=== PATIENT | female | born 1970 | race Caucasian/White ===

== ENCOUNTER 2019-12-15 14:38 | Outpatient (CLI) | payer BC, SELFPAY ==
[2019-12-15 14:55] LABS: Basophils Percent Auto 0.4 % (0.2-1.2); Eosinophils Absolute Auto 0.2 K/mm3 (0-0.3); Eosinophils Percent Auto 2.8 % (0-4.4); Hematocrit 40.1 % (37.0-47.0); Hemoglobin 13.3 g/dL (12.0-15.0); Immature Granulocyte Absolute 0.02 K/mm3 (0.00-0.031); Immature Granulocyte Percent A 0.2 % (0-0.5); Lymphocytes Absolute Auto 1.85 K/mm3 (0.9-3.2); Lymphocytes Percent Auto 21.6 % (18.3-44.2); Mean Corpuscular HGB Conc 33.2 g/dl (32-36); Mean Corpuscular Hemoglobin 28.4 pg (26-34); Mean Corpuscular Volume 85.7 fl (80-100); Mean Platelet Volume 10.9 fl (7.4-10.4); Monocytes Absolute Auto 0.7 K/mm3 (0.1-0.6); Monocytes Percent Auto 7.9 % (2.6-8.5); Neutrophils Absolute Auto 5.7 K/mm3 (1.3-6.7); Neutrophils Percent Auto 67.1 % (45.5-73.1); Platelet Count Result 266 k/mm3 (150-375); Red Blood Count 4.68 M/mm3 (4.2-5.4); Red Cell Distribution Width 12.7 % (11.5-14.5); White Blood Count 8.6 K/mm3 (4.5-10.0)
[2019-12-15 15:06] LABS: Alanine Aminotransferase 16 U/L (4-35); Albumin Level 4.5 g/dL (3.5-5.1); Alkaline Phosphatase 83 U/L (38-126); Amylase 99 U/L (30-110); Aspartate Amino Transferase 22 U/L (14-36); Bilirubin,Total 0.2 mg/dL (0.2-1.3); Blood Urea Nitrogen 18 mg/dL (7-17); Calcium 9.2 mg/dL (8.4-10.2); Carbon Dioxide 25 mmol/L (22-30); Chloride 106 mmol/L (98-107); Estimated Glomerular Filt Rate > 60; Glucose 116 mg/dL (65-105); Lipase 172 U/L (23-300); Potassium 3.7 mmol/L (3.4-5.0); Sodium 139 mmol/L (137-145)
== END 2019-12-15 14:39 | disposition home or self-care (01) ==
PROVIDERS: PCP Family Medicine; Visit Provider Physician Assistant
DX: R10.9 Unspecified abdominal pain (principal)
CPT/HCPCS: 36415; 80053; 82150; 83690; 85025

== ENCOUNTER 2020-01-15 15:37 | Outpatient (CLI) | payer BC, SELFPAY ==
--- NOTE | ~2020-01-15 | US_ITS ---
EXAMINATION: US venous doppler [facility] DATE: 01/15/2020 16:18 INDICATION: Right calf pain. TECHNIQUE: Grayscale ultrasound images without and with compression and Doppler ultrasound images of the bilateral lower extremity veins were obtained. COMPARISON: None. FINDINGS: The visualized portions of right common femoral vein, profunda (deep) femoral vein, femoral vein, pop liteal vein, peroneal veins, posterior tibial veins, and greater saphenous vein outflow are patent. The visualized portions of left common femoral vein, profunda femoral vein, femoral vein, popliteal v ein, peroneal veins, posterior tibial veins, and greater saphenous vein outflow are patent. IMPRESSION: 1. No deep venous thrombosis. Reviewed, dictated and finalized at location A.
== END 2020-01-15 15:38 | disposition home or self-care (01) ==
LOC: ANHIMG 15:39
PROVIDERS: PCP Family Medicine; Visit Provider Physician Assistant
DX: M79.604 Pain in right leg (principal); R60.0 Localized edema
CPT/HCPCS: 93970

== ENCOUNTER 2020-05-04 16:41 | Outpatient (CLI) | payer BC, SELFPAY ==
--- NOTE | ~2020-05-04 | CT_ITS ---
EXAMINATION: CT abdomen pelvis wo con DATE: 05/04/2020 16:57 INDICATION: Right lower quadrant abdominal pain TECHNIQUE: Computed tomography (CT) of the abdomen and pelvis was performed without intravenous contr ast. Automated exposure control and iterative reconstruction technique were employed. The dose-length product was 650.04 mGy-cm. COMPARISON: 07/25/2018 FINDINGS: Lung bases are clear. Heart size is normal. Unchanged small pericardial effusion. Small amount of pne umobilia likely related to prior sphincterotomy with cholecystectomy clips at the gallbladder fossa. Liver is otherwise unremarkable. Spleen, pancreas, bilateral adrenal glands and kidneys are normal. N o urolithiasis. Normal retrocecal appendix. Anastomotic suture line along the sigmoid colon. No bowel obstruction. Bladder is normal. The uterus is not identified and has likely been surgically resected . No free intraperitoneal gas or fluid. No pathologically enlarged abdominal or pelvic lymphadenopath y. Couple unchanged phleboliths in the pelvis. Unchanged right iliac bone island. Mild left and moder ate right sacroiliac osteoarthritis. IMPRESSION: 1. No acute intra-abdominal/pelvic process. Reviewed, dictated and finalized at location A. JAVA ENGINEER
== END 2020-05-04 16:42 | disposition home or self-care (01) ==
PROVIDERS: PCP Family Medicine; Visit Provider Family Medicine
DX: R10.31 Right lower quadrant pain (principal)
CPT/HCPCS: 74176

== ENCOUNTER → 2021-06-28 08:11 | Outpatient (CLI) | payer BC, SELFPAY ==
[2021-06-29 12:27] LABS: SARS-CoV-2 RNA PCR Negative
== END ==
PROVIDERS: PCP Family Medicine; Visit Provider Physician Assistant
DX: J06.9 Acute upper respiratory infection, unspecified (principal); Z20.822 Contact with and (suspected) exposure to COVID-19
CPT/HCPCS: C9803; U0003; U0005

== ENCOUNTER 2021-07-03 09:45 | Outpatient (CLI) | payer BC, SELFPAY ==
--- NOTE | ~2021-07-03 | CT_ITS ---
EXAMINATION: CT abdomen pelvis wo con DATE: 07/03/2021 10:11 INDICATION: Right lower quadrant abdominal pain and nausea. TECHNIQUE: Computed tomography (CT) of the abdomen and pelvis was performed without intravenous contr ast. Automated exposure control and iterative reconstruction technique were employed. The dose-length product was 607.33 mGy-cm. COMPARISON: 05/04/2020 FINDINGS: Lung bases are clear. Heart size is normal. Small pericardial effusion. Liver, spleen, pancreas, bila teral adrenal glands and kidneys are normal. Cholecystectomy clips at the gallbladder fossa. Fluid th roughout the colon consistent with diarrhea. Anastomotic suture line at the sigmoid colon. No abnorma l bowel wall thickening or obstruction. Small bowel and appendix are normal. Bladder is normal. No fr ee intraperitoneal gas or fluid. No pathologically enlarged abdominal or pelvic lymphadenopathy. Mild lumbar and lower thoracic spondylosis. Unchanged right iliac bone island. Mild left and moderate rig ht sacroiliac osteoarthritis. IMPRESSION: 1. Fluid throughout the colon consistent with nonspecific diarrhea. Correlate clinically for enteriti s. No other acute intra-abdominal/pelvic process. Reviewed, dictated and finalized at location B. CONTRACTOR IMPRESSION: 1. Fluid throughout the colon consistent with nonspecific diarrhea. Correlate c linically for enteritis. No other acute intra-abdominal/pelvic process.
== END 2021-07-03 09:46 | disposition home or self-care (01) ==
LOC: ANHIMG 09:46
PROVIDERS: PCP Family Medicine; Visit Provider Family Medicine
DX: R10.31 Right lower quadrant pain (principal)
CPT/HCPCS: 74176

== ENCOUNTER 2021-08-08 15:53 | Outpatient (CLI) | payer BC, SELFPAY ==
--- NOTE | ~2021-08-08 | XR_ITS ---
XR_CERV2-3V_CR DATE: 08/08/2021 16:18 INDICATION: Neck pain TECHNIQUE: AP, open-mouth, lateral views COMPARISON: 07/14/2015 cervical spine FINDINGS: There is straightening of cervical spine. C1 and C2 are normally aligned and the odontoid process is intact. There is no loss of interspace height and anterior spurring at C4-5. The remaining cervical interspac es are well preserved. No fracture or dislocation, locked facet or prevertebral soft tissue swelling. IMPRESSION: Straightening of the cervical spine Minimal degenerative disc disease at C4-5 Reviewed, dictated and finalized at Location A. Reviewed, dictated and finalized at location A. UNITY DIRECTOR
--- NOTE | ~2021-08-08 | XR_ITS ---
XR chest 2V DATE: 08/08/2021 16:18 INDICATION: Cough TECHNIQUE: PA and lateral views COMPARISON: 06/19/2018 two-view chest FINDINGS: Heart size is within normal limits. No hilar or mediastinal enlargement. No pulmonary infil trate or consolidation, pleural effusion or pulmonary vascular congestion or pneumothorax. Included skeletal structures are unremarkable. IMPRESSION: No active cardiopulmonary disease Reviewed, dictated and finalized at location A. GROWER
== END 2021-08-08 15:54 | disposition home or self-care (01) ==
PROVIDERS: PCP Family Medicine; Visit Provider Nurse Practitioner Family
DX: R05.9 Cough, unspecified (principal); M53.82 Other specified dorsopathies, cervical region; M50.321 Other cervical disc degeneration at C4-C5 level
CPT/HCPCS: 71046; 72040

== ENCOUNTER 2021-11-02 13:24 | Outpatient (CLI) | payer BC, SELFPAY ==
--- NOTE | 2021-11-02 17:34 | WPDPFTINT ---
PFT Procedure Performed PFT Procedure Performed Spirometry with Pre/Post Bronchodilator Plethysmography (Lung Vol) Diffusing Cap (DLCO) Flow Vol Loop PFT Interpretation This is a pulmonary function test with pre and post-bronchodilator spirometry, plethysmography and diffusing capacity. The test was performed and results interpreted in accordance with the 2019 and 2005 ATS/ERS Task Force guidelines respectively using the Global Lung Function Initiative-2012 reference equations. Patient demonstrated good effort and cooperation. Reproducibility criteria were met. The quality of the pre bronchodilator spirometry maneuver was Grade C and post bronchodilator spirometry maneuver was Grade C. Findings: Spirometry: There is decreased maximal expiratory airflow at all lung volumes with concave expiratory flow tracing. The pre bronchodilator FVC is 3.47 L, 87% predicted. The pre bronchodilator FEV1 is 2.27 L, 72% predicted. The pre bronchodilator FEV1: FVC ratio 65%. The post bronchodilator FVC is 3.60 L, representing a 4% increase. The post bronchodilator FEV1 is 2.58 L, representing a 14% increase. The post bronchodilator FEV1: FVC ratio is 71%. Plethysmography: The total lung capacity is 5.66 L, 98% predicted. The functional residual capacity is 2.56 L, 78% predicted. The residual volume is 2.19 L, 105% predicted. Diffusing capacity: The diffusing capacity unadjusted for hemoglobin and carboxyhemoglobin is 19.1, 78% predicted. The diffusing capacity adjusted for alveolar volume is 3.97, 92% predicted. Impression: There is a mild obstructive abnormality with significant improvement after inhaling a single dose of albuterol. Lung volumes are normal. The diffusing capacity is normal. There are no prior studies for comparison
== END 2021-11-02 13:25 | disposition home or self-care (01) ==
LOC: ANHPFT 13:25
PROVIDERS: PCP Family Medicine; Visit Provider Nurse Practitioner Family
DX: R06.02 Shortness of breath (principal); R05.9 Cough, unspecified; R94.2 Abnormal results of pulmonary function studies
CPT/HCPCS: 94060; 94726; 94729

== ENCOUNTER → 2021-11-13 15:04 | Outpatient (CLI) | payer BC, SELFPAY ==
--- NOTE | ~2021-11-13 | XR_ITS ---
EXAM: XR hand LT 2V, XR hand RT 2V HISTORY: polyarthralgia . COMPARISON: None available. FINDINGS: Normal mineralization. No fracture or dislocation. No lytic or blastic lesion. Minimal nils nt space narrowing and osteophytosis in the finger joints bilaterally. No erosion or periosteal monson e. Soft tissues within normal limits. IMPRESSION: Minimal osteoarthritic changes in the fingers, otherwise normal left and right hand radio graph findings. Reviewed, dictated and finalized at location K. IMPRESSION: Minimal osteoarthritic changes in the fingers, otherwise normal lef t and right hand radiograph findings.
--- NOTE | ~2021-11-13 | XR_ITS ---
XR knee RT 2V, XR knee LT 2V 11/13/2021 16:00 Indication: Arthralgia. Knee pain. Procedure: 2 views each knee Comparison: No prior studies for comparison. Findings: No fracture, subluxation or dislocation. No significant joint effusion. No foreign bodies. There is anatomic alignment. Impression: 1: No significant bone or joint abnormality. Reviewed, dictated and finalized at location A. Impression: 1: No significant bone or joint abnormality. Impression: 1: No significant bone or joint abnormality.
--- NOTE | ~2021-11-13 | XR_ITS ---
EXAM: XR lumbar spine 2-3V HISTORY: Low back pain, polyarthralgia COMPARISON: None available FINDINGS: Cholecystectomy clips. 5 nonrib-bearing lumbar-type vertebral bodies. Pedicles intact. Norm al vertebral body alignment. Vertebral body heights preserved. Mild narrowing at L4-5 and L5-S1. Face t sclerosis and interspinous narrowing in the lower lumber spine. IMPRESSION: Mild degenerative disc disease at L4-5 and L5-S1. Moderate lower lumbar facet arthropathy and intersp inous narrowing. Reviewed, dictated and finalized at location K. IMPRESSION: Mild degenerative disc disease at L4-5 and L5-S1. Moderate lower lumbar facet a rthropathy and interspinous narrowing.
== END ==
PROVIDERS: PCP Family Medicine; Visit Provider Physician Assistant
DX: M19.042 Primary osteoarthritis, left hand (principal); M47.817 Spondylosis without myelopathy or radiculopathy, lumbosacral region; M19.041 Primary osteoarthritis, right hand; M25.562 Pain in left knee; M25.561 Pain in right knee
CPT/HCPCS: 72100; 73120; 73560

== ENCOUNTER 2021-11-21 15:44 | Outpatient (CLI) | payer BC, SELFPAY ==
[2021-11-24 12:01] LABS: Alpha-1-Antitrypsin, QN 149 mg/dL (83-199)
== END 2021-11-21 15:45 | disposition home or self-care (01) ==
LOC: ANHLAB 15:45
PROVIDERS: PCP Family Medicine; Visit Provider Physician Assistant
DX: R05.9 Cough, unspecified (principal); R06.02 Shortness of breath
CPT/HCPCS: 36415; 82103; 82104

== ENCOUNTER 2021-12-11 09:39 | Outpatient (CLI) | payer BC, SELFPAY ==
--- NOTE | ~2021-12-11 | CT_ITS ---
EXAMINATION: CT diagnostic chest wo con DATE: 12/11/2021 09:58 INDICATION: Cough, shortness of breath TECHNIQUE: Computed tomography (CT) of the chest was performed without intravenous contrast. Automate d exposure control and iterative reconstruction technique were employed. Exam dose: 184.02 mGy-cm to jelena exam DLP. COMPARISON: 08/08/2021 2 view chest FINDINGS: Trace pericardial fluid. Normal heart size. No thoracic aortic aneurysm. No hilar or mediastinal mass lesion or lymphadenopathy. Calcified right hilar nodes and calcified right lower lobe pulmonary granuloma, consistent with old pulmonary granulo matous disease. Mild discoid atelectasis or scarring at the dependent posterior right lung base. No pulmonary infiltr ate or consolidation or pulmonary mass lesion is detected. Normal morphology of the adrenal glands. Status post cholecystectomy. Included skeletal structures are unremarkable. IMPRESSION: Minimal discoid atelectasis or scarring at the dependent posterior right lower lobe Status post cholecystectomy Reviewed, dictated and finalized at Location A. Reviewed, dictated and finalized at location A.
--- NOTE | ~2021-12-11 | XR_ITS ---
EXAMINATION: XR barium swallow modified DATE: 12/11/2021 10:26 INDICATION: Dysphagia. TECHNIQUE: The patient was given barium-containing material of multiple consistencies to swallow by salvador cruz speech pathologist while I performed fluoroscopy. Dose-area product was 0.77 Gy-cm2. 1.0 minutes fluoroscopy time FINDINGS: Oral Stage: Within functional limits Pharyngeal Phase: Within functional limits Cervical/Esophageal Stage: Within functional limits IMPRESSION: Modified esophagram findings as above. Please refer to the speech therapy report [facility] Reviewed, dictated and finalized at Location A. Reviewed, dictated and finalized at location A. IMPRESSION: Modified esophagram findings as above. Please refer to the speech t herapy report for specific recommendations.
--- NOTE | 2021-12-11 12:07 | STOPEVAL ---
MODIFIED BARIUM SWALLOW Thank you for referring Antonette Childress to [facility].? Referring Physician Date Attending Provider: NABIL Vera Therapy Assessment Status Assessment Status Assessment Status Evaluation Outpatient Past Medical History Past Medical History No Past Medical/Surgical History Patient/Family Denies Significant Past Medical/ Surgical History Source of Past Medical History Patient Pain Assessment Timing of Pain Assessment Timing of Pain Assessment Assessment Self Report Self Report Pain Level 0 Pain Score Pain Score 0: Self Report Modified Barium Swallow Evaluation Consistency Solid Consistency 5 mL Method of Presentation Spoon Oral Preparatory Symptoms Within Functional Limits Oral Phase Symptoms Within Functional Limits Pharyngeal Phase Symptoms Within Functional Limits Severity of Vallecular Residue None - 0% No Residue Severity of Pyriform Sinus Residue None - 0% No Residue 8 Point Laryngeal Penetration-Aspiration Material Does Not Enter Airway Scale Cervical/Esophageal Symptoms Within Functional Limits Mixed Consistency 5 mL Method of Presentation Spoon Oral Preparatory Symptoms Within Functional Limits Oral Phase Symptoms Within Functional Limits Pharyngeal Phase Symptoms Within Functional Limits Severity of Vallecular Residue None - 0% No Residue Severity of Pyriform Sinus Residue None - 0% No Residue 8 Point Laryngeal Penetration-Aspiration Material Does Not Enter Airway Scale Cervical/Esophageal Symptoms Within Functional Limits Pureed Consistency 5 mL Method of Presentation Spoon Oral Preparatory Symptoms Within Functional Limits Oral Phase Symptoms Within Functional Limits Pharyngeal Phase Symptoms Within Functional Limits Severity of Vallecular Residue None - 0% No Residue Severity of Pyriform Sinus Residue None - 0% No Residue 8 Point Laryngeal Penetration-Aspiration Material Does Not Enter Airway Scale Cervical/Esophageal Symptoms Within Functional Limits Pureed Consistency 3 mL Method of Presentation Spoon Oral Preparatory Symptoms Within Functional Limits Oral Phase Symptoms Within Functional Limits Pharyngeal Phase Symptoms Within Functional Limits Severity of Vallecular Residue None - 0% No Residue Severity of Pyriform Sinus Residue None - 0% No Residue 8 Point Laryngeal Penetration-Aspiration Material Does Not Enter Airway Scale Cervical/Esophageal Symptoms Within Functional Limits Thin Uncontrolled 2 Method of Presentation Straw Oral Preparatory Symptoms Within Functional Limits Oral Phase Symptoms Within Functional Limits Pharyngeal Phase Symptoms
== END 2021-12-11 09:40 | disposition home or self-care (01) ==
LOC: ANHIMG 09:44
PROVIDERS: PCP Family Medicine; Visit Provider Physician Assistant
DX: R05.9 Cough, unspecified (principal); R06.02 Shortness of breath; Z90.49 Acquired absence of other specified parts of digestive tract
CPT/HCPCS: 71250; 92611

== ENCOUNTER 2022-03-06 11:37 | Outpatient (CLI) | payer BC, SELFPAY ==
--- NOTE | ~2022-03-06 | XR_ITS ---
EXAMINATION:XR cervical spine 4-5V DATE: 03/06/2022 11:57 INDICATION: Neck pain TECHNIQUE: AP, lateral, bilateral oblique and odontoid views of the cervical spine are provided. COMPARISON: 08/08/2021 FINDINGS: Alignment is normal. The odontoid is intact. No fracture is identified. There is mild loss of intervertebral disc space height at C4-5. Mild facet and uncovertebral joint osteoarthritis is not ed at this level. Prevertebral soft tissues are normal. IMPRESSION: 1. Mild cervical spondylosis without acute findings or significant interval change. Reviewed, dictated and finalized at location B. IMPRESSION: 1. Mild cervical spondylosis without acute findings or significant interval stephan nge.
== END 2022-03-06 11:38 | disposition home or self-care (01) ==
LOC: ANHIMG 11:41
PROVIDERS: PCP Family Medicine; Visit Provider Physician Assistant
DX: M54.2 Cervicalgia (principal)
CPT/HCPCS: 72050

== ENCOUNTER 2022-05-09 13:55 | Outpatient (CLI) | payer BC, SELFPAY ==
--- NOTE | ~2022-05-09 | CT_ITS ---
EXAMINATION: CT abdomen pelvis wo con DATE: 05/09/2022 14:10 INDICATION: Right lower quadrant abdominal pain for months. There are history of cholecystectomy and partial colectomy. TECHNIQUE: Computed tomography (CT) of the abdomen and pelvis was performed without intravenous contr ast. Automated exposure control and iterative reconstruction technique were employed. Exam dose: 641 .79 mGy-cm total exam DLP. COMPARISON: 07/03/2021 CT abdomen pelvis FINDINGS: The lung bases are clear. Normal heart size. No pericardial or pleural effusion. Status post cholecystectomy, with likely associated mild pneumobilia. No hepatic space-occupying mass lesion. No bile duct or pancreatic duct dilatation. No pancreatic mas s lesion or calcification. Normal splenic size. Normal morphology of the adrenal glands. No renal mass lesion or urinary tract calculus or hydroureteronephrosis. The urinary bladder is evacu ated. Status post hysterectomy. Normal caliber of the abdominal aorta. No intraperitoneal or retroperitoneal or pelvic mass lesion or adenopathy or ascites. Normal appendix. There is a suture line at the sigmoid colon consistent with history of prior partial colectomy. No bowel obstruction, bowel wall thickening, pneumatosis or intraperitoneal free air. Included skeletal structures are unremarkable, without suspicious osteolytic or osteoblastic lesions. IMPRESSION: Normal appendix Status post cholecystectomy Status post partial left colectomy Reviewed, dictated and finalized at Location A. Reviewed, dictated and finalized at location A. RUNNER
== END 2022-05-09 13:56 | disposition home or self-care (01) ==
PROVIDERS: PCP Family Medicine; Visit Provider Physician Assistant
DX: R10.31 Right lower quadrant pain (principal); R10.2 Pelvic and perineal pain; Z90.49 Acquired absence of other specified parts of digestive tract
CPT/HCPCS: 74176

== ENCOUNTER 2022-06-14 15:17 | Outpatient (CLI) | payer BC, SELFPAY ==
[2022-06-14 16:04] LABS: Influenza A QL RT-PCR Negative (Negative); Influenza B QL RT-PCR Negative (Negative); SARS-CoV-2 RNA PCR Negative
== END 2022-06-14 15:18 | disposition home or self-care (01) ==
LOC: ANHLAB 15:19
PROVIDERS: PCP Family Medicine; Visit Provider Physician Assistant
DX: R05.9 Cough, unspecified (principal); R06.02 Shortness of breath
CPT/HCPCS: 87636

== ENCOUNTER → 2022-06-15 09:36 | Outpatient (CLI) | payer BC, SELFPAY ==
--- NOTE | ~2022-06-15 | XR_ITS ---
EXAMINATION: XR hip BI 2V w AP pelvis DATE: 06/15/2022 09:52 INDICATION: Bilateral hip pain TECHNIQUE: AP view the pelvis and two views of each hip were obtained. COMPARISON: None. FINDINGS: Bone alignment is normal. There is no fracture. A surgical anastomosis is noted in the left pelvis. There is mild osteoarthritis of the hips. IMPRESSION: 1. Mild osteoarthritis of the hips. Reviewed, dictated and finalized at location A. SHER WALLBOARD AND PLASTERBOARD
--- NOTE | ~2022-06-15 | XR_ITS ---
EXAMINATION: XR lumbar spine 2-3V DATE: 06/15/2022 09:52 INDICATION: Low back pain TECHNIQUE: Anteroposterior and lateral views of the lumbar spine, and cone-down lateral view of the l umbosacral junction were obtained. COMPARISON: 11/13/2021 FINDINGS: The vertebral body heights and alignment are normal. There is no fracture. There is mild lo ss of intervertebral disc space height at L4-5 and L5-S1. Small degenerative osteophytes project from the anterior endplates of multiple vertebral bodies. There is moderate facet joint osteoarthritis of the lower lumbar spine. Surgical clips in the right upper quadrant are likely from prior cholecystec janny. IMPRESSION: 1. Mild lumbar spondylosis without acute findings or significant interval change. Reviewed, dictated and finalized at location A. GER AIR IMPRESSION: 1. Mild lumbar spondylosis without acute findings or significant interval iona ramon
== END ==
PROVIDERS: PCP Family Medicine; Visit Provider Physician Assistant
DX: M25.551 Pain in right hip (principal); G89.29 Other chronic pain; M54.50 Low back pain, unspecified; M16.0 Bilateral primary osteoarthritis of hip; M43.06 Spondylolysis, lumbar region
CPT/HCPCS: 72100; 73521

== ENCOUNTER 2022-07-25 09:00 | Outpatient (CLI) | payer BC, SELFPAY ==
--- NOTE | ~2022-07-25 | XR_ITS ---
EXAMINATION: XR lg joint inject/asp w image DATE: 07/25/2022 09:50 INDICATION: Right hip arthritis. TECHNIQUE: A time-out was performed to verify the patient's name, date of , and procedure to b e performed. The procedure including the risks, benefits, and alternatives was discussed with the pat ient. Risks discussed included bleeding and infection. The patient understood the risks and agreed to proceed. The skin overlying the right hip joint was prepped and draped in usual sterile fashion. A nesthetic was administered with 1% lidocaine subcutaneously. A 22 G needle was advanced under fluoro scopic guidance into the joint. Subsequently, injectate consisting of 2 mL 0.5% bupivacaine and 1 mL 80 mg/mL Depo-Medrol was instilled. The needle was removed and the entry site was cleaned and dress ed. There were no immediate complications. Fluoroscopy exposure time was 0.1 minutes. The total numb er of images was 1. FINDINGS: Real-time fluoroscopy demonstrates the needle in the right hip joint. Patient's pain prior to procedure:6/10. Patient's pain following the procedure: 4/10. IMPRESSION: 1. Fluoroscopy guided right hip joint injection of local anesthetic and steroid with decrease in the patient's presenting pain. Reviewed, dictated and finalized at location A. L UNLOADER
== END 2022-07-25 09:01 | disposition home or self-care (01) ==
PROVIDERS: PCP Family Medicine; Visit Provider Nurse Practitioner Family
DX: M16.11 Unilateral primary osteoarthritis, right hip (principal)
CPT/HCPCS: 20610; 77002; J1040

== ENCOUNTER 2022-09-11 13:31 | Outpatient (CLI) | payer BC, SELFPAY ==
--- NOTE | ~2022-09-11 | MR_ITS ---
EXAMINATION: MR lumbar spine wo con DATE: 09/11/2022 14:11 INDICATION: Low back pain. TECHNIQUE: Magnetic resonance imaging (MRI) of the lumbar spine was performed without intravenous con trast. Sequences included sagittal T2-weighted FSE, sagittal T2-weighted FS FSE, sagittal T1-weighted FSE, and axial T2-weighted FSE. COMPARISON: Lumbar spine radiographs 06/15/2022 FINDINGS: Bone alignment is normal. Vertebral body heights are normal. Intervertebral disc heights ar e normal. The distal spinal cord signal intensity is normal. The conus medullaris is at L1. The follo wing disc levels are specifically discussed: L1-L2: The disc does not extend beyond the endplate margin. There is mild bilateral facet joint osteo arthritis. There is no neural foraminal stenosis. There is no central canal stenosis. L2-L3: The disc is mildly bulging. There is mild bilateral facet joint osteoarthritis. There is mild left neural foraminal stenosis. There is mild central canal stenosis. L3-L4: The disc is bulging. There is moderate right and mild left facet joint osteoarthritis. There i s mild bilateral neural foraminal stenosis. There is mild central canal stenosis. L4-L5: The disc is bulging. There is severe bilateral facet joint osteoarthritis. There is mild bilat eral neural foraminal stenosis. There is mild central canal stenosis. L5-S1: The disc does not extend beyond the endplate margin. There is severe bilateral facet joint ost eoarthritis. There is no neural foraminal stenosis. There is no central canal stenosis. IMPRESSION: 1. Mild lumbar spondylosis. Reviewed, dictated and finalized at location A. IMPRESSION: 1. Mild lumbar spondylosis.
== END 2022-09-11 13:32 | disposition home or self-care (01) ==
PROVIDERS: PCP Family Medicine; Visit Provider Nurse Practitioner Family
DX: M54.50 Low back pain, unspecified (principal); M43.06 Spondylolysis, lumbar region
CPT/HCPCS: 72148

== ENCOUNTER 2022-10-02 08:31 | Outpatient (CLI) | payer BC, SELFPAY ==
--- NOTE | ~2022-10-02 | XR_ITS ---
EXAMINATION: XR sacroiliac jt inj w imag RT DATE: 10/02/2022 09:34 INDICATION: Sacrococcygeal joint disorder with one year of sacral iliac joint pain. TECHNIQUE: A time-out was performed to verify the patient's name, date of , and procedure to b e performed. The procedure including the risks, benefits, and alternatives was discussed with the pat ient. Risks discussed included bleeding and infection. The patient understood the risks and agreed to proceed. The skin overlying the right sacroiliac joint was prepped and draped in usual sterile fash ion. Anesthetic was administered with 1% lidocaine subcutaneously. A 22 G needle was advanced under fluoroscopic guidance into the joint. Injection of 1 mL of Omnipaque 240 confirmed intra-articular position of the needle. Subsequently, injectate consisting of 3 mL of a 2:1 mixture of 0.5% Marcaine : 80 mg/mL Depo-Medrol for a total dosage of 80 mg Depo-Medrol was instilled. Washout of contrast was seen confirming intra-articular administration. The needle was removed and the entry site was cleane d and dressed. There were no immediate complications. Fluoroscopy exposure time was 0.3 minutes. The total number of images was 5. FINDINGS: Real-time fluoroscopy demonstrates the needle in the right sacroiliac joint. Patient's pain prior to procedure:6/10. Patient's pain following the procedure: 0/10. IMPRESSION: 1. Successful right sacroiliac joint injection of local anesthetic and steroid with decrease in the p atient's presenting pain. Reviewed, dictated and finalized at location A. IMPRESSION: 1. Successful right sacroiliac joint injection of local anesthetic and steroid with decrease in the patient's presenting pain.
== END 2022-10-02 08:32 | disposition home or self-care (01) ==
PROVIDERS: PCP Family Medicine; Visit Provider Nurse Practitioner Family
DX: M53.3 Sacrococcygeal disorders, not elsewhere classified (principal)
CPT/HCPCS: 27096; G0260; J1040; Q9966

== ENCOUNTER → 2023-01-30 10:46 | Outpatient (CLI) | payer BC, SELFPAY ==
--- NOTE | ~2023-01-30 | XR_ITS ---
Clinical Indication: Cough PA and lateral views of the chest: Comparison: 08/08/2021 Findings: The lungs are clear, without evidence of focal consolidation or pleural effusion. Cardiome diastinal silhouette is within normal limits. Bones and soft tissues are unremarkable. Impression: Normal chest. Reviewed, dictated and finalized at location . Impression: Normal chest.
== END ==
PROVIDERS: PCP Family Medicine; Visit Provider Family Medicine
DX: R05.9 Cough, unspecified (principal)
CPT/HCPCS: 71046

== ENCOUNTER 2023-07-09 14:19 | Outpatient (CLI) | payer BC, SELFPAY ==
--- NOTE | ~2023-07-09 | US_ITS ---
EXAMINATION: US soft tissue head and neck DATE: 07/09/2023 14:44 INDICATION: Right neck pain. TECHNIQUE: Multiple sonographic images of the head and neck were obtained. COMPARISON: None. FINDINGS: There is no abnormal mass or lymphadenopathy in the patient's area of concern. IMPRESSION: 1. No abnormal mass or lymphadenopathy in the patient's area of concern in the neck. Reviewed, dictated and finalized at location A. SHOP SUPERVISOR
== END 2023-07-09 14:20 | disposition home or self-care (01) ==
LOC: ANHIMG 14:21
PROVIDERS: PCP Family Medicine; Visit Provider Physician Assistant
DX: M54.2 Cervicalgia (principal)
CPT/HCPCS: 76536

== ENCOUNTER 2023-09-07 12:40 | Outpatient (CLI) | payer BC, SELFPAY ==
--- NOTE | ~2023-09-07 | MR_ITS ---
EXAMINATION: MR brain/brain stem wo con DATE: 09/08/2023 06:37 INDICATION: Headache, unspecified. TECHNIQUE: Magnetic resonance imaging (MRI) of the brain and brainstem was performed without intraven ous contrast. COMPARISON: Brain MRI 08/15/2013, head CT 07/22/2013 FINDINGS: There are scattered areas of nonspecific increased T2-weighted signal intensity in the cere bral white matter, which is within normal limits for the patient's age. There is no intracranial hemo rrhage, acute infarction, or abnormal intracranial mass lesion. The ventricles are normal in size. Th ere is mild mucosal thickening in the paranasal sinuses. The mastoid air cells are normal. The orbits are normal. IMPRESSION: 1. Normal aging brain. Reviewed, dictated and finalized at location E. IMPRESSION: 1. Normal aging brain.
== END 2023-09-07 12:41 | disposition home or self-care (01) ==
PROVIDERS: PCP Family Medicine; Visit Provider Physician Assistant
DX: R51.9 Headache, unspecified (principal)
CPT/HCPCS: 70551

== ENCOUNTER 2023-09-20 13:17 | Outpatient (CLI) | payer BC, SELFPAY ==
--- NOTE | ~2023-09-20 | XR_ITS ---
EXAMINATION: XR sacroiliac jt inj w imag RT DATE: 09/20/2023 14:03 INDICATION: Sacrococcygeal disorder with pain TECHNIQUE: A time-out was performed to verify the patient's name, date of , and procedure to b e performed. The procedure including the risks, benefits, and alternatives was discussed with the pat ient. Risks discussed included bleeding and infection. The patient understood the risks and agreed to proceed. The skin overlying the right sacroiliac joint was prepped and draped in usual sterile fash ion. Anesthetic was administered with 1% lidocaine subcutaneously. A 22 G needle was advanced under fluoroscopic guidance into the joint. Injection of 1 mL of Omnipaque 240 confirmed intra-articular position of the needle. Subsequently, injectate consisting of 3 mL at 2:1 mixture of 0.5% Marcaine: 80 mg/mL Depo-Medrol for a total dosage of 80 mg Depo-Medrol was instilled. Washout of contrast was s een confirming intra-articular administration. The needle was removed and the entry site was cleaned and dressed. There were no immediate complications. Fluoroscopy exposure time was 0.2 minutes. The t otal number of images was 3. Total DAP was 1.216 Gycm^2 FINDINGS: Real-time fluoroscopy demonstrates the needle in the right sacroiliac joint. Patient's pain prior to procedure:10. Patient's pain following the procedure: 09/07. IMPRESSION: 1. Successful right sacroiliac joint injection of local anesthetic and steroid with decrease in the p atient's presenting pain. Reviewed, dictated and finalized at location A. IMPRESSION: 1. Successful right sacroiliac joint injection of local anesthetic and steroid with decrease in the patient's presenting pain.
== END 2023-09-20 13:18 | disposition home or self-care (01) ==
LOC: ANHIMG 13:18
PROVIDERS: PCP Family Medicine; Visit Provider Nurse Practitioner Family
DX: M53.3 Sacrococcygeal disorders, not elsewhere classified (principal)
CPT/HCPCS: 27096; G0260; J1040; Q9966

== ENCOUNTER 2023-11-12 14:00 | Outpatient (CLI) | payer BC, SELFPAY ==
--- NOTE | ~2023-11-12 | CT_ITS ---
EXAMINATION: CT abdomen pelvis w con DATE: 11/12/2023 14:22 INDICATION: Nausea. Upper abdominal pain. TECHNIQUE: Computed tomography (CT) of the abdomen and pelvis was performed with 100 mL Omnipaque 350 intravenous contrast. Automated exposure control and iterative reconstruction technique were employe d. The dose-length product was 582.94 mGy-cm. COMPARISON: CT abdomen and pelvis 05/09/2022 FINDINGS: The visualized portions of the lung bases demonstrate mild atelectasis. A calcified right l ilana nodules consistent with old granulomatous disease. No pleural effusion. The heart size is normal. No pericardial effusion. The liver and spleen are normal. There are changes of cholecystectomy. The pancreas, adrenal glands, and kidneys are normal. There is an anastomosis in the sigmoid colon. There are no dilated loops of bowel. The appendix is normal. There are no pathologically enlarged lymph no leyla. There is no free intraperitoneal fluid. There is mild thoracic and lumbar spondylosis. IMPRESSION: 1. No etiology for the patient's symptoms. Reviewed, dictated and finalized at location A.
== END 2023-11-12 14:01 | disposition home or self-care (01) ==
LOC: ANHIMG 14:01
PROVIDERS: PCP Family Medicine; Visit Provider Family Medicine
DX: R10.31 Right lower quadrant pain (principal); R10.13 Epigastric pain
CPT/HCPCS: 74177; Q9967

== ENCOUNTER 2024-04-07 06:33 | Outpatient (CLI) | payer BC, SELFPAY ==
--- NOTE | ~2024-04-07 | MR_ITS ---
EXAMINATION: MR brain IAC wo/w con DATE: 04/07/2024 07:27 INDICATION: Dizziness and giddiness. Headache. TECHNIQUE: Magnetic resonance imaging (MRI) of the brain, brainstem, and internal auditory canals was performed without and with 19 mL MultiHance intravenous contrast. COMPARISON: Brain MRI 09/07/2023 FINDINGS: There are scattered areas of nonspecific increased T2-weighted signal intensity in the cere bral white matter, which is within normal limits for the patient's age. There is no intracranial hemo rrhage, acute infarction, or abnormal intracranial mass lesion. The ventricles are normal in size. Th e internal auditory canals, inner ears, tympanic cavities, and mastoid air cells are normal. The orbi ts are normal. The paranasal sinuses are clear. IMPRESSION: 1. Normal aging brain. Reviewed, dictated and finalized at location A. IMPRESSION: 1. Normal aging brain.
== END 2024-04-07 06:34 | disposition home or self-care (01) ==
PROVIDERS: PCP Family Medicine; Visit Provider Physician Assistant
DX: R42 Dizziness and giddiness (principal); H93.19 Tinnitus, unspecified ear; R51.9 Headache, unspecified
CPT/HCPCS: 70553; A9577

== ENCOUNTER 2024-06-04 15:15 | Outpatient (CLI) | payer BC, SELFPAY ==
--- NOTE | ~2024-06-04 | XR_ITS ---
XR foot LT min 3V Ordering provider: Nimisha SanchezJonathon History: . POLYARTHRALGIA . Comparison: None. FINDINGS: BONES: No acute fracture or dislocation. JOINT SPACES: Narrowing of the proximal and distal interphalangeal joints. No tarsal coalition. SOFT TISSUES: Normal. Calcaneus spur. Ossification of the insertion of the tendo Achilles. IMPRESSION: No acute osseous abnormality left foot. Polyarticular osteoarthritic changes. Reviewed, dictated and finalized at location A. UROY CUTTER OPERATOR
--- NOTE | ~2024-06-04 | XR_ITS ---
XR hand LT min 3V Ordering provider: Nimisha SanchezJonathon History: . POLYARTHRALGIA . Comparison: None. FINDINGS: BONES: No acute fracture or dislocation. JOINT SPACES: Slight narrowing of the distal interphalangeal joints. SOFT TISSUES: Unremarkable. IMPRESSION: No acute osseous abnormality left hand. Slight narrowing of the distal interphalangeal joints suggestive of osteoarthritic changes. Reviewed, dictated and finalized at location A. TER INSPECTOR IMPRESSION: No acute osseous abnormality left hand. Slight narrowing of the distal interphalangeal joints suggestive of osteoarthri tic changes.
--- NOTE | ~2024-06-04 | XR_ITS ---
XR foot RT min 3V Ordering provider: Nimisha SanchezJonathon History: . POLYARTHRALGIA . Comparison: None. FINDINGS: BONES: No acute fracture or dislocation. JOINT SPACES: Narrowing of the proximal and distal interphalangeal joints. Narrowing of the first met atarsophalangeal joint. No tarsal coalition. SOFT TISSUES: Normal. Calcaneus spur. Ossification of the insertion of the tendo Achilles. IMPRESSION: No acute osseous abnormality of the right foot. Polyarticular osteoarthritic changes more prominent in the first interphalangeal joint.. Reviewed, dictated and finalized at location A. YLENE TORCH SOLDERER IMPRESSION: No acute osseous abnormality of the right foot. Polyarticular osteoarthritic changes more prominent in the first interphalangea l joint..
--- NOTE | ~2024-06-04 | XR_ITS ---
XR hand RT min 3V 06/04/2024 15:39 Indication: Polyarthralgias Procedure: 3 views right hand Comparison: 11/13/2021 Findings: There is mild osteoarthritis of the interphalangeal joints as well as the first MCP joint. No erosive changes. No fracture or traumatic malalignment. No focal soft tissue abnormality. No forei gn bodies. Impression: 1: Mild polyarticular osteoarthritis. Reviewed, dictated and finalized at location B. STONE CARVER Impression: 1: Mild polyarticular osteoarthritis.
--- NOTE | ~2024-06-04 | XR_ITS ---
XR knee RT 3V 06/04/2024 15:40 Indication: Polyarthralgia Procedure: 3 views right knee Comparison: 11/13/2021 Findings: There is anatomic alignment. No fracture, subluxation or dislocation. No significant joint space narrowing. No erosive changes. No foreign bodies. No joint effusion. Impression: 1: No significant bone or joint abnormality. Reviewed, dictated and finalized at location B. HICS MANAGER Impression: 1: No significant bone or joint abnormality.
== END 2024-06-04 15:16 | disposition home or self-care (01) ==
PROVIDERS: PCP Physician Assistant Medical; Visit Provider Physician Assistant Medical
DX: M25.561 Pain in right knee (principal); M19.041 Primary osteoarthritis, right hand; M19.042 Primary osteoarthritis, left hand; M19.071 Primary osteoarthritis, right ankle and foot; M19.072 Primary osteoarthritis, left ankle and foot; R76.8 Other specified abnormal immunological findings in serum; G72.9 Myopathy, unspecified; L85.3 Xerosis cutis
CPT/HCPCS: 73130; 73562; 73630

== ENCOUNTER 2024-07-28 09:23 | Outpatient (CLI) | payer BC, SELFPAY ==
--- NOTE | ~2024-07-28 | CT_ITS ---
EXAMINATION: CT soft tissue neck w con DATE: 07/28/2024 09:49 INDICATION: Right neck pain. Dysphagia. Enlarged lymph nodes. Disorder of ligament, unspecified site. TECHNIQUE: Computed tomography (CT) of the neck was performed with 75 mL Omnipaque-350 intravenous co ntrast. Automated exposure control and iterative reconstruction technique were employed. The dose-rudy gth product was 433.39 mGy-cm. COMPARISON: Neck CT 03/23/2009 FINDINGS: There are calcifications in the palatine tonsils bilaterally. There are no pathologically e nlarged lymph nodes. There is 0% stenosis of the proximal internal carotid arteries relative to sabi l distal artery lumen diameters. There is mild cervical spondylosis. IMPRESSION: 1. No lymphadenopathy. Reviewed, dictated and finalized at location A. SUPERVISOR IMPRESSION: 1. No lymphadenopathy.
== END 2024-07-28 09:24 | disposition home or self-care (01) ==
PROVIDERS: PCP Family Medicine; Visit Provider Otolaryngology
DX: M24.20 Disorder of ligament, unspecified site (principal); H81.10 Benign paroxysmal vertigo, unspecified ear; R59.0 Localized enlarged lymph nodes
CPT/HCPCS: 70491; Q9967

== ENCOUNTER 2024-11-05 13:41 | Outpatient (CLI) | payer BC, SELFPAY ==
--- NOTE | ~2024-11-05 | MM_ITS ---
EXAMINATION: MM screening bertha BI w [facility] HISTORY: Screening TECHNIQUE: Craniocaudal and mediolateral oblique 3-D tomosynthesis images were obtained and synthetic 2-D images were generated. CAD analysis was submitted and interpreted. COMPARISON: No prior mammogram is available for comparison at this institution. BREAST PARENCHYMAL COMPOSITION: Not dense: There are scattered areas of fibroglandular density. FINDINGS: There is no evidence of suspicious mass, calcification, or architectural distortion to sugg est malignancy in either breast. There has been no suspicious interval change. IMPRESSION: 1. No mammographic evidence of malignancy. 2. Recommend routine screening mammography in one year. BI-RADS Category 1: Negative Reviewed, dictated and finalized at location A.
== END 2024-11-05 13:42 | disposition home or self-care (01) ==
LOC: MICIMG 13:41
PROVIDERS: PCP Family Medicine; Visit Provider Obstetrics & Gynecology
DX: Z12.31 Encounter for screening mammogram for malignant neoplasm of breast (principal)
CPT/HCPCS: 77063; 77067

== ENCOUNTER 2024-12-09 13:37 | Outpatient (CLI) | payer BC, SELFPAY ==
--- NOTE | ~2024-12-09 | XR_ITS ---
EXAMINATION: XR lg joint inject/asp add, XR lg joint inject/asp w image DATE: 12/09/2024 15:03 INDICATION: Bilateral hip pain TECHNIQUE: A time-out was performed to verify the patient's name, date of , and procedure to b e performed. The procedure including the risks, benefits, and alternatives was discussed with the pat ient. Risks discussed included bleeding and infection. The patient understood the risks and agreed to proceed. Attention was first turned to the right hip. The skin overlying the right hip joint was pre pped and draped in usual sterile fashion. Anesthetic was administered with 1% lidocaine subcutaneous ly. A 22 G needle was advanced under fluoroscopic guidance into the joint. Injection of 1 mL of Omn ipaque 240 confirmed intra-articular position of the needle. Subsequently, injectate consisting of 3 mL of a 2:1 mixture of 0.5% bupivacaine: 80 mg/mL Depo-Medrol for a total dosage of 80 mg Depo-Medro l was instilled. Washout of contrast was seen confirming intra-articular administration. The needle w as removed and the entry site was cleaned and dressed. Potential central to the left hip. The skin overlying the left hip joint was prepped and draped in [facility] sterile fashion. Anesthetic was administered with 1% lidocaine subcutaneously. A 22 G needle wa s advanced under fluoroscopic guidance into the joint. Injection of 1 mL of Omnipaque 240 confirmed intra-articular position of the needle. Subsequently, injectate consisting of 3 mL of a 2:1 mixture of 0.5% bupivacaine: 80 mg/mL Depo-Medrol for a total dosage of 80 mg Depo-Medrol was instilled. Wash out of contrast was seen confirming intra-articular administration. The needle was removed and the en try site was cleaned and dressed. There were no immediate complications. Fluoroscopy exposure time fo r the combined procedures was 0.2 minutes. The total number of images was 4. Total DAP was 1.086 Gycm ^2. FINDINGS: Real-time fluoroscopy demonstrates the needle in contrast in the right hip joint. Subsequen t images demonstrate a second needle and contrast in the left hip joint. Patient's right hip pain lolly or to procedure was 7/10 and following the procedure was 3/10. Patient's left hip pain prior to the p rocedure was 3/10 and following the procedure was 0/10. IMPRESSION: 1. Successful right hip joint injection of local anesthetic and steroid with decrease in the patient' s presenting pain. 2. Successful left hip joint injection of local anesthetic and steroid with decrease in the patient's presenting pain. Reviewed, dictated and finalized at location A. IMPRESSION: 1. Successful right hip joint injection of local anesthetic and steroid with de crease in the patient's presenting pain. 2. Successful left hip joint injection of local anesthetic and steroid with dec rease in the patient's presenting pain.
--- OUTSIDE RECORDS SUMMARY | 2024-12-09 15:57 | XMS_ITS | Encounter Summary ---
Author Organization [facility] Address [address] [facility] [place] [address] Care Team Providers Care Data Deliverables Manager Name Role Phone Wero Welch MD Primary Care Provider [phone] Encounter Details Date Type Department Care Team (Late st Contact Info) Description 03/29/2022 Lab Requisition [facility] DermPath Lab [address] [place] [id number] Madhu Farley MD [address] [place] [address] Social History Tobacco Use Types Packs/Day Years Used Date Smoking Tobacco: Never Assessed Comments Unknown Sex and Gender Information Value Date Recorded Sex Assigned at Not on file 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 Gender Identity Not on file Sexual Orientation Not on file documented as of this encounter Plan of Treatment Not on file documented as of this encounter Procedures Procedure Name Priority Date/Time Associated Diagnosis Comments DERMATOPATHOLOGY Routine 03/28/2022 12:0 0 AM CDT documented in this encounter Results * DERMATOPATHOLOGY (03/28/2022 12:00 AM CDT) Case Report Dermatopathology Report Case: [id number] Authorizing Provider: Madhu Farley MD Collected: 03/28/2022 12:00 AM Ordering Location: [facility] DermPath Lab Received: 03/29/2022 12:19 PM Pathologist: Monique Trevizo MD Specimen: Skin, left lower lat leg 3:57 PM CDT DERMATOPATHOLOGY LABORATORY Final Diagnosis Specimen A. SKIN, left lower lat leg: SEBORRHEIC KERATOSIS, MACULAR (L82.1) 2 3:57 PM CDT DERMATOPATHOLOGY LABORATORY at 1557 CDT Clinical History R/O SCC vs BCC vs ISK 2 3:57 PM CDT DERMATOPATHOLOGY LABORATORY Gross Description Specimen A: Received is one formalin filled container labeled with the patient's name and designated left lower lat leg. The specimen consists of a shave biopsy measuring 06n79l4 mm. Jar 0. 2 3:57 PM CDT DERMATOPATHOLOGY LABORATORY Microscopic Description Specimen A. SKIN, left lower lat leg: Sections show a relatively broad, flat proliferation of small keratinocytes. The surface is gently papillated, and there is increased basilar pigmentation. 2 3:57 PM CDT DERMATOPATHOLOGY LABORATORY Disclaimer An external and internal positive and negative controls are appropriate for the histochemical, immunohistochemical and immunofluorescence stain(s) in this case (if any), except where stated explicitly. The performance characteristics of the stain(s) cited in this report were developed and its performance characteristic determined by the Dermatopathology Laboratory at [facility], directed by Dr. Adelia Trevizo. These tests need not be, and therefore are not, approved by the [place] Food and Drug Administration. The tests are used for clinical purposes. Billing Codes Specimen Charges Stain Charges 41598 1 2 3:57 PM CDT DERMATOPATHOLOGY LABORATORY Embedded Images 2 3:57 PM CDT DERMATOPATHOLOGY LABORATORY Pathology/Cytolog y TISSUE SPECIMEN FROM SKIN / Unknown 03/28/2022 03/29/2022 12:19 PM CDT us Madhu Farley MD LAB - PATHOLOGY/CYTOLOGY ORD ERABLES Final Result DERMATOPATHOLOGY LABORATORY [facility] - Department of Dermatology [facility] [address] [place] [address], [address] [place] [address], [facility] [phone] documented in this encounter Visit Diagnoses Not on filedocumented in this encounter Care Teams Data Deliverables Manager Relationship Specialty Start Date End Date Wero Welch MD [address] [place] [address] PCP - General Family Medicine 08/23/15 documented as of this encounter
--- OUTSIDE RECORDS SUMMARY | 2024-12-09 15:57 | XMS_ITS ---
Author Organization [facility] Address [address] [place] [address] Care Team Providers Care Waterproofer Helper Name Role Phone Yuri POST, Wero Primary Care Provider Unavaila josseline RIOS CONTROL INTEGRATION ENGINEER, JOSEPH Unavailable [phone] JADA POST, BIGG Unavailable [phone] REASON FOR VISIT Colon Encounters Encounter Location Date Provider Diagnosis [facility] [address] [place] [address] 06/28/2023 BIGG ELIAS Plan Of Treatment No Information Progress Notes * Antonette CHILDRESS LDOB:1970 (54 yo F)Acc No.[id number]:06/28/2023 Patient: Antonette BANERJEE Provider: Zafar Elias MD, FASGE :1970 A ge:52 Y S ex:Female Date:06/28/2023 Address:[facility] [address], [place], [id number] Pcp:Wero Welch MD * * Electronic signature of MARILY ELIAS MD, MD on 12/09/2024 at 04:56 PM EDT Sign off status: Pending * Provider: Zafar Elias MD, FASGE Date: Generated for Printi ng/Faxing/eTransmitting on: 0 12/09/2024 04:56 PM EDT
--- OUTSIDE RECORDS SUMMARY | 2024-12-09 15:57 | XMS_ITS | Encounter Summary ---
Author Organization [facility] Address [address] [place] [address] Care Team Providers Care Sap Abap Programmer Name Role Phone Wero Welch MD Primary Care Provider [phone] Encounter Details Date Type Department Care Team (Late st Contact Info) Description 04/20/2024 Lab Requisition [facility] - DermPath Lab [address] [place] [phone] Madhu Farley MD [address] [place] [address] Social History Tobacco Use Types Packs/Day Years Used Date Smoking Tobacco: Never Assessed Comments Unknown Sex and Gender Information Value Date Recorded Sex Assigned at Not on file 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 Gender Identity Not on file Sexual Orientation Not on file documented as of this encounter Plan of Treatment Not on file documented as of this encounter Procedures Procedure Name Priority Date/Time Associated Diagnosis Comments DERMATOPATHOLOGY Routine 04/17/2024 12:0 0 AM CDT documented in this encounter Results * DERMATOPATHOLOGY (04/17/2024 12:00 AM CDT) Case Report Dermatopathology Report Case: [id number] Authorizing Provider: Madhu Farley MD Collected: 04/17/2024 12:00 AM Ordering Location: [facility] - Received: 04/20/2024 01:51 PM DermPath Lab Pathologist: Esthela Contreras MD Specimens: A) - Skin, right distal anterior thigh above patella B) - Skin, right anteriolateral mid calf C) - Skin, right anterolateral lower leg D) - Skin, right lateral mid thigh 12:55 PM CDT DERMATOPATHOLOGY LABORATORY Final Diagnosis Specimen A. SKIN, right distal anterior thigh above patella: SQUAMOUS CELL CARCINOMA, WELL DIFFERENTIATED (C44.722) Specimen B. SKIN, right anteriolateral mid calf: PRURIGO NODULARIS (L28.1) EPIDERMAL NECROSIS SUGGESTIVE OF EXCORIATION (L98.499) Specimen C. SKIN, right anterolateral lower leg: PRURIGO NODULARIS (L28.1) Specimen D. SKIN, right lateral mid thigh: BENIGN VERRUCOUS KERATOSIS (L82.1) (see microscopic description) 12:55 PM CDT DERMATOPATHOLOGY LABORATORY at 1255 CDT Clinical History R/o SCC vs SCCIS vs HAK vs BCC 12:55 PM CDT DERMATOPATHOLOGY LABORATORY Gross Description Specimen A: Received is one formalin filled container labeled with the patient's name and designated right distal anterior thigh above patella. The specimen consists of a shave biopsy measuring 73x46m4 mm. Jar 0. Specimen B: Received is one formalin filled container labeled with the patient's name and designated right anteriolateral mid calf. The specimen consists of a shave biopsy measuring 9x8x2 mm. Jar 0. Specimen C: Received is one formalin filled container labeled with the patient's name and designated right anterolateral lower leg. The specimen consists of a shave biopsy measuring 10x8x2 mm. Jar 0. Specimen D: Received is one formalin filled container labeled with the patient's name and designated right lateral mid thigh. The specimen consists of a shave biopsy measuring 10x7x2 mm. Jar 0. 12:55 PM CDT DERMATOPATHOLOGY LABORATORY Microscopic Description Specimen A. SKIN, right distal anterior thigh above patella: Arising in the epidermis and extending into the dermis there are irregularly shaped aggregates of keratinocytes showing evidence of premature cornification. Specimen B. SKIN, right anteriolateral mid calf: There is a dome-shaped portion of skin with psoriasiform epidermal hyperplasia, compact hyperkeratosis, and fibrosis of the papillary dermis associated with a superficial perivascular lymphohistiocytic infiltrate. The epidermis is focally necrotic and covered with a scale-crust. There is fibrin at the base. Specimen C. SKIN, right anterolateral lower leg: There is a dome-shaped portion of skin with psoriasiform epidermal hyperplasia, compact hyperkeratosis, and fibrosis of the papillary dermis associated with a superficial perivascular lymphohistiocytic infiltrate. Specimen D. SKIN, right lateral mid thigh: Sections show hyperkeratosis, papillomatosis, hypergranulosis, and acanthosis. These histological findings can be seen in a verruca vulgaris or a seborrheic keratosis. Prurigo nodularis was also considered. 12:55 PM CDT DERMATOPATHOLOGY LABORATORY Disclaimer An external and internal positive and negative controls are appropriate for the histochemical, immunohistochemical and immunofluorescence stain(s) in this case (if any), except where stated explicitly. The performance characteristics of the stain(s) cited in this report were developed and its performance characteristic determined by the Dermatopathology Laboratory at [facility], directed by Dr. Adelia Trevizo. These tests need not be, and therefore are not, approved by the [place] Food and Drug Administration. The tests are used for clinical purposes. Billing Codes Specimen Charges Stain Charges 70531 66979 24997 65096 1 1 1 1 12:55 PM CDT DERMATOPATHOLOGY LABORATORY Embedded Images 12:55 PM CDT DERMATOPATHOLOGY LABORATORY Pathology/Cytology TISSUE SPECIMEN FROM SKIN / Unknown 04/17/2024 04/20/2024 1:51 PM CDT Miscellaneous samples (specimen) TISSUE SPECIMEN FROM SKIN / Unknown 04/17/2024 04/20/2024 1:51 PM CDT Miscellaneous samples (specimen) TISSUE SPECIMEN FROM SKIN / Unknown 04/17/2024 04/20/2024 1:51 PM CDT Miscellaneous samples (specimen) TISSUE SPECIMEN FROM SKIN / Unknown 04/17/2024 04/20/2024 1:51 PM CDT Madhu Farley MD LAB - PATHOLOGY/CYTOLOGY ORD ERABLES Final Result DERMATOPATHOLOGY LABORATORY [facility] - Department of Dermatology [address], [address] [phone] documented in this encounter Visit Diagnoses Not on filedocumented in this encounter Care Teams Sap Abap Programmer Relationship Specialty Start Date End Date Wero Welch MD [address] [place] [address] PCP - General Family Medicine 08/23/15 documented as of this encounter
--- OUTSIDE RECORDS SUMMARY | 2024-12-09 15:57 | XMS_ITS | Encounter Summary ---
Author Organization [facility] Address [address] [place] [address] Care Team Providers Care Restaurant Associate Name Role Phone Wero Welch MD Primary Care Provider [phone] Encounter Details Date Type Department Care Team (Late st Contact Info) Description 04/13/2024 Lab Requisition [facility] - DermPath Lab [address] [place] [phone] Madhu Farley MD [address] [place] [address] Social History Tobacco Use Types Packs/Day Years Used Date Smoking Tobacco: Never Assessed Comments Unknown Sex and Gender Information Value Date Recorded Sex Assigned at Not on file 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 Gender Identity Not on file Sexual Orientation Not on file documented as of this encounter Plan of Treatment Not on file documented as of this encounter Procedures Procedure Name Priority Date/Time Associated Diagnosis Comments DERMATOPATHOLOGY Routine 04/10/2024 3:33 AM CDT documented in this encounter Results * DERMATOPATHOLOGY (04/10/2024 3:33 AM CDT) Case Report Dermatopathology Report Case: [id number] Authorizing Provider: Madhu Farley MD Collected: 04/10/2024 03:33 AM Ordering Location: [facility] - Received: 04/13/2024 11:45 AM DermPath Lab Pathologist: Monique Trevizo MD Specimens: A) - Skin, left central cheek B) - Skin, left superiormedial calf C) - Skin, left medial mid calf D) - Skin, right inframammary crease 4 2:03 PM T DERMATOPATHOLOGY LABORATORY Final Diagnosis Specimen A. SKIN, left central cheek: ACTINIC KERATOSIS, ERODED (L57.0) (see microscopic description) Specimen B. SKIN, left superiormedial calf: BENIGN VERRUCOUS KERATOSIS (L82.1) Specimen C. SKIN, left medial mid calf: BENIGN VERRUCOUS KERATOSIS (L82.1) STASIS DERMATITIS (L30.8) Specimen D. SKIN, right inframammary crease: SEBORRHEIC KERATOSIS, IRRITATED (L82.0) 4 2:03 PM T DERMATOPATHOLOGY LABORATORY at 1403 CDT Clinical History A-C: R/O ISK vs BCC vs Hernandez's Disease D: R/O ISK 4 2:03 PM T DERMATOPATHOLOGY LABORATORY Gross Description Specimen A: Received is one formalin filled container labeled with the patient's name and designated left central cheek. The specimen consists of a shave biopsy measuring 4x3x1 mm. Jar 0. Specimen B: Received is one formalin filled container labeled with the patient's name and designated left superiormedial calf. The specimen consists of a shave biopsy measuring 7x5x2 mm. Jar 0. Specimen C: Received is one formalin filled container labeled with the patient's name and designated left medial mid calf. The specimen consists of a shave biopsy measuring 9x8x2 mm. Jar 0. Specimen D: Received is one formalin filled container labeled with the patient's name and designated right inframammary crease. The specimen consists of a shave biopsy measuring 8x7x2 mm. Jar 0. 4 2:03 PM T DERMATOPATHOLOGY LABORATORY Microscopic Description Specimen A. SKIN, left central cheek: There is alternating orthokeratosis and parakeratosis. The epidermis is focally eroded. Along the undersurface of the epidermis, there are buds of atypical keratinocytes in a disorderly arrangement. Additional deeper sections were obtained and reviewed. Specimen B. SKIN, left superiormedial calf: Sections show hyperkeratosis, papillomatosis, hypergranulosis, and acanthosis. These histological findings can be seen in a verruca vulgaris or a seborrheic keratosis. Specimen C. SKIN, left medial mid calf: Sections show hyperkeratosis, papillomatosis, hypergranulosis, and acanthosis. These histological findings can be seen in a verruca vulgaris or a seborrheic keratosis. There is focal spongiosis. The dermis shows a sparse, perivascular lymphocytic infiltrate surrounding dilated, thick-walled vessels, which are increased in number. Specimen D. SKIN, right inframammary crease: There is acanthosis consisting of fairly uniform squamous cells with eosinophilic cytoplasm and squamous eddies. 4 2:03 PM CDT DERMATOPATHOLOGY LABORATORY Disclaimer An external and internal positive and negative controls are appropriate for the histochemical, immunohistochemical and immunofluorescence stain(s) in this case (if any), except where stated explicitly. The performance characteristics of the stain(s) cited in this report were developed and its performance characteristic determined by the Dermatopathology Laboratory at [facility], directed by Dr. Adelia Trevizo. These tests need not be, and therefore are not, approved by the [place] Food and Drug Administration. The tests are used for clinical purposes. Billing Codes Specimen Charges Stain Charges 24935 28180 53903 19385 1 1 1 1 4 2:03 PM CDT DERMATOPATHOLOGY LABORATORY Embedded Images 4 2:03 PM CDT DERMATOPATHOLOGY LABORATORY Pathology/Cytology TISSUE SPECIMEN FROM SKIN / Unknown 04/10/2024 3:33 AM CDT 04/13/2024 11:45 AM CDT Miscellaneous samples (specimen) TISSUE SPECIMEN FROM SKIN / Unknown 04/10/2024 3:33 AM CDT 04/13/2024 11:45 AM CDT Miscellaneous samples (specimen) TISSUE SPECIMEN FROM SKIN / Unknown 04/10/2024 3:33 AM CDT 04/13/2024 11:45 AM CDT Miscellaneous samples (specimen) TISSUE SPECIMEN FROM SKIN / Unknown 04/10/2024 3:33 AM CDT 04/13/2024 11:45 AM CDT us Madhu Farley MD LAB - PATHOLOGY/CYTOLOGY ORD ERABLES Final Result DERMATOPATHOLOGY LABORATORY [facility] - Department of Dermatology [facility], 3rd Floor [address] [phone] documented in this encounter Visit Diagnoses Not on filedocumented in this encounter Care Teams Restaurant Associate Relationship Specialty Start Date End Date Wero Welch MD [address] [place] [address] PCP - General Family Medicine 08/23/15 documented as of this encounter
--- OUTSIDE RECORDS SUMMARY | 2024-12-09 15:57 | XMS_ITS | Clinical Summary ---
Author Organization [facility] Address [address] [place] [address] Care Team Providers Care Casting Plug Assembler Name Role Phone Wero Welch MD Primary Care Provider [phone] Source Comments [facility],non-owned Affiliates and Associated Physician Practices is amultiple site organization consisting of ambulatory clinics and hospital sitesin [place], [place], [place] and [place]. This disclosure is being madepursuant to the Care Everywhere program and may not contain all information available regarding this patient. Last updated 18.[facility] [employer] Allergies Active Allergy Reactions Criticality Noted Date Comments Cephalexin Rash Medium 02/28/2017 Medications * Be aware that medications may not be up to date on this document. Alwaysverify current medications with the patient. atorvastatin (Lipitor) 10 MG tablet 02/13/2024 Active sertraline (Zoloft) 100 MG tablet 03/25/2024 Active nortriptyline (Pamelor) 25 MG capsule 06/21/2023 Active methylPREDNISol one (Medrol Dosepak) 4 MG tablet 02/18/2024 Active LORazepam (Ativan) 1 MG tablet 08/30/2023 Active Linzess 290 MCG capsule Take 1 (one) capsule by mouth once daily As Directed. 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: Isolated FABI by Regi only, profile / other autoantibodies all negative Right upper quadrant abdominal pain 12/31/2018 Overview (05/05/2024): Added automatically from request for surgery [id number] Myopathy 11/14/2013 Overview (05/05/2024): MYALGIA AND MYOSITIS NOS Social History Tobacco Use Types Packs/Day Years Used Date Smoking Tobacco: Never Assessed Comments Unknown Sex and Gender Information Value Date Recorded Sex Assigned at Not on file 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 Gender Identity Not on file Sexual Orientation Not on file Plan of Treatment Health Maintenance Due Date Last Done Comments COLOGUARD (AGES 45-75) - COL ON CA SCREENING 1968 COLON MONITORING 1968 COLONOSCOPY - COLON CA SCREENING 1968 CT COLONOGRAPHY - COLON CA SCREENING 1970 Colorectal Cancer Screening 1970 FIT - COLON CA SCREENING 1968 FLEX SIG - COLON CA SCREENING 1970 MAMMOGRAM 1970 PAP SMEAR 1968 HIV SCREENING 09/06/1983 HEPATITIS C SCREENING 09/01/1986 DTAP/TDAP/TD VACCINES (1 - Tdap) 09/06/1987 HEPATITIS B VACCINE (1 of 3 - 19+ 3-dose series) 09/06/1987 PNEUMOCOCCAL VACCINE 50+ (1 of 1 - PCV) 2018 ZOSTER VACCINE (1 of 2) 2018 COVID-19 VACCINE (1 - 2023-2 5 season) 2024 DEPRESSION SCREENING 07/01/2024 INFLUENZA VACCINE (Season Ended) 2025 HIB VACCINE Aged Out No longer eligi ble based on patient's age to complete this topic HPV VACCINE Aged Out No longer eligi ble based on patient's age to complete this topic MENINGOCOCCAL (Group B) VACC INE SHARED DECISION-MAKING Aged Out No longer eligibl e based on patient's age to complete this topic MENINGOCOCCAL GROUPS A/C/Y/W VACCINE Aged Out No longer eligible b ased on patient's age to complete this topic Insurance ANTHEM Care Teams Casting Plug Assembler Relationship Specialty Start Date End Date Wero Welch MD [address] [place], [place] [id number] PCP - General Family Medicine 08/23/15
--- OUTSIDE RECORDS SUMMARY | 2024-12-09 15:57 | XMS_ITS | Referral Summary ---
Author Organization [facility] [address] [facility] [address] [facility] [address] [place] [address] Care Team Providers Care Senior Quantity Surveyor Name Role Phone Wero Welch MD Primary Care Provider Magdy Tellez MD Unavailable [phone] Encounters Date Type Department Care Team Description 11/02/[address] [address] Arely Shah 10/21/2024 11:00 AM CDT Office Visit [facility] Gastroenterology at [address] [place] [address] Mary Alice Washburn NP Abdominal pain (Primary Dx); Abdominal bloating; 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 10/14/[address] [address] Nimisha Sanchez PA from Last 3 Months Allergies Active Allergy Reactions Criticality Noted Date Comments Cephalexin Rash Medium Medications docusate sodium (STOOL SOFTENER) 50 mg capsule take 1 capsule by oral route every day at bedtime as needed 0 0 6 Active atorvastatin (LIPITOR) 10 mg tablet 9 Active sertraline (ZOLOFT) 50 mg tablet 9 Active linaCLOtide (LINZESS) 290 mcg capsule 1 capsule (290 mcg total) daily Active multivitamin tabletIndicati ons:Vitamin Deficiency Prevention Take 1 tablet by mouth Active hydroxychloroq uine (PLAQUENIL) 200 mg tablet TAKE 2 TABLETS BY MOUTH DAILY 60 tablet [address] (PROTONIX) 40 mg EC tablet TAKE ONE TABLET BY MOUTH TWICE A DAY 60 tablet [address] (PROTONIX) 40 mg EC tablet Take 1 tablet (40 mg total) by mouth 2 (two) times a day 60 tablet 3 5 11/21/19 25 Discontinued Active Problems Problem Noted Date Diagnosed Date Abdominal bloating 10/21/2024 Assessment & Plan (10/21/2024 1:55 PM CDT): Reports that she is having increasing complaints of abdominal bloating. States that she is unable to identify triggers and nothing seems to increase nor decrease his discomfort. Previous imaging including ultrasound as well as blood work were unremarkable. 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 -EGD due July 2025 -Educated on importance of surveillance Rash 08/10/2024 Assessment & Plan (08/10/2024 5:36 PM HEATER OPERATOR): Her mother has psoriasis. Rt elbow rash suspicious for psoriasis, will refer to derm for eval. Abdominal pain 06/29/2024 Assessment & Plan (10/21/2024 1:56 PM CDT): Reports that she is having generalized abdominal pain with bloating. Unable to identify triggers. -Will r/o SIBO -Possible trial of dicyclomine Nausea and vomiting 06/29/2024 Encounter for long-term (current) use of medicat ions 06/18/2024 Assessment & Plan (08/10/2024 1:57 PM HEATER OPERATOR): Avise 05/2024---+FABI 38/1:80\ Mother had psoriasis. Assessment & Plan (06/18/2024 8:19 AM HEATER OPERATOR): Avise 05/2024---+FABI 38/1:80 Neck pain 06/18/2024 Assessment & Plan (08/10/2024 1:49 PM HEATER OPERATOR): Previous CT showed C spine stenosis and pt continues to have a lot of radicular neck pain that interferes with her every day life and her sleep. She has done over 2 months of PT but continues to have same symptoms. Will order c spine mri again, in past her insurance denied it without doing PT first. She has appt to see dr tuttle in august. She will also continue with her pain mgmt in [place]. Assessment & Plan (06/18/2024 2:57 PM HEATER OPERATOR): Previous CT showed C spine stenosis and pt continues to have a lot of radicular neck pain that interferes with her every day life and her sleep. Will start PT, order c spine MRI and refer her to Dr. Collin Tuttle for opinion. She will also continue with her pain mgmt in [place]. Dry skin 06/04/2024 Assessment & Plan (06/04/2024 1:54 PM HEATER OPERATOR): Check tsh. Chronic pain of both knees 06/04/2024 Assessment & Plan (06/04/2024 1:54 PM HEATER OPERATOR): Mostly rt knee pain and occ swelling,check rt knee xray. Myalgia 06/04/2024 Assessment & Plan (06/04/2024 1:55 PM HEATER OPERATOR): No muscle weakness on exam. Check cpk. Pain in both feet 06/04/2024 Assessment & Plan (06/04/2024 2:07 PM HEATER OPERATOR): Check bilat foot xrays. Positive FABI (antinuclear antibody) 11/09/2021 Overview (06/08/2024): AVISE 11/09/21: Isolated FABI by Shelly only, profile / other autoantibodies all negative US right hand/wrist 06/08/24: Grade 1 power Doppler of the dorsal wrist Grade 1 effusion of the radial scaphoid joint and ulnar styloid Mild synovial thickening of the 2nd and 3rd MCPJ Moderate synovial thickening of the 2nd PIPJ Marked synovial thickening of the 3rd PIPJ Mild spurring of the 1st CMC joint Enlargement of the median nerve to 0.13 cm2, correlate for symptoms of carpal tunnel syndrome Limited views of the right knee do not show significant suprapatellar effusion Assessment & Plan (06/04/2024 8:43 AM HEATER OPERATOR): Last seen 10/2021 (see previous notes below). Recheck serologies, bilat hand xrays, rt hand US and re-evaluate in [address] Tellez today. Previous notes from 10/2021: 51yoF presents for evaluation due to +FABI and a constellation of symptoms she has struggled with for the last 20 years. Joint pain greatest in her knees with prolonged sitting, improves after a few minutes of walking around. Transient AM stiffness. New oral/nasal ulcerations, currently resolved, diffuse hair thinning, and cough/sob. Persistent midfacial erythema and dry eyes. Her exam reveals a few tender joint without synovitis. Our workup shows an FABI by SHELLY but negative by GREGORY and all other autoantibodies were negative. Minimally reduced vitamin D, discussed supplementation. XR knees negative and hands/L spine with minimal to moderate degenerative change. Overall there is not evidence to suggest underlying autoimmune disease to which Antonette expressed extreme relief. She will continue follow up with pulm/her pcp as planned and can follow up with our office as needed should symptoms warrant. Assessment & Plan (11/22/2021 4:17 PM CDT): 51yoF presents for evaluation due to +FABI and a constellation of symptoms she has struggled with for the last 20 years. Joint pain greatest in her knees with prolonged sitting, improves after a few minutes of walking around. Transient AM stiffness. New oral/nasal ulcerations, currently resolved, diffuse hair thinning, and cough/sob. Persistent midfacial erythema and dry eyes. Her exam reveals a few tender joint without synovitis. Our workup shows an FABI by SHELLY but negative by GREGORY and all other autoantibodies were negative. Minimally reduced vitamin D, discussed supplementation. XR knees negative and hands/L spine with minimal to moderate degenerative change. Overall there is not evidence to suggest underlying autoimmune disease to which Antonette expressed extreme relief. She will continue follow up with pulm/her pcp as planned and can follow up with our office as needed should symptoms warrant. Assessment & Plan (11/09/2021 2:23 PM CDT): 51yoF presents for evaluation due to +FABI and a constellation of symptoms she has struggled with for the last 20 years. Joint pain greatest in her knees with prolonged sitting, improves after a few minutes of walking around. Transient AM stiffness. New oral/nasal ulcerations, currently resolved, diffuse hair thinning, and cough/sob. Persistent midfacial erythema and dry eyes. Her exam today reveals a few tender joint without synovitis. Thus she does report some CTD type symptoms, though overall have a lower suspicion for active rheumatologic diagnosis. To fully evaluate will check serologies and xrays as below with plan for follow up in 2 weeks to review results. Recommend trial of Pennsaid (samples given) and consideration for trial of turmeric which she will discuss with GI. Polyarthralgia 11/09/2021 Assessment & Plan (08/10/2024 5:37 PM HEATER OPERATOR): Images from the original note were not included. Low cdai. Since last visit she has had less joint swelling and pain. Feels better since she started HCQ so will continue it and re-evaluate in 6 weeks. She has remembered that her mother had psoriasis. Also has some dry patches on elbows on/off, will refer to derm to make sure this is not psoriasis. She has long hx of joint pain (15 years). Serologies showed low + FABI and equivocal RF. Also has hx of sicca, sun rashes, oral ulcers, pleurisy, hair thinning. 2 miscarriages at 12 week gestation. At this time she has symptoms of a ctd/sle but will observe longer before a more making the final diagnosis. For her arthritis recommend she continues hydroxychloroquine 200mg bid. Seen with Dr. Tellez. Previous labs/imaging 05/2024: Avise 05/2024---+FABI 38/1:80 Cbc, cmp, ck, c3/c4, tsh all wnl. Xrays 05/2024: Hands---dip narrowing suggestive of OA Feet---ossification of insertion of achilles tendon, 1st mtp OA Assessment & Plan (06/18/2024 2:57 PM HEATER OPERATOR): Images from the original note were not included. High cdai. Continues to have joint swelling, has long hx of join tpain (15 years). Serologies showed low + FABI and equivocal RF. Also has hx of sicca, sun rashes, oral ulcers, pleurisy, hair thinning. 2 miscarriages at 12 week gestation. At this time she has symptoms of a ctd/sle but will observe longer before a more making the final diagnosis. For her arthritis recommend starting hydroxychloroquine 200mg bid. Discussed potential se including rash, diarrhea, retina toxicity. Advised to get eye exam at beginning of tx and yearly after that. Seen with Dr. Tellez. 1 h spent with pt today between Dr. Tellez and myself. Labs, xrays reviewed with pt at length. F/u in 1 month to re-evaluate. Avise 05/2024---+FABI 38/1:80 Cbc, cmp, ck, c3/c4, tsh all wnl. Xrays 05/2024: Hands---dip narrowing suggestive of OA Feet---ossification of insertion of achilles tendon, 1st mtp OA Assessment & Plan (06/04/2024 1:56 PM HEATER OPERATOR): Last seen 10/2021. Long hx of joint pain (15 yrs) with hx of + fabi. Also has hx of sicca, sun rashes, oral ulcers, pleurisy, hair thinning. 2 miscarriages at 12 week gestation. Mod cdai on exam but has a lot of tender joints. Check rt hand US and some rt knee views, xrays of hands, rt knee and repeat serologies, last ones done 10/2021. Will have pt f/u in 2 weeks to re-evaluate and discuss results. Seen with dr tellez. 1 h spent with pt today between dr tellez and myself. No hx of psoriasis. Right upper quadrant abdominal pain 12/31/2018 Overview (02/03/2019): Added automatically from request for surgery [id number] Resolved Problems Problem Noted Date Diagnosed Date Resolved Date Myopathy 11/14/2013 06/04/2024 Overview (10/05/2016): MYALGIA AND MYOSITIS NOS Social History Tobacco Use Types Packs/Day Years Used Date Smoking Tobacco: Never Smokeless Tobacco: Never Alcohol Use Standard Drinks/Week Comments No 0 (1 standard drink = 0.6 oz pur e alcohol) AUDIT-C Answer Date Recorded Q1: How often do you have a drink containing alcohol? Never 07/20/2024 Q2: How many drinks containi ng alcohol do you have on a typical day when you are drinking? Patient does not drink Q3: How often do you have si x or more drinks on one occasion? Never 07/20/2024 Personal Safety Answer Date Recorded Have you ever been in or are you currently in a harmful physical or emotional relationship or is someone making you feel afraid or unsafe? Denies 07/22/2024 Comments No Sex and Gender Information Value Date Recorded Sex Assigned at Not on file Legal Sex Female 7:08 AM HEATER OPERATOR Gender Identity Not on file Sexual Orientation Not on file Last Filed Vital Signs Vital Sign Reading Time Taken Comments Blood Pressure 130/83 10/21/2024 10:58 AM CDT Pulse 60 10/21/2024 10:58 AM CDT Temperature 36.3 C (97.4 F) 07/22/2024 8:03 AM HEATER OPERATOR Respiratory Rate 15 07/22/2024 8:15 AM HEATER OPERATOR Oxygen Saturation 99% 08/10/2024 1:17 PM HEATER OPERATOR Inhaled Oxygen Concentration - - Weight 83.9 kg (185 lb) 10/21/2024 10:58 AM CDT Height 175.3 cm (5' 9) 08/28/2024 4:37 PM HEATER OPERATOR Body Mass Index 27.32 08/28/2024 4:37 PM HEATER OPERATOR Plan of Treatment Not on file Medical Devices Explanted Type Area Printed Circuit Board Assembly Repairer Device Identifier Shelf Expiration Date Model / Serial / Lot [employer] 6571 Rosado Flexi-Stent 7fr 3cm Small Pigtail Flexible .035in Stent - [id number] Implanted:Qty: 1 on 02/02/2019 by Neville Robbins MD at [facility] Explanted:Qty: 1 on 02/04/2019 by Neville Robbins MD Stent N/A: Pancreas [employer] 07/31/2023 [id number] / / [id number] Conmed Rudy [id number] Viabil 8mm 8.5fr 60mm 200cm Expandable Pull Line Without Holes - [id number] - [id number] Implanted:Qty: 1 on 02/02/2019 by Neville Robbins MD at [facility] Explanted:Qty: 1 on 02/04/2019 by Neville Robbins MD Stent N/A: Bile Duct Conmed Rudy 05/11/2021 [id number] / [id number] / Insurance [employer] BLUE [employer] [facility] CHO[facility] [employer] Advance Directives For more information, please contact: [phone] * Full Code (Latest Code Status on File) Date Activated Date Inactivated Comments 02/03/2019 12:36 PM 02/04/2019 6:25 PM Care Teams Senior Quantity Surveyor Relationship Specialty Start Date End Date Wero Welch MD [address] [facility] [address] [place] [address] PCP - General 10/07/06 Magdy Tellez MD [address] [place] [address] Consulting Physician Rheumatology 10/12/21
--- OUTSIDE RECORDS SUMMARY | 2024-12-09 15:57 | XMS_ITS | Clinical Summary ---
Author Organization [facility] [address] [facility] [address] [place] [address] Care Team Providers Care Soil Analyst Name Role Phone Wero Welch MD Primary Care Provider Magdy Tellez MD Unavailable [phone] Allergies Active Allergy Reactions Criticality Noted Date [...] 08/10/2024 Assessment & Plan (08/10/2024 5:36 PM CONGRESSIONAL AIDE): Her mother has psoriasis. Rt elbow rash [...] 06/18/2024 Assessment & Plan (08/10/2024 1:57 PM CONGRESSIONAL AIDE): Avise 05/2024---+FABI 38/1:80\ Mother had psoriasis. Assessment & Plan (06/18/2024 8:19 AM CONGRESSIONAL AIDE): Avise 05/2024---+FABI 38/1:80 Neck pain 06/18/2024 Assessment & Plan (08/10/2024 1:49 PM CONGRESSIONAL AIDE): Previous CT showed C spine stenosis and [...] also continue with her pain mgmt in [place]. Assessment & Plan (06/18/2024 2:57 PM CONGRESSIONAL AIDE): Previous CT showed C spine stenosis and pt continues to have a lot of radicular neck pain that interferes with her every day life and her sleep. Will start PT, order c spine MRI and refer her to Dr. Collin Tuttle for opinion. She will also continue with her pain mgmt in [place]. Dry skin 06/04/2024 Assessment & Plan (06/04/2024 1:54 PM CONGRESSIONAL AIDE): Check tsh. Chronic pain of both knees 06/04/2024 Assessment & Plan (06/04/2024 1:54 PM CONGRESSIONAL AIDE): Mostly rt knee pain and occ swelling,check rt knee xray. Myalgia 06/04/2024 Assessment & Plan (06/04/2024 1:55 PM CONGRESSIONAL AIDE): No muscle weakness on exam. Check cpk. Pain in both feet 06/04/2024 Assessment & Plan (06/04/2024 2:07 PM CONGRESSIONAL AIDE): Check bilat foot xrays. Positive FABI (antinuclear [...] effusion Assessment & Plan (06/04/2024 8:43 AM CONGRESSIONAL AIDE): Last seen 10/2021 (see previous notes below). Recheck serologies, bilat hand xrays, rt hand US and re-evaluate in [address] Tellez today. Previous notes from 10/2021: Nehemias presents for evaluation due to +FABI and [...] Assessment & Plan (11/22/2021 4:17 PM CDT): Nehemias presents for evaluation due to +FABI and [...] Assessment & Plan (11/09/2021 2:23 PM CDT): Nehemias presents for evaluation due to +FABI and [...] 11/09/2021 Assessment & Plan (08/10/2024 5:37 PM CONGRESSIONAL AIDE): Images from the original note were not [...] OA Assessment & Plan (06/18/2024 2:57 PM CONGRESSIONAL AIDE): Images from the original note were not [...] OA Assessment & Plan (06/04/2024 1:56 PM CONGRESSIONAL AIDE): Last seen 10/2021. 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 10/14/[address] [address] Nimisha Sanchez PA from Last 3 Months Surgical History Surgery Date Site/Laterality Comments HYSTERECTOMY Hysterectomy CHOLECYSTECTOMY Cholecystectomy TOTAL ABDOMINAL HYSTERECTOMY Hysterectomy, total OTHER SURGICAL HISTORY partial colon removal ERCP 01/29/2019 - 02/28/2019 COLOSTOMY 07/01/2023 - 06/30/2024 Medical History Medical History Date Comments Irritable bowel syndrome Irritab le bowel disease Hx Other Medical Chronic UTI PONV (postoperative nausea and vomiting) Chronic constipation Hyperlipidemia Urinary tract infection Anxiety Squamous cell carcinoma of right lower leg GERD (gastroesophageal reflux disease) Family History Medical History Relation Name Comments Lupus Brother Lupus erythemat osus; Psoriasis Mother Hypertension Other 1 Family history of Hypertension; Cancer Other 2 Family history of Cancer, unknown; Rheum arthritis Sister Rheumatoid a rthritis; Relation Name Status Comments Brother Mother Other 1 Other 2 Sister Social History Tobacco Use Types Packs/Day Years [...] on file Legal Sex Female 7:08 AM CONGRESSIONAL AIDE Gender Identity Not on file Sexual Orientation Not on file Obstetrics History Last Filed Vital Signs Vital Sign Reading Time Taken Comments Blood Pressure 130/83 10/21/2024 10:58 AM CDT Pulse 60 10/21/2024 10:58 AM CDT Temperature 36.3 C (97.4 F) 07/22/2024 8:03 AM CONGRESSIONAL AIDE Respiratory Rate 15 07/22/2024 8:15 AM CONGRESSIONAL AIDE Oxygen Saturation 99% 08/10/2024 1:17 PM CONGRESSIONAL AIDE Inhaled Oxygen Concentration - - Weight 83.9 kg (185 lb) 10/21/2024 10:58 AM CDT Height 175.3 cm (5' 9) 08/28/2024 4:37 PM CONGRESSIONAL AIDE Body Mass Index 27.32 08/28/2024 4:37 PM CONGRESSIONAL AIDE Plan of Treatment Health Maintenance Due Date Last Done Comments Breast Cancer Screening-Mammogram 1968 Colon Cancer Screening-Colonoscopy 1968 Depression Screening 1968 Hepatitis C Screening 1968 Hepatitis B Screening 1986 Regular Well Visit/Exam 18-64 1986 Pneumococcal vaccine <65 (1 of 2 - PCV) 09/06/1987 Zoster Vaccine (1 of 2) 09/06/1987 Influenza Vaccine (Season Ended) 2025 05/14/20 20, 04/09/2018 DTaP/Tdap/Td Vaccine (2 - Td or Tdap) 07/17/2028 Medical Devices Explanted Type Area Grant Specialist Device Identifier Shelf Expiration Date Model / Serial / Lot [employer] 6571 Rosado Flexi-Stent 7fr 3cm Small Pigtail Flexible .035in Stent - [id number] Implanted:Qty: 1 on 02/02/2019 by Neville Robbins MD at [facility] Explanted:Qty: 1 on 02/04/2019 by Neville Robbins MD Stent N/A: Pancreas [employer] 07/31/2023 6571 / / [id number] Conmed Rudy [id number] Viabil 8mm 8.5fr 60mm 200cm Expandable Pull Line Without Holes - [id number] - [id number] Implanted:Qty: 1 on 02/02/2019 by Neville Robbins MD at [facility] Explanted:Qty: 1 on 02/04/2019 by Neville Robbins MD Stent N/A: Bile Duct Conmed Rudy 05/11/2021 [id number] / [id number] / Insurance [facility] BLUE ACCESS CHOICE [place] COUNT INCLUDES THE [facility] ACCESS CHOICE [facility] [place] [address] BLUE ACCESS CHOICE [place] [employer] [place] Advance Directives For more information, please contact: [phone] * Full Code (Latest Code Status on File) Date Activated Date Inactivated Comments 02/03/2019 12:36 PM 02/04/2019 6:25 PM Care Teams Soil Analyst Relationship Specialty Start Date End Date Wero Welch MD [address] [place] [address] PCP - General 10/07/06 Magdy Tellez MD [address] [place] [address] Consulting Physician Rheumatology 10/12/21
--- OUTSIDE RECORDS SUMMARY | 2024-12-09 15:57 | XMS_ITS | Encounter Summary ---
Author Organization [facility] Address [address] [place] [address] Care Team Providers Care Hide And Skin Processing Worker Name Role Phone Wero Wlech MD Primary Care Provider [phone] Encounter Details Date Type Department Care Team (Late st Contact Info) Description 05/29/2023 Lab Requisition [facility] - DermPath Lab [address] [facility] [place] [id number] Madhu Farley MD [address] [place] [address] Social History Tobacco Use Types Packs/Day Years Used Date Smoking Tobacco: Never Assessed Comments Unknown Sex and Gender Information Value Date Recorded Sex Assigned at Not on file Legal Sex Female 11:14 AM PATTERN CLEANER Gender Identity Not on file Sexual Orientation Not on file documented as of this encounter Plan of Treatment Not on file documented as of this encounter Procedures Procedure Name Priority Date/Time Associated Diagnosis Comments DERMATOPATHOLOGY Routine 05/28/2023 3:33 AM PATTERN CLEANER documented in this encounter Results * DERMATOPATHOLOGY (05/28/2023 3:33 AM PATTERN CLEANER) Case Report Dermatopathology Report Case: [id number] Authorizing Provider: Madhu Farley MD Collected: 05/28/2023 03:33 AM Ordering Location: [facility] Received: 05/30/2023 07:31 AM Pathologist: Brittnee Contreras MD Specimen: Skin, left medial breast 9:28 AM PATTERN CLEANER DERMATOPATHOLOGY LABORATORY Final Diagnosis Specimen A. SKIN, left medial breast: LICHEN PLANUS-LIKE KERATOSIS (BENIGN LICHENOID KERATOSIS) (L82.1) (see microscopic description) 3 9:28 AM [facility] DERMATOPATHOLOGY LABORATORY at [address] [facility] Clinical History R/O SCC 3 9:28 AM [facility] DERMATOPATHOLOGY LABORATORY Gross Description Specimen A: Received is one formalin filled container labeled with the patient's name and designated left medial breast. The specimen consists of a shave biopsy measuring 7x6x1 mm. Jar 0. 3 9:28 AM [facility] DERMATOPATHOLOGY LABORATORY Microscopic Description Specimen A. SKIN, left medial breast: The epidermis is mildly acanthotic. There is a lichenoid infiltrate with vacuolar changes of basilar keratinocytes and scattered necrotic keratinocytes. MelanA and HMB45 do not highlight an underlying atypical melanocytic proliferation. Additional deeper sections were obtained and reviewed. 3 9:28 AM [facility] DERMATOPATHOLOGY LABORATORY Disclaimer An external and internal positive and negative controls are appropriate for the histochemical, immunohistochemical and immunofluorescence stain(s) in this case (if any), except where stated explicitly. The performance characteristics of the stain(s) cited in this report were developed and its performance characteristic determined by the Dermatopathology Laboratory at [facility], directed by Dr. Adelia Trevizo. These tests need not be, and therefore are not, approved by the [place] Food and Drug Administration. The tests are used for clinical purposes. Billing Codes Specimen Charges Stain Charges 52824 1 82387 41635 1 1 3 9:28 AM [facility] DERMATOPATHOLOGY LABORATORY Embedded Images 3 9:28 AM [facility] DERMATOPATHOLOGY LABORATORY Pathology/Cytolo gy TISSUE SPECIMEN FROM SKIN / Unknown 05/28/2023 3:33 AM PATTERN CLEANER 05/30/2023 7:31 AM [facility] Madhu Farley MD LAB - PATHOLOGY/CYTOLOGY ORD ERABLES Final Result DERMATOPATHOLOGY LABORATORY [facility] - Department of Dermatology [address], [address] [phone] documented in this encounter Visit Diagnoses Not on filedocumented in this encounter Care Teams Hide And Skin Processing Worker Relationship Specialty Start Date End Date Wero Welch MD [address] [place] [id number] PCP - General Family Medicine 08/23/15 documented as of this encounter
--- OUTSIDE RECORDS SUMMARY | 2024-12-09 15:57 | XMS_ITS | Patient Health Record ---
Author Organization [facility] [place] ([address]) Address [address] [place] [address] Care Team Providers Care General Purchasing Agent Name Role Phone Greta Castrejon Unavailable [phone] Reason For Referral No Information Problems Problem Type SNOMED Code ICD Code Onset Dates Problem Status W/U Status Risk Notes Problem Chronic migraine without aura, non-refractor y (disorder) (288367296939 100) Migraine without aura, not intractable, without status migrainosus (G43.009) Active confirmed Problem Migraine with aura (3137774) Migraine with aura, not intractable, without status migrainosus (G43.109) Active confirmed Problem Chronic migraine without aura, non-intractab le (482372592832 100) Chronic migraine without aura, not intractable, without status migrainosus (G43.709) Active confirmed Plan Of Treatment No Information Insurance Providers Payer Name Payer Address Payer Phone Subscriber Number Group Number Insured Name Patient Relationship to Insured Coverage Start Date Coverage End Date [facility] [id number] [place] [address] [phone] [id number] Tony Childress Spouse - patient is the spouse of the insured 4
--- OUTSIDE RECORDS SUMMARY | 2024-12-09 15:57 | XMS_ITS ---
Author Organization [facility] [place] ([address]) Address [address] [place] [address] Care Team Providers Care Machine Puller Name Role Phone Greta Castrejon Unavailable [phone] REASON FOR VISIT Consult Headache Problems Problem Type SNOMED Code ICD Code Onset Dates Problem Status W/U Status Risk Notes Problem Chronic migraine without aura, non-intractab le (715268211799 100) Chronic migraine without aura, not intractable, without status migrainosus (G43.709) Active confirmed Problem Migraine with aura (4655745) Migraine with aura, not intractable, without status migrainosus (G43.109) Active confirmed Problem Chronic migraine without aura, non-refractor y (disorder) (446519632407 100) Migraine without aura, not intractable, without status migrainosus (G43.009) Active confirmed Encounters Encounter Location Date Provider Diagnosis [facility] [address] [facility] [address] [place] [address] 05/07/2024 Greta Castrejon Chronic migraine without aura, [...] Reason: Evaluation and Management Progress Notes * [place] CHILDRESSOB:1970 ([age] yo F)Acc No.[id number]:05/07/2024 Progress Notes Patient: Antonette BANERJEE Provider: Andria Castrejon APRN :1970 A ge:53 Y S ex:Female Date:05/07/2024 Address:[address] [place] [address] , [place] [address] Subjective: * Chief Complaints: * 1 . Consult Headache. * HPI: * Introduction: HPI: Anrdia Childress, who presented for evaluation of headaches. [...] G8427 DOC MEDS VERIFIED W/[place], [address] PT-FOCUSED HLTH RISK ASSMT * Preventive Medicine: T his was a 60 minute visit with time spent in reviewing prior records/notes, evaluation and management, counseling, and documentation. * Follow Up: 4 Weeks (Reason: Evaluation and Management) * Billing Information: * Visit Code: 79687 Office Visit, New Pt., Level 4. Modifiers: 25 25358 Office Visit, New Pt., Level 5. Modifiers: 25 * Procedure Codes: G0444 ANNUAL DEPRESSION SCREENING 5-15 MIN. G8427 DOC MEDS VERIFIED W/[place]. [address] PT-FOCUSED HLTH RISK ASSMT. * Electronic signature of KRISTA Avilez on 12/09/2024 at 03:57 PM CDT Sign off status: Pending * Provider: Andria Castrejon APRN Date: 07/07/2023 Generated for Federico fields/Brenda/Tanner on: 0 12/09/2024 03:57 PM CDT History and Physical Notes * HPI [...]
--- OUTSIDE RECORDS SUMMARY | 2024-12-09 15:58 | XMS_ITS | Patient Health Record ---
Author Organization [facility] Address [address] [place] [address] Care Team Providers Care Logistics Account Manager Name Role Phone Wero Welch MD Primary Care Provider Emilie RIOS CEMENT BLOCK MAKER, JOSEPH Unavailable Allergies Allergen (clinical drug ingredient) Drug/Non Drug Allergy documented on EMR Reaction Allergy Type Onset Date Status Keflex rash Drug Allergy Active Reason For Referral No Information Medications Medication SIG (Take, Route, Frequency, Duration) Notes Start Date End Date Status Atorvastatin Calcium 10 MG 1 tablet Orally Once a day Active Vitamin A & D [address] UNIT as directed Orally Active Vitamin K 100 MCG 1 tablet Orally Once a day Not-Taking Multivitamin - 1 tablet Orally Once a day Active Sertraline HCl 50 MG 1 tablet Orally Once a day Active Linzess 290 MCG 1 capsule Orally Once a day Active Stool Softener 100 MG 1 capsule Orally TID Active Motegrity 2 MG 1 tablet Orally Once a day for 30 day(s) may fill 90 day script Not-Taking Pantoprazole Sodium 40 MG 1 tablet Orally Once a day for 30 day(s) 12/25/2019 Not-Taking Pepcid 20 MG 1 tab Orally BID Not-Taking Social History Tobacco Use: Social History Observation Description Date Details (start date - stop date) Never Smoker NA - NA Tobacco Use/Smoking Question Answer Notes Are you a nonsmoker Problems Problem Type SNOMED Code ICD Code Onset Dates Problem Status W/U Status Risk Notes Problem Functional dyspepsia (7519825) Functional dyspepsia (K30) Active confirmed Problem 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 Problem Irritable bowel syndrome characterized by constipation (461991357) Irritable bowel syndrome with constipation (K58.1) Active confirmed Plan Of Treatment Pending Test Test Name Order Date Amylase, Serum 12/31/2018 Lipase, Serum 12/31/2018 CBC With Differential/Platelet 9 Hepatic Function Panel (7) 12/31/2018 Endoscopic Retrograde Cholangiopancreato graphy (ERCP) 12/31/2018 Esophagogastroduodenoscopy (EGD) 020 Insurance Providers Payer Name Payer Address Payer Phone Subscriber Number Group Number Insured Name Patient Relationship to Insured Coverage Start Date Coverage End Date [employer] [address] [place], [place] [id number] Antonette Childress Self - patient is the insured Medical (General) History Medical History History ICD Code IBS-C Fibromyalgia Migraines Biliary dyskinesia SOD/papillary stenosis Hypercholesterolemia anxiety Surgical History Surgery Date(Month/Year) Hysterectomy 2005 Cholecystectomy 2004 ERCP 03/2007 papillary steno sis s/p biliary/pancreatic sphincterotomies. Short term stenting. Colonoscopy 2008, 2004 no reports EGD [facility] 08/2009 Normal Duodenal bx neg ERCP 02/02/19 Aliperti recur rent papillary stenosis s/p biliary and pancreatic sphinterotomies. Short term dual duct stents placed and removed 02/04/19.
== END 2024-12-09 13:38 | disposition home or self-care (01) ==
PROVIDERS: PCP Family Medicine; Visit Provider Nurse Practitioner Family
DX: M16.0 Bilateral primary osteoarthritis of hip (principal)
CPT/HCPCS: 20610; 77002; J1010; Q9966

== ENCOUNTER 2025-02-05 10:13 | Outpatient (CLI) | payer BC, SELFPAY ==
--- OUTSIDE RECORDS SUMMARY | 2025-02-05 10:19 | XMS_ITS | Encounter Summary ---
Author Organization [facility] Address [address] [place] [address] Phone Care Team Providers Care Fruit Or Nut Farmworker Name Role Phone Wero Welch MD Primary Care Provider Magdy Gillis MD Unavailable [phone] Encounter Details Date Type Department Care Team (Latest Contact Info) Description 12/29/2024 Results Follow-Up [facility] [address] [place] [address] Luther Reyes MD [address] [facility] [address] [place] [address] Urinalysis reflex to microscopic, Erythrocyte sedimentation rate, CBC with auto differential, Additional followed-up results: 6 Social History Tobacco Use Types Packs/Day Years [...] on file Legal Sex 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
--- OUTSIDE RECORDS SUMMARY | 2025-02-05 10:19 | XMS_ITS ---
Author Organization [facility] [place] ([address]) Address [address] [place] [address] Care Team Providers Care Vp Information Technology Name Role Phone Wero Welch MD Primary Care Provider Unavaila Greta Melara Unavailable [phone] REASON FOR VISIT Consult Headache Social History Sex Assigned At : Social History Observation Description Sex Assigned At Female Problems Problem Type SNOMED Code ICD Code Onset Dates Problem Status W/U Status Risk Notes Problem Chronic migraine without aura, non-intractab le (880249673421 100) Chronic migraine without aura, not intractable, without status migrainosus (G43.709) Active confirmed Problem Migraine with aura (8848632) Migraine with aura, not intractable, without status migrainosus (G43.109) Active confirmed Problem Chronic migraine without aura, non-refractor y (disorder) (853445110183 100) Migraine without aura, not intractable, without status migrainosus (G43.009) Active confirmed Encounters Encounter Location Date Provider Diagnosis [facility] [address] [employer] [address] [address] [place] [address] 05/07/2024 Greta Castrejon Chronic migraine without aura, [...] * Antonette CHILDRESS LDOB:1970 (54 yo F)Acc No.[id number]:05/07/2024 Progress Notes Patient: Antonette BANERJEE Provider: Andria Castrejon APRN :1970 A ge:53 Y S ex:Female Date:05/07/2024 Address:[facility] [address] [facility] Pcp:Wero Welch MD Subjective: * Chief [...] G8427 DOC MEDS VERIFIED W/[place], [address] PT-FOCUSED HLTH RISK ASSMT * Preventive Medicine: T his was a 60 minute visit with time spent in reviewing prior records/notes, evaluation and management, counseling, and documentation. * Follow Up: 4 Weeks (Reason: Evaluation and Management) * Billing Information: * Visit Code: 52796 Office Visit, New Pt., Level 4. Modifiers: 25 75191 Office Visit, New Pt., Level 5. Modifiers: 25 * Procedure Codes: G0444 ANNUAL DEPRESSION SCREENING 5-15 MIN. G8427 DOC MEDS VERIFIED W/[place]. [address] PT-FOCUSED HLTH RISK ASSMT. * Electronic signature of Sandy echeverriabryce Castrejon , FIRST ASSISTANT-C on 02/05/2025 at 10:19 AM CDT Sign off status: Pending * Provider: Andria Castrejon APRN Date: 07/07/2023 Generated for Federico fields/Brenda/Tanner on: 0 02/05/2025 10:19 AM CDT History and Physical Notes * [...]
--- OUTSIDE RECORDS SUMMARY | 2025-02-05 10:19 | XMS_ITS | Patient Health Record ---
Author Organization [facility] Address [address] [place] [address] Care Team Providers Care Microfilm Operator Name Role Phone Wero Welch MD Primary Care Provider Emilie RIOS TRAFFIC ENUMERATOR, JOSEPH Unavailable [phone] Allergies Allergen (clinical drug ingredient) Drug/Non Drug Allergy documented on EMR Reaction Allergy Type Onset Date Status Keflex rash Drug Allergy Active Reason For Referral No Information Medications Medication SIG (Take, Route, Frequency, Duration) Notes Start Date End Date Status Atorvastatin Calcium 10 MG 1 tablet Orally Once a day Active Vitamin A & D [address] UNIT as directed Orally Active Vitamin K 100 MCG 1 tablet Orally Once a day Not-Taking Multivitamin - 1 tablet Orally Once a day Active Sertraline HCl 50 MG 1 tablet Orally Once a day Active Linzess 290 MCG 1 capsule Orally Once a day Active Stool Softener 100 MG 1 capsule Orally TID Active Motegrity 2 MG 1 tablet Orally Once a day; Duration: 30 day(s) may fill 90 day script Not-Taking Pantoprazole Sodium 40 MG 1 tablet Orally Once a day; Duration: 30 day(s) 12/25/2019 Not-Taking Pepcid 20 MG 1 tab Orally BID Not-Taking Social History Tobacco Use: Social History Observation Description Date Details (start date - stop date) Never Smoker NA - NA Tobacco Use/Smoking Question Answer Notes Are you a nonsmoker Problems Problem Type SNOMED Code ICD Code Onset Dates Problem Status W/U Status Risk Notes Problem Functional dyspepsia (7059955) Functional dyspepsia (K30) Active confirmed Problem 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 Short term stenting. Colonoscopy 2004 no reports EGD [facility] 08/2009 Normal Duodenal bx neg ERCP 02/02/19 Aliperti recur rent papillary stenosis s/p biliary and pancreatic sphinterotomies. Short term dual duct stents placed and removed 02/04/19.
--- OUTSIDE RECORDS SUMMARY | 2025-02-05 10:19 | XMS_ITS | Encounter Summary ---
Author Organization [facility] Address [address] [facility] [place] [address] Care Team Providers Care Supervisor Concrete Stone Fabricating Name Role Phone Wero Welch MD Primary Care Provider [phone] Encounter Details Date Type Department Care Team (Late st Contact Info) Description 04/13/2024 Lab Requisition [facility] - DermPath Lab [address] [place] [address] Madhu Farley MD [address] [place] [address] Social History Tobacco Use Types Packs/Day Years Used Date Smoking Tobacco: Never Assessed Comments Unknown Sex and Gender Information Value Date Recorded Sex Assigned at Not on file Legal Sex Female 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 Gender Identity Not on file Sexual Orientation Not on file documented as of this encounter Plan of Treatment Not on file documented as of this encounter Procedures Procedure Name Priority Date/Time Associated Diagnosis Comments DERMATOPATHOLOGY Routine 04/10/2024 3:33 AM CDT documented in this encounter Results * DERMATOPATHOLOGY (04/10/2024 3:33 AM CDT) Case Report Dermatopathology Report Case: [id number] Authorizing Provider: Madhu Farley MD Collected: 04/10/2024 03:33 AM Ordering Location: [facility] Physician [facility] - Received: 04/13/2024 11:45 AM DermPath Lab [...] characteristic determined by the Dermatopathology Laboratory at [facility], directed by Dr. Adelia Trevizo. These tests need not be, and therefore are not, approved by the [place] Food and Drug Administration. The tests are used for clinical purposes. Billing Codes Specimen Charges Stain Charges 65860 44385 [id number] 43590 1 1 1 1 4 2:03 PM [...] PATHOLOGY/CYTOLOGY ORD ERABLES Final Result DERMATOPATHOLOGY LABORATORY [facility] - Department of Dermatology [facility] [facility], [address] Floor [address] [phone] documented in this encounter Visit Diagnoses Not on filedocumented in this encounter Care Teams Supervisor Concrete Stone Fabricating Relationship Specialty Start Date End Date Wero Welch MD [address] [place] [address] PCP - General Family Medicine 08/23/15 documented as of this encounter
--- OUTSIDE RECORDS SUMMARY | 2025-02-05 10:19 | XMS_ITS | Patient Health Record ---
Author Organization [employer] [place] ([address]) Address [address] [place] [address] Care Team Providers Care Health Informatics Advisor Name Role Phone Wero Welch MD Primary Care Provider UnavailGreta Vasquez Unavailable [phone] Allergies Allergen (clinical drug ingredient) Drug/Non Drug Allergy documented on EMR Reaction Allergy Type Onset Date Status Penicillin rash Drug Allergy Active Results Component Value Reference Range Notes TESTOSTERONE, FREE (DIALYSIS ) AND TOTAL,MS (Not yet reviewed by provider) Interpretation: Performing Lab:[facility], [address] [place] [address], [address], [place], [address] Tobi Martino MD,PhD Notes/Report: NON-FASTING; NON-FASTING; NON-FASTING TESTOSTERONE, TOTAL, MS 11 2-45 ng/dL For additional information, please refer to https://[email or web address] .SonarMed/faq/PED295 (This link is being provided for informational/educational purposes only.) (Note) This test was developed and its analytical performance characteristics have been determined by [facility]. It has not been cleared or approved by the FDA. This assay has been validated pursuant to the CLIA regulations and is used for clinical purposes. TESTOSTERONE, FREE 1.1 0.1-6.4 pg/mL (Note) This test was developed and its analytical performance characteristics have been determined by [facility]. It has not been cleared or approved by the FDA. This assay has been validated pursuant to the CLIA regulations and is used for clinical purposes. [facility] [address] [address],[address] [facility] [address] Tobi Martino MD, PhD ESTRADIOL (Not yet reviewed by provider) Interpretation: Performing Lab:[facility], [address], [place], [address] Coty Garland MD Notes/Report: NON-FASTING; NON-FASTING; NON-FASTING ESTRADIOL 18 Reference Range Follicular Phase: 19-144 Mid-Cycle: 64-357 Postmenopausal: < or = 31 Reference range established on post-pubertal patient population. No pre-pubertal reference range established using this assay. For any patients for whom low Estradiol levels are anticipated (e.g. males, pre-pubertal children and hypogonadal/post-menopausal females), the [facility] Estradiol, Ultrasensitive, LCMSMS assay is recommended (order code [id number]). Please note: patients being treated with the drug fulvestrant (Faslodex(R)) have demonstrated significant interference in immunoassay methods for estradiol measurement. The cross reactivity could lead to falsely elevated estradiol test results leading to an inappropriate clinical assessment of estrogen status. [facility] order code [id number], Ultrasensitive LC/MS/MS demonstrates negligible cross reactivity with fulvestrant. Luteal Phase: 56-214 FSH (Not yet reviewed by pro vider) Interpretation: Performing Lab:[facility], [address], [place], [address] Coty Garland MD Notes/Report: NON-FASTING; NON-FASTING; NON-FASTING FSH 107.7 Reference Range Follicular Phase 2.5-10.2 Mid-cycle Peak 3.1-17.7 Luteal Phase 1.5- 9.1 Postmenopausal 23.0-116.3 Reason For Referral No Information Medications Medication [...] days As needed for migraine 12/24/2024 Active Atorvastatin Calcium 10 MG 1 tablet Oral ly Once a day Active Protonix 40 MG 1 tablet 1/2 to 1 ho ur before morning meal Orally Once a day Active Plaquenil 200 MG as directed Orally Active Sertraline HCl 50 MG 1 tablet [...] (Standard) Question Answer Notes Tobacco use: Nonsmoker Problems Problem Type SNOMED Code ICD Code Onset Dates Problem Status W/U Status Risk Notes Problem Chronic migraine without aura, non-refractor y (disorder) (265069395563 100) Migraine without aura, not intractable, without status migrainosus (G43.009) Active confirmed Problem Migraine with aura (5286381) Migraine with aura, not intractable, without status migrainosus (G43.109) Active confirmed Problem Chronic migraine without aura, non-intractab le (102638328098 100) Chronic migraine without aura, not intractable, without status migrainosus (G43.709) Active confirmed Problem Unspecified menopausal and perimenopausal disorder (N95.9) Active confirmed Vital Signs Oximetry 97 % 12/24/2024 Blood pressure diastolic 72 mm Hg 12/24/2024 Height 69 in 12/24/2024 Blood pressure systolic 121 mm Hg 12/24/2024 Weight 188.2 lbs 12/24/2024 BMI 27.79 kg/m2 12/24/2024 Encounters Encounter Location Date Provider Diagnosis [facility] [address] [facility] [address] [place] [address] 12/24/2024 Greta Castrejon Migraine without aur a, not intractable, without status migrainosus G43.009 ; Drug-induced headache, not elsewhere classified, not intractable G44.40 ; Myalgia, unspecified site M79.10 and Unspecified menopausal and perimenopausal disorder N95.9 Assessments Encounter Date Diagnosis (ICD Code) Assessment Notes Treatment Notes Treatment Clinical Notes Section Notes 12/24/2024 Migraine without aura, not intractable, without status migrainosus (ICD-10 - G43.009) -Abortive treatment plan: Start rizatriptan 10 mg. Gave samples of Nurtec.-Preventiv e treatment plan: Start Topamax 25 mg qhs x 7 days, then increase to 50 mg qhs. -Educated the patient on migraine lifestyle recommendations. I recommended the following measures: avoid known triggers of migraine, drink > 100 fluid ounces of non-caffeinated fluid daily, limit caffeine to 2 servings/day, sleep 7-8 hours/night and address any sleep concerns with us and report symptoms of snoring or fatigue; healthy management of stress; avoid treating headaches more than 2 days/week with abortive medication unless approved in treatment plan; can take Riboflavin 400 mg and Magnesium 500 mg daily as supplements; keep scheduled follow-up appointments 12/24/2024 Drug-induced headache, not elsewhere classified, not intractable (ICD-10 - G44.40) Limit use of OTC analgesics to 2 days per week or less. Educated patient regarding medication overuse headaches. Advised to avoid taking NSAIDs or acetaminophen > 15 days/month, triptans or DHE > 10 days/month, butalbital > 10 days/month to avoid rebound headaches. 12/24/2024 Myalgia, unspecified site (ICD-10 - M79.10) Continue dry needling with pain management. Discussed returning to clinic for ONB. 12/24/2024 Unspecified menopausal and perimenopausal disorder (ICD-10 - N95.9) Send lab orders for testosterone free and total, FSH and estradiol to [facility]. Plan Of Treatment Pending Test Test Name Order Date TESTOSTERONE, FREE AND TOTAL, LC/MS/MS 0 12/24/2024 ESTRADIOL 12/24/2024 FSH 12/24/2024 TESTOSTERONE, FREE (DIALYSIS) AND TOTAL, MS 12/24/2024 Insurance Providers Payer Name Payer Address Payer Phone Subscriber Number Group Number Insured Name Patient Relationship to Insured Coverage Start Date Coverage End Date [facility] [address] [place] [address] [id number] Tony Childress Spouse - patient is the spouse of the insured 4 Medical (General) History Medical History History ICD Code Hypercholestrolemia
--- OUTSIDE RECORDS SUMMARY | 2025-02-05 10:19 | XMS_ITS | Clinical Summary ---
Author Organization [facility] [place] [address] Address [address] [place] [address] Care Team Providers Care History Card Clerk Name Role Phone Wero Welch MD Primary Care Provider Magdy Tellez MD Unavailable [phone] Allergies Active Allergy Reactions Criticality Noted Date Comments Cephalexin Rash Medium Medications docusate sodium (STOOL SOFTENER) 50 mg capsule take 1 capsule by oral route every day at bedtime as needed 0 0 08/23/2015 Active atorvastatin (LIPITOR) 10 mg tablet 12/30/2018 Active sertraline (ZOLOFT) 50 mg tablet 01/31/2019 Active linaCLOtide (LINZESS) 290 mcg capsule 1 capsule (290 mcg total) daily Active multivitamin tabletIndicatio ns:Vitamin Deficiency Prevention Take 1 tablet by mouth Active pantoprazole DR (PROTONIX) 40 mg EC tablet TAKE ONE TABLET BY MOUTH TWICE A DAY 60 tablet 11/20/2024 Active hydroxychloroqu ine (PLAQUENIL) 200 mg tablet Take 2 tablets (400 mg total) by mouth daily 180 tablet 1 12/28/2024 Active Active Problems Problem Noted Date Diagnosed [...] of surveillance Rash 08/10/2024 Assessment & Plan (02/03/2025 8:26 AM CDT): Her mother has psoriasis. Rt elbow rash suspicious for psoriasis, will refer to derm for eval. Assessment & Plan (08/10/2024 5:[address] LIGHT WIRER): Her mother has psoriasis. Rt elbow rash suspicious for psoriasis, will refer to derm for eval. Abdominal pain 06/29/2024 Assessment & Plan (10/21/2024 1:56 PM CDT): Reports that she is having generalized abdominal pain with bloating. Unable to identify triggers. -Will r/o SIBO -Possible trial of dicyclomine Nausea and vomiting 06/29/2024 Encounter for long-term (current) use of medicat ions 06/18/2024 Assessment & Plan (02/03/2025 8:24 AM CDT): Avise 05/2024---+FABI 38/1:80 Mother had psoriasis. Assessment & Plan (12/25/2024 3:28 PM CDT): Avise 05/2024---+FABI 38/1:80 Mother had psoriasis. Assessment & Plan (08/10/2024 1:[address] LIGHT WIRER): Avise 05/2024---+FABI 38/1:80\ Mother had psoriasis. Assessment & Plan (06/18/2024 8:[address] LIGHT WIRER): Avise 05/2024---+FABI 38/1:80 Neck pain 06/18/2024 Assessment & Plan (02/03/2025 8:25 AM CDT): She has appt to see dr parag howe. She will also continue with her pain mgmt in [place]. Cervical MRI 08/2024: Name: : Sex: Patient Class: Antonette Childress 1970 Female Ancillary Procedures Performed: Exam Time: Reason for Exam: Diagnosis: MRI Cervical Spine WO Contrast 08/28/2024 5:46 PM Myelopathy, chronic, cervical spine Neck pain Performing Department: [facility] [place] [place] [address] [place] [address] Accession Number: [id number] PCP: Wero Welch EXAMINATION: Magnetic resonance imaging (MRI) of the cervical spine without contrast HISTORY: 53-year-old female with neck pain TECHNIQUE: Multiplanar multi-weighted MRI of the cervical spine was performed without intravenous contrast using the standard protocol. COMPARISON: None Available. FINDINGS: Mild retrolisthesis of C5 on C6. Degenerative endplate changes seen along the inferior endplate of C5 and superior endplate of C6. No acute fracture is identified. The craniocervical junction is normal. The visualized portions of the skull base and the posterior fossa are normal. The spinal cord demonstrates normal signal intensity on all sequences. Intervertebral disks have normal height and signal intensity. There are no annular fissures identified. No soft tissue abnormality is identified. C2-C3: The disk is normal in configuration. There is no facet arthropathy. There is no uncovertebral joint disease. There is no neuroforaminal stenosis. There is no spinal canal stenosis. C3-C4: Disc bulge with tiny central disc protrusion. There is mild bilateral facet arthropathy. There is mild uncovertebral joint disease. There is mild bilateral neuroforaminal stenosis. There is no spinal canal stenosis. C4-C5: Disc bulge. There is mild right facet arthropathy. There is mild uncovertebral joint disease. There is no neuroforaminal stenosis. There is no spinal canal stenosis. C5-C6: Mild disc bulge. There is mild bilateral facet arthropathy. There is mild uncovertebral joint disease. There is mild bilateral neuroforaminal stenosis. There is no spinal canal stenosis. C6-C7: The disk is normal in configuration. There is no facet arthropathy. There is no uncovertebral joint disease. There is no neuroforaminal stenosis. There is no spinal canal stenosis. C7-T1: The disk is normal in configuration. There is no facet arthropathy. There is no uncovertebral joint disease. There is no neuroforaminal stenosis. There is no spinal canal stenosis. IMPRESSION: Mild degenerative changes of the cervical spine as described above, most pronounced at C5-C6. Assessment & Plan (08/10/2024 1:[address] LIGHT WIRER): Previous CT showed C spine stenosis and pt continues to have a lot of radicular neck pain that interferes with her every day life and her sleep. She has done over 2 months of PT but continues to have same symptoms. Will order c spine mri again, in past her insurance denied it without doing PT first. She has appt to see dr tafoya in august. She will also continue with her pain mgmt in [place]. Assessment & Plan (06/18/2024 2:[address] LIGHT WIRER): Previous CT showed C spine stenosis and pt continues to have a lot of radicular neck pain that interferes with her every day life and her sleep. Will start PT, order c spine MRI and refer her to Dr. Collin Tafoya for opinion. She will also continue with her pain mgmt in [place]. Dry skin 06/04/2024 Assessment & Plan (06/04/2024 1:[address] LIGHT WIRER): Check tsh. Chronic pain of both knees 06/04/2024 Assessment & Plan (06/04/2024 1:[address] LIGHT WIRER): Mostly rt knee pain and occ swelling,check rt knee xray. Myalgia 06/04/2024 Assessment & Plan (06/04/2024 1:[address] LIGHT WIRER): No muscle weakness on exam. Check cpk. Pain in both feet 06/04/2024 Assessment & Plan (06/04/2024 2:[address] LIGHT WIRER): Check bilat foot xrays. Positive FABI (antinuclear [...] effusion Assessment & Plan (06/04/2024 8:[address] LIGHT WIRER): Last seen 10/2021 (see previous notes below). [...] with GI. Polyarthralgia 11/09/2021 Assessment & Plan (02/03/2025 8:26 AM CDT): Images from the original note were not included. Her mother has psoriasis. Also has some dry patches on elbows on/off, we referred her to derm to make sure this is not psoriasis in past visit. She has long hx of joint pain (15 years). Serologies showed low + FABI and equivocal RF. Also has hx of sicca, sun rashes, oral ulcers, pleurisy, hair thinning. 2 miscarriages at 12 week gestation. Recommend she continues hydroxychloroquine 200mg bid. Seen with Dr. Tellez. Previous labs/imaging 05/2024: [facility]ise 05/2024---+FABI 38/1:80 Cbc, cmp, ck, c3/c4, tsh all wnl. Xrays 05/2024: Hands---dip narrowing suggestive of OA Feet---ossification of insertion of achilles tendon, 1st mtp OA Assessment & Plan (12/28/2024 3:29 PM CDT): Images from the original note were not included. High cdai. Flaring up. Due to burden of disease will give her 100mg of triamcinolone IM, also discussed that if she does not improve in 1 month recommended adding mtx next. Discussed potential se and risks of mtx tx. Advised her to avoid sun exposure. She has remembered that her mother had psoriasis. Also has some dry patches on elbows on/off, we referred her to derm to make sure this is not psoriasis in past visit. She has long hx of joint pain (15 years). Serologies showed low + FABI and equivocal RF. Also has hx of sicca, sun rashes, oral ulcers, pleurisy, hair thinning. 2 miscarriages at 12 week gestation. Recommend she continues hydroxychloroquine 200mg bid. Seen with Dr. Tellez. Previous labs/imaging 05/2024: Avise 05/2024---+FABI 38/1:80 Cbc, cmp, ck, c3/c4, tsh all wnl. Xrays 05/2024: Hands---dip narrowing suggestive of OA Feet---ossification of insertion of achilles tendon, 1st mtp OA Assessment & Plan (08/10/2024 5:[address] LIGHT WIRER): Images from the original note were not [...] OA Assessment & Plan (06/18/2024 2:[address] LIGHT WIRER): Images from the original note were not [...] OA Assessment & Plan (06/04/2024 1:[address] LIGHT WIRER): Last seen 10/2021. Long hx of joint [...] (02/03/2019): Added automatically from request for surgery [id number] Resolved Problems Problem Noted Date Diagnosed Date Resolved Date Myopathy 11/14/2013 06/04/2024 Overview (10/05/2016): MYALGIA AND MYOSITIS NOS Encounters Date Type Department Care Team Description 12/30/2024 Telephone [facility] [address] [place] [phone] Paty Kay 12/29/2024 Results Follow-Up [facility] [address] [place] [phone] Luther Reyes MD Urinalysis reflex to microscopic, Erythrocyte sedimentation rate, CBC with auto differential, Additional followed-up results: 6 12/28/2024 2:45 PM CDT Office Visit [facility] [address] [place] [phone] Nimisha Sanchez PA Polyarthralgia (Primary Dx); Encounter for long-term (current) use of medications from Last 3 Months Surgical History Surgery [...] you are drinking? Patient does not drink 01/20/202 5 Q3: How often do you have si [...] on file Legal Sex Female 7:[address] LIGHT WIRER Gender Identity Not on file Sexual Orientation Not on file Obstetrics History Last Filed Vital Signs Vital Sign Reading Time Taken Comments Blood Pressure 136/70 12/28/2024 2:43 PM CDT Pulse 66 12/28/2024 2:43 PM CDT Temperature 36.3 C (97.4 F) 07/22/2024 8:[address] LIGHT WIRER Respiratory Rate 15 07/22/2024 8:[address] LIGHT WIRER Oxygen Saturation 98% 12/28/2024 2:43 PM CDT Inhaled Oxygen Concentration - - Weight 85.6 kg (188 lb 12.8 oz) 12/28/2024 2:43 PM CDT Height 175.3 cm (5' 9) 12/28/2024 2:43 PM CDT Body Mass Index 27.88 12/28/2024 2:43 PM CDT Plan of Treatment Health Maintenance Due Date Last Done Comments Breast Cancer Screening-Mammogram 1970 Colon Cancer Screening-Colonoscopy 1970 Depression Screening 1970 Hepatitis C Screening 1970 Hepatitis B Screening 1986 Regular Well Visit/Exam 18-64 1986 Pneumococcal vaccine <65 (1 of 2 - PCV) 09/06/1987 Zoster Vaccine (1 of 2) 09/06/1987 Influenza Vaccine (#1) 2025 05/14/2020, 2017 DTaP/Tdap/Td Vaccine (2 - Td or Tdap) 07/17/2028 Medical Devices Explanted Type Area Strap Cutting Machine Operator Device Identifier Shelf Expiration Date Model / Serial / Lot [id number] [id number] Rosado Flexi-Stent 7fr 3cm Small Pigtail Flexible .035in Stent - [id number] Implanted:Qty: 1 on 02/02/2019 by Neville Robbins MD at [facility] Explanted:Qty: 1 on 02/04/2019 by Neville Robbins MD Stent N/A: Pancreas [employer] 07/31/2023 [id number] / / [id number] Conmed Rudy [id number] Viabil 8mm 8.5fr 60mm 200cm Expandable Pull Line Without Holes - [id number] - [id number] Implanted:Qty: 1 on 02/02/2019 by Neville Robbins MD at [facility] Explanted:Qty: 1 on 02/04/2019 by Neville Robbins MD Stent N/A: Bile Duct Conmed Rudy 05/11/2021 [id number] / [id number] / Procedures Procedure Name Priority Date/Time Associated Diagnosis Comments ANTI-DOUBLE STRANDED DNA ANTIBODIES Routine 12/28/2024 3:52 PM CDT Polyarthralgia Encounter for long-term (current) use of medications PROTEIN / CREATININE RATIO, URINE, RANDOM Routine 12/28/2024 3:52 PM CDT Polyarthralgia Encounter for long-term (current) use of medications COMPREHENSIVE METABOLIC PANEL Routine 12/28/2024 3:52 PM CDT Polyarthralgia Encounter for long-term (current) use of medications CRP (ACUTE PHASE) Routine 12/28/2024 3:5 2 PM CDT Polyarthralgia Encounter for long-term (current) use of medications C3 COMPLEMENT Routine 12/28/2024 3:52 PM CDT Polyarthralgia Encounter for long-term (current) use of medications C4 COMPLEMENT Routine 12/28/2024 3:52 PM CDT Polyarthralgia Encounter for long-term (current) use of medications CBC WITH AUTO DIFFERENTIAL Routine 12/28/2024 3:52 PM CDT Polyarthralgia Encounter for long-term (current) use of medications ERYTHROCYTE SEDIMENTATION RATE Routine 12/28/2024 3:52 PM CDT Polyarthralgia Encounter for long-term (current) use of medications URINALYSIS AND REFLEX TO MICROSCOPIC Routine 12/28/2024 3:52 PM CDT Polyarthralgia Encounter for long-term (current) use of medications from Last 3 Months Results * Anti-double stranded DNA abs (12/28/2024 3:52 PM CDT) Pathologist [facility] DNA (DS) ab <1 IU/mL [facility] Comment: IU/mL Interpretation < or = 4 Negative 5-9 Indeterminate > or = 10 Positive Blood 12/28/2024 3:52 PM CDT 12/28/2024 3:52 PM CDT Nimisha MARC LAB BLOOD ORDERAB LES Final Result Performing Organization Address [facility]/ZIP Co de Phone Number QUEST [facility] [address] [place] [address] * C4 complement (12/28/2024 3:52 PM CDT) [facility] Complement component C4C 22 15 - 57 mg/dL [facility] Blood 12/28/2024 3:52 PM CDT 12/28/2024 3:52 PM CDT Nimisha Sanchez [place] LAB BLOOD ORDERAB LES Final Result Performing Organization Address [facility] Co de Phone Number QUEST [facility] [address] [facility] [place] [address] * (ABNORMAL) Urinalysis reflex to microscopic (12/28/2024 3:52 PM CDT) Color, ur YELLOW YELLOW [facility] Appearance, ur CLEAR CLEAR [facility] Specific gravity 1.012 1.001 - 1.035 [facility] pH, ur < OR = 5.0(A) 5.0 - 8.0 [facility] Glucose, ur NEGATIVE NEGATIVE [facility] Bilirubin, ur NEGATIVE NEGATIVE [facility] Ketones, ur NEGATIVE NEGATIVE [facility] Blood, ur NEGATIVE NEGATIVE [facility] Protein, ur, quant NEGATIVE NEGATIVE [facility] Nitrites, ur NEGATIVE NEGATIVE [facility] Leukocyte esterase, ur NEGATIVE NEGATIVE [facility] Urine 12/28/2024 3:52 PM CDT 12/28/2024 3:52 PM CDT us Nimisha MARC LAB URINE ORDERAB LES Final Result [facility] [address] [place] [address] * (ABNORMAL) CBC with auto differential (12/28/2024 3:52 PM CDT) WBC 8.2 3.8 - 10.8 Thousand/u L [facility] RBC, POC 5.17(H) 3.80 - 5.10 Million/uL [facility] Hgb 14.2 11.7 - 15.5 g/dL [facility] Hct 45.5(H) 35.0 - 45.0 % [facility] MCV 88.0 80.0 - 100.0 fL [facility] MCH 27.5 27.0 - 33.0 pg [facility] MCHC 31.2(L) 32.0 - 36.0 g/dL [facility] Comment: For adults, a slight decrease in the calculated MCHC value (in the range of 30 to 32 g/dL) is most likely not clinically significant; however, it should be interpreted with caution in correlation with other red cell parameters and the patient's clinical condition. Rdw 12.8 11.0 - 15.0 % [facility] Platelets 304 140 - 400 Thousand/u L [facility] MPV 11.2 7.5 - 12.5 fL [facility] Neutrophils, abs 5,084 1,500 - 7,800 cells/uL [facility] Lymphocytes, abs 2,124 850 - 3,900 cells/uL [facility] Monocyte abs 763 200 - 950 cells/uL [facility] Eosinophils, abs 172 15 - 500 cells/uL [facility] Basophils, abs 57 0 - 200 cells/uL [facility] Neutrophils 62 % [facility] Lymphocyte pct 25.9 % [facility] Monocytes 9.3 % [facility] Eosinophils 2.1 % [facility] Basophils 0.7 % [facility] Blood 12/28/2024 3:52 PM CDT 12/28/2024 3:52 PM CDT Nimisha MARC LAB BLOOD ORDERAB LES Final Result Performing Organization Address City/[facility]/ZIP Co de Phone Number QUEST [facility] [address] [place] [address] * Protein / creatinine ratio, urine, random (12/28/2024 3:52 PM CDT) Pathologist [facility] Creatinine, ur 111 20 - 275 mg/dL [facility] Protein/creatin ine ratio 72 24 - 184 mg/g creat [facility] Protein/Creatin ine Ratio 0.072 0.024 - 0.184 mg/mg creat [facility] Protein, ur, quant 8 5 - 24 mg/dL [facility] Urine 12/28/2024 3:52 PM CDT 12/28/2024 3:52 PM CDT Nimisha MARC LAB URINE ORDERAB LES Final Result Performing Organization Address City/[facility]/ZIP Co de Phone Number [facility] [address] [place] [address] * Erythrocyte sedimentation rate (12/28/2024 3:52 PM CDT) Pathologist [facility] Erythrocyte sedimentation rate 11 < OR = 30 mm/h [facility] Blood 12/28/2024 3:52 PM CDT 12/28/2024 3:52 PM CDT Nimisha MARC LAB BLOOD ORDERAB LES Final Result Performing Organization Address [facility] de Phone Number QUEST [facility] [address] [place] [address] * C3 complement (12/28/2024 3:52 PM CDT) Pathologist [facility] Complement component C3C 162 83 - 193 mg/dL [facility] Blood 12/28/2024 3:52 PM CDT 12/28/2024 3:52 PM CDT Nimisha MARC LAB BLOOD ORDERAB LES Final Result Performing Organization Address [facility] de Phone Number QUEST [facility] [address] [place] [address] * CRP (acute phase) (12/28/2024 3:52 PM CDT) Pathologist [facility] C-RP <3.0 <8.0 mg/L [facility] Blood 12/28/2024 3:52 PM CDT 12/28/2024 3:52 PM CDT Nimisha MARC LAB BLOOD ORDERAB LES Final Result Performing Organization Address [facility] de Phone Number QUEST [facility] [address] [place] [address] * Comprehensive metabolic panel (12/28/2024 3:52 PM CDT) Pathologist [facility] Glucose 91 65 - 99 mg/dL [facility] Comment: Fasting reference interval BUN 17 7 - 25 mg/dL [facility] Creatinine 0.87 0.50 - 1.03 mg/dL [facility] eGFR 78 > OR = 60 mL/min/1.7 3m2 [facility] BUN/creat ratio SEE NOTE: 6 - 22 (calc) [facility] Comment: Not Reported: BUN and Creatinine are within reference range. Sodium 139 135 - 146 mmol/L [facility] Potassium, pl 4.3 3.5 - 5.3 mmol/L [facility] Chloride 103 98 - 110 mmol/L [facility] CO2 26 20 - 32 mmol/L [facility] Calcium 9.5 8.6 - 10.4 mg/dL [facility] Protein, sr 7.0 6.1 - 8.1 g/dL [facility] Albumin 4.6 3.6 - 5.1 g/dL [facility] GLOBULIN 2.4 1.9 - 3.7 g/dL (calc) [facility] Alb/glob ratio 1.9 1.0 - 2.5 (calc) [facility] Bilirubin, total 0.4 0.2 - 1.2 mg/dL [facility] Alk phos 68 37 - 153 U/L [facility] AST 15 10 - 35 U/L [facility] ALT (SGPT) 23 6 - 29 U/L [facility] Blood 12/28/2024 3:52 PM CDT 12/28/2024 3:52 PM CDT us Nimisha MARC LAB BLOOD ORDERAB LES Final Result [facility] [address] [place] [phone] from Last 3 Months Insurance [facility] BLUE ACC[place] CHOICE [place] [employer] ACCESS CHOICE BLUE ACCESS CHOICE [place] BLUE ACCESS CHOICE [place] Advance Directives For more information, please contact: [phone] * Full Code (Latest Code Status on File) Date Activated Date Inactivated Comments 02/03/2019 12:36 PM 02/04/2019 6:25 PM Care Teams History Card Clerk Relationship Specialty Start Date End Date Wero eWlch MD [address] [facility] [address] [place] [address] PCP - General 10/07/06 Magdy Tellez MD [address] [place] [address] Consulting Physician Rheumatology 10/12/21
--- OUTSIDE RECORDS SUMMARY | 2025-02-05 10:19 | XMS_ITS | Clinical Summary ---
Author Organization [facility] Address [address] [place] [address] Care Team Providers Care Tassel Snipper Name Role Phone Wero Welch MD Primary Care Provider [phone] Source Comments [facility],non-owned Affiliates and Associated Physician Practices is amultiple site organization consisting of ambulatory clinics and hospital sitesin [place], [place], [place] and [place]. This disclosure is being madepursuant to the Care Everywhere program and may not contain all information available regarding this patient. Last updated 18.[facility] [employer] Allergies Active Allergy Reactions Criticality Noted Date [...] (05/05/2024): Added automatically from request for surgery [id number] Myopathy 11/14/2013 Overview (05/05/2024): MYALGIA AND MYOSITIS NOS Social History Tobacco Use Types Packs/Day Years Used Date Smoking Tobacco: Never Assessed Comments Unknown Sex and Gender Information Value Date Recorded Sex Assigned at Not on file Legal Sex Female 11:14 AM ANNOUNCER Gender Identity Not on file Sexual Orientation [...] - COLON CA SCREENING 1970 MAMMOGRAM 1970 HIV SCREENING 09/06/1983 HEPATITIS C SCREENING 09/01/1986 DTAP/TDAP/TD VACCINES (1 - Tdap) 09/06/1987 HEPATITIS B VACCINE (1 of 3 - 19+ 3-dose series) 09/06/1987 PAP SMEAR 1989 PNEUMOCOCCAL VACCINE 50+ (1 of 1 - PCV) 2018 ZOSTER VACCINE (1 of 2) 2018 COVID-19 VACCINE (1 - 2023-2 5 season) 2024 DEPRESSION SCREENING 07/01/2024 INFLUENZA VACCINE (#1) 2025 HIB VACCINE Aged Out No longer [...] complete this topic Insurance ANTHEM Care Teams Tassel Snipper Relationship Specialty Start Date End Date Wero Welch MD [address] [place], [place] [id number] PCP - General Family Medicine 08/23/15
--- OUTSIDE RECORDS SUMMARY | 2025-02-05 10:19 | XMS_ITS | Encounter Summary ---
Author Organization [facility] Address [address] [place] [address] Care Team Providers Care Real Estate Recruiter Name Role Phone Wero Welch MD Primary Care Provider [phone] Encounter Details Date Type Department Care Team (Late st Contact Info) Description 04/20/2024 Lab Requisition [facility] - DermPath Lab [address] [place] [phone] Madhu Farley MD [address] [place] [address] Social History Tobacco Use Types Packs/Day Years Used Date Smoking Tobacco: Never Assessed Comments Unknown Sex and Gender Information Value Date Recorded Sex Assigned at Not on file Legal Sex Female 11:14 AM NAIL GALVANIZER Gender Identity Not on file Sexual Orientation Not on file documented as of this encounter Plan of Treatment Not on file documented as of this encounter Procedures Procedure Name Priority Date/Time Associated Diagnosis Comments DERMATOPATHOLOGY Routine 04/17/2024 12:0 0 AM CDT documented in this encounter Results * DERMATOPATHOLOGY (04/17/2024 12:00 AM CDT) Case Report Dermatopathology Report Case: [id number] Authorizing Provider: Madhu Farley MD Collected: 04/17/2024 12:00 AM Ordering Location: [facility] - Received: 04/20/2024 01:51 PM DermPath Lab Pathologist: Esthela Contrreas MD Specimens: A) - Skin, right distal [...] specimen consists of a shave biopsy measuring 71f16q3 mm. Jar 0. Specimen B: Received is [...] characteristic determined by the Dermatopathology Laboratory at [facility], directed by Dr. Adelia Trevizo. These tests need not be, and therefore are not, approved by the [place] Food and Drug Administration. The tests are used for clinical purposes. Billing Codes Specimen Charges Stain Charges 05609 25768 64452 15017 1 1 1 1 12:55 PM CDT [...] PATHOLOGY/CYTOLOGY ORD ERABLES Final Result DERMATOPATHOLOGY LABORATORY [facility] - Department of Dermatology [address], [address] [phone] documented in this encounter Visit Diagnoses Not on filedocumented in this encounter Care Teams Real Estate Recruiter Relationship Specialty Start Date End Date Wero Welch MD [address] [place] [address] PCP - General Family Medicine 08/23/15 documented as of this encounter
--- OUTSIDE RECORDS SUMMARY | 2025-02-05 10:19 | XMS_ITS ---
Author Organization [email or web address] [place] ([address]) Address [address] [place] [address] Care Team Providers Care Waistband Setter Lockstitch Name Role Phone Wero Welch MD Primary Care Provider UnavailGreta Vasquez Unavailable [phone] Allergies Allergen (clinical drug ingredient) Drug/Non Drug [...] Nonsmoker Encounters Encounter Location Date Provider Diagnosis [facility] [address] [facility] [address] [place] [address] 01/21/2025 Greta Cash Migraine without aur a, [...] * Antonette CHILDRESS LDOB:1970 (54 yo F)Acc No.[id number]:01/21/2025 Progress Notes Patient: Antonette BANERJEE Provider: Andria Castrejon APRN :1970 A ge:54 Y S ex:Female Date:01/21/2025 Address:[facility] [address] [place] , [facility] Pcp:Wero Welch MD Subjective: * Chief [...] Management * Billing Information: * Visit Code: 07348 Office Visit, Est Pt., Level 4. Modifiers: 73345 Office Visit, Est Pt., Level 3. Modifiers: 78269 Office Visit, Est Pt., Level 5. Modifiers: 25 * Procedure Codes: 78617 PT-FOCUSED HLTH RISK ASSMT. G8427 DOC MEDS VERIFIED W/PT OR RE. G2211 Complex e/m visit add on. * Electronic signature of KRISTA Avilez on 02/05/2025 at 10:18 AM CDT Sign off status: Pending * Provider: Andria Castrejon APRN Date: 0 01/21/2025 Generated for Federico fields/Brenda/Kditting on: 0 02/05/2025 10:18 AM CDT History and Physical Notes * [...]
--- OUTSIDE RECORDS SUMMARY | 2025-02-05 10:19 | XMS_ITS | Encounter Summary ---
Author Organization [facility] Address [address] [facility] [place] [address] Care Team Providers Care Gunite Mixer Name Role Phone Wero Welch MD Primary Care Provider [phone] Encounter Details Date Type Department Care Team (Late st Contact Info) Description 05/29/2023 Lab Requisition [facility] - DermPath Lab [address] [facility] [place] [phone] Madhu Farley MD [address] [place] [address] Social History Tobacco Use Types Packs/Day Years Used Date Smoking Tobacco: Never Assessed Comments Unknown Sex and Gender Information Value Date Recorded Sex Assigned at Not on file Legal Sex Female 11:14 AM FLIGHT CONTROL SPECIALIST Gender Identity Not on file Sexual Orientation Not on file documented as of this encounter Plan of Treatment Not on file documented as of this encounter Procedures Procedure Name Priority Date/Time Associated Diagnosis Comments DERMATOPATHOLOGY Routine 05/28/2023 3:33 AM FLIGHT CONTROL SPECIALIST documented in this encounter Results * DERMATOPATHOLOGY (05/28/2023 3:33 AM FLIGHT CONTROL SPECIALIST) Case Report Dermatopathology Report Case: [id number] Authorizing Provider: Madhu Farley MD Collected: 05/28/2023 03:33 AM Ordering Location: [facility] DermPath Lab Received: 05/30/2023 07:31 AM Pathologist: Brittnee Contreras MD Specimen: Skin, left medial breast 9:28 AM FLIGHT CONTROL SPECIALIST DERMATOPATHOLOGY LABORATORY Final Diagnosis Specimen A. SKIN, left medial breast: LICHEN PLANUS-LIKE KERATOSIS (BENIGN LICHENOID KERATOSIS) (L82.1) (see microscopic description) 3 9:28 AM [facility] DERMATOPATHOLOGY LABORATORY at [address] [facility] Clinical History R/O SCC 3 9:28 AM [facility] DERMATOPATHOLOGY LABORATORY Gross Description Specimen A: Received is one formalin filled container labeled with the patient's name and designated left medial breast. The specimen consists of a shave biopsy measuring 7x6x1 mm. Jar 0. 3 9:28 AM [facility] DERMATOPATHOLOGY LABORATORY Microscopic Description Specimen A. SKIN, left medial breast: The epidermis is mildly acanthotic. There is a lichenoid infiltrate with vacuolar changes of basilar keratinocytes and scattered necrotic keratinocytes. MelanA and HMB45 do not highlight an underlying atypical melanocytic proliferation. Additional deeper sections were obtained and reviewed. 3 9:28 AM [facility] DERMATOPATHOLOGY LABORATORY Disclaimer An external and internal positive and negative controls are appropriate for the histochemical, immunohistochemical and immunofluorescence stain(s) in this case (if any), except where stated explicitly. The performance characteristics of the stain(s) cited in this report were developed and its performance characteristic determined by the Dermatopathology Laboratory at [facility], directed by Dr. Adelia Trevizo. These tests need not be, and therefore are not, approved by the [place] Food and Drug Administration. The tests are used for clinical purposes. Billing Codes Specimen Charges Stain Charges 91577 1 51476 65518 1 1 3 9:28 AM [facility] DERMATOPATHOLOGY LABORATORY Embedded Images 3 9:28 AM [facility] DERMATOPATHOLOGY LABORATORY Pathology/Cytolo gy TISSUE SPECIMEN FROM SKIN / Unknown 05/28/2023 3:33 AM FLIGHT CONTROL SPECIALIST 05/30/2023 7:31 AM [facility] Madhu Farley MD LAB - PATHOLOGY/CYTOLOGY ORD ERABLES Final Result DERMATOPATHOLOGY LABORATORY [facility] - Department of Dermatology [address], [address] [phone] documented in this encounter Visit Diagnoses Not on filedocumented in this encounter Care Teams Gunite Mixer Relationship Specialty Start Date End Date Wero Welch MD [address] [place] [address] PCP - General Family Medicine 08/23/15 documented as of this encounter
--- OUTSIDE RECORDS SUMMARY | 2025-02-05 10:19 | XMS_ITS | Encounter Summary ---
Author Organization [facility] Address [address] [facility] [place] [address] Care Team Providers Care Marketing Co Op Name Role Phone Wero Welch MD Primary Care Provider [phone] Encounter Details Date Type Department Care Team (Late st Contact Info) Description 03/29/2022 Lab Requisition [facility] DermPath Lab [address] [facility] [place] [phone] Madhu Farley MD [address] [place] [address] Social History Tobacco Use Types Packs/Day Years Used Date Smoking Tobacco: Never Assessed Comments Unknown Sex and Gender Information Value Date Recorded Sex Assigned at Not on file Legal Sex Female 11:14 AM SAMPLE MOUNTER Gender Identity Not on file Sexual Orientation Not on file documented as of this encounter Plan of Treatment Not on file documented as of this encounter Procedures Procedure Name Priority Date/Time Associated Diagnosis Comments DERMATOPATHOLOGY Routine 03/28/2022 12:0 0 AM CDT documented in this encounter Results * DERMATOPATHOLOGY (03/28/2022 12:00 AM CDT) Case Report Dermatopathology Report Case: [id number] Authorizing Provider: Madhu Farley MD Collected: 03/28/2022 12:00 AM Ordering Location: [facility] DermPath Lab Received: 03/29/2022 12:19 PM Pathologist: [...] specimen consists of a shave biopsy measuring 27h21u8 mm. Jar 0. 2 3:57 PM CDT [...] characteristic determined by the Dermatopathology Laboratory at [facility], directed by Dr. Adelia Trevizo. These tests need not be, and therefore are not, approved by the [place] Food and Drug Administration. The tests are used for clinical purposes. Billing Codes Specimen Charges Stain Charges 20683 1 2 3:57 PM CDT DERMATOPATHOLOGY LABORATORY Embedded Images 2 3:57 PM CDT DERMATOPATHOLOGY LABORATORY Pathology/Cytolog y TISSUE SPECIMEN FROM SKIN / Unknown 03/28/2022 03/29/2022 12:19 PM CDT us Madhu Farley MD LAB - PATHOLOGY/CYTOLOGY ORD ERABLES Final Result DERMATOPATHOLOGY LABORATORY [facility] - Department of Dermatology [facility] Medicine [address] [place] [address], [address] [place] [address], [facility] [phone] documented in this encounter Visit Diagnoses Not on filedocumented in this encounter Care Teams Marketing Co Op Relationship Specialty Start Date End Date Wero Welch MD [address] [place] [address] PCP - General Family Medicine 08/23/15 documented as of this encounter
[2025-02-05 10:30] LABS: Hematocrit 43.7 % (37.0-47.0); Hemoglobin 13.9 g/dL (12.0-15.0); Immature Granulocyte Percent A 0.5 % (0-0.5); Lymphocytes Absolute Auto 2.11 K/mm3 (0.9-3.2); Mean Corpuscular HGB Conc 31.8 g/dl (32-36); Mean Corpuscular Hemoglobin 27.7 pg (26-34); Mean Corpuscular Volume 87.2 fl (80-100); Nucleated Red Blood Cells Absolute Auto 0.000 K/mm3 (0.0-0.012); Nucleated Red Blood Cells Perc 0.0 % (0.0-0.2); Platelet Count Result 302 k/mm3 (150-375); Red Blood Count 5.01 M/mm3 (4.2-5.4); White Blood Count 7.4 K/mm3 (4.5-10.0)
[2025-02-05 10:38] LABS: Add Urine Microscopic? YES; Appearance Urine Clear (Clear); Glucose Urine UA Negative (Negative); Leukocyte Esterase Ur 2+ LEU/UL (Negative); Nitrate Urine Negative (Negative); Non Pathogenic Casts 0-2; Specific Grav Ur 1.022 (1.001-1.035)
[2025-02-05 10:49] LABS: Anion Gap 10 mmol/L (4-12); Blood Urea Nitrogen 18 mg/dL (7-17); Calcium 9.7 mg/dL (8.4-10.2); Carbon Dioxide 26 mmol/L (22-30); Chloride 104 mmol/L (98-107); Estimated Glomerular Filt Rate > 60; Glucose 107 mg/dL (65-110); Potassium 4.0 mmol/L (3.4-5.0); Sodium 140 mmol/L (137-145)
--- NOTE | 2025-02-05 10:51 | ECG_ITS ---
Test Date: 2025-02-05 11:00:11 Measurements Intervals [place] Rate: 56 P: 51 FL: 176 QRS: 43 QRSD: 100 T: 56 QT: 423 QTc: 411 Interpretive Statements SINUS BRADYCARDIA BORDERLINE ECG No previous ECG available for comparison Electronically Signed On 02-05-2025 11:17:13 CDT by Nayan Roberto D.O.
== END 2025-02-05 10:14 | disposition home or self-care (01) ==
LOC: ANHLAB 10:15
PROVIDERS: PCP Family Medicine; Visit Provider Nurse Practitioner Family
DX: D72.829 Elevated white blood cell count, unspecified (principal); R53.83 Other fatigue; I10 Essential (primary) hypertension
CPT/HCPCS: 36415; 80048; 81001; 85025; 93005

== ENCOUNTER 2025-03-10 13:27 | Outpatient (CLI) | payer BC, SELFPAY ==
--- OUTSIDE RECORDS SUMMARY | 2025-01-21 12:30 | XMS_ITS ---
Author Organization [facility] [employer] ([address]) Address [address] [place] [address] Care Team Providers Care Payable Representative Name Role Phone Wero Welch MD Primary Care Provider UnavailGreta Vasquez Unavailable [phone] Allergies Allergen (clinical drug ingredient) Drug/Non Drug [...] Nonsmoker Encounters Encounter Location Date Provider Diagnosis [facility] [address] [facility] [address] [place] [address] 01/21/2025 Greta Cash Migraine without aur a, [...] * Antonette CHILDRESS LDOB:1970 (54 yo F)Acc No.[id number]:01/21/2025 Progress Notes Patient: Antonette BANERJEE Provider: Andria Castrejon APRN :1970 A ge:54 Y S ex:Female Date:01/21/2025 Address:[facility] [address] [facility] Pcp:Wero Welch MD Subjective: * Chief Complaints: * 1 . Headache follow-up. * HPI: * Introduction: HPI: I had the pleasure of seeing Antonette Childress, who presented for [...] Management * Billing Information: * Visit Code: 88127 Office Visit, Est Pt., Level 4. Modifiers: 93513 Office Visit, Est Pt., Level 3. Modifiers: 22154 Office Visit, Est Pt., Level 5. Modifiers: 25 * Procedure Codes: 94700 PT-FOCUSED HLTH RISK ASSMT. G8427 DOC MEDS VERIFIED W/PT OR RE. G2211 Complex e/m visit add on. * Electronic signature of KRISTA Avilez on 03/10/2025 at 02:09 PM CDT Sign off status: Pending * Provider: Andria Castrejon APRN Date: 0 01/21/2025 Generated for Federico fields/Brenda/Tanner on: 0 03/10/2025 02:09 PM CDT History and Physical Notes * [...]
--- NOTE | ~2025-03-10 | CT_ITS ---
Exam: CT abdomen and pelvis with contrast Clinical History: [Right lower quadrant pain. ] Cholecystectomy. Partial left colectomy. Comparison: [ CT abdomen and pelvis 05/09/2022] Technique: Multiple axial CT images of the abdomen and pelvis were obtained with IV contrast. Sagittal and coronal reformatted images were obtained. FINDINGS: Lung bases: [ ] Liver: [ No mass.] [ No intrahepatic biliary duct dilatation.] Mild central pneumobilia presumably due to a previous cholecystectomy. Gallbladder: Cholecystectomy Common bile duct: [ Normal caliber.] [ No stones.] Spleen: [ Within normal limits.] Pancreas: [ No mass. No pancreatic fluid collection.] Adrenals: [ No masses.] Kidneys: [ No masses. No hydronephrosis.][ ] Lymph nodes: [ No adenopathy in the abdomen or pelvis.] Stomach, small bowel and colon: [ No bowel wall thickening or obstruction.] Peritoneum cavity: [ No mesenteric fat stranding or fluid.] Bladder: [ Unremarkable.] Osseous structures: [ No acute fracture or destructive lesion.] [ Multilevel degenerative change in the visualized spine.] Abdominal aorta: [ No aneurysm.] Additional findings: [ None of significance.] IMPRESSION: 1. No CT evidence for an acute process in the abdomen or pelvis at this time. 2. Cholecystectomy.Mild central pneumobilia presumably due to a previous cholecystectomy. 3. Partial left colectomy. If symptoms persist or worsen, consider a short-term follow-up study or additional imaging for further assessment. Reviewed, dictated and finalized at location Q. IMPRESSION: 1. No CT evidence for an acute process in the abdomen or pelvis at this time. 2. Cholecystectomy.Mild central pneumobilia presumably due to a previous cholec ystectomy. 3. Partial left colectomy. If symptoms persist or worsen, consider a short-term follow-up study or additio nal imaging for further assessment.
--- OUTSIDE RECORDS SUMMARY | 2025-03-10 14:10 | XMS_ITS | Encounter Summary ---
Author Organization [facility] Address [address] [facility] [place] [address] Care Team Providers Care Lime Kiln And Recausticizing Operator Name Role Phone Wero Welch MD Primary Care Provider [phone] Encounter Details Date Type Department Care Team (Late st Contact Info) Description 05/29/2023 Lab Requisition [facility] - DermPath Lab [address] [facility] [place] [phone] Madhu Farley MD [address] [place] [address] Social History Tobacco Use Types Packs/Day Years Used Date Smoking Tobacco: Never Assessed Comments Unknown Sex and Gender Information Value Date Recorded Sex Assigned at Not on file Legal Sex Female 11:14 AM AUTOMOBILE SERVICE STATION MANAGER Gender Identity Not on file Sexual Orientation Not on file documented as of this encounter Plan of Treatment Not on file documented as of this encounter Procedures Procedure Name Priority Date/Time Associated Diagnosis Comments DERMATOPATHOLOGY Routine 05/28/2023 3:33 AM AUTOMOBILE SERVICE STATION MANAGER documented in this encounter Results * DERMATOPATHOLOGY (05/28/2023 3:33 AM AUTOMOBILE SERVICE STATION MANAGER) Case Report Dermatopathology Report Case: [id number] Authorizing Provider: Madhu Farley MD Collected: 05/28/2023 03:33 AM Ordering Location: [facility] DermPath Lab Received: 05/30/2023 07:31 AM Pathologist: Brittnee Contreras MD Specimen: Skin, left medial breast 9:28 AM AUTOMOBILE SERVICE STATION MANAGER DERMATOPATHOLOGY LABORATORY Final Diagnosis Specimen A. SKIN, left medial breast: LICHEN PLANUS-LIKE KERATOSIS (BENIGN LICHENOID KERATOSIS) (L82.1) (see microscopic description) 3 9:28 AM [facility] DERMATOPATHOLOGY LABORATORY at [address] [facility] Clinical History R/O SCC 3 9:28 AM [facility] DERMATOPATHOLOGY LABORATORY Gross Description Specimen A: Received is one formalin filled container labeled with the patient's name and designated left medial breast. The specimen consists of a shave biopsy measuring 7x6x1 mm. Jar 0. 3 9:28 AM [facility] DERMATOPATHOLOGY LABORATORY Microscopic Description Specimen A. SKIN, left medial breast: The epidermis is mildly acanthotic. There is a lichenoid infiltrate with vacuolar changes of basilar keratinocytes and scattered necrotic keratinocytes. MelanA and HMB45 do not highlight an underlying atypical melanocytic proliferation. Additional deeper sections were obtained and reviewed. 3 9:28 AM [facility] DERMATOPATHOLOGY LABORATORY Disclaimer An external and internal positive and negative controls are appropriate for the histochemical, immunohistochemical and immunofluorescence stain(s) in this case (if any), except where stated explicitly. The performance characteristics of the stain(s) cited in this report were developed and its performance characteristic determined by the Dermatopathology Laboratory at [facility], directed by Dr. Adelia Trevizo. These tests need not be, and therefore are not, approved by the [place] Food and Drug Administration. The tests are used for clinical purposes. Billing Codes Specimen Charges Stain Charges 14088 1 07001 30838 1 1 3 9:28 AM [facility] DERMATOPATHOLOGY LABORATORY Embedded Images 3 9:28 AM [facility] DERMATOPATHOLOGY LABORATORY Pathology/Cytolo gy TISSUE SPECIMEN FROM SKIN / Unknown 05/28/2023 3:33 AM AUTOMOBILE SERVICE STATION MANAGER 05/30/2023 7:31 AM [facility] Madhu Farley MD LAB - PATHOLOGY/CYTOLOGY ORD ERABLES Final Result DERMATOPATHOLOGY LABORATORY [facility] - Department of Dermatology [address], [address] [phone] documented in this encounter Visit Diagnoses Not on filedocumented in this encounter Care Teams Lime Kiln And Recausticizing Operator Relationship Specialty Start Date End Date Wero Welch MD [address] [place] [address] PCP - General Family Medicine 08/23/15 documented as of this encounter
--- OUTSIDE RECORDS SUMMARY | 2025-03-10 14:10 | XMS_ITS | Clinical Summary ---
Author Organization [facility] Address [address] [facility] [place] [address] Care Team Providers Care Electronic Data Interchange Specialist Name Role Phone Wero Welch MD Primary Care Provider [phone] Source Comments [facility],non-owned Affiliates and Associated Physician Practices is amultiple site organization consisting of ambulatory clinics and hospital sitesin [place], [place], [place] and [place]. This disclosure is being madepursuant to the Care Everywhere program and may not contain all information available regarding this patient. Last updated 18.[facility] [employer] Allergies Active Allergy Reactions Criticality Noted Date [...] (05/05/2024): Added automatically from request for surgery [id number] Myopathy 11/14/2013 Overview (05/05/2024): MYALGIA AND MYOSITIS NOS Social History Tobacco Use Types Packs/Day Years Used Date Smoking Tobacco: Never Assessed Comments Unknown Sex and Gender Information Value Date Recorded Sex Assigned at Not on file Legal Sex Female 11:14 AM PRINTED CIRCUIT BOARDS PINNER Gender Identity Not on file Sexual Orientation [...] 2018 ZOSTER VACCINE (1 of 2) 2018 DEPRESSION SCREENING 07/01/2024 COVID-19 VACCINE (1 - 2023-2 5 season) 2025 INFLUENZA VACCINE (#1) 2025 HIB VACCINE Aged [...] complete this topic Insurance ANTHEM Care Teams Electronic Data Interchange Specialist Relationship Specialty Start Date End Date Wero Welch MD [address] [place], [place] [id number] PCP - General Family Medicine 08/23/15
--- OUTSIDE RECORDS SUMMARY | 2025-03-10 14:10 | XMS_ITS | Encounter Summary ---
Author Organization [facility] Address [address] [place] [address] Care Team Providers Care Shot Tube Machine Tender Name Role Phone Wero Welch MD Primary Care Provider [phone] Encounter Details Date Type Department Care Team (Late st Contact Info) Description 03/29/2022 Lab Requisition [facility] DermPath Lab [address] [facility] [place] [phone] Madhu Farley MD [address] [place] [address] Social History Tobacco Use Types Packs/Day Years Used Date Smoking Tobacco: Never Assessed Comments Unknown Sex and Gender Information Value Date Recorded Sex Assigned at Not on file Legal Sex Female 11:14 AM ADMEASURER Gender Identity Not on file Sexual Orientation Not on file documented as of this encounter Plan of Treatment Not on file documented as of this encounter Procedures Procedure Name Priority Date/Time Associated Diagnosis Comments DERMATOPATHOLOGY Routine 03/28/2022 12:0 0 AM CDT documented in this encounter Results * DERMATOPATHOLOGY (03/28/2022 12:00 AM CDT) Case Report Dermatopathology Report Case: [id number] Authorizing Provider: Madhu Farley MD Collected: 03/28/2022 12:00 AM Ordering Location: [facility] DermPath Lab Received: 03/29/2022 12:19 PM Pathologist: [...] specimen consists of a shave biopsy measuring 88q64q5 mm. Jar 0. 2 3:57 PM CDT [...] characteristic determined by the Dermatopathology Laboratory at [facility], directed by Dr. Adelia Trevizo. These tests need not be, and therefore are not, approved by the [place] Food and Drug Administration. The tests are used for clinical purposes. Billing Codes Specimen Charges Stain Charges 74339 1 2 3:57 PM CDT DERMATOPATHOLOGY LABORATORY Embedded Images 2 3:57 PM CDT DERMATOPATHOLOGY LABORATORY Pathology/Cytolog y TISSUE SPECIMEN FROM SKIN / Unknown 03/28/2022 03/29/2022 12:19 PM CDT us Madhu Farley MD LAB - PATHOLOGY/CYTOLOGY ORD ERABLES Final Result DERMATOPATHOLOGY LABORATORY [facility] - Department of Dermatology [facility] Medicine [address] [place] [address], [address] [place] [address], [facility] [phone] documented in this encounter Visit Diagnoses Not on filedocumented in this encounter Care Teams Shot Tube Machine Tender Relationship Specialty Start Date End Date Wero Welch MD [address] [place] [address] PCP - General Family Medicine 08/23/15 documented as of this encounter
--- OUTSIDE RECORDS SUMMARY | 2025-03-10 14:10 | XMS_ITS | Encounter Summary ---
Author Organization [facility] Address [address] [facility] [place] [address] Care Team Providers Care Procedure Writer Name Role Phone Wero Welch MD Primary Care Provider [phone] Encounter Details Date Type Department Care Team (Late st Contact Info) Description 04/13/2024 Lab Requisition [facility] - DermPath Lab [address] [place] [phone] Madhu Farley MD [address] [place] [address] Social History Tobacco Use Types Packs/Day Years Used Date Smoking Tobacco: Never Assessed Comments Unknown Sex and Gender Information Value Date Recorded Sex Assigned at Not on file Legal Sex Female 11:14 AM 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 OWNER Gender Identity Not on file Sexual Orientation Not on file documented as of this encounter Plan of Treatment Not on file documented as of this encounter Procedures Procedure Name Priority Date/Time Associated Diagnosis Comments DERMATOPATHOLOGY Routine 04/10/2024 3:33 AM CDT documented in this encounter Results * DERMATOPATHOLOGY (04/10/2024 3:33 AM CDT) Case Report Dermatopathology Report Case: [id number] Authorizing Provider: Madhu Farley MD Collected: 04/10/2024 03:33 AM Ordering Location: [facility] - Received: 04/13/2024 11:45 AM DermPath Lab [...] characteristic determined by the Dermatopathology Laboratory at [facility], directed by Dr. Adelia Trevizo. These tests need not be, and therefore are not, approved by the [place] Food and Drug Administration. The tests are used for clinical purposes. Billing Codes Specimen Charges Stain Charges 76056 32415 70176 07177 1 1 1 1 4 2:03 PM [...] PATHOLOGY/CYTOLOGY ORD ERABLES Final Result DERMATOPATHOLOGY LABORATORY [facility] - Department of Dermatology [facility], [address]rd Floor [address] [phone] documented in this encounter Visit Diagnoses Not on filedocumented in this encounter Care Teams Procedure Writer Relationship Specialty Start Date End Date Wero Welch MD [address] [place] [address] PCP - General Family Medicine 08/23/15 documented as of this encounter
--- OUTSIDE RECORDS SUMMARY | 2025-03-10 14:10 | XMS_ITS | Clinical Summary ---
Author Organization [facility] [address] Address [address] [facility] [address] [place] [address] Care Team Providers Care Barrel Planer Name Role Phone Wero Welch MD Primary Care Provider Magdy Tellez MD Unavailable [phone] Allergies Active Allergy Reactions Criticality Noted [...] mouth daily 180 tablet 1 12/28/2024 Active predniSONE (DELTASONE) 10 mg tablet Take 2 tabs po every day x 5d, 1 tabs po every day x 5d, 1/2 tab po every day x 5 d. 20 tablet 02/11/2025 Active Active Problems Problem Noted Date Diagnosed [...] of surveillance Rash 08/10/2024 Assessment & Plan (02/11/2025 4:24 PM CDT): Images from the original note were not included. Her mother has psoriasis. Rt elbow rash suspicious for psoriasis, but derm did not think it was. Recently had a pruritic rash on arms and legs, derm bx, see report below. It is better but not resolved, will send in a short course of prednisone. Will also check myositis panel and ck again. Seen with dr tellez. Assessment & Plan (02/03/2025 8:26 AM CDT): Her mother has psoriasis. Rt elbow rash suspicious for psoriasis, will refer to derm for eval. Assessment & Plan (08/10/2024 5:36 PM CIGAR P[employer]ER [employer]ADER): Her mother has psoriasis. Rt elbow rash suspicious for psoriasis, will refer to derm for eval. Abdominal pain 06/29/2024 Assessment & Plan (10/21/2024 1:56 PM CDT): Reports that she is having generalized abdominal pain with bloating. Unable to identify triggers. -Will r/o SIBO -Possible trial of dicyclomine Nausea and vomiting 06/29/2024 Encounter for long-term (current) use of medicat ions 06/18/2024 Assessment & Plan (02/11/2025 8:23 AM CDT): Avise 05/2024---+FABI 38/1:80 Mother had psoriasis. Assessment & Plan (02/03/2025 8:24 AM CDT): Avise 05/2024---+FABI 38/1:80 Mother had psoriasis. Assessment & Plan (12/25/2024 3:28 PM CDT): Avise 05/2024---+FABI 38/1:80 Mother had psoriasis. Assessment & Plan (08/10/2024 1:57 PM CIGAR P[employer]ER [employer]ADER): Avise 05/2024---+FABI 38/1:80\ Mother had psoriasis. Assessment & Plan (06/18/2024 8:19 AM CIGAR P[employer]ER [employer]ADER): Avise 05/2024---+FABI 38/1:80 Neck pain 06/18/2024 Assessment & Plan (02/03/2025 8:25 AM CDT): She has appt to see dr parag howe. She will also continue with her pain mgmt in [place]. Cervical MRI 08/2024: Name: : Sex: Patient Class: Antonette Childress 1970 Female Ancillary Procedures Performed: Exam Time: Reason for Exam: Diagnosis: MRI Cervical Spine WO Contrast 08/28/2024 5:46 PM Myelopathy, chronic, cervical spine Neck pain Performing Department: [facility] ([facility]) [address] [place] [address] Accession Number: [id number] PCP: Wero Welch EXAMINATION: Magnetic resonance imaging [...] C5-C6. Assessment & Plan (08/10/2024 1:49 PM CIGAR PACKER [employer] SHADER): Previous CT showed C spine stenosis and [...] [place]. Assessment & Plan (06/18/2024 2:57 PM CIGAR PACKER AND SHADER): Previous CT showed C spine stenosis and pt continues to have a lot of radicular neck pain that interferes with her every day life and her sleep. Will start PT, order c spine MRI and refer her to Dr. Collin Tafoya for opinion. She will also continue with her pain mgmt in [place]. Dry skin 06/04/2024 Assessment & Plan (06/04/2024 1:54 PM CIGAR P[employer]ER [employer] SHADER): Check tsh. Chronic pain of both knees 06/04/2024 Assessment & Plan (06/04/2024 1:54 PM CIGAR P[employer]ER [employer] SHADER): Mostly rt knee pain and occ swelling,check rt knee xray. Myalgia 06/04/2024 Assessment & Plan (06/04/2024 1:55 PM CIGAR P[employer]ER [employer] SHADER): No muscle weakness on exam. Check cpk. Pain in both feet 06/04/2024 Assessment & Plan (06/04/2024 2:07 PM CIGAR PACKER [employer] SHADER): Check bilat foot xrays. Positive FABI (antinuclear [...] effusion Assessment & Plan (06/04/2024 8:43 AM CIGAR PACKER [employer] SHADER): Last seen 10/2021 (see previous notes below). [...] with GI. Polyarthralgia 11/09/2021 Assessment & Plan (02/11/2025 2:25 PM CDT): Low cdai. Her mother has psoriasis. Also has some dry patches on elbows on/off, we referred her to derm and she saw derm since last visit but derm did not dx psoriasis. Her joints have improved with hcq monotherapy and pt states it has changed my life because she feels much better since she started it. Recently developed a rash on arms and legs, see discussion below. Will check myositis 11 panel and ck/aldolase today. Will also try a short course of steroids. Seen with dr tellez 30 min spent with pt today between dr tellez and myself. Previous history and serologies/imaging: She has long hx of joint pain [...] tendon, 1st mtp OA Assessment & Plan (02/03/2025 8:26 AM CDT): [...] OA Assessment & Plan (08/10/2024 5:37 PM CIGAR P[employer]ER [employer] SHADER): Images from the original note were not [...] OA Assessment & Plan (06/18/2024 2:57 PM CIGAR P[employer]ER [employer] SHADER): Images from the original note were not [...] OA Assessment & Plan (06/04/2024 1:56 PM CIGAR P[employer]ER [employer] SHADER): Last seen 10/2021. Long hx of joint [...] (02/03/2019): Added automatically from request for surgery [id number] Resolved Problems Problem Noted Date Diagnosed Date Resolved Date Myopathy 11/14/2013 06/04/2024 Overview (10/05/2016): MYALGIA AND MYOSITIS NOS Encounters Date Type Department Care Team Description 02/16/2025 Results Follow-Up [facility] [address] [place] [phone] Luther Reyes MD Urinalysis reflex to microscopic, Erythrocyte sedimentation rate, CBC with auto differential, Additional followed-up results: 10 02/11/2025 1:30 PM CDT Office Visit [address] [address] Nimisha Sanchez PA Polyarthralgia (Primary Dx); Encounter for long-term (current) use of medications; Rash 12/30/[address] [phone] Paty Kay 12/29/2024 Results Follow-Up [address] [address] Luther Reyes MD Urinalysis reflex to microscopic, Erythrocyte sedimentation rate, CBC with auto differential, Additional followed-up results: 6 12/28/2024 2:45 PM CDT Office Visit [address] [address] Nimisha Sanchez PA Polyarthralgia (Primary Dx); Encounter [...] on file Legal Sex Female 7:08 AM [employer]IG[employer]ER Gender Identity Not on file Sexual Orientation Not on file Obstetrics History Last Filed Vital Signs Vital Sign Reading Time Taken Comments Blood Pressure 128/66 02/11/2025 1:33 PM CDT Pulse 64 02/11/2025 1:33 PM CDT Temperature 36.3 C (97.4 F) 07/22/2024 8:03 AM [employer]ER [employer]ER Respiratory Rate 15 07/22/2024 8:15 AM [employer]IG[employer] P[employer]ER [employer]ADER Oxygen Saturation 96% 02/11/2025 1:33 PM CDT Inhaled Oxygen Concentration - - Weight 85.7 kg (189 lb) 02/11/2025 1:33 PM CDT Height 175.3 cm (5' 9) 02/11/2025 1:33 PM CDT Body Mass Index 27.91 02/11/2025 1:33 PM CDT Plan of Treatment Health Maintenance [...] Tdap) 07/17/2028 Medical Devices Explanted Type Area Bottom Saw Operator Device Identifier Shelf Expiration Date Model / Serial / Lot Value and [employer] 6571 Rosado Flexi-Stent 7fr 3cm Small Pigtail Flexible .035in Stent - [id number] Implanted:Qty: 1 on 02/02/2019 by Neville Robbins MD at [facility] Explanted:Qty: 1 on 02/04/2019 by Neville Robbins MD Stent N/A: Pancreas [employer] 07/31/2023 [id number] / / [id number] [employer] [id number] Viabil 8mm 8.5fr 60mm 200cm Expandable Pull Line Without Holes - [id number] - [id number] Implanted:Qty: 1 on 02/02/2019 by Neville Robbins MD at [facility] Explanted:Qty: 1 on 02/04/2019 by Neville Robbins MD Stent N/A: Bile Duct [employer] Rudy 05/11/2021 [id number] / [id number] / Procedures Procedure Name Priority Date/Time Associated Diagnosis Comments NOTE Routine 02/11/2025 2:38 PM CDT ALDOLASE Routine 02/11/2025 2:38 PM CDT MYOSITIS SPECIFIC 11 AB PANEL Routine 02/11/2025 2:38 PM CDT CREATINE KINASE (CK), TOTAL Routine 02/11/2025 2:38 PM CDT ANTI-DOUBLE STRANDED DNA ANTIBODIES Routine 02/11/2025 2:38 PM CDT Polyarthralgia Encounter for long-term (current) use of medications Rash PROTEIN / CREATININE RATIO, URINE, RANDOM Routine 02/11/2025 2:38 PM CDT Polyarthralgia Encounter for long-term (current) use of medications Rash COMPREHENSIVE METABOLIC PANEL Routine 02/11/2025 2:38 PM CDT Polyarthralgia Encounter for long-term (current) use of medications Rash CRP (ACUTE PHASE) Routine 02/11/2025 2:3 8 PM CDT Polyarthralgia Encounter for long-term (current) use of medications Rash C3 COMPLEMENT Routine 02/11/2025 2:38 PM CDT Polyarthralgia Encounter for long-term (current) use of medications Rash C4 COMPLEMENT Routine 02/11/2025 2:38 PM CDT Polyarthralgia Encounter for long-term (current) use of medications Rash CBC WITH AUTO DIFFERENTIAL Routine 02/11/2025 2:38 PM CDT Polyarthralgia Encounter for long-term (current) use of medications Rash ERYTHROCYTE SEDIMENTATION RATE Routine 02/11/2025 2:38 PM CDT Polyarthralgia Encounter for long-term (current) use of medications Rash URINALYSIS AND REFLEX TO MICROSCOPIC Routine 02/11/2025 2:38 PM CDT Polyarthralgia Encounter for long-term (current) use of medications Rash ANTI-DOUBLE STRANDED DNA ANTIBODIES Routine 12/28/2024 3:52 [...] medications from Last 3 Months Results * Myositis Specific 11 Ab Panel (02/11/2025 2:38 PM CDT) KIMBERLEE-1 AB <11 <11 SI [facility], PL-7 AB <11 <11 SI [facility], PL-12 AB <11 <11 SI [facility], EJ AB <11 <11 SI [facility], OJ AB <11 <11 SI [facility], SRP AB <11 <11 SI [facility], MN-2 Alpha AB <11 <11 SI [facility], MN-2 Beta AB <11 <11 SI [facility], MDA-5 AB <11 <11 SI [facility], TIF-1y AB <11 <11 SI [facility], NXP-2 AB <11 <11 SI [facility], Comment: Myositis-specific autoantibodies (MSAs) are highly selective, generally mutually exclusive, and are associated with a particular clinical phenotype within the myositis spectrum. Anti-synthetase syndrome is associated with MSAs to cytoplasmic enzymes and tRNAs involved with the synthesis of proteins. Target antigens include Kimberlee-1, PL-7, PL-12, EJ, and OJ. Clinically, anti-synthetase syndrome is primarily characterized by myositis and lung inflammation. Dermatomyositis is associated with MSAs to SRP, Mi-2A, Mi-2B, and clinically this disease is characterized by myositis in association with a rash. Additionally, MSAs to MDA5 ([id number]) have been identified in patients with clinically amyopathic dermatomyositis and rapidly progressive lung disease. MSAs to TIF1-y and NXP-2, collectively, are seen in >40% of children with dermatomyositis and appear to identify those with more severe disease. Finally, TIF1-y Ab has been reported in adults with dermatomyositis and is associated with malignancy, but not in children. SRP Ab has also been associated with necrotizing myopathy, a disease with unique histological features and an aggressive clinical course. This test was developed and its analytical performance characteristics have been determined by [facility] [facility]. It has not been cleared or approved by the FDA. This assay has been validated pursuant to the CLIA regulations and is used for clinical purposes. 02/11/2025 2:38 PM CDT 02/11/2025 2:40 PM CDT us Nimisha MARC LAB BLOOD ORDERAB LES Final Result [facility], [address] [place] [address] * Anti-double stranded DNA abs (02/11/2025 2:38 PM CDT) DNA (DS) ab <1 IU/mL [facility] Comment: IU/mL Interpretation < or = 4 Negative 5-9 Indeterminate > or = 10 Positive Blood 02/11/2025 2:38 PM CDT 02/11/2025 2:40 PM CDT Nimisha [facility] BLOOD ORDERAB LES Final Result Performing Organization Address [facility] Co de Phone Number [facility] [address] [place] [address] * NOTE (02/11/2025 2:38 PM CDT) Pathologist [facility] Note [facility] Comment: This urine was analyzed for the presence of WBC, RBC, bacteria, casts, and other formed elements. Only those elements seen were reported. 02/11/2025 2:38 PM CDT 02/11/2025 2:[address] [facility] Catal[facility] LAB BLOOD ORDERAB LES Final Result Performing Organization Address [facility] de Phone Number [facility] [address] [facility] [place] [address] * C4 complement (02/11/2025 2:38 PM CDT) Pathologist [facility] Complement component C4C 20 15 - 57 mg/dL [facility] Blood 02/11/2025 2:38 PM CDT 02/11/2025 2:[address] [facility] Catalina [facility] LAB BLOOD ORDERAB LES Final Result Performing Organization Address [facility] de Phone Number [facility] [address] [address] [facility] [place] [address] * (ABNORMAL) Urinalysis reflex to microscopic (02/11/2025 2:38 PM CDT) Color, ur YELLOW YELLOW [facility] [place] Appearance, ur CLEAR CLEAR [facility] [place] Specific gravity 1.021 1.001 - 1.035 [facility] [place] pH, ur < OR = 5.0(A) 5.0 - 8.0 [facility] [place] Glucose, ur NEGATIVE NEGATIVE [facility] [place] Bilirubin, ur NEGATIVE NEGATIVE [facility] [place] Ketones, ur NEGATIVE NEGATIVE [facility] [place] Blood, ur TRACE(A) NEGATIVE [facility] [place] Protein, ur, quant NEGATIVE NEGATIVE [facility] [place] Nitrites, ur NEGATIVE NEGATIVE [facility] [place] Leukocyte esterase, ur NEGATIVE NEGATIVE [facility] [place] WBC, ur 0-5 < OR = 5 /HPF [facility] [place] RBC, ur 0-2 < OR = 2 /HPF [facility] [place] Epithelial cells, squamous, ur 0-5 < OR = 5 /HPF [facility] [place] Bacteria, ur, quant NONE SEEN NONE SEEN /HPF [facility] [place] Calcium oxalate crystals, ur MODERATE(A) NONE OR FEW /HPF [facility] [place] Hyaline cast NONE SEEN NONE SEEN /LPF [facility] [place] Urine 02/11/2025 2:38 PM CDT 02/11/2025 2:40 PM CDT us Nimisha MARC LAB URINE ORDERAB LES Final Result [facility] [address] [place] [address] * CBC with auto differential (02/11/2025 2:38 PM CDT) WBC 9.6 3.8 - 10.8 Thousand/u L [facility] RBC, POC 4.81 3.80 - 5.10 Million/uL [facility] Hgb 13.7 11.7 - 15.5 g/dL [facility] Hct 42.8 35.0 - 45.0 % [facility] MCV 89.0 80.0 - 100.0 fL [facility] MCH 28.5 27.0 - 33.0 pg [facility] MCHC 32.0 32.0 - 36.0 g/dL [facility] Comment: For adults, a slight decrease in the calculated MCHC value (in the range of 30 to 32 g/dL) is most likely not clinically significant; however, it should be interpreted with caution in correlation with other red cell parameters and the patient's clinical condition. Rdw 13.3 11.0 - 15.0 % [facility] Platelets 319 140 - 400 Thousand/u L [facility] MPV 11.2 7.5 - 12.5 fL [facility] Neutrophils, abs 5,597 1,500 - 7,800 cells/uL [facility] Lymphocytes, abs 2,986 850 - 3,900 cells/uL [facility] Monocyte abs 797 200 - 950 cells/uL [facility] Eosinophils, abs 144 15 - 500 cells/uL [facility] Basophils, abs 77 0 - 200 cells/uL [facility] Neutrophils 58.3 % [facility] Lymphocyte pct 31.1 % [facility] Monocytes 8.3 % [facility] Eosinophils 1.5 % [facility] Basophils 0.8 % [facility] Blood 02/11/2025 2:38 PM CDT 02/11/2025 2:40 PM CDT us Nimisha MARC LAB BLOOD ORDERAB LES Final Result [facility] [address] [facility] [place] [address] * Protein / creatinine ratio, urine, random (02/11/2025 2:38 PM CDT) Creatinine, ur 85 20 - 275 mg/dL [facility] Protein/creatin ine ratio 82 24 - 184 mg/g creat [facility] Protein/Creatin ine Ratio 0.082 0.024 - 0.184 mg/mg creat [facility] Protein, ur, quant 7 5 - 24 mg/dL [facility] Urine 02/11/2025 2:38 PM CDT 02/11/2025 2:40 PM CDT Nimisha MARC LAB URINE ORDERAB LES Final Result Performing Organization Address [facility] Co de Phone Number [facility] [address] [place] [address] * Aldolase (02/11/2025 2:38 PM CDT) ALDOLASE 4.6 < OR = 8.1 U/L [facility] 02/11/2025 2:38 PM CDT 02/11/2025 2:40 PM CDT Nimisha MARC LAB BLOOD ORDERAB LES Final Result Performing Organization Address [facility] de Phone Number [facility] [address] [place] [address] * Erythrocyte sedimentation rate (02/11/2025 2:38 PM CDT) Erythrocyte sedimentation rate 14 < OR = 30 mm/h [facility] Blood 02/11/2025 2:38 PM CDT 02/11/2025 2:40 PM CDT Nimisha MARC LAB BLOOD ORDERAB LES Final Result Performing Organization Address [facility] de Phone Number [facility] [address] [place] [address] * C3 complement (02/11/2025 2:38 PM CDT) Complement component C3C 154 83 - 193 mg/dL [facility] Blood 02/11/2025 2:38 PM CDT 02/11/2025 2:40 PM CDT Nimisha MARC LAB BLOOD ORDERAB LES Final Result Performing Organization Address [facility] Co de Phone Number [facility] [address] [place] [address] * CRP (acute phase) (02/11/2025 2:38 PM CDT) [facility] C-RP <3.0 <8.0 mg/L [facility] Blood 02/11/2025 2:38 PM CDT 02/11/2025 2:40 PM CDT Nimisha MARC LAB BLOOD ORDERAB LES Final Result Performing Organization Address [facility] de Phone Number [facility] [address] [place] [address] * Creatine kinase (CK), total (02/11/2025 2:38 PM CDT) [facility] CK 115 21 - 240 U/L [facility] 02/11/2025 2:38 PM CDT 02/11/2025 2:40 PM CDT Nimisha MARC LAB BLOOD ORDERAB LES Final Result Performing Organization Address [facility] Co de Phone Number [facility] [address] [place] [address] * Comprehensive metabolic panel (02/11/2025 2:38 PM CDT) [facility] Glucose 81 65 - 99 mg/dL [facility] Comment: Fasting reference interval BUN 24 7 - 25 mg/dL [facility] Creatinine 0.79 0.50 - 1.03 mg/dL [facility] eGFR 88 > OR = 60 mL/min/1.7 3m2 [facility] BUN/creat ratio SEE NOTE: 6 - 22 (calc) [facility] Comment: Not Reported: BUN and Creatinine are within reference range. Sodium 141 135 - 146 mmol/L [facility] Potassium, pl 4.0 3.5 - 5.3 mmol/L [facility] Chloride 103 98 - 110 mmol/L [facility] CO2 28 20 - 32 mmol/L [facility] Calcium 9.6 8.6 - 10.4 mg/dL [facility] Protein, sr 6.9 6.1 - 8.1 g/dL [facility] Albumin 4.6 3.6 - 5.1 g/dL [facility] GLOBULIN 2.3 1.9 - 3.7 g/dL (calc) [facility] Alb/glob ratio 2.0 1.0 - 2.5 (calc) [facility] Bilirubin, total 0.3 0.2 - 1.2 mg/dL [facility] Alk phos 60 37 - 153 U/L [facility] AST 20 10 - 35 U/L [facility] ALT (SGPT) 23 6 - 29 U/L [facility] Blood 02/11/2025 2:38 PM CDT 02/11/2025 2:40 PM CDT Nimisha MARC LAB BLOOD ORDERAB LES Final Result [facility] [address] [place] [address] * Anti-double stranded DNA abs (12/28/2024 3:52 PM CDT) DNA (DS) ab <1 IU/mL [facility] Comment: IU/mL Interpretation < or = 4 Negative 5-9 Indeterminate > or = 10 Positive Blood 12/28/2024 3:52 PM CDT 12/28/2024 3:52 PM CDT Nimisha MARC LAB BLOOD ORDERAB LES Final Result [facility] [address] [place] [address] * C4 complement (12/28/2024 3:52 PM CDT) Pathologist [facility] Complement component C4C 22 15 - 57 mg/dL [facility] Blood 12/28/2024 3:52 PM CDT 12/28/2024 3:52 PM CDT Nimisha MARC LAB BLOOD ORDERAB LES Final Result Performing Organization Address [facility] Co de Phone Number [facility] [address] [place] [address] * (ABNORMAL) Urinalysis reflex to microscopic (12/28/2024 3:52 PM CDT) Pathologist [facility] Color, ur YELLOW YELLOW [facility] [place] Appearance, ur CLEAR CLEAR [facility] [place] Specific gravity 1.012 1.001 - 1.035 [facility] [place] pH, ur < OR = 5.0(A) 5.0 - 8.0 [facility] [place] Glucose, ur NEGATIVE NEGATIVE [facility] [place] Bilirubin, ur NEGATIVE NEGATIVE [facility] [place] Ketones, ur NEGATIVE NEGATIVE [facility] [place] Blood, ur NEGATIVE NEGATIVE [facility] [place] Protein, ur, quant NEGATIVE NEGATIVE [facility] [place] Nitrites, ur NEGATIVE NEGATIVE [facility] [place] Leukocyte esterase, ur NEGATIVE NEGATIVE [facility] [place] Urine 12/28/2024 3:52 PM CDT 12/28/2024 3:52 PM CDT Nimisha MARC LAB URINE ORDERAB LES Final Result Performing Organization Address [facility] Co de Phone Number [facility] [address] [place] [address] * (ABNORMAL) CBC with auto differential (12/28/2024 3:52 PM CDT) Pathologist [facility] WBC 8.2 3.8 - 10.8 Thousand/u L [...] BLOOD ORDERAB LES Final Result [facility] [address] [place] [address] * Protein / creatinine ratio, urine, random (12/28/2024 3:52 PM CDT) Creatinine, ur 111 20 - 275 mg/dL [...] ORDERAB LES Final Result Performing Organization Address [facility] de Phone Number [facility] [address] [place] [address] * Erythrocyte sedimentation rate (12/28/2024 3:52 PM CDT) Erythrocyte sedimentation rate 11 < OR = 30 mm/h [facility] Blood 12/28/2024 3:52 PM CDT 12/28/2024 3:52 PM CDT us Nimisha MARC LAB BLOOD ORDERAB LES Final Result Performing Organization Address [facility] Co de Phone Number [facility] [address] [place] [address] * C3 complement (12/28/2024 3:52 PM CDT) Complement component C3C 162 83 - 193 mg/dL [facility] Blood 12/28/2024 3:52 PM CDT 12/28/2024 3:52 PM CDT Nimisha MARC LAB BLOOD ORDERAB LES Final Result Performing Organization Address [facility] Co de Phone Number [facility] [address] [place] [address] * CRP (acute phase) (12/28/2024 3:52 PM CDT) [facility] C-RP <3.0 <8.0 mg/L [facility] Blood 12/28/2024 3:52 PM CDT 12/28/2024 3:52 PM CDT us Nimisha Sanchez PA LAB BLOOD ORDERAB LES Final Result Performing Organization Address [facility] Co de Phone Number [facility] [address] [facility] [place] [address] * Comprehensive metabolic panel (12/28/2024 3:52 PM CDT) [facility] Glucose 91 65 - 99 mg/dL [facility] [...] CDT 12/28/2024 3:52 PM CDT us Nimisha [facility] LAB BLOOD ORDERAB LES Final Result [facility] [address] [place] [address] from Last 3 [place] [address] [employer] [place] [employer] [place] [facility] [employer] [place] [employer] [place] Advance Directives For more information, please contact: [phone] * Full Code (Latest Code Status on File) Date Activated Date Inactivated Comments 02/03/2019 12:36 PM 02/04/2019 6:25 PM Care Teams Barrel Planer Relationship Specialty Start Date End Date Wero Welch MD [address] [place] [address] PCP - General 10/07/06 Magdy Tellez MD [address] [place] [address] Consulting Physician Rheumatology 10/12/21
--- OUTSIDE RECORDS SUMMARY | 2025-03-10 14:10 | XMS_ITS | Encounter Summary ---
Author Organization [facility] Address [address] [facility] [place] [address] Care Team Providers Care Distributed Energy Systems Consultant Name Role Phone Wero Welch MD Primary Care Provider [phone] Encounter Details Date Type Department Care Team (Late st Contact Info) Description 04/20/[address] 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 - Received: 04/20/2024 01:51 [...] specimen consists of a shave biopsy measuring 52x76q4 mm. Jar 0. Specimen B: Received is [...] purposes. Billing Codes Specimen Charges Stain Charges [id number] 1 1 1 1 12:55 PM CDT [...] PATHOLOGY/CYTOLOGY ORD ERABLES Final Result DERMATOPATHOLOGY LABORATORY [facility] - Department of Dermatology [address], [address] [phone] documented in this encounter Visit Diagnoses Not on filedocumented in this encounter Care Teams Distributed Energy Systems Consultant Relationship Specialty Start Date End Date Wero Welch MD [address] [place] [address] PCP - General Family Medicine 08/23/15 documented as of this encounter
--- OUTSIDE RECORDS SUMMARY | 2025-03-10 14:10 | XMS_ITS | Encounter Summary ---
Author Organization [facility] Address [address] [place] [address] Phone Care Team Providers Care Donation Worker Name Role Phone Wero Welch MD Primary Care Provider Magdy Gillis MD Unavailable [phone] Encounter Details Date Type Department Care Team (Latest Contact Info) Description 02/16/2025 Results Follow-Up [facility] [address] [place] [address] Luther Reyes MD [address] 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
== END 2025-03-10 13:28 | disposition home or self-care (01) ==
PROVIDERS: PCP Family Medicine; Visit Provider Physician Assistant Medical
DX: R10.31 Right lower quadrant pain (principal); K59.00 Constipation, unspecified; Z90.49 Acquired absence of other specified parts of digestive tract
CPT/HCPCS: 74177; Q9967

== ENCOUNTER 2025-04-07 13:51 | Outpatient (CLI) | payer BC, SELFPAY ==
[2025-04-07 15:10] LABS: Hematocrit 42.3 % (37.0-47.0); Hemoglobin 13.4 g/dL (12.0-15.0); Immature Granulocyte Percent A 0.5 % (0-0.5); Lymphocytes Absolute Auto 2.19 K/mm3 (0.9-3.2); Mean Corpuscular HGB Conc 31.7 g/dl (32-36); Mean Corpuscular Hemoglobin 27.6 pg (26-34); Mean Corpuscular Volume 87.2 fl (80-100); Nucleated Red Blood Cells Absolute Auto 0.000 K/mm3 (0.0-0.012); Nucleated Red Blood Cells Perc 0.0 % (0.0-0.2); Platelet Count Result 330 k/mm3 (150-375); Red Blood Count 4.85 M/mm3 (4.2-5.4); White Blood Count 8.1 K/mm3 (4.5-10.0)
[2025-04-07 15:12] LABS: Add Urine Microscopic? NO; Appearance Urine Clear (Clear); Glucose Urine UA Negative (Negative); Leukocyte Esterase Ur Negative LEU/UL (Negative); Nitrate Urine Negative (Negative); Specific Grav Ur 1.013 (1.001-1.035)
[2025-04-07 15:22] LABS: Albumin Level 4.4 g/dL (3.5-5.1); Anion Gap 7 mmol/L (4-12); Blood Urea Nitrogen 16 mg/dL (7-17); Calcium 9.1 mg/dL (8.4-10.2); Carbon Dioxide 28 mmol/L (22-30); Chloride 105 mmol/L (98-107); Estimated Glomerular Filt Rate > 60; Glucose 94 mg/dL (65-110); Potassium 3.9 mmol/L (3.4-5.0); Sodium 140 mmol/L (137-145)
[2025-04-07 15:26] LABS: INR 0.9; Prothrombin Time 12.1 Seconds (11.1-14.7)
[2025-04-07 15:27] LABS: Partial Thromboplastin Time 24.4 Seconds (22.3-36.8)
[2025-04-07 16:30] LABS: MRSA (PCR) NOT DETECTED (NOT DETECTE)
[2025-04-07 17:12] LABS: Hemoglobin A1C 5.3 % (<5.7)
== END 2025-04-07 13:52 | disposition home or self-care (01) ==
LOC: ANHSURGERY 13:56
PROVIDERS: PCP Family Medicine; Visit Provider Orthopaedic Surgery
DX: Z01.812 Encounter for preprocedural laboratory examination (principal); M16.12 Unilateral primary osteoarthritis, left hip
CPT/HCPCS: 80048; 80307; 81003; 82040; 83036; 85025; 85610; 85730; 87641

== ENCOUNTER 2025-04-22 18:51 | Inpatient (IN) | payer BC, SELFPAY ==
--- OUTSIDE RECORDS SUMMARY | 2024-05-07 12:30 | XMS_ITS ---
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 Name Role Phone Wero Welch MD Primary Care Provider Unavaila Greta Melara Unavailable [phone] REASON FOR VISIT Consult Headache Social History Sex Assigned At : Social History Observation Description Sex Assigned At Female Problems Problem Type SNOMED Code ICD Code Onset Dates Problem Status W/U Status Risk Notes Problem Chronic migraine without aura, non-intractab le (625382754633 100) Chronic migraine without aura, not intractable, without status migrainosus (G43.709) Active confirmed Problem Migraine with aura (9033440) Migraine with aura, not intractable, without status migrainosus (G43.109) Active confirmed Problem Chronic migraine without aura, non-refractor y (disorder) (148244834060 100) Migraine without aura, not intractable, without status migrainosus (G43.009) Active confirmed Encounters Encounter Location Date Provider Diagnosis [facility] [address] [place] [address] 05/07/2024 Greta Castrejon Chronic migraine without aura, [...] * Antonette CHILDRESS LDOB:1970 (54 yo F)Acc No.[id number]:05/07/2024 Progress Notes Patient: Antonette BANERJEE Provider: Andria Castrejon APRN :1970 A ge:53 Y S ex:Female Date:05/07/2024 Address:[facility] [address], [facility] Pcp:Wero Welch MD Subjective: * Chief Complaints: [...] G8427 DOC MEDS VERIFIED W/[place], [address] PT-FOCUSED HLTH RISK ASSMT * Preventive Medicine: T his was a 60 minute visit with time spent in reviewing prior records/notes, evaluation and management, counseling, and documentation. * Follow Up: 4 Weeks (Reason: Evaluation and Management) * Billing Information: * Visit Code: 98765 Office Visit, New Pt., Level 4. Modifiers: 25 16483 Office Visit, New Pt., Level 5. Modifiers: 25 * Procedure Codes: G0444 ANNUAL DEPRESSION SCREENING 5-15 MIN. G8427 DOC MEDS VERIFIED W/[place]. [address] PT-FOCUSED HLTH RISK ASSMT. * Electronic signature of Sandy echeverriabryce Castrejon , TABLET REPAIR-C on 04/21/2025 at 12:40 AM CDT Sign off status: Pending * Provider: Andria Castrejon APRN Date: 07/07/2023 Generated for Federico fields/Brenda/Tanner on: 12:40 AM CDT History and Physical Notes * HPI (History [...]
[2025-04-07 14:12] VITALS: BP 134/70; PULSE 63; RESP 16; TEMP 36.7; O2SAT 98; BMI 28.5
--- NOTE | 2025-04-07 14:33 | PC.NURSE ---
[facility] has started construction of its new state of the art ER which will open Spring 2026. With this, we anticipate parking may be a challenge for some our surgical patients and families. Parking spaces are limited but are available for all Surgical, obstetrics, and ER patients sharing this lot. If you arrive and find you are having a hard time finding a parking space, please note that we understand the challenges, please drive around the hospital and park near Hospital Entrance 1. When you enter this entrance, you can ask a volunteer to direct or take you back to the surgical waiting area to check in. We appreciate everyone?s understanding of these expected challenges while we build for your future. Report to the Outpatient Waiting Room, entrance under the green pavilion located off [address], at time __6:00AM___ on date __04/21/25___. Planned Procedure Time: __7:30AM____.? Time changes happen often and if your time is changed the preop area will call you the afternoon before. - You and your visitor will be asked to self-screen and do not enter if you have any COVID symptoms. Please call surgeon if you need to reschedule. - A mask is optional within the hospital at this time. Patients may have clear liquids (water, carbonated beverages, clear teas, apple juice) until 3 hours prior to surgery (4:30AM) with a maximum of 20 ounces. - No food from midnight until time of surgery and no smoking, or chewing tobacco (or any form of nicotine). No chewing gum, candy or mints. Take only the following medications with a SIP of water on the morning of surgery: ___SERTRALINE DO NOT STOP ANY OF YOUR OTHER PRESCRIPTION MEDICATIONS PRIOR TO SURGERY EXCEPT THE FOLLOWING Hold all vitamins and supplements for 3 days per anesthesiologist. LAST DOSE 04/17/25 Medications to discontinue per physician NONE Date to take last dose Please no make-up, nail macedonian, hairspray, perfume, deodorant, or body powder the day of surgery.? No jewelry (including any body piercings) or valuables the day of surgery, leave them at home.? Please take a shower or bath the night before, or the morning of, surgery with an antibacterial soap.? Wear comfortable, loose fitting clothing.? - Jewelry must be removed prior to entering the operating room.? Rings and piercings that are not removed may be cut off. - The hospital will not accept responsibility for valuables.? - Please leave all valuables, including medications, at home the day of surgery. If you are going home after surgery, a licensed xm1 tank driver must drive you home.? - NO public transportation without another adult if you receive anesthesia. - We recommend that an adult stay with you for 24 hours following discharge. - We also recommend that you do not drive, make important decision, drink alcoholic beverages, or take any drugs that were not prescribed by your health care provider for at least 24 hours after your discharge time. Follow any additional instructions given to you from your surgeon. Telephone instructions given to ____PATIENT and asked if any additional questions and then verbalized understanding. Patient advised to call surgeon office or pre surgery nurse liaison [phone] if any additional questions.
[2025-04-21] VITALS (18 sets, daily range): BP systolic 105–133; BP diastolic 47–65; PULSE 60–89; RESP 14–20; TEMP 35.9–37.2; O2SAT 96–100; BMI 27.8
--- OUTSIDE RECORDS SUMMARY | 2025-04-21 00:39 | XMS_ITS | Encounter Summary ---
Author Organization [facility] Address [address] [place] [address] Phone Care Team Providers Care Child Protective Services Specialist Name Role Phone Wero Welch MD Primary Care Provider Magdy Gillis MD Unavailable [phone] Encounter Details Date Type Department Care Team (Latest Contact Info) Description 03/16/2025 Results Follow-Up [facility] [address] [place] [address] Luther Reyes MD [address] [place] [address] Erythrocyte sedimentation rate, CBC with auto differential, CRP (acute phase), Additional followed-up results: 3 Social History Tobacco Use Types Packs/Day Years [...] on file 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
--- OUTSIDE RECORDS SUMMARY | 2025-04-21 00:39 | XMS_ITS | Clinical Summary ---
Author Organization [facility] Address [address] [facility] [place] [address] Care Team Providers Care Electric Tripper Machine Operator Name Role Phone Wero Welch MD Primary Care Provider Source Comments [facility],non-owned Affiliates and Associated Physician Practices is amultiple site organization consisting of ambulatory clinics and hospital sitesin [place], [place], [place] and [place]. This disclosure is being madepursuant to the Care Everywhere program and may not contain all information available regarding this patient. 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 [id number] [place] [id number] Care Teams Electric Tripper Machine Operator Relationship Specialty Start Date End Date Wero Welch MD [address] [place], [place] [id number] PCP - General Family Medicine 08/23/15
--- OUTSIDE RECORDS SUMMARY | 2025-04-21 00:39 | XMS_ITS | Encounter Summary ---
Author Organization [facility] Address [address] [facility] [place] [address] Care Team Providers Care Parcel Post Carrier Name Role Phone Wero Welch MD Primary Care Provider [phone] Encounter Details Date Type Department Care Team (Late st Contact Info) Description 04/20/2024 Lab Requisition [facility] - DermPath Lab [address] [place] [phone] Madhu Farley MD [address] [place] [address] Social History Tobacco Use Types Packs/Day Years Used Date Smoking Tobacco: Never Assessed Comments Unknown Sex and Gender Information Value Date Recorded Sex Assigned at Not on file 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 Gender Identity Not on file Sexual Orientation Not on file documented as of this encounter Plan of Treatment Not on file documented as of this encounter Procedures Procedure Name Priority Date/Time Associated Diagnosis Comments DERMATOPATHOLOGY Routine 04/17/2024 12:0 0 AM CDT documented in this encounter Results * DERMATOPATHOLOGY (04/17/2024 12:00 AM CDT) Case Report Dermatopathology Report Case: [id number] Authorizing Provider: Madhu Farley MD Collected: 04/17/2024 12:00 AM Ordering Location: [facility] - Received: 04/20/2024 01:51 PM DermPath Lab Pathologist: sEthela Contreras MD Specimens: A) - Skin, right [...] specimen consists of a shave biopsy measuring 67n42q2 mm. Jar 0. Specimen B: Received is [...] by the Dermatopathology Laboratory at [facility], directed by Dr. Adelia Trevizo. These tests need not be, and therefore are not, approved by the [place] Food and Drug Administration. The tests are used for clinical purposes. Billing Codes Specimen Charges Stain Charges [id number] 1 1 1 1 12:55 PM CDT [...] ORD ERABLES Final Result DERMATOPATHOLOGY LABORATORY [facility] - Department of Dermatology [address], [address] [phone] documented in this encounter Visit Diagnoses Not on filedocumented in this encounter Care Teams Parcel Post Carrier Relationship Specialty Start Date End Date Wero Welch MD [address] [place] [address] PCP - General Family Medicine 08/23/15 documented as of this encounter
--- OUTSIDE RECORDS SUMMARY | 2025-04-21 00:39 | XMS_ITS | Clinical Summary ---
Author Organization [facility] [address] [facility] [address] [facility] [address] [place] [address] Care Team Providers Care Keg Filler Name Role Phone Wero Welch MD Primary Care Provider Magdy Tellez MD Unavailable [phone] Allergies Active Allergy Reactions Criticality Noted [...] every day x 5 d. 20 tablet 03/15/2025 Active leflunomide (ARAVA) 20 mg tabletIndicatio ns:Rheumatoid Arthritis Take 1 tablet (20 mg total) by mouth daily 30 tablet 1 03/15/2025 Active Active Problems Problem Noted Date Diagnosed Date Other fatigue 03/15/2025 Snoring 03/15/2025 Assessment & Plan (03/15/2025 5:13 PM CDT): Will refer for sleep study. Pt has day time somnolence but has not fallen asleep driving or talking with someone. Vitamin D deficiency 03/15/2025 Assessment & Plan (03/15/2025 5:12 PM CDT): Check vitamin D. Abdominal bloating 10/21/2024 Assessment & Plan (10/21/2024 [...] eval. Assessment & Plan (08/10/2024 5:36 PM HANDS PARTER): Her mother has psoriasis. Rt elbow rash suspicious for psoriasis, will refer to derm for eval. Abdominal pain 06/29/2024 Assessment & Plan (10/21/2024 1:56 PM CDT): Reports that she is having generalized abdominal pain with bloating. Unable to identify triggers. -Will r/o SIBO -Possible trial of dicyclomine Nausea and vomiting 06/29/2024 Encounter for long-term (current) use of medicat ions 06/18/2024 Assessment & Plan (03/15/2025 8:39 AM CDT): Avise 05/2024---+FABI 38/1:80 Mother had psoriasis. Assessment & Plan (02/11/2025 8:23 AM CDT): Avise 05/2024---+FABI 38/1:80 Mother had psoriasis. Assessment & Plan (02/03/2025 8:24 AM CDT): Avise 05/2024---+FABI 38/1:80 Mother had psoriasis. Assessment & Plan (12/25/2024 3:28 PM CDT): Avise 05/2024---+FABI 38/1:80 Mother had psoriasis. Assessment & Plan (08/10/2024 1:57 PM HANDS PARTER): Avise 05/2024---+FABI 38/1:80\ Mother had psoriasis. Assessment & Plan (06/18/2024 8:19 AM HANDS PARTER): Avise 05/2024---+FABI 38/1:80 Neck pain 06/18/2024 Assessment & Plan (02/03/2025 8:25 AM CDT): She has appt to see dr parag howe. She will also continue with her pain mgmt [place]. Cervical MRI 08/2024: Name: : Sex: Patient Class: Antonette Childress 1970 Female Ancillary Procedures Performed: Exam Time: Reason for Exam: Diagnosis: MRI Cervical Spine WO Contrast 08/28/2024 5:46 PM Myelopathy, chronic, cervical spine Neck pain Performing Department: [facility] ([facility]) [address] [place] [address] Accession Number: [id number] PCP: Wero Welch EXAMINATION: Magnetic resonance imaging [...] C5-C6. Assessment & Plan (08/10/2024 1:49 PM HANDS PARTER): Previous CT showed C spine stenosis and [...] [place]. Assessment & Plan (06/18/2024 2:57 PM HANDS PARTER): Previous CT showed C spine stenosis and pt continues to have a lot of radicular neck pain that interferes with her every day life and her sleep. Will start PT, order c spine MRI and refer her to Dr. Collin Tafoya for opinion. She will also continue with her pain mgmt in [place]. Dry skin 06/04/2024 Assessment & Plan (06/04/2024 1:54 PM HANDS PARTER): Check tsh. Chronic pain of both knees 06/04/2024 Assessment & Plan (06/04/2024 1:54 PM HANDS PARTER): Mostly rt knee pain and occ swelling,check rt knee xray. Myalgia 06/04/2024 Assessment & Plan (06/04/2024 1:55 PM HANDS PARTER): No muscle weakness on exam. Check cpk. Pain in both feet 06/04/2024 Assessment & Plan (06/04/2024 2:07 PM HANDS PARTER): Check bilat foot xrays. Positive FABI (antinuclear [...] effusion Assessment & Plan (06/04/2024 8:43 AM HANDS PARTER): Last seen 10/2021 (see previous notes below). [...] turmeric which she will discuss with GI. Seronegative rheumatoid arthritis 11/09/2021 Assessment & Plan (03/15/2025 5:16 PM CDT): Images from the original note were not included. Mod cdai. Recommend adding leflunomide 20mg po every day, discussed potential SE (risk of infection, diarrhea, lft elevation, low wbc). At first we recommended mtx but since pt is dealing with chronic constipation dr tellez recommended trying leflunomide 1st since it can cause some diarrhea and hopefully this will help her chronic constipation. She was advised to start it in March after she comes back from vacation and f/u a month later to recheck labs. Her mother has psoriasis. Also has some dry patches on elbows on/off, we referred her to derm and she saw derm since last visit but derm did not dx psoriasis. Her joints have improved with hcq monotherapy but today had a lot more joint swelling. Rash on legs (got it after swimming in [place]) has resolved with steroids. In January her myositis 11 panel and ck were all wnl. We have her steroids to have if she flares on her trip to [place] in March. Seen with Dr Tellez today. 40 min spent with pt today between Dr. Tellez and myself. Previous history and serologies/imaging: She [...] tendon, 1st mtp OA Assessment & Plan (02/11/2025 2:25 PM CDT): [...] OA Assessment & Plan (08/10/2024 5:37 PM HANDS PARTER): Images from the original note were not [...] OA Assessment & Plan (06/18/2024 2:57 PM HANDS PARTER): Images from the original note were not [...] OA Assessment & Plan (06/04/2024 1:56 PM HANDS PARTER): Last seen 10/2021. Long hx of joint [...] (02/03/2019): Added automatically from request for surgery [id number] Resolved Problems Problem Noted Date Diagnosed Date Resolved Date Myopathy 11/14/2013 06/04/2024 Overview (10/05/2016): MYALGIA AND MYOSITIS NOS Encounters Date Type Department Care Team Description 03/16/2025 Results Follow-Up [facility] [address] [place] [phone] Luther Reyes MD Erythrocyte sedimentation rate, CBC with auto differential, CRP (acute phase), Additional followed-up results: 3 03/15/2025 1:45 PM CDT Office Visit [address] [address] Nimisha Sanchez PA Seronegative rheumatoid arthritis (HCC) (Primary Dx); Encounter for long-term (current) use of medications; Other fatigue; Snoring; Vitamin D deficiency 02/16/2025 Results Follow-Up [address] [address] Luther Reyes MD Urinalysis reflex to microscopic, Erythrocyte sedimentation rate, CBC with auto differential, Additional followed-up results: 10 02/11/2025 1:30 PM CDT Office Visit [address] [address] Nimisha Sanchez PA Polyarthralgia (Primary Dx); Encounter for long-term (current) use of medications; Rash from Last 3 Months Surgical History Surgery [...] on file Legal Sex Female 7:08 AM HANDS PARTER Gender Identity Not on file Sexual Orientation Not on file Obstetrics History Last Filed Vital Signs Vital Sign Reading Time Taken Comments Blood Pressure 128/74 03/15/2025 1:13 PM CDT Pulse 69 03/15/2025 1:13 PM CDT Temperature 36.3 C (97.4 F) 07/22/2024 8:03 AM HANDS PARTER Respiratory Rate 15 07/22/2024 8:15 AM HANDS PARTER Oxygen Saturation 97% 03/15/2025 1:13 PM CDT Inhaled Oxygen Concentration - - Weight 88 kg (194 lb) 03/15/2025 1:13 PM CDT Height 175.3 cm (5' 9) 03/15/2025 1:13 PM CDT Body Mass Index 28.65 03/15/2025 1:13 PM CDT Plan of Treatment Health Maintenance [...] Tdap) 07/17/2028 Medical Devices Explanted Type Area Perforator Device Identifier Shelf Expiration Date Model / Serial / Lot [employer] 6571 Rosado Flexi-Stent 7fr 3cm Small Pigtail Flexible .035in Stent - [id number] Implanted:Qty: 1 on 02/02/2019 by Neville Robbins MD at [facility] Explanted:Qty: 1 on 02/04/2019 by Neville Robbins MD Stent N/A: Pancreas [employer] 07/31/2023 [id number] / / [id number] Conmed Rudy [id number] Viabil 8mm 8.5fr 60mm 200cm Expandable Pull Line Without Holes - [id number] - [id number] Implanted:Qty: 1 on 02/02/2019 by Neville Robbins MD at [facility] Explanted:Qty: 1 on 02/04/2019 by Neville Robbins MD Stent N/A: Bile Duct Conmed Rudy 05/11/2021 [id number] / [id number] / Procedures Procedure Name Priority Date/Time Associated Diagnosis Comments VITAMIN D 25 HYDROXY Routine 03/15/2025 2:39 PM CDT TSH Routine 03/15/2025 2:39 PM CDT COMPREHENSIVE METABOLIC PANEL Routine 03/15/2025 2:39 PM CDT Seronegative rheumatoid arthritis (HCC) Encounter for long-term (current) use of medications CRP (ACUTE PHASE) Routine 03/15/2025 2:3 9 PM CDT Seronegative rheumatoid arthritis (HCC) Encounter for long-term (current) use of medications CBC WITH AUTO DIFFERENTIAL Routine 03/15/2025 2:39 PM CDT Seronegative rheumatoid arthritis (HCC) Encounter for long-term (current) use of medications ERYTHROCYTE SEDIMENTATION RATE Routine 03/15/2025 2:39 PM CDT Seronegative rheumatoid arthritis (HCC) Encounter for long-term (current) use of medications NOTE Routine 02/11/2025 2:38 PM CDT ALDOLASE [...] for long-term (current) use of medications Rash from Last 3 Months Results * (ABNORMAL) CBC with auto differential (03/15/2025 2:39 PM CDT) [facility] WBC 7.6 3.8 - 10.8 Thousand/u L [facility] RBC, POC 4.78 3.80 - 5.10 Million/uL [facility] Hgb 13.3 11.7 - 15.5 g/dL [facility] Hct 42.9 35.0 - 45.0 % [facility] MCV 89.7 80.0 - 100.0 fL [facility] MCH 27.8 27.0 - 33.0 pg [facility] MCHC 31.0(L) 32.0 - 36.0 g/dL [facility] Comment: For adults, a slight decrease in the calculated MCHC value (in the range of 30 to 32 g/dL) is most likely not clinically significant; however, it should be interpreted with caution in correlation with other red cell parameters and the patient's clinical condition. Rdw 13.3 11.0 - 15.0 % [facility] Platelets 297 140 - 400 Thousand/u L [facility] MPV 11.1 7.5 - 12.5 fL [facility] Neutrophils, abs 4,849 1,500 - 7,800 cells/uL [facility] Lymphocytes, abs 1,794 850 - 3,900 cells/uL [facility] Monocyte abs 684 200 - 950 cells/uL [facility] Eosinophils, abs 213 15 - 500 cells/uL [facility] Basophils, abs 61 0 - 200 cells/uL [facility] Neutrophils 63.8 % [facility] Lymphocyte pct 23.6 % [facility] Monocytes 9.0 % [facility] Eosinophils 2.8 % [facility] Basophils 0.8 % [facility] Blood 03/15/2025 2:39 PM CDT 03/15/2025 2:40 PM CDT Nimisha MARC LAB BLOOD ORDERAB LES Final Result Performing Organization Address City/[facility]/ZIP Co de Phone Number QUE[facility] [address] [place] [address] * Vitamin D 25 hydroxy (03/15/2025 2:39 PM CDT) Pathologist [facility] Vitamin D 25-OH 55 30 - 100 ng/mL [facility] Comment: Vitamin D Status 25-OH Vitamin D: Deficiency: <20 ng/mL Insufficiency: 20 - 29 ng/mL Optimal: > or = 30 ng/mL For 25-OH Vitamin D testing on patients on D2-supplementation and patients for whom quantitation of D2 and D3 fractions is required, the QuestAssureD(TM) 25-OH VIT D, (D2,D3), LC/MS/MS is recommended: order code 26094 (patients >2yrs). See Note 1 Note 1 For additional information, please refer to http://education.[employer] Planet.Posiq/faq/OYJ386 (This link is being provided for informational/ educational purposes only.) 03/15/2025 2:39 PM CDT 03/15/2025 2:40 PM CDT Nimisha MARC LAB BLOOD ORDERAB LES Final Result [facility] [address] [place] [address] * Erythrocyte sedimentation rate (03/15/2025 2:39 PM CDT) [facility] Erythrocyte sedimentation rate 14 < OR = 30 mm/h [facility] Blood 03/15/2025 2:39 PM CDT 03/15/2025 2:40 PM CDT Nimisha MARC LAB BLOOD ORDERAB LES Final Result Performing Organization Address [facility] Co de Phone Number QUEST [facility] [address] [place] [address] * CRP (acute phase) (03/15/2025 2:39 PM CDT) [facility] C-RP <3.0 <8.0 mg/L [facility] Blood 03/15/2025 2:39 PM CDT 03/15/2025 2:40 PM CDT Nimisha MARC LAB BLOOD ORDERAB LES Final Result Performing Organization Address [facility] de Phone Number QUEST [facility] [address] [place] [address] * TSH (03/15/2025 2:39 PM CDT) [facility] TSH 1.32 0.40 - 4.50 mIU/L [facility] 03/15/2025 2:39 PM CDT 03/15/2025 2:40 PM CDT Nimisha MARC LAB BLOOD ORDERAB LES Final Result Performing Organization Address [facility] Co de Phone Number [facility]ST [facility] [address] [facility] [place] [address] * Comprehensive metabolic panel (03/15/2025 2:39 PM CDT) Pathologist [facility] Glucose 88 65 - 99 mg/dL [facility] Comment: Fasting reference interval BUN 18 7 - 25 mg/dL [facility] Creatinine 0.81 0.50 - 1.03 mg/dL [facility] eGFR 85 > OR = 60 mL/min/1.7 3m2 [facility] BUN/creat ratio SEE NOTE: 6 - 22 (calc) [facility] Comment: Not Reported: BUN and Creatinine are within reference range. Sodium 141 135 - 146 mmol/L [facility] Potassium, pl 4.4 3.5 - 5.3 mmol/L [facility] Chloride 106 98 - 110 mmol/L [facility] CO2 27 20 - 32 mmol/L [facility] Calcium 8.6 8.6 - 10.4 mg/dL [facility] Protein, sr 6.8 6.1 - 8.1 g/dL [facility] Albumin 4.4 3.6 - 5.1 g/dL [facility] GLOBULIN 2.4 1.9 - 3.7 g/dL (calc) [facility] Alb/glob ratio 1.8 1.0 - 2.5 (calc) [facility] Bilirubin, total 0.3 0.2 - 1.2 mg/dL [facility] Alk phos 65 37 - 153 U/L [facility] AST 15 10 - 35 U/L [facility] ALT (SGPT) 15 6 - 29 U/L [facility] Blood 03/15/2025 2:39 PM CDT 03/15/2025 2:40 PM CDT us Nimisha MARC LAB BLOOD ORDERAB LES Final Result [facility] [address] [address] * Myositis Specific 11 Ab Panel (02/11/2025 2:38 PM CDT) KIMBERLEE-1 AB <11 <11 SI [facility], PL-7 AB <11 <11 SI [facility], PL-12 AB <11 <11 SI [facility], EJ AB <11 <11 SI [facility], OJ AB <11 <11 SI [facility], SRP AB <11 <11 SI [facility], NH-2 Alpha AB <11 <11 SI [facility], NH-2 Beta AB <11 <11 SI [facility], MDA-5 AB <11 <11 SI [facility], TIF-1y AB <11 <11 SI [facility], NXP-2 AB <11 <11 SI [facility], Comment: Myositis-specific autoantibodies (MSAs) are highly [...] with a rash. Additionally, MSAs to MDA5 ([id number]) have been identified in patients with clinically [...] analytical performance characteristics have been determined by [facility]. It has not been cleared or approved by the FDA. This assay has been validated pursuant to the CLIA regulations and is used for clinical purposes. 02/11/2025 2:38 PM CDT 02/11/2025 2:40 PM CDT Nimisha Sanchez [place] LAB BLOOD ORDERAB LES Final Result Performing Organization Address City/[facility]/ZIP Co de Phone Number [facility], [address] [place] [address] * Anti-double stranded DNA abs (02/11/2025 2:38 PM CDT) DNA (DS) ab <1 IU/mL [facility] Comment: IU/mL Interpretation < or = 4 Negative 5-9 Indeterminate > or = 10 Positive Blood 02/11/2025 2:38 PM CDT 02/11/2025 2:40 PM CDT Nimisha Sanchez [place] LAB BLOOD ORDERAB LES Final Result Performing Organization Address City/[facility]/ZIP Co de Phone Number [facility] [address] [place] [address] * NOTE (02/11/2025 2:38 PM CDT) Note [facility] Comment: This urine was analyzed for the presence of WBC, RBC, bacteria, casts, and other formed elements. Only those elements seen were reported. 02/11/2025 2:38 PM CDT 02/11/2025 2:40 PM CDT Nimishahipolito Sanchez [place] LAB BLOOD ORDERAB LES Final Result Performing Organization Address City/[facility]/ZIP Co de Phone Number [facility] [address] [place] [address] * C4 complement (02/11/2025 2:38 PM CDT) Complement component C4C 20 15 - 57 mg/dL [facility] Blood 02/11/2025 2:38 PM CDT 02/11/2025 2:40 PM CDT Nimisha MARC LAB BLOOD ORDERAB LES Final Result Performing Organization Address [facility] Co de Phone Number [facility] [address] [place] [address] * (ABNORMAL) Urinalysis reflex to microscopic (02/11/2025 2:38 PM CDT) Color, ur YELLOW YELLOW [facility] Appearance, ur CLEAR CLEAR [facility] Specific gravity 1.021 1.001 - 1.035 [facility] pH, ur < OR = 5.0(A) 5.0 - 8.0 [facility] Glucose, ur NEGATIVE NEGATIVE [facility] Bilirubin, ur NEGATIVE NEGATIVE [facility] Ketones, ur NEGATIVE NEGATIVE [facility] Blood, ur TRACE(A) NEGATIVE [facility] Protein, ur, quant NEGATIVE NEGATIVE [facility] Nitrites, ur NEGATIVE NEGATIVE [facility] Leukocyte esterase, ur NEGATIVE NEGATIVE [facility] WBC, ur 0-5 < OR = 5 /HPF [facility] RBC, ur 0-2 < OR = 2 /HPF [facility] Epithelial cells, squamous, ur 0-5 < OR = 5 /HPF [facility] Bacteria, ur, quant NONE SEEN NONE SEEN /HPF [facility] Calcium oxalate crystals, ur MODERATE(A) NONE OR FEW /HPF [facility] Hyaline cast NONE SEEN NONE SEEN /LPF [facility] Urine 02/11/2025 2:38 PM CDT 02/11/2025 2:40 PM CDT us Nimisha MARC LAB URINE ORDERAB LES Final Result [facility] [address] [address] * CBC with auto differential (02/11/2025 2:38 [...] ORDERAB LES Final Result Performing Organization Address [facility] Co de Phone Number [facility] [address] [place] [address] * Protein / creatinine ratio, urine, random [...] ORDERAB LES Final Result Performing Organization Address [facility] de Phone Number [facility] [address] [place] [address] * Aldolase (02/11/2025 2:38 PM CDT) Pathologist [facility] ALDOLASE 4.6 < OR = 8.1 U/L [facility] 02/11/2025 2:38 PM CDT 02/11/2025 2:40 PM CDT Nimisha MARC LAB BLOOD ORDERAB LES Final Result Performing Organization Address [facility] Co de Phone Number [facility] [address] [place] [address] * Erythrocyte sedimentation rate (02/11/2025 2:38 PM CDT) Erythrocyte sedimentation rate 14 < OR = 30 mm/h [facility] Blood 02/11/2025 2:38 PM CDT 02/11/2025 2:40 PM CDT Nimisha Sanchez [place] LAB BLOOD ORDERAB LES Final Result Performing Organization Address City/[facility]/ZIP Co de Phone Number [facility] [address] [place] [address] * C3 complement (02/11/2025 2:38 PM CDT) Pathologist [facility] Complement component C3C 154 83 - 193 mg/dL [facility] Blood 02/11/2025 2:38 PM CDT 02/11/2025 2:40 PM CDT Nimisha Sanchez [place] LAB BLOOD ORDERAB LES Final Result Performing Organization Address [facility] de Phone Number [facility] [address] [place] [address] * CRP (acute phase) (02/11/2025 2:38 PM CDT) C-RP <3.0 <8.0 mg/L [facility] Blood 02/11/2025 2:38 PM CDT 02/11/2025 2:40 PM CDT Nimisha Catalina Sanchez [place] LAB BLOOD ORDERAB LES Final Result Performing Organization Address [facility] de Phone Number [facility] [address] [place] [address] * Creatine kinase (CK), total (02/11/2025 2:38 PM CDT) CK 115 21 - 240 U/L [facility] 02/11/2025 2:38 PM CDT 02/11/2025 2:40 PM CDT us Nimisha MARC LAB BLOOD ORDERAB LES Final Result [facility] [address] [address] * Comprehensive metabolic panel (02/11/2025 2:38 PM CDT) Pathologist [facility] Glucose 81 65 - 99 mg/dL [facility] [...] LAB BLOOD ORDERAB LES Final Result [facility] [address] [place] [address] from Last 3 Months Insurance [employer] [place] [employer] CHOICE [employer] [place] [employer] Advance Directives For more information, please contact: [phone] * Full Code (Latest Code Status on File) Date Activated Date Inactivated Comments 02/03/2019 12:36 PM 02/04/2019 6:25 PM Care Teams Keg Filler Relationship Specialty Start Date End Date Wero Welch MD [address] [place] [address] PCP - General 10/07/06 Magdy Tellez MD [address] [place] [address] Consulting Physician Rheumatology 10/12/21
--- OUTSIDE RECORDS SUMMARY | 2025-04-21 00:40 | XMS_ITS | Encounter Summary ---
Author Organization [facility] Address [address] [place] [address] Care Team Providers Care Pest Control Chemical Technician Name Role Phone Wero Welch MD Primary Care Provider [phone] Encounter Details Date Type Department Care Team (Late st Contact Info) Description 03/29/2022 Lab Requisition [facility] DermPath Lab [address] [facility] [place] [id number] Madhu Farley MD [address] [place] [address] Social History Tobacco Use Types Packs/Day Years Used Date Smoking Tobacco: Never Assessed Comments Unknown Sex and Gender Information Value Date Recorded Sex Assigned at Not on file Legal Sex Female 11:14 AM SALES ORDER 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 Gender Identity Not on file Sexual Orientation Not on file documented as of this encounter Plan of Treatment Not on file documented as of this encounter Procedures Procedure Name Priority Date/Time Associated Diagnosis Comments DERMATOPATHOLOGY Routine 03/28/2022 12:0 0 AM CDT documented in this encounter Results * DERMATOPATHOLOGY (03/28/2022 12:00 AM CDT) Case Report Dermatopathology Report Case: [id number] Authorizing Provider: Madhu Farley MD Collected: 03/28/2022 12:00 AM Ordering Location: [facility] DermPath Lab Received: 03/29/2022 12:19 PM [...] specimen consists of a shave biopsy measuring 97c76a5 mm. Jar 0. 2 3:57 PM CDT [...] characteristic determined by the Dermatopathology Laboratory at [facility], directed by Dr. Adelia Trevizo. These tests need not be, and therefore are not, approved by the [place] Food and Drug Administration. The tests are used for clinical purposes. Billing Codes Specimen Charges Stain Charges 76157 1 2 3:57 PM CDT DERMATOPATHOLOGY LABORATORY Embedded Images 2 3:57 PM CDT DERMATOPATHOLOGY LABORATORY Pathology/Cytolog y TISSUE SPECIMEN FROM SKIN / Unknown 03/28/2022 03/29/2022 12:19 PM CDT us Madhu Farley MD LAB - PATHOLOGY/CYTOLOGY ORD ERABLES Final Result DERMATOPATHOLOGY LABORATORY [facility] - Department of Dermatology [facility] [address] [place] [address], [address] [place] [address], [facility] [phone] documented in this encounter Visit Diagnoses Not on filedocumented in this encounter Care Teams Pest Control Chemical Technician Relationship Specialty Start Date End Date Wero Welch MD [address] [place] [address] PCP - General Family Medicine 08/23/15 documented as of this encounter
--- OUTSIDE RECORDS SUMMARY | 2025-04-21 00:40 | XMS_ITS | Patient Health Record ---
Author Organization [facility] Address [address] [place] [address] Care Team Providers Care Nnp Name Role Phone Wero Welch MD Primary Care Provider Emilie RIOS CAN CUTTER, JOSEPH Unavailable Allergies Allergen (clinical drug ingredient) Drug/Non Drug Allergy documented on EMR Reaction Allergy Type Onset Date Status Keflex rash Drug Allergy Active Reason For Referral No Information Medications Medication SIG (Take, Route, Frequency, Duration) Notes Start Date End Date Status Atorvastatin Calcium 10 MG 1 tablet Orally Once a day Active Vitamin A & D [address] UNIT as directed Orally Active Vitamin K [...] W/U Status Risk Notes Problem 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 Short term stenting. Colonoscopy 2004 no reports EGD [facility] 08/2009 Normal Duodenal bx neg ERCP 02/02/19 Aliperti recur rent papillary stenosis s/p biliary and pancreatic sphinterotomies. Short term dual duct stents placed and removed 02/04/19.
--- OUTSIDE RECORDS SUMMARY | 2025-04-21 00:40 | XMS_ITS | Encounter Summary ---
Author Organization [facility] Address [address] [facility] [place] [address] Care Team Providers Care Fruit Bar Maker Name Role Phone Wero Welch MD Primary Care Provider [phone] Encounter Details Date Type Department Care Team (Late st Contact Info) Description 05/29/2023 Lab Requisition [facility] - DermPath Lab [address] [facility] [place] [phone] Madhu Farley MD [address] [place] [address] Social History Tobacco Use Types Packs/Day Years Used Date Smoking Tobacco: Never Assessed Comments Unknown Sex and Gender Information Value Date Recorded Sex Assigned at Not on file Legal Sex Female 11:14 AM 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 Gender Identity Not on file Sexual Orientation Not on file documented as of this encounter Plan of Treatment Not on file documented as of this encounter Procedures Procedure Name Priority Date/Time Associated Diagnosis Comments DERMATOPATHOLOGY Routine 05/28/2023 3:33 AM TOP EDGE BEVELER documented in this encounter Results * DERMATOPATHOLOGY (05/28/2023 3:33 AM TOP EDGE BEVELER) Case Report Dermatopathology Report Case: [id number] Authorizing Provider: Madhu Farley MD Collected: 05/28/2023 03:33 AM Ordering Location: [facility] Derm[facility] Lab Received: 05/30/2023 07:31 AM Pathologist: Brittnee Contreras MD Specimen: Skin, left medial breast 9:28 AM TOP EDGE BEVELER DERMATOPATHOLOGY LABORATORY Final Diagnosis Specimen A. SKIN, left medial breast: LICHEN PLANUS-LIKE KERATOSIS (BENIGN LICHENOID KERATOSIS) (L82.1) (see microscopic description) 3 9:28 AM [facility] DERMATOPATHOLOGY LABORATORY at [address] [facility] Clinical History R/O SCC 3 9:28 AM [facility] DERMATOPATHOLOGY LABORATORY Gross Description Specimen A: Received is one formalin filled container labeled with the patient's name and designated left medial breast. The specimen consists of a shave biopsy measuring 7x6x1 mm. Jar 0. 3 9:28 AM [facility] DERMATOPATHOLOGY LABORATORY Microscopic Description Specimen A. SKIN, left medial breast: The epidermis is mildly acanthotic. There is a lichenoid infiltrate with vacuolar changes of basilar keratinocytes and scattered necrotic keratinocytes. MelanA and HMB45 do not highlight an underlying atypical melanocytic proliferation. Additional deeper sections were obtained and reviewed. 3 9:28 AM [facility] DERMATOPATHOLOGY LABORATORY Disclaimer An external and internal positive and negative controls are appropriate for the histochemical, immunohistochemical and immunofluorescence stain(s) in this case (if any), except where stated explicitly. The performance characteristics of the stain(s) cited in this report were developed and its performance characteristic determined by the Dermatopathology Laboratory at [facility], directed by Dr. Adelia Trevizo. These tests need not be, and therefore are not, approved by the [place] Food and Drug Administration. The tests are used for clinical purposes. Billing Codes Specimen Charges Stain Charges 18105 1 17092 67546 1 1 3 9:28 AM [facility] DERMATOPATHOLOGY LABORATORY Embedded Images 3 9:28 AM [facility] DERMATOPATHOLOGY LABORATORY Pathology/Cytolo gy TISSUE SPECIMEN FROM SKIN / Unknown 05/28/2023 3:33 AM TOP EDGE BEVELER 05/30/2023 7:31 AM [facility] Madhu Farley MD LAB - PATHOLOGY/CYTOLOGY ORD ERABLES Final Result DERMATOPATHOLOGY LABORATORY [facility] - Department of Dermatology [address], [address] [phone] documented in this encounter Visit Diagnoses Not on filedocumented in this encounter Care Teams Fruit Bar Maker Relationship Specialty Start Date End Date Wero Welch MD [address] [place] [address] PCP - General Family Medicine 08/23/15 documented as of this encounter
--- OUTSIDE RECORDS SUMMARY | 2025-04-21 00:40 | XMS_ITS | Patient Health Record ---
Author Organization [facility] [place] ([address]) Address [address] [place] [address] Care Team Providers Care Counselor Dormitory Name Role Phone Wero Welch MD Primary Care Provider Unavaila Greta Melara Unavailable [phone] Allergies Allergen (clinical drug ingredient) Drug/Non Drug Allergy documented on EMR Reaction Allergy Type Onset Date Status Penicillin rash Drug Allergy Active Results Component Value Reference Range Notes TESTOSTERONE, FREE (DIALYSIS ) AND TOTAL,MS Reviewed date:02/09/2025 04:01:09 PM Interpretation: Performing Lab:[facility], [facility], [address] [place] [address], [address], [place], [address] Tobi Martino MD,PhD Notes/Report: NON-FASTING; NON-FASTING; NON-FASTING TESTOSTERONE, TOTAL, MS 11 2-45 ng/dL For additional information, please refer to https://education.BuzzFeed .com/faq/EBI832 (This link is being provided for informational/educational purposes only.) (Note) This test was developed and its analytical performance characteristics have been determined by [employer]. It has not been cleared or approved by the FDA. This assay has been validated pursuant to the CLIA regulations and is used for clinical purposes. TESTOSTERONE, FREE 1.1 0.1-6.4 pg/mL (Note) This test was developed and its analytical performance characteristics have been determined by [employer]. It has not been cleared or approved by the FDA. This assay has been validated pursuant to the CLIA regulations and is used for clinical purposes. [facility] [address] [address],[address] [facility] [address] Tobi Martino MD, PhD FSH Reviewed date:02/09/2025 04:01:09 PM Interpretation: Performing Lab:[facility], [address], [place], [address] Coty Garland MD Notes/Report: NON-FASTING; NON-FASTING; NON-FASTING FSH 107.7 Reference Range Follicular Phase 2.5-10.2 Mid-cycle Peak 3.1-17.7 Luteal Phase 1.5- 9.1 Postmenopausal 23.0-116.3 ESTRADIOL Reviewed date:02/09/2025 04:01:09 PM Interpretation: Performing Lab:[facility], [address], [place], [address] Coty Garland MD Notes/Report: NON-FASTING; NON-FASTING; NON-FASTING ESTRADIOL 18 Reference Range Follicular Phase: 19-144 Mid-Cycle: 64-357 Postmenopausal: < or = 31 Reference range established on post-pubertal patient population. No pre-pubertal reference range established using this assay. For any patients for whom low Estradiol levels are anticipated (e.g. males, pre-pubertal children and hypogonadal/post-menopausal females), the [facility] Estradiol, Ultrasensitive, LCMSMS assay is recommended (order code 84870). Please note: patients being treated with the drug fulvestrant (Faslodex(R)) have demonstrated significant interference in immunoassay methods for estradiol measurement. The cross reactivity could lead to falsely elevated estradiol test results leading to an inappropriate clinical assessment of estrogen status. [facility] order code [id number]-[id number], Ultrasensitive LC/MS/MS demonstrates negligible cross reactivity with fulvestrant. Luteal Phase: 56-214 Reason For Referral No Information Medications Medication [...] Chronic migraine without aura, non-refractor y (disorder) (428690590429 100) Migraine without aura, not intractable, without status migrainosus (G43.009) Active confirmed Problem Migraine with aura (3038292) Migraine with aura, not intractable, without status migrainosus (G43.109) Active confirmed Problem Chronic migraine without aura, non-intractab le (074803470612 100) Chronic migraine without aura, not intractable, without status migrainosus (G43.709) Active confirmed Problem Unspecified menopausal and perimenopausal disorder (N95.9) Active confirmed Vital Signs Blood pressure diastolic 72 mm Hg 12/24/2024 Oximetry 97 % 12/24/2024 Height 69 in 12/24/2024 Blood pressure systolic 121 mm Hg 12/24/2024 Weight 188.2 lbs 12/24/2024 BMI 27.79 kg/m2 12/24/2024 Encounters Encounter Location Date Provider Diagnosis [facility] [address] [facility] [address] [place] [phone] 12/24/2024 Greta Castrejon Migraine without aur a, [...] TESTOSTERONE, FREE AND TOTAL, LC/MS/MS 0 12/24/2024 Insurance Providers Payer Name Payer Address Payer Phone Subscriber Number Group Number Insured Name Patient Relationship to Insured Coverage Start Date Coverage End Date [facility] [address] [place] [address] [id number] Tony Childress Spouse - patient is the spouse of the insured 4 Medical (General) History Medical History History ICD Code Hypercholestrolemia
--- OUTSIDE RECORDS SUMMARY | 2025-04-21 00:40 | XMS_ITS | Encounter Summary ---
Author Organization [facility] Address [address] [facility] [place] [address] Care Team Providers Care Software Licensing Analyst Name Role Phone Wero Welch MD Primary Care Provider [phone] Encounter Details Date Type Department Care Team (Late st Contact Info) Description 04/13/2024 Lab Requisition [facility] - DermPath Lab [address] [place] [phone] Madhu Farley MD [address] [place] [address] Social History Tobacco Use Types Packs/Day Years Used Date Smoking Tobacco: Never Assessed Comments Unknown Sex and Gender Information Value Date Recorded Sex Assigned at Not on file Legal Sex Female 11:14 AM 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 Gender Identity Not on file Sexual Orientation Not on file documented as of this encounter Plan of Treatment Not on file documented as of this encounter Procedures Procedure Name Priority Date/Time Associated Diagnosis Comments DERMATOPATHOLOGY Routine 04/10/2024 3:33 AM CDT documented in this encounter Results * DERMATOPATHOLOGY (04/10/2024 3:33 AM CDT) Case Report Dermatopathology Report Case: [id number] Authorizing Provider: Madhu Farley MD Collected: 04/10/2024 03:33 AM Ordering Location: [facility] Physician [facility] - Received: 04/13/2024 [...] characteristic determined by the Dermatopathology Laboratory at [facility], directed by Dr. Adelia Trevizo. These tests need not be, and therefore are not, approved by the [place] Food and Drug Administration. The tests are used for clinical purposes. Billing Codes Specimen Charges Stain Charges 84069 66770 48027 69950 1 1 1 1 4 2:03 PM [...] PATHOLOGY/CYTOLOGY ORD ERABLES Final Result DERMATOPATHOLOGY LABORATORY [facility] - Department of Dermatology [facility] Special[facility] [facility], 3rd Floor [address] [phone] documented in this encounter Visit Diagnoses Not on filedocumented in this encounter Care Teams Software Licensing Analyst Relationship Specialty Start Date End Date Wero Welch MD [address] [place] [address] PCP - General Family Medicine 08/23/15 documented as of this encounter
[2025-04-21] MEDS: LACTATED RINGERS 1,000 ML 30 ML IV CONT ×2 (06:30→10:53)
[2025-04-21] MEDS: ACETAMINOPHEN 500 MG TABLET 1000 MG PO (06:52)
[2025-04-21] MEDS: TRANEXAMIC ACID 1,000MG/ISO100 1,000 MG/100 ML BAG 200 MG IVPB (06:53)
--- NOTE | 2025-04-21 07:16 | WPDANESEPPF ---
Anes - Initial Pre Proc Eval Procedure: Operation Date: 04/21/25 07:30 Proposed Procedures p Right Total Hip Arthroplasty - Nathan Escalante MD Date/Time: 04/21/25 07:16 Surgeon: Nathan Escalante MD Pre Op Diagnosis: Rt Hip O A Patient Data Age: 54 Gender: F Height: 1.75 m Weight: 85.55 kg Last Vital Signs Temp 97.1 F L 04/21/25 06:15 Pulse 62 04/21/25 06:15 Resp 16 04/21/25 06:15 BP 133/58 L 04/21/25 06:15 Pulse Ox 99 04/21/25 06:15 O2 Del Method Room Air 04/21/25 06:15 Allergies Allergy/AdvReac Type Severity Reaction Status Date / Time cephalexin Allergy Intermediate Rash Verified 04/14/25 10:01 Penicillins Allergy Intermediate Rash Verified 04/14/25 10:01 Home Medications ?Medication ?Instructions ?Recorded ?Confirmed ?Type pantoprazole 40 mg tablet,delayed 40 mg PO BID 08/25/24 04/21/25 History release (Protonix) atorvastatin 10 mg tablet 10 mg PO DAILY #90 tabs 10/21/24 04/21/25 Rx linaclotide 290 mcg capsule See Rx Instructions .Route 03/15/25 04/21/25 Rx (Linzess) .COMPLEX #90 caps sertraline 50 mg tablet 50 mg PO DAILY #90 tabs 03/15/25 04/21/25 Rx leflunomide 20 mg tablet 20 mg PO DAILY 03/16/25 04/21/25 History cholecalciferol (vitamin D3) 50 2,000 unit PO DAILY 04/07/25 04/21/25 History mcg (2,000 unit) chewable tablet docusate sodium 100 mg capsule 300 mg PO DAILY 04/07/25 04/21/25 History (Colace) hydroxychloroquine 200 mg tablet 200 mg PO DAILY 04/07/25 04/21/25 History multivitamin (Daily Value tablet) 1 tablet PO DAILY 04/07/25 04/21/25 History chlorhexidine gluconate 4 % 1 applic topical ONCE #237 mL 04/09/25 04/14/25 Rx topical liquid (Hibiclens) Patient hx anesthesia problems: post op nausea/vomiting (W some GA in the past. ) Family hx anesthesia problems: none Results Review: All pre-operative results and documents have been reviewed as part of the pre-operative evaluation. [facility] Past Medical History Medical History Other fatigue URI (upper respiratory infection) Degenerative joint disease of left hip Skin cancer removed from knee Lumbar spondylosis Lumbar radiculopathy Chronic SI joint pain Lumbar spine pain Degenerative joint disease (DJD) of hip Acute right hip pain Screening mammogram, encounter for History of sigmoidoscopy (01/04/11) colon ischemia Encounter for IUD removal 04/02/05 Mirena removal Encounter for IUD insertion 12/08/02 Mirena insertion Shortness of breath UTI (urinary tract infection) IBS (irritable bowel syndrome) High cholesterol Rhinosinusitis Leukocytosis Syncope UTI symptoms Constipation Surgical History Surgical History History of endometrial biopsy proliferative endometrium History of left salpingo-oophorectomy (01/04/11) History of exploratory laparotomy (01/04/11) History of total abdominal hysterectomy HATTIE--leiomyomata/adenomyosis History of laparoscopy 07/14/03 adhesions/adenomyosis 04/17/06 lysis of adhesions 09/08/09 adhesions on both ovaries History of dilation and curettage 01/09/01 suction d&c---missed AB History of ovarian cystectomy (08/08/00) rt ovarian cystectomy--mature teratoma S/P partial colectomy S/P cholecystectomy Family History Family History Father Hypertension Heart disease Lung cancer Mother Hypertension Malignant tumor of ovary Sibling Breast cancer, Onset Age: 60 sister Other Arthritis Asthma High cholesterol Lung disease Uterine cancer Social History Social History Social History: Smoking status: Never smoker Second hand tobacco smoke exposure: Yes Alcohol intake: never Substance use: never Substance use type: does not use Do You Feel Safe in your Home?: Yes Lack of Transportation: No Lack of Food: Never True Current Housing: I Have Housing Concerned About Future Housing: No Difficulty Paying Gas/Electric Bills: No Difficulty Paying for Meds: No Currently Unemployed: No Education: Associate Degree Difficulty w/ Childcare or Family Care: No Living arrangements: with family Additional living arrangements comments: [facility]USB Occupation/Education: other 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 Gender identity (if verbalized by the patient): Female Sexual Orientation (if Verbalized by the Patient): Straight or Heterosexual Spiritual care concerns: No Anes - Eval Final PreProcedure Day of Procedure 04/21/25 07:16 Patient weight: overweight Lungs: normal air movement Airway: Mallampati scale class II Neurological: alert and oriented Last oral intake: >/= 8 hours ASA classification: II Emergent: no Anesthetic plan: proceed Anesthesia type and monitoring: general ETT and standard monitoring Results Review: All pre-operative results and documents have been reviewed as part of the pre-operative evaluation. Hyperlipidemia, DJD, hx of chr ear/neck pain (eagles syn by EMR), GERD. EKG w NSR/SB. PFTs reviewed. Informed Consent: The patient's anesthetic plan and its attendant risks and benefits were discussed with the patient/family/POA. Questions were solicited and answers provided to the satisfaction of the patient/family/POA.
--- NOTE | 2025-04-21 07:16 | WPDHPUPDATE1 ---
History and Physical Update Update Date/Time: 04/21/25 07:16 History and Physical has been reviewed, including an updated exam of the patient. There are NO changes in the patient's condition. Risks, benefits, and alternatives have been discussed and questions answered. Patient agrees to proceed with procedure.
[2025-04-21] MEDS: ceFAZolin 2 GM in SODIUM CHLORIDE 0.9% IV 50 ML 100 ML IVPB ×2 (07:55→16:16)
[2025-04-21] MEDS: SODIUM CHLORIDE 0.9% IV 37.7 ML, MORPHINE SULFATE INJ (*CRX) 2 MG, ROPivacaine HCL 1% 2... INFILTRATE (08:41)
[2025-04-21] MEDS: ONDANSETRON INJ 4 MG/2 ML VIAL IV PUSH ×2 (11:04→14:57)
[2025-04-21] MEDS: fentaNYL CITRATE INJ (*CRX) 100 MCG/2 ML VIAL 25 MCG IV PUSH ×8 (11:05→12:10)
--- NOTE | 2025-04-21 11:05 | W.PM.PROC2 ---
Procedure Note - Detailed Date of Procedure 04/21/25 Pre-op Diagnosis Rt Hip O A Post-op Diagnosis Same Procedure Performed R SHAHRAM Surgeon Nathan Escalante MD Anesthesia General Description of Procedure THE PATIENT WAS TAKEN TO THE OPERATING ROOM IN STABLE CONDITION AND WAS PLACED IN THE LATERAL DECUBITUS AND THE RIGHT LOWER EXTREMITY WAS PREPPED AND DRAPED IN THE STERILE FASHION. INCISION WAS MADE IN THE POSTERIOR LATERAL SIDE OF THE HIP, DOWN TO THE FASCIA LAYER. THE FASCIA WAS INCISED. THE HIP WAS EXPOSED. THE SHORT EXTERNAL ROTATORS WERE EXPOSED. THE SCIATIC NERVE WAS IDENTIFIED. INCISION WAS MADE THROUGH THE SHORT EXTERNAL ROTATORS AND THE CAPSULE OF THE HIP JOINT. THE HIP WAS DISLOCATED. AN OSTEOTOMY WAS MADE TO THE FEMORAL NECK ABOUT 1 CM PROXIMAL TO THE LESSER TROCHANTER. THE ACETABULUM WAS EXPOSED. THERE WAS SEVERE DJD SEEN. BEGINNING WITH A 44 REAMER THE ACETABULUM WAS REAMED TO 49 MM. A 49 MM TRIAL WAS PLACED IN 35 DEG OF ABDUCTION AND ANTEVERSION WAS IN ALIGNMENT WITH THE TRANS ACETABULAR LIGAMENT. THE FIT WAS EXCELLENT. THE TRIAL WAS REMOVED. A 50 MM BIOMET G7 COMPONENT WAS THEN TAPPED IN TO PLACE IN 35 DEG OF ABDUCTION AND ANTEVERSION IN ALIGNMENT WITH THE TRANSVERSE ACETABULAR LIGAMENT. THE FIT WAS EXCELLENT. THE ACETABULAR TRIAL DUAL MOBILITY LINER WAS PLACED AND CHECKED FOR STABILITY. NEXT THE FEMUR WAS PREPARED WITH INITIAL CANAL FINDER THEN SEQUENTIAL BROACHING WITH A TAPERLOC HIP SYSTEM, UNTIL A 6 BROACH FIT WELL IN 15 OF ANTEVERSION. AN 0 STANDARD OFFSET NECK WITH 36 MM HEAD TRIAL WAS PLACED. THE SHUCK TEST WAS EXCELLENT AND THE STABILITY IN FLEXION AND ROTATION WAS EXCELLENT. LEG LENGTHS WERE GROSSLY EQUAL. TRIALS WERE REMOVED. A DUAL MOBILITY LINER WAS TAPPED IN TO THE ACETABULAR SHELL AND WAS SECURE. NEXT A BIOMET TAPERLOC 6 STEM WAS PLACED WITH A STANDARD OFFSET NECK. THE FIT WAS EXCELLENT IN 15 DEG OF ANTEVERSION. A 0 CERAMIC DUAL MOBILITY FEMORAL HEAD AND LINER WAS PLACED. THE HIP WAS REDUCED TRIALED AND THE STABILITY WAS EXCELLENT WERE THE LEG LENGTHS AND THE SHUCK TEST. THE WOUND WAS IRRIGATED WITH STERILE BETADINE AND WATER FOR 3 MIN. THEN WASHED AGAIN. THE SCIATIC NERVE WAS IDENTIFIED AGAIN. THE CAPSULE AND THE EXTERNAL ROTATORS WERE APPROXIMATED WITH NUMBER 1 VICRYL. THE FASCIA WITH No 2 QUIL AND THE SUB CUTANEOUS LAYER WITH 2-0 ABSORBABLE SUTURE AND A RUNNING 3-0 SUBCUTICULAR STITCH FOR THE SKIN. DERMABOND WAS PLACED AND STERILE DRESSING WAS APPLIED. PATIENT WAS PLACED BACK ON TO THE SUPINE POSITION AND WAS EXTUBATED Estimated Blood Loss 300 Complications No immediate complications Condition Stable Disposition PACU
[2025-04-21] MEDS: KETOROLAC 30 MG/ML VIAL (*BKC) IV PUSH (11:21)
--- NOTE | 2025-04-21 12:45 | ADMGEN ---
This patient, Antonette Childress, was admitted to [facility] Room 328-01. Patient/family oriented to hospital policies and general routines including ID bracelet, bed and alarms, visiting hours, pain management, procedures, bathroom and other care routines, personal items, smoking policy, room service/diet, and visiting hours. Information on how to activate the Rapid Response Team has been discussed. Patient/Family are encouraged to report perceived risks to care and to ask questions if they do not understand what they are told or what they should do.
--- NOTE | 2025-04-21 13:20 | PC.NURSE ---
Dr Escalante notified of temp 95.7. New orders received
[2025-04-21] MEDS: KETOROLAC 15 MG/ML VIAL (*BKC) IV PUSH ×2 (13:40→17:50)
[2025-04-21] MEDS: SODIUM CHLORIDE 0.9% IV 1,000 ML 125 ML IV CONT (14:57)
[2025-04-21] MEDS: IBUPROFEN IV 800 MG/200 ML 800 MG/200 ML BAG 400 MG IVPB (15:04)
[2025-04-21] MEDS: FAMOTIDINE 20 MG TABLET PO ×2 (15:07→20:36)
[2025-04-21] MEDS: PANTOPRAZOLE 40 MG TABLET PO (15:07)
[2025-04-21] MEDS: HYDROXYCHLOROQUINE SULFATE 200 MG TABLET PO (15:08)
[2025-04-21] MEDS: LEFLUNOMIDE 20 MG TABLET PO (15:08)
--- NOTE | 2025-04-21 15:58 | PCOTNOTE ---
Attempted to see pt for OT evaluation however pt was on a alix hugger due to low body temp and RN asked to hold at this time. Will continue to follow.
[2025-04-21] MEDS: oxyCODONE/ACETAMINOPHEN (*CRX) 5-325 MG TABLET 1 TABLET PO (20:32)
[2025-04-21] MEDS: ATORVASTATIN 10 MG TABLET PO (20:36)
[2025-04-21] MEDS: ASPIRIN 325 MG ENTERIC TABLET PO (20:36)
[2025-04-22] VITALS (8 sets, daily range): BP systolic 83–109; BP diastolic 40–55; PULSE 66–85; RESP 18; TEMP 36.3–37.2; O2SAT 97–98
--- NOTE | ~2025-04-22 | XR_ITS ---
EXAMINATION: XR hip RT 1V DATE: 04/21/2025 11:17 INDICATION: Right total hip arthroplasty TECHNIQUE: AP portable view of the right hip FINDINGS: There is a right total hip arthroplasty in expected position. Subcutaneous gas with soft tissue swelling are consistent with recent surgery. IMPRESSION: 1. Recent right total hip arthroplasty. Reviewed, dictated and finalized at location O.
--- NOTE | ~2025-04-22 | XR_ITS ---
EXAMINATION: XR abdomen/kub 1V DATE: 04/26/2025 14:20 INDICATION: Probable ileus. Tinkling bowel sounds. Abdominal distention and bloating. TECHNIQUE: A supine view of the abdomen on 2 radiographs was obtained. COMPARISON: CT dated 04/24/2025 FINDINGS: Again seen is diffuse mild gaseous distention of the colon. No dilated gas- filled loops of small bowel. Cholecystectomy clips in right upper quadrant. Visualized lower lungs are clear. Heart size is normal. Right total hip arthroplasty.. IMPRESSION: 1. Persistent diffuse mild gaseous distention of the colon consistent with persistent postoperative ileus. Reviewed, dictated and finalized at location A. IMPRESSION: 1. Persistent diffuse mild gaseous distention of the colon consistent with pers istent postoperative ileus.
--- NOTE | ~2025-04-22 | XR_ITS ---
XR abdomen/kub 1V 04/23/2025 14:22 Indication: Abdominal distention. Constipation. Procedure: KUB Comparison: Comparison to multiple prior studies sequentially, with oldest reviewed study dated 02/23/2009. Findings: Large amount of gas throughout the colon, nonspecific. No definite obstruction. Lung bases unremarkable. There are cholecystectomy clips. No significant small bowel dilation. Impression: 1: Moderate dilation of the colon which is gas-filled, likely ileus. No definite obstruction. Reviewed, dictated and finalized at location O. Impression: 1: Moderate dilation of the colon which is gas-filled, likely ileus. No definit e obstruction.
--- NOTE | ~2025-04-22 | XR_ITS ---
EXAMINATION: XR abdomen/kub 1V DATE: 04/28/2025 13:35 INDICATION: Abdominal pain and constipation TECHNIQUE: A supine view of the abdomen on 2 radiographs was obtained. COMPARISON: 04/26/2025 FINDINGS: No evident change in diffuse mild gaseous distention of the colon without appreciable stool. No dilated loops of gas-filled small bowel to suggest obstruction. Cholecystectomy clips in right upper quadrant. Lung bases are clear. Heart size is normal. Right total hip arthroplasty. IMPRESSION: 1. Persistent diffuse mild gaseous distention of the colon consistent with ileus without appreciable stool to suggest constipation. Reviewed, dictated and finalized at location A. IMPRESSION: 1. Persistent diffuse mild gaseous distention of the colon consistent with ileu s without appreciable stool to suggest constipation.
--- NOTE | ~2025-04-22 | CT_ITS ---
CT abdomen pelvis w con Clinical History: Constipation . Comparison: Abdominal x-ray one day prior CT abdomen pelvis 03/10/2025 Technique: Axial images lung bases to symphysis pubis IV contrast information not listed in PACS Coronal, sagittal reformats CT images acquired with automatic exposure control for dose reduction DLP: 693 mGy-cm Findings: Lung bases: Bibasilar atelectasis. Visualized heart and pericardium: Unremarkable. Liver: Steatosis. Mild pneumobilia after cholecystectomy. Gallbladder: Removed. Spleen: Unremarkable. Pancreas: Unremarkable. Adrenal glands: Unremarkable. Kidneys: Small bilateral perinephric fluid Right kidney- No hydronephrosis. No renal stones. Left kidney- No hydronephrosis. No renal stones. Distal esophagus/stomach: Unremarkable. Small bowel loops: Normal caliber and wall thickness. Air-fluid levels Colon: Suture line left hemipelvis. Gaseous distention and air-fluid levels. Normal appendix. Nodes: No enlarged nodes. Peritoneum: Trace scattered ascites. No free air. Urinary bladder: Unremarkable. Uterus: Removed. Adnexa: No masses. Bones: No acute bony abnormality. Soft tissues: Ill-defined fluid and/or inflammatory changes right hip soft tissues. Aorta: No aneurysm or dissection. IVC: Unremarkable. Main portal vein/SMV/splenic vein: Patent. IMPRESSION: 1. Enteritis and diarrheal state. Reviewed, dictated and finalized at location R.
[2025-04-22] MEDS: KETOROLAC 15 MG/ML VIAL (*BKC) IV PUSH ×3 (00:26→11:36)
[2025-04-22] MEDS: ceFAZolin 2 GM in SODIUM CHLORIDE 0.9% IV 50 ML 100 ML IVPB ×2 (00:27→07:38)
[2025-04-22] MEDS: oxyCODONE/ACETAMINOPHEN (*CRX) 5-325 MG TABLET 1 TABLET PO ×3 (04:32→20:23)
[2025-04-22 05:56] LABS: Hematocrit 30.0 % (37.0-47.0); Hemoglobin 9.5 g/dL (12.0-15.0); Immature Granulocyte Percent A 0.4 % (0-0.5); Lymphocytes Absolute Auto 1.57 K/mm3 (0.9-3.2); Mean Corpuscular HGB Conc 31.7 g/dl (32-36); Mean Corpuscular Hemoglobin 28.0 pg (26-34); Mean Corpuscular Volume 88.5 fl (80-100); Nucleated Red Blood Cells Absolute Auto 0.000 K/mm3 (0.0-0.012); Nucleated Red Blood Cells Perc 0.0 % (0.0-0.2); Platelet Count Result 165 k/mm3 (150-375); Red Blood Count 3.39 M/mm3 (4.2-5.4); White Blood Count 9.9 K/mm3 (4.5-10.0)
[2025-04-22 06:09] LABS: Anion Gap 5 mmol/L (4-12); Blood Urea Nitrogen 12 mg/dL (7-17); Calcium 7.9 mg/dL (8.4-10.2); Carbon Dioxide 27 mmol/L (22-30); Chloride 104 mmol/L (98-107); Estimated CRCL calculation 89 ml/min; Estimated Glomerular Filt Rate > 60; Glucose 105 mg/dL (65-110); Potassium 3.2 mmol/L (3.4-5.0); Sodium 136 mmol/L (137-145)
[2025-04-22] MEDS: HYDROmorphone HCL INJ (*CRX) 1 MG/ML SYR 0.5 MG IV PUSH (06:19)
[2025-04-22] MEDS: LINACLOTIDE 145 MCG CAPSULE 290 MCG PO (06:32)
[2025-04-22] MEDS: CHOLECALCIFEROL (VITAMIN D3) 25 MCG (1,000 UNITS) TABLET 50 MCG PO (08:06)
[2025-04-22] MEDS: ASPIRIN 325 MG ENTERIC TABLET PO ×2 (08:06→20:21)
[2025-04-22] MEDS: oxyCODONE/ACETAMINOPHEN (*CRX) 10-325 MG TABLET 1 TAB PO (08:06)
[2025-04-22] MEDS: SERTRALINE HCL 50 MG TABLET PO (08:07)
[2025-04-22] MEDS: HYDROXYCHLOROQUINE SULFATE 200 MG TABLET PO (08:07)
[2025-04-22] MEDS: PANTOPRAZOLE 40 MG TABLET PO ×2 (08:07→16:03)
[2025-04-22] MEDS: FAMOTIDINE 20 MG TABLET PO ×2 (08:07→20:21)
[2025-04-22] MEDS: LEFLUNOMIDE 20 MG TABLET PO (08:07)
[2025-04-22] MEDS: ONDANSETRON INJ 4 MG/2 ML VIAL IV PUSH ×2 (08:39→23:53)
--- NOTE | 2025-04-22 09:30 | PC.NURSE ---
0930 Renee Sun NP notified that patient was dizzy and orthostatic positive during PT this am.
[2025-04-22] MEDS: POTASSIUM CHLORIDE 20 MEQ PACKET (FOR LIQUID) 40 MEQ PO (09:43)
[2025-04-22] MEDS: SODIUM CHLORIDE 0.9% IV 500 ML IV CONT (09:43)
--- NOTE | 2025-04-22 09:55 | P.PNOP_ITS ---
Progress Note: A&P Assessment and Plan (1) S/P total hip arthroplasty: Qualifiers: Laterality: right Qualified Code(s): Z96.641 - Presence of right artificial hip joint Code(s): Z96.649 - Presence of unspecified artificial hip joint Status: Acute Assessment and Plan: POD #1 : Right SHAHRAM 500 cc Bolus for hypotension. Antiemetics. Encourage PO intake. Continue PT/OT. WBAT. Walker. HIGH FALL RISK. Continue pain control. Ice Hip. Protect skin. DVT prophylaxis with Aspirin. SCDs. Incentive Spirometry Use reviewed. Monitor Dressing. Change prior to discharge. Bowel Regimen. Dispo: Home with Home Health pending progress with PT/OT (2) Hypokalemia: Code(s): E87.6 - Hypokalemia Status: Acute Assessment and Plan: Potassium 3.2 post op. 40mEq PO today. Will recheck. Plan Reviewed history, exam, radiographs and current labs with attending MD and covering surgeon, Dr. Escalante, who agrees with current plan as indicated above. No further recommendations from Dr. Escalante at this time. Subjective Subjective Date/Time Seen: 04/22/25 09:55 Post Op day: 1 Interval history: POD #1: Right SHAHRAM Patient having slow progress with PT/OT due to orthostatic hypotension and post operative nausea. She c/o pain of the right hip which is moderate. Review of Systems Review of Systems: All systems reviewed & are unremarkable except as noted in HPI and below Constitutional: Constitutional: Denies chills, Denies fever(s), Denies headache(s), Denies lethargy and Reports weakness ENT: Denies headache(s) Cardiovascular: Cardiovascular: Denies chest pain, Denies diaphoresis, Denies palpitations, Denies dyspnea and Denies dyspnea on exertion Respiratory: Respiratory: Denies cough, Denies dyspnea and Denies dyspnea on exertion Gastrointestinal: Gastrointestinal: Denies constipation, Denies diarrhea, Denies nausea and Denies vomiting Genitourinary: Genitourinary: Reports urinary frequency, Denies dysuria and Denies urinary hesitancy Musculoskeletal: Musculoskeletal: Reports joint swelling (Right Hip ) and Reports limited range of motion (Right Hip due to recent surgery ) Neurologic: Denies headache(s) and Reports weakness Endocrine: Endocrine: Denies palpitations Exam Const: General: comfortable and no acute distress Resp: Effort & Inspection: normal respiratory effort Cardio: Rate: regular rate Rhythm: regular rhythm GI: Inspection: non-distended Skin: General skin exam: normal color Other: Incision right hip c/d/i. Surrounding tissue without redness/warmth. Mild swelling consistent with recent surgery. No drainage. Neuro: Cognition (Neuro): normal cognition Speech: normal speech Extrem: Right lower extremity: normal to inspection, normal capillary refill, hip/thigh Details: tenderness Location: of the hip (Thigh soft ) Location: laterally and anteriorly, swelling Location: at the hip, abnormal ROM (limited consistent with recent surgery ) Details: pain with active ROM during and pain with passive ROM during and other (Incision c/d/i. ); no deformity and no unusual warmth, knee Details: normal to inspection; no tenderness and no swelling, lower leg (Negative Colleen's Sign ) Details: normal to inspection and no edema; no tenderness, ankle (+ankle dorsiflexion/plantarflexion) Details: normal to inspection and no edema; no tenderness, no swelling and no ecchymosis and foot Details: normal capillary refill, toes with normal ROM, vascular exam Details: dorsalis pedis pulse present and motor-sensory exam Details: light- touch normal; no tenderness Objective Data Vital Signs Vital Signs: Vital Signs - 24 hr 04/21/25 10:53 04/21/25 11:05 04/21/25 11:20 Temperature 36.6 C Pulse Rate 68 70 60 Respiratory Rate 16 15 14 Blood Pressure 128/51 L 126/55 L 112/65 Pulse Oximetry 100 100 100 Oxygen Delivery Simple Face Mask Simple Face Mask Simple Face Mask Oxygen Flow Rate 8 8 6 04/21/25 11:35 04/21/25 11:50 04/21/25 12:15 Temperature 36.4 C Pulse Rate 78 78 68 Respiratory Rate 14 14 14 Blood Pressure 129/59 L 122/60 119/55 L Pulse Oximetry 96 96 100 Oxygen Delivery Nasal Cannula Nasal Cannula Nasal Cannula Oxygen Flow Rate 2 2 2 04/21/25 12:42 04/21/25 13:12 04/21/25 13:25 Temperature 36.0 C L 35.9 C L 36.0 C L Pulse Rate 83 80 83 Respiratory Rate 18 20 18 Blood Pressure 112/55 L 110/47 L 110/61 Pulse Oximetry 100 99 100 Oxygen Delivery Oxygen Flow Rate 10/22/25 13:30 04/21/25 13:45 04/21/25 14:12 Temperature 36.0 C L 36.0 C L 36.2 C L Pulse Rate 78 Respiratory Rate 20 Blood Pressure 105/54 L Pulse Oximetry 98 Oxygen Delivery Oxygen Flow Rate 04/21/25 14:12 04/21/25 14:24 04/21/25 14:49 Temperature 36.2 C L 36.7 C Pulse Rate Respiratory Rate Blood Pressure Pulse Oximetry 100 Oxygen Delivery Nasal Cannula Oxygen Flow Rate 2 04/21/25 15:09 04/21/25 15:51 04/21/25 15:51 Temperature 36.7 C Pulse Rate Respiratory Rate Blood Pressure Pulse Oximetry 97 Oxygen Delivery Room Air Room Air Oxygen Flow Rate 04/21/25 18:12 04/21/25 20:00 04/21/25 21:04 Temperature 36.1 C L 37.2 C Pulse Rate 89 84 Respiratory Rate 18 18 Blood Pressure 106/47 L 106/58 L Pulse Oximetry 96 98 Oxygen Delivery Room Air Oxygen Flow Rate 04/22/25 00:02 04/22/25 05:44 04/22/25 08:38 Temperature 37.1 C 37.2 C Pulse Rate 85 66 Respiratory Rate 18 18 Blood Pressure 105/45 L 103/55 L 101/43 L Pulse Oximetry 98 98 Oxygen Delivery Oxygen Flow Rate 04/22/25 08:38 Temperature Pulse Rate Respiratory Rate Blood Pressure 86/52 L Pulse Oximetry Oxygen Delivery Oxygen Flow Rate Intake/Output Intake/Output: Intake & Output 04/19/25 04/20/25 04/21/25 04/22/25 23:59 23:59 23:59 23:59 Intake Total 620 1115 Balance 620 1115 Meds/Results Medications: Active Medications Generic Name Dose Route Start Last Admin Trade Name Freq PRN Reason Stop Dose Admin Aspirin 325 mg 04/21/25 12:27 04/22/25 08:06 Aspirin 325 Mg Enteric Tablet PO 325 mg Q12HR WOODY Administration Atorvastatin Calcium 10 mg 04/21/25 21:00 04/21/25 20:36 Atorvastatin 10 Mg Tablet PO 10 mg HS WOODY Administration Diazepam 5 mg 04/21/25 12:27 Diazepam (*Crx) 5 Mg Tablet PO Q6H PRN Anxiety/Muscle Spasm Diphenhydramine HCl 25 mg 04/21/25 12:27 Diphenhydramine Hcl Inj 50 Mg/Ml Vial IV PUSH Q6H PRN Itching Docusate Sodium 300 mg 04/21/25 12:27 04/21/25 15:10 Docusate Sodium 100 Mg Capsule PO Not Given DAILY WOODY Famotidine 20 mg 04/21/25 12:27 04/22/25 08:07 Famotidine 20 Mg Tablet PO 20 mg Q12HR WOODY Administration Hydromorphone HCl 1 mg 04/21/25 12:27 Hydromorphone Hcl Inj (*Crx) 1 Mg/Ml Syr IV PUSH Q2H PRN Breakthrough Pain Rated 7-10 or NPO Hydromorphone HCl 0.5 mg 04/21/25 12:27 04/22/25 06:19 Hydromorphone Hcl Inj (*Crx) 1 Mg/Ml Syr IV PUSH 0.5 mg Q2H PRN Administration Breakthrough Pain Rated 4-6 or NPO Hydroxychloroquine Sulfate 200 mg 04/21/25 12:27 04/22/25 08:07 Hydroxychloroquine Sulfate 200 Mg Tablet PO 200 mg DAILY WOODY Administration Ibuprofen 800 mg in 200 mls @ 400 mls/hr 04/21/25 12:27 04/21/25 15:04 Caldolor 800 Mg/200 Ml IVPB 400 mls/hr Q6H PRN Administration Breakthrough Pain Rated 1-3 or NPO Sodium Chloride 500 mls @ 500 mls/hr 04/22/25 09:22 04/22/25 09:43 Normal Saline Iv IV CONT 04/22/25 10:21 500 mls/hr .Q1H ONE Administration Ketorolac Tromethamine 15 mg 04/21/25 12:27 04/22/25 06:20 Ketorolac 15 Mg/Ml Vial (*Bkc) IV PUSH 04/22/25 12:01 15 mg Q6HR WOODY Administration Leflunomide 20 mg 04/21/25 12:27 04/22/25 08:07 Leflunomide 20 Mg Tablet PO 20 mg DAILY WOODY Administration Linaclotide 290 mcg 04/22/25 06:30 04/22/25 06:32 Linaclotide 145 Mcg Capsule PO 290 mcg DAILY@0630 WOODY Administration Naloxone HCl 0.1 mg 04/21/25 12:27 Naloxone Hcl 0.4 Mg/Ml Vial IV PUSH Q2M PRN Opiate Reversal Ondansetron HCl 4 mg 04/21/25 12:27 04/22/25 08:39 Ondansetron Inj 4 Mg/2 Ml Vial IV PUSH 4 mg Q4H PRN Administration Nausea And Vomiting Oxycodone/Acetaminophen 1 tablet 04/21/25 12:27 04/22/25 04:32 Oxycodone/Acetaminophen (*Crx) 5-325 Mg Tablet PO 1 tablet Q4H PRN Administration Pain Rated 4-6 Oxycodone/Acetaminophen 1 tab 04/21/25 12:27 04/22/25 08:06 Oxycodone/Acetaminophen (*Crx) 10-325 Mg Tablet PO 1 tab Q6H PRN Administration Pain Rated 7-10 Pantoprazole Sodium 40 mg 04/21/25 12:27 04/22/25 08:07 Pantoprazole 40 Mg Tablet PO 40 mg BID WOODY Administration Polyethylene Glycol 17 gm 04/21/25 12:27 04/21/25 15:10 Polyethylene Glycol 3350 17 Gm Powd.Pack PO Not Given QAM WOODY Senna/Docusate Sodium 2 tab 04/21/25 12:27 04/21/25 17:33 Senna/Docusate Sodium Tablet PO Not Given BID WOODY Sertraline HCl 50 mg 04/21/25 12:27 04/22/25 08:07 Sertraline Hcl 50 Mg Tablet PO 50 mg DAILY WOODY Administration Vitamin D 50 mcg 04/22/25 09:00 04/22/25 08:06 Cholecalciferol (Vitamin D3) 25 Mcg (1,000 Units) Tablet PO 50 mcg DAILY WOODY Administration Radiology Results: ITS Impressions Hip X-Ray 04/21/25 11:35 IMPRESSION: 1. Recent right total hip arthroplasty. Labs Labs: Laboratory Results - last 24 hr 04/22/25 05:30 WBC 9.9 RBC 3.39 L Hgb 9.5 L D Hct 30.0 L MCV 88.5 MCH 28.0 MCHC 31.7 L RDW 13.1 Plt Count 165 MPV 11.2 H Immature Gran % (Auto) 0.4 Neut % (Auto) 70.8 Lymph % (Auto) 15.9 L [place] % (Auto) 11.3 H Eos % (Auto) 1.1 Baso % (Auto) 0.5 Lymph # (Auto) 1.57 [place] # (Auto) 1.1 H Eos # (Auto) 0.1 Baso # (Auto) 0.1 Abs Immat Gran (auto) 0.04 H Absolute Neuts (auto) 7.0 H Absolute Nucleated RBC 0.000 Nucleated RBC % 0.0 Sodium 136 L Potassium 3.2 L Chloride 104 Carbon Dioxide 27 Anion Gap 5 BUN 12 Creatinine 0.63 L Estim Creat Clear Calc 89 Estimated GFR > 60 Glucose 105 Calcium 7.9 L Quality VTE Prophylaxis VTE prophylaxis: mechanical ordered
--- NOTE | 2025-04-22 10:36 | WPDANESPN ---
Anes - Prog Note Post-Op Date/Time: 04/22/25 10:36 Cardiovascular status: normal Respiratory status: normal Airway patency: baseline Mental status: baseline Post-Op hydration status: normal Vital Signs: Last Vital Signs Temp 37.2 C 04/22/25 05:44 Pulse 66 04/22/25 05:44 Resp 18 04/22/25 05:44 BP 86/52 L 04/22/25 08:38 Pulse Ox 98 04/22/25 08:00 O2 Del Method Room Air 04/22/25 08:00 O2 Flow Rate 2 04/21/25 14:24 Pain Score (VAS): 7 I/O: Intake & Output 04/21/25 04/22/25 04/22/25 23:59 07:59 15:59 Intake Total 170 875 240 Balance 170 875 240 Laboratory Tests 04/22/25 05:30 04/22/25 05:30 04/22/25 05:30 WBC 9.9 RBC 3.39 L Hgb 9.5 L D Hct 30.0 L MCV 88.5 MCH 28.0 MCHC 31.7 L RDW 13.1 Plt Count 165 MPV 11.2 H Immature Gran % (Auto) 0.4 Neut % (Auto) 70.8 Lymph % (Auto) 15.9 L Richardson % (Auto) 11.3 H Eos % (Auto) 1.1 Baso % (Auto) 0.5 Lymph # (Auto) 1.57 Richardson # (Auto) 1.1 H Eos # (Auto) 0.1 Baso # (Auto) 0.1 Abs Immat Gran (auto) 0.04 H Absolute Neuts (auto) 7.0 H Absolute Nucleated RBC 0.000 Nucleated RBC % 0.0 Sodium 136 L Potassium 3.2 L Chloride 104 Carbon Dioxide 27 Anion Gap 5 BUN 12 Creatinine 0.63 L Estim Creat Clear Calc 89 Estimated GFR > 60 Glucose 105 Calcium 7.9 L Post-procedural complaints: none Patient Feedback: Patient satisfied with anesthetic care.
--- NOTE | 2025-04-22 14:03 | PCPTNOTE ---
Patient unable to be seen for afternoon PT treatment, per RN: patient's blood pressure decreased while working with OT and Ortho PA said to hold afternoon PT session.
[2025-04-22] MEDS: SENNA/DOCUSATE SODIUM TABLET 2 TAB PO (16:05)
[2025-04-22] MEDS: DOCUSATE SODIUM 100 MG CAPSULE 300 MG PO (16:05)
[2025-04-22] MEDS: ATORVASTATIN 10 MG TABLET PO (20:21)
[2025-04-23] MEDS: oxyCODONE/ACETAMINOPHEN (*CRX) 5-325 MG TABLET 1 TABLET PO ×4 (00:02→21:10)
[2025-04-23 05:30] VITALS: BP 130/63; PULSE 92; RESP 20; TEMP 36.2; O2SAT 96
[2025-04-23] MEDS: ONDANSETRON INJ 4 MG/2 ML VIAL IV PUSH (05:31)
[2025-04-23] MEDS: LINACLOTIDE 145 MCG CAPSULE 290 MCG PO (05:31)
[2025-04-23 06:08] LABS: Hematocrit 33.3 % (37.0-47.0); Hemoglobin 10.2 g/dL (12.0-15.0); Mean Corpuscular HGB Conc 30.6 g/dl (32-36); Mean Corpuscular Hemoglobin 27.5 pg (26-34); Mean Corpuscular Volume 89.8 fl (80-100); Platelet Count Result 219 k/mm3 (150-375); Red Blood Count 3.71 M/mm3 (4.2-5.4); White Blood Count 10.7 K/mm3 (4.5-10.0)
[2025-04-23 06:35] LABS: Alanine Aminotransferase 26 U/L (6-35); Albumin Level 3.6 g/dL (3.5-5.1); Alkaline Phosphatase 104 U/L (38-126); Anion Gap 8 mmol/L (4-12); Aspartate Amino Transferase 67 U/L (14-36); Bilirubin,Total 0.5 mg/dL (0.2-1.3); Blood Urea Nitrogen 9 mg/dL (7-17); Calcium 8.6 mg/dL (8.4-10.2); Carbon Dioxide 25 mmol/L (22-30); Chloride 106 mmol/L (98-107); Estimated CRCL calculation 83 ml/min; Estimated Glomerular Filt Rate > 60; Glucose 101 mg/dL (65-110); Potassium 3.5 mmol/L (3.4-5.0); Sodium 139 mmol/L (137-145); Total Protein 6.4 g/dL (6.3-8.2)
--- NOTE | 2025-04-23 08:22 | P.DS_ITS ---
DS: Summary Time Spent with Patient Time attestation: Total time spent providing and/or coordinating discharge services: DS: Data Data Completed and Pending Labs on day of discharge: Labs from last 24 hours 04/23/25 05:45 WBC 10.7 H RBC 3.71 L Hgb 10.2 L Hct 33.3 L MCV 89.8 MCH 27.5 MCHC 30.6 L RDW 13.2 Plt Count 219 MPV 11.1 H Sodium 139 Potassium 3.5 Chloride 106 Carbon Dioxide 25 Anion Gap 8 BUN 9 Creatinine 0.68 L Estim Creat Clear Calc 83 Estimated GFR > 60 Glucose 101 Calcium 8.6 Total Bilirubin 0.5 AST 67 H ALT 26 Alkaline Phosphatase 104 Total Protein 6.4 Albumin 3.6 Discharge Plan Discharge Attending physician on discharge: Nathan Escalante Discharging Clinician: Renee Saul Patient Disposition: Home with Home Health Service Activity: may shower, no driving and follow weight bearing status Diet: as tolerated Wound Care Instructions: follow printed instructions Discharge Instructions: Post Op Total Hip Replacement Instructions Dr. Nathan Escalante [phone] * Your dressing will be changed prior to your discharge. You will be sent home with one additional dressing to be changed on post op day 7 by the home health RN. You may remove the dressing on post op day 14. Your incision was closed with dermabond, allow the dermabond to fall off naturally once your dressing is removed. Do not pull at the dermabond or disrupt incision healing. * You may shower with your dressing but do not submerge in a bath tub. * Do not drive or operate machinery until you are released by Dr. Escalante. * Do not walk without a walker for any reason until you are released by Dr. Escalante. * Continue to apply ice to the hip intermittently for additional pain relief. Protect your skin with a towel or pillow case. * Continue to follow strict total hip replacement precautions. * Your first post op appointment was sent to you via mail preoperatively. If you have any questions or are unable to make your appointment, please contact our office for scheduling questions. * Your medications have been sent to your pharmacy. You have been sent home with pain medication. Please cigar packer and picker an over the counter stool softener to prevent constipation due to narcotic use. Please keep this in mind during your postoperative recovery. If you are not experiencing regular bowel movements, please contact our office for further instructions. * Please contact our office with any questions/concerns regarding your hip at [phone]. Care Coordination: Patient to have [facility] for PT/OT eval and treat, and shelter. Their phone number is [phone], if you have any questions. They will contact you to schedule their visits. Patient Instructions: Antibiotic Form, Pain Management (GEN) Patient Language: Occitan Stand Alone Forms: General Discharge Information Follow-up/Referrals: Nathan Escalante MD [Physician, Orthopedics] - Keep Reg. Scheduled Appt. Discharge Medications: New aspirin 325 mg Tablet,Delayed Release (Dr/Ec) 325 mg PO Q12HR 28 Days Qty: 56 0RF oxycodone-acetaminophen 5-325 mg Tablet 1 tablet PO Q4H PRN (Reason: pain) Qty: 30 0RF Continued pantoprazole [Protonix] 40 mg tablet,delayed release (DR/EC) 40 mg PO BID docusate sodium [Colace] 100 mg capsule 300 mg PO DAILY multivitamin [Daily Value] Tablet 1 tablet PO DAILY cholecalciferol (vitamin D3) 50 mcg (2,000 unit) tablet,chewable 2,000 unit PO DAILY Patient Comments: WITH K2 hydroxychloroquine 200 mg tablet 200 mg PO DAILY atorvastatin 10 mg tablet 10 mg PO DAILY Qty: 90 1RF Patient Comments: HS Linzess 290 mcg capsule See Rx Instructions .ROUTE .COMPLEX Qty: 90 3RF Dose Instruction: TAKE 1 CAPSULE BY MOUTH ONCE DAILY DIRECTED Rx Instructions: TAKE 1 CAPSULE BY MOUTH ONCE DAILY DIRECTED sertraline 50 mg tablet 50 mg PO DAILY Qty: 90 1RF Patient Comments: QAM leflunomide 20 mg tablet 20 mg PO DAILY Patient Comments: Per rheum QAM Discontinued chlorhexidine gluconate [Hibiclens] 4 % liquid 1 applic topical ONCE Qty: 237 0RF Rx Instructions: Cleanse operative extremity, in shower, every day for 1 week prior to surgical procedure. Date of admission: 04/22/25 18:51 Primary Care Provider: Wero Welch Admitting Provider: Nathan Escalante Attending physician on admission: Nathan Escalante Condition: Stable
--- NOTE | 2025-04-23 09:03 | P.PNOP_ITS ---
Progress Note: A&P Assessment and Plan (1) S/P total hip arthroplasty: Qualifiers: Laterality: right Qualified Code(s): Z96.641 - Presence of right artificial hip joint Code(s): Z96.649 - Presence of unspecified artificial hip joint Status: Acute Assessment and Plan: POD #2 : Right SHAHRAM Continue PT/OT. WBAT. Walker. HIGH FALL RISK. Continue pain control. Ice Hip. Protect skin. DVT prophylaxis with Aspirin. SCDs. Incentive Spirometry Use reviewed. Monitor Dressing. Change prior to discharge. Bowel Regimen. Dispo: Home with Home Health pending progress with PT/OT (2) Hypokalemia: Code(s): E87.6 - Hypokalemia Status: Acute Assessment and Plan: Resolved s/p 40mEq of Potassium (3) Nausea: Code(s): R11.0 - Nausea Status: Acute Assessment and Plan: 8mg IV ONCE Zofran Bisacodyl for constipation Continue current bowel regimen Consider abdominal XR if no bowel movement or worsening of abdominal pain/inability to keep down food. After further discussion/evaluation in person by Dr. Escalante, he recommended a medicine team consult for further recommendations given abdominal pain/distention. (4) Postoperative hypotension: Code(s): I95.81 - Postprocedural hypotension Status: Acute Assessment and Plan: Postoperative orthostatic hypotension yesterday. Bolused with NS. BP better today. Continue to monitor. HgB Stable. Plan Reviewed history, exam, radiographs and current labs with attending MD and covering surgeon, Dr. Escalante, who agrees with current plan as indicated above. No further recommendations from Dr. Escalante at this time. Time Spent With Patient Time with patient: 15 - 25 minutes Subjective Subjective Date/Time Seen: 04/23/25 09:03 Post Op day: 2 Interval history: POD #2: Right SHAHRAM C/o abdominal tenderness today, constipation, nausea, inability to keep down food. Feeling dehydrated. Review of Systems Review of Systems: All systems reviewed & are unremarkable except as noted in HPI and below Exam Const: General: comfortable and no acute distress Resp: Effort & Inspection: normal respiratory effort Cardio: Rate: regular rate Rhythm: regular rhythm GI: GI Palp: Yes Firmness to palpation present (GI) and Yes Tenderness to palpation present (GI) Skin: General skin exam: normal color Other: Incision right hip c/d/i. Surrounding tissue without redness/warmth. Mild swelling consistent with recent surgery. No drainage. Neuro: Cognition (Neuro): normal cognition Speech: normal speech Extrem: Right lower extremity: normal to inspection, normal capillary refill, hip/thigh Details: tenderness Location: of the hip (Thigh soft ) Location: laterally and anteriorly, swelling Location: at the hip, abnormal ROM (limited consistent with recent surgery ) Details: pain with active ROM during and pain with passive ROM during and other (Incision c/d/i. ); no deformity and no unusual warmth, knee Details: normal to inspection; no tenderness and no swelling, lower leg (Negative Colleen's Sign ) Details: normal to inspection and no edema; no tenderness, ankle (+ankle dorsiflexion/plantarflexion) Details: normal to inspection and no edema; no tenderness, no swelling and no ecchymosis and foot Details: normal capillary refill, toes with normal ROM, vascular exam Details: dorsalis pedis pulse present and motor-sensory exam Details: light- touch normal; no tenderness Objective Data Vital Signs Vital Signs: Vital Signs - 24 hr 04/22/25 10:56 04/22/25 10:56 04/22/25 12:19 Temperature Pulse Rate Respiratory Rate Blood Pressure 109/47 L 97/46 L 83/40 L Pulse Oximetry Oxygen Delivery 04/22/25 12:26 04/22/25 14:12 04/22/25 20:21 Temperature 36.3 C L Pulse Rate 81 Respiratory Rate 18 Blood Pressure 108/51 L 106/55 L Pulse Oximetry 97 Oxygen Delivery Room Air 04/23/25 05:30 Temperature 36.2 C L Pulse Rate 92 Respiratory Rate 20 Blood Pressure 130/63 Pulse Oximetry 96 Oxygen Delivery Intake/Output Intake/Output: Intake & Output 04/20/25 04/21/25 04/22/25 04/23/25 23:59 23:59 23:59 23:59 Intake Total 620 1475 100 Balance 620 1475 100 Meds/Results Medications: Active Medications Generic Name Dose Route Start Last Admin Trade Name Freq PRN Reason Stop Dose Admin Aspirin 325 mg 04/21/25 12:27 04/22/25 20:21 Aspirin 325 Mg Enteric Tablet PO 325 mg Q12HR WOODY Administration Atorvastatin Calcium 10 mg 04/21/25 21:00 04/22/25 20:21 Atorvastatin 10 Mg Tablet PO 10 mg HS WOODY Administration Diazepam 5 mg 04/21/25 12:27 Diazepam (*Crx) 5 Mg Tablet PO Q6H PRN Anxiety/Muscle Spasm Diphenhydramine HCl 25 mg 04/21/25 12:27 Diphenhydramine Hcl Inj 50 Mg/Ml Vial IV PUSH Q6H PRN Itching Docusate Sodium 300 mg 04/21/25 12:27 04/22/25 16:05 Docusate Sodium 100 Mg Capsule PO 300 mg DAILY WOODY Administration Famotidine 20 mg 04/21/25 12:27 04/22/25 20:21 Famotidine 20 Mg Tablet PO 20 mg Q12HR WOODY Administration Hydromorphone HCl 1 mg 04/21/25 12:27 Hydromorphone Hcl Inj (*Crx) 1 Mg/Ml Syr IV PUSH Q2H PRN Breakthrough Pain Rated 7-10 or NPO Hydromorphone HCl 0.5 mg 04/21/25 12:27 04/22/25 06:19 Hydromorphone Hcl Inj (*Crx) 1 Mg/Ml Syr IV PUSH 0.5 mg Q2H PRN Administration Breakthrough Pain Rated 4-6 or NPO Hydroxychloroquine Sulfate 200 mg 04/21/25 12:27 04/22/25 08:07 Hydroxychloroquine Sulfate 200 Mg Tablet PO 200 mg DAILY WOODY Administration Ibuprofen 800 mg in 200 mls @ 400 mls/hr 04/21/25 12:27 04/21/25 15:04 Caldolor 800 Mg/200 Ml IVPB 400 mls/hr Q6H PRN Administration Breakthrough Pain Rated 1-3 or NPO Leflunomide 20 mg 04/21/25 12:27 04/22/25 08:07 Leflunomide 20 Mg Tablet PO 20 mg DAILY WOODY Administration Linaclotide 290 mcg 04/22/25 06:30 04/23/25 05:31 Linaclotide 145 Mcg Capsule PO 290 mcg DAILY@0630 WOODY Administration Naloxone HCl 0.1 mg 04/21/25 12:27 Naloxone Hcl 0.4 Mg/Ml Vial IV PUSH Q2M PRN Opiate Reversal Ondansetron HCl 8 mg 04/23/25 09:01 Ondansetron Inj 4 Mg/2 Ml Vial IV PUSH 04/23/25 09:02 ONCE ONE Ondansetron HCl 4 mg 04/23/25 09:02 Ondansetron Inj 4 Mg/2 Ml Vial IV PUSH Q4H PRN Nausea And Vomiting Oxycodone/Acetaminophen 1 tablet 04/21/25 12:27 04/23/25 00:02 Oxycodone/Acetaminophen (*Crx) 5-325 Mg Tablet PO 1 tablet Q4H PRN Administration Pain Rated 4-6 Oxycodone/Acetaminophen 1 tab 04/21/25 12:27 04/22/25 08:06 Oxycodone/Acetaminophen (*Crx) 10-325 Mg Tablet PO 1 tab Q6H PRN Administration Pain Rated 7-10 Pantoprazole Sodium 40 mg 04/21/25 12:27 04/22/25 16:03 Pantoprazole 40 Mg Tablet PO 40 mg BID WOODY Administration Polyethylene Glycol 17 gm 04/21/25 12:27 04/22/25 16:07 Polyethylene Glycol 3350 17 Gm Powd.Pack PO 17 gm QAM WOODY Administration Senna/Docusate Sodium 2 tab 04/21/25 12:27 04/22/25 16:05 Senna/Docusate Sodium Tablet PO 2 tab BID WOODY Administration Sertraline HCl 50 mg 04/21/25 12:27 04/22/25 08:07 Sertraline Hcl 50 Mg Tablet PO 50 mg DAILY WOODY Administration Vitamin D 50 mcg 04/22/25 09:00 04/22/25 08:06 Cholecalciferol (Vitamin D3) 25 Mcg (1,000 Units) Tablet PO 50 mcg DAILY WOODY Administration Radiology Results: ITS Impressions Hip X-Ray 04/21/25 11:35 IMPRESSION: 1. Recent right total hip arthroplasty. Labs Labs: Laboratory Results - last 24 hr 04/23/25 05:45 WBC 10.7 H RBC 3.71 L Hgb 10.2 L Hct 33.3 L MCV 89.8 MCH 27.5 MCHC 30.6 L RDW 13.2 Plt Count 219 MPV 11.1 H Sodium 139 Potassium 3.5 Chloride 106 Carbon Dioxide 25 Anion Gap 8 BUN 9 Creatinine 0.68 L Estim Creat Clear Calc 83 Estimated GFR > 60 Glucose 101 Calcium 8.6 Total Bilirubin 0.5 AST 67 H ALT 26 Alkaline Phosphatase 104 Total Protein 6.4 Albumin 3.6
[2025-04-23] MEDS: LEFLUNOMIDE 20 MG TABLET PO (09:05)
[2025-04-23] MEDS: DOCUSATE SODIUM 100 MG CAPSULE 300 MG PO (09:05)
[2025-04-23] MEDS: CHOLECALCIFEROL (VITAMIN D3) 25 MCG (1,000 UNITS) TABLET 50 MCG PO (09:05)
[2025-04-23] MEDS: PANTOPRAZOLE 40 MG TABLET PO ×2 (09:06→16:27)
[2025-04-23] MEDS: FAMOTIDINE 20 MG TABLET PO ×2 (09:06→21:11)
[2025-04-23] MEDS: SERTRALINE HCL 50 MG TABLET PO (09:06)
[2025-04-23] MEDS: ASPIRIN 325 MG ENTERIC TABLET PO ×2 (09:06→21:10)
[2025-04-23] MEDS: SENNA/DOCUSATE SODIUM TABLET 2 TAB PO (09:06)
[2025-04-23] MEDS: HYDROXYCHLOROQUINE SULFATE 200 MG TABLET PO (09:06)
[2025-04-23] MEDS: BISACODYL 5 MG TABLET EC PO (09:16)
[2025-04-23] MEDS: ONDANSETRON INJ 4 MG/2 ML VIAL 8 MG IV PUSH (09:18)
[2025-04-23] MEDS: BISACODYL 10 MG SUPPOSITORY RECTAL (12:38)
--- NOTE | 2025-04-23 15:21 | PM.IMCN ---
Assessment and Plan Assessment and plan (1) Postoperative ileus: Code(s): K91.89 - Other postprocedural complications and disorders of digestive system; K56.7 - Ileus, unspecified Status: Acute Assessment and Plan: Patient underwent a total right hip arthroplasty on 04/21. Has been experiencing abdominal pain, nausea, vomiting, and abdominal distension since operation. She has a history significant for IBS-C for which she takes docusate capsules x3, Dulcolax suppository, and Linzess daily. Last bowel movement was small and occurred on Saturday, 04/20. Patient is currently unable to tolerate clear liquids - emesis clear to bile like. Abdominal XR was obtained this afternoon (04/23) which showed moderate dilation of the colon which is gas-filled, likely ileus, with no definite obstruction. Given patient's history of IBS-C and previous ileus/obstruction postoperative, will consult General surgery and place patient on clears. May need NG tube as she is not currently tolerating clear liquids. - general surgery consultation - IV fluids: LR 100 mL/hour - trial Bentyl - patient currently on Zofran for nausea, will place this as second-line and order Reglan as first-line antiemetic to help promote gastric motility - reviewed current bowel regimen: on docusate 300 mg daily, docusate 2 tablets b.i.d., and Linzess daily. Has also received a Dulcolax suppository x1 and MiraLax x1. (2) Constipation: Qualifiers: Constipation type: unspecified constipation type Qualified Code(s): K59.00 - Constipation, unspecified Code(s): K59.00 - Constipation, unspecified Status: Acute Assessment and Plan: - see above (3) S/P total hip arthroplasty: Qualifiers: Laterality: right Qualified Code(s): Z96.641 - Presence of right artificial hip joint Code(s): Z96.649 - Presence of unspecified artificial hip joint Status: Acute Assessment and Plan: - primary management via orthopedic team - analgesics p.r.n. - encourage IS use - continue PT/OT Plan Diet: Clear liquid GI Prophylaxis: Famotidine p.o. DVT Prophylaxis: SCDs IV fluids: LR 100 mL/hr Lines/Tubes: Peripheral IV Code Status: Full code HPI Date of Consult Consult date: 04/23/25 Requesting Physician: Nathan Escalante MD Primary Care Provider: Wero Welch MD Consult Narrative Reason for consult: Post Op Abdominal Pain, Nausea Narrative: Antonette Childress is a 54 year old female who underwent a right total hip arthroplasty on 04/21 with a PMH of IBS-C and osteoarthritis. The patient underwent a bright total hip arthroplasty on 04/21. Patient reports she has developed nausea, vomiting, abdominal discomfort, and abdominal distention. She has a history of motility issues - IBS/chronic constipation for which she takes Linzess, Doculax suppository, and 3 docusate capsules daily. She reports her symptoms started shortly after surgery and have continued to worsen daily. Has previously tried Miralax outpatient and failed. Typically more so has diarrhea at home due to the medications she is on for her constipation. Has had previous postop complication evolving gastric motility issues. Not tolerating water today, will take small sips and will immediately throw up. Last BM was small and occurred on Saturday, 04/20, and has not passed any stool of any kind since then. Estimates she has had 4-5 episodes of emesis today, clear to yellow/bile like. Has a history of a bowel resection that she underwent during an oophorectomy in 2010. Current VS: 97.4? F, HR 93, R 18, 142/62, and 96% on RA. Current lab work: WBC 10.7, hemoglobin 10.2 (stable), no significant electrolyte derangements, creatinine 0.68 and GFR >60. 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 Lumbar spondylosis Lumbar radiculopathy Chronic SI joint pain Lumbar spine pain Degenerative joint disease (DJD) of hip Screening mammogram, encounter for History of sigmoidoscopy (01/04/11) colon ischemia Encounter for IUD removal 04/02/05 Mirena removal Encounter for IUD insertion 12/08/02 Mirena insertion IBS (irritable bowel syndrome) Constipation Surgical History Surgical History S/P cholecystectomy History of total abdominal hysterectomy HATTIE--leiomyomata/adenomyosis History of bladder suspension procedure S/P total hip arthroplasty History of endometrial biopsy proliferative endometrium History of left salpingo-oophorectomy (01/04/11) History of exploratory laparotomy (01/04/11) History of laparoscopy 07/14/03 adhesions/adenomyosis 04/17/06 lysis of adhesions 09/08/09 adhesions on both ovaries History of dilation and curettage 01/09/01 suction d&c---missed AB History of ovarian cystectomy (08/08/00) rt ovarian cystectomy--mature teratoma S/P partial colectomy Family History Family History Father Hypertension Heart disease Lung cancer Mother Hypertension Malignant tumor of ovary Sibling Breast cancer, Onset Age: 60 sister Other Arthritis Asthma High cholesterol Lung disease Uterine cancer Social History Social History Social History: Smoking status: Never smoker Second hand tobacco smoke exposure: Yes Alcohol intake: never Substance use: never Substance use type: does not use Do You Feel Safe in your Home?: Yes Lack of Transportation: No Lack of Food: Never True Current Housing: I Have Housing Concerned About Future Housing: No Difficulty Paying Gas/Electric Bills: No Difficulty Paying for Meds: No Currently Unemployed: No Education: Associate Degree Difficulty w/ Childcare or Family Care: No Living arrangements: with family Additional living arrangements comments: [facility] Occupation/Education: other 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 Gender identity (if verbalized by the patient): Female Sexual Orientation (if Verbalized by the Patient): Straight or Heterosexual Spiritual care concerns: No Meds Home Medications and Allergies Home Medications ?Medication ?Instructions ?Recorded ?Confirmed ?Type pantoprazole 40 mg tablet,delayed 40 mg PO BID 08/25/24 04/21/25 History release (Protonix) atorvastatin 10 mg tablet 10 mg PO DAILY #90 tabs 10/21/24 04/21/25 Rx linaclotide 290 mcg capsule See Rx Instructions .Route 03/15/25 04/21/25 Rx (Linzess) .COMPLEX #90 caps sertraline 50 mg tablet 50 mg PO DAILY #90 tabs 03/15/25 04/21/25 Rx leflunomide 20 mg tablet 20 mg PO DAILY 03/16/25 04/21/25 History cholecalciferol (vitamin D3) 50 2,000 unit PO DAILY 04/07/25 04/21/25 History mcg (2,000 unit) chewable tablet docusate sodium 100 mg capsule 300 mg PO DAILY 04/07/25 04/21/25 History (Colace) hydroxychloroquine 200 mg tablet 200 mg PO DAILY 04/07/25 04/21/25 History multivitamin (Daily Value tablet) 1 tablet PO DAILY 04/07/25 04/21/25 History aspirin 325 mg tablet,delayed 325 mg PO Q12HR 28 days #56 tabs 04/22/25 Rx release oxycodone-acetaminophen 5 mg-325 1 tablet PO Q4H PRN pain #30 tabs 04/22/25 Rx mg tablet Allergies Allergy/AdvReac Type Severity Reaction Status Date / Time cephalexin Allergy Intermediate Rash Verified 04/21/25 12:49 Penicillins Allergy Intermediate Rash Verified 04/21/25 12:49 Vital Signs Vital Signs - 24 hr 04/22/25 20:21 04/23/25 05:30 04/23/25 09:30 Temperature 97.2 F L Pulse Rate 92 Respiratory Rate 20 Blood Pressure 130/63 Pulse Oximetry 96 Oxygen Delivery Room Air Room Air Exam Const: Other: Patient visibly uncomfortable. , female, nontoxic appearing. HENMT: Face/Nose/Sinus: Normal nares present Mouth: Yes moist mucous membranes Eyes: General: appearance normal, both eyes and all related structures Sclera: sclerae normal Pupils: Equal, round and reactive pupils present EOM: EOMs intact bilaterally Resp: Effort & Inspection: normal respiratory effort Auscultation: clear to auscultation bilaterally Cardio: Rate: tachycardic (Mild) Rhythm: regular rhythm Other: S1-S2 present without murmur, rub, ectopy GI: Other: +abdominal distention, mild. Tender in all quadrants with only light palpation. Hypoactive BS in all quadrants. Skin: General skin exam: normal color and no rashes or lesions noted Other: Postoperative incision to right hip. Dressing CDI. Neuro: Speech: normal speech Motor exam (neuro): 5/5 motor strength present throughout Sensory Exam: normal sensation Other: A&O x4 Extrem: General: normal to inspection Psych: Mental Status: mental status grossly normal Affect: normal affect Other: Good insight and judgment, very pleasant Results Labs 04/23/25 05:45 04/23/25 05:45 Labs: Short CBC 04/23/25 Range/Units 05:45 WBC 10.7 H (4.5-10.0) K/mm3 Hgb 10.2 L (12.0-15.0) g/dL Hct 33.3 L (37.0-47.0) % Plt Count 219 (150-375) k/mm3 BMP 04/23/25 05:45 Sodium 139 Potassium 3.5 Chloride 106 Carbon Dioxide 25 BUN 9 Creatinine 0.68 L Glucose 101 Calcium 8.6 Liver Function 04/23/25 Range/Units 05:45 Total Bilirubin 0.5 (0.2-1.3) mg/dL AST 67 H (14-36) U/L ALT 26 (6-35) U/L Alkaline Phosphatase 104 (38-126) U/L Albumin 3.6 (3.5-5.1) g/dL Quality VTE Prophylaxis VTE prophylaxis: mechanical ordered Hospitalist MIPS Advance Care Plan I have confirmed that the patient's Advanced Care Plan is present, code status is documented, or surrogate decision maker is listed in patient medical record.: Yes Medication Reconciliation I have utilized all available resources to obtain, update and review the patients current medications (includes all prescriptions, OTC, herbals, cannabis, and nutritional supplements).: Yes
[2025-04-23 16:06] VITALS: BP 142/62; PULSE 93; RESP 18; TEMP 36.3; O2SAT 96
[2025-04-23] MEDS: LACTATED RINGERS 1,000 ML 100 ML IV CONT (16:38)
[2025-04-23 20:00] VITALS: PULSE 94; RESP 19; O2SAT 95
[2025-04-23] MEDS: ATORVASTATIN 10 MG TABLET PO (21:11)
[2025-04-23 21:32] VITALS: BP 119/57; PULSE 94; RESP 19; TEMP 36.6; O2SAT 95
[2025-04-24] MEDS: LACTATED RINGERS 1,000 ML 100 ML IV CONT ×3 (02:36→23:59)
[2025-04-24] MEDS: oxyCODONE/ACETAMINOPHEN (*CRX) 5-325 MG TABLET 1 TABLET PO ×3 (02:41→21:50)
[2025-04-24 05:29] VITALS: BP 131/52; PULSE 85; RESP 17; TEMP 36.3; O2SAT 96
[2025-04-24] MEDS: LINACLOTIDE 145 MCG CAPSULE 290 MCG PO (06:35)
--- NOTE | 2025-04-24 07:03 | PM.IMCN ---
Assessment and Plan Assessment and plan (1) Postoperative ileus: Code(s): K91.89 - Other postprocedural complications and disorders of digestive system; K56.7 - Ileus, unspecified Status: Acute Assessment and Plan: Patient underwent a total right hip arthroplasty on 04/21. Has been experiencing abdominal pain, nausea, vomiting, and abdominal distension since operation. She has a history significant for IBS-C for which she takes docusate capsules x3, Dulcolax suppository, and Linzess daily. Last bowel movement was small and occurred on Saturday, 04/20. Patient is currently unable to tolerate clear liquids - emesis clear to bile like. Abdominal XR was obtained this afternoon (04/23) which showed moderate dilation of the colon which is gas-filled, likely ileus, with no definite obstruction. Given patient's history of IBS-C and previous ileus/obstruction postoperative, will consult General surgery and place patient on clears. May need NG tube as she is not currently tolerating clear liquids. general surgery consultation pending - appreciate further recommendations Pain control managed by primary team - IV Dilaudid, Percocet IV fluids: LR 100 mL/hour trial Urvashiyl patient currently on Zofran for nausea, will place this as second-line and order Reglan as first-line antiemetic to help promote gastric motility reviewed current bowel regimen: on docusate 300 mg daily, docusate 2 tablets b.i.d., and Linzess daily. Has also received a Dulcolax suppository x1 and MiraLax x1. (2) Constipation: Qualifiers: Constipation type: unspecified constipation type Qualified Code(s): K59.00 - Constipation, unspecified Code(s): K59.00 - Constipation, unspecified Status: Acute Assessment and Plan: see above (3) S/P total hip arthroplasty: Qualifiers: Laterality: right Qualified Code(s): Z96.641 - Presence of right artificial hip joint Code(s): Z96.649 - Presence of unspecified artificial hip joint Status: Acute Assessment and Plan: Post op 04/21/2025 R SHAHRAM primary management via orthopedic team analgesics p.r.n. encourage IS use continue PT/OT Plan Diet: Clear liquid GI Prophylaxis: Famotidine p.o. DVT Prophylaxis: SCDs IV fluids: LR 100 mL/hr Lines/Tubes: Peripheral IV Code Status: Full code HPI Date of Consult Consult date: 04/24/25 Requesting Physician: Nathan Escalante MD Primary Care Provider: Wero Welch MD Consult Narrative Narrative: Antonette Childress is a 54 year old female who underwent a right total hip arthroplasty on 04/21 with a PMH of IBS-C and osteoarthritis. The patient underwent a bright total hip arthroplasty on 04/21. Patient reports she has developed nausea, vomiting, abdominal discomfort, and abdominal distention. She has a history of motility issues - IBS/chronic constipation for which she takes Linzess, Doculax suppository, and 3 docusate capsules daily. She reports her symptoms started shortly after surgery and have continued to worsen daily. Has previously tried Miralax outpatient and failed. Typically more so has diarrhea at home due to the medications she is on for her constipation. Has had previous postop complication evolving gastric motility issues. Still in large amount of abdominal discomfort today. Denies any flatus or bowel movements today/last night, still experiencing reflux however. General surgery consult pending - may benefit from NG tube placement given lack of progress with symptoms. Current VS: 131/52, 85 heart rate, 17 respiratory rate, 97.3? 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 Lumbar spondylosis Lumbar radiculopathy Chronic SI joint pain Lumbar spine pain Degenerative joint disease (DJD) of hip Screening mammogram, encounter for History of sigmoidoscopy (01/04/11) colon ischemia Encounter for IUD removal 04/02/05 Mirena removal Encounter for IUD insertion 12/08/02 Mirena insertion IBS (irritable bowel syndrome) Constipation Surgical History Surgical History S/P cholecystectomy History of total abdominal hysterectomy HATTIE--leiomyomata/adenomyosis History of bladder suspension procedure S/P total hip arthroplasty History of endometrial biopsy proliferative endometrium History of left salpingo-oophorectomy (01/04/11) History of exploratory laparotomy (01/04/11) History of laparoscopy 07/14/03 adhesions/adenomyosis 04/17/06 lysis of adhesions 09/08/09 adhesions on both ovaries History of dilation and curettage 01/09/01 suction d&c---missed AB History of ovarian cystectomy (08/08/00) rt ovarian cystectomy--mature teratoma S/P partial colectomy Family History Family History Father Hypertension Heart disease Lung cancer Mother Hypertension Malignant tumor of ovary Sibling Breast cancer, Onset Age: 60 sister Other Arthritis Asthma High cholesterol Lung disease Uterine cancer Social History Social History Social History: Smoking status: Never smoker Second hand tobacco smoke exposure: Yes Alcohol intake: never Substance use: never Substance use type: does not use Do You Feel Safe in your Home?: Yes Lack of Transportation: No Lack of Food: Never True Current Housing: I Have Housing Concerned About Future Housing: No Difficulty Paying Gas/Electric Bills: No Difficulty Paying for Meds: No Currently Unemployed: No Education: Associate Degree Difficulty w/ Childcare or Family Care: No Living arrangements: with family Additional living arrangements comments: [facility] Occupation/Education: other 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 Gender identity (if verbalized by the patient): Female Sexual Orientation (if Verbalized by the Patient): Straight or Heterosexual Spiritual care concerns: No Meds Home Medications and Allergies Home Medications ?Medication ?Instructions ?Recorded ?Confirmed ?Type pantoprazole 40 mg tablet,delayed 40 mg PO BID 08/25/24 04/21/25 History release (Protonix) atorvastatin 10 mg tablet 10 mg PO DAILY #90 tabs 10/21/24 04/21/25 Rx linaclotide 290 mcg capsule See Rx Instructions .Route 03/15/25 04/21/25 Rx (Linzess) .COMPLEX #90 caps sertraline 50 mg tablet 50 mg PO DAILY #90 tabs 03/15/25 04/21/25 Rx leflunomide 20 mg tablet 20 mg PO DAILY 03/16/25 04/21/25 History cholecalciferol (vitamin D3) 50 2,000 unit PO DAILY 10/08/25 10/22/25 History mcg (2,000 unit) chewable tablet docusate sodium 100 mg capsule 300 mg PO DAILY 04/07/25 04/21/25 History (Colace) hydroxychloroquine 200 mg tablet 200 mg PO DAILY 04/07/25 04/21/25 History multivitamin (Daily Value tablet) 1 tablet PO DAILY 04/07/25 04/21/25 History aspirin 325 mg tablet,delayed 325 mg PO Q12HR 28 days #56 tabs 04/22/25 Rx release oxycodone-acetaminophen 5 mg-325 1 tablet PO Q4H PRN pain #30 tabs 04/22/25 Rx mg tablet Allergies Allergy/AdvReac Type Severity Reaction Status Date / Time cephalexin Allergy Intermediate Rash Verified 04/21/25 12:49 Penicillins Allergy Intermediate Rash Verified 04/21/25 12:49 Vital Signs Vital Signs - 24 hr 04/23/25 09:30 04/23/25 16:06 04/23/25 20:00 Temperature 97.4 F L Pulse Rate 93 94 Respiratory Rate 18 19 Blood Pressure 142/62 H Pulse Oximetry 96 95 Oxygen Delivery Room Air Room Air 04/23/25 21:32 04/24/25 05:29 Temperature 97.8 F 97.3 F L Pulse Rate 94 85 Respiratory Rate 19 17 Blood Pressure 119/57 L 131/52 L Pulse Oximetry 95 96 Oxygen Delivery Exam Narrative: +abdominal distention, mild. Tender in all quadrants with only light palpation. Hypoactive BS in all quadrants. Visible discomfort. Const: Other: Patient visibly uncomfortable. , female, nontoxic appearing. HENMT: Face/Nose/Sinus: Normal nares present Mouth: Yes moist mucous membranes Eyes: General: appearance normal, both eyes and all related structures Sclera: sclerae normal Pupils: Equal, round and reactive pupils present EOM: EOMs intact bilaterally Resp: Effort & Inspection: normal respiratory effort Auscultation: clear to auscultation bilaterally Cardio: Rate: tachycardic (Mild) Rhythm: regular rhythm Other: S1-S2 present without murmur, rub, ectopy GI: Other: +abdominal distention, mild. Tender in all quadrants with only light palpation. Hypoactive BS in all quadrants. Skin: General skin exam: normal color and no rashes or lesions noted Other: Postoperative incision to right hip. Dressing CDI. Neuro: Cranial nerves: Yes Equal, round and reactive pupils present Speech: normal speech Motor exam (neuro): 5/5 motor strength present throughout Sensory Exam: normal sensation Other: A&O x4 Extrem: General: normal to inspection Psych: Mental Status: mental status grossly normal Affect: normal affect Other: Good insight and judgment, very pleasant Results Labs 04/23/25 05:45 04/23/25 05:45 Quality VTE Prophylaxis VTE prophylaxis: mechanical ordered
[2025-04-24] MEDS: PANTOPRAZOLE 40 MG TABLET PO ×2 (08:01→16:44)
[2025-04-24] MEDS: SENNA/DOCUSATE SODIUM TABLET 2 TAB PO ×2 (08:02→16:44)
[2025-04-24] MEDS: FAMOTIDINE 20 MG TABLET PO ×2 (08:03→20:08)
[2025-04-24] MEDS: LEFLUNOMIDE 20 MG TABLET PO (08:03)
[2025-04-24] MEDS: CHOLECALCIFEROL (VITAMIN D3) 25 MCG (1,000 UNITS) TABLET 50 MCG PO (08:03)
[2025-04-24] MEDS: DOCUSATE SODIUM 100 MG CAPSULE 300 MG PO (08:03)
[2025-04-24] MEDS: ASPIRIN 325 MG ENTERIC TABLET PO ×2 (08:03→20:08)
[2025-04-24] MEDS: SERTRALINE HCL 50 MG TABLET PO (08:03)
[2025-04-24] MEDS: HYDROXYCHLOROQUINE SULFATE 200 MG TABLET PO (08:03)
[2025-04-24] MEDS: METOCLOPRAMIDE HCL INJ 10 MG/2 ML VIAL IV PUSH ×2 (08:17→16:46)
[2025-04-24] MEDS: ONDANSETRON INJ 4 MG/2 ML VIAL IV PUSH (10:35)
--- NOTE | 2025-04-24 10:47 | PCPTNOTE ---
04/24/25 1015, Attempted physical therapy treatment, but patient report being in too much abdominal pain, not hip pain. Physical therapy will attempt to see the patient this afternoon as time allows.
[2025-04-24 11:36] LABS: Hematocrit 29.9 % (37.0-47.0); Hemoglobin 9.4 g/dL (12.0-15.0); Immature Granulocyte Percent A 0.3 % (0-0.5); Lymphocytes Absolute Auto 0.82 K/mm3 (0.9-3.2); Mean Corpuscular HGB Conc 31.4 g/dl (32-36); Mean Corpuscular Hemoglobin 28.1 pg (26-34); Mean Corpuscular Volume 89.5 fl (80-100); Nucleated Red Blood Cells Absolute Auto 0.000 K/mm3 (0.0-0.012); Nucleated Red Blood Cells Perc 0.0 % (0.0-0.2); Platelet Count Result 192 k/mm3 (150-375); Red Blood Count 3.34 M/mm3 (4.2-5.4); White Blood Count 9.3 K/mm3 (4.5-10.0)
[2025-04-24 11:51] LABS: Alanine Aminotransferase 21 U/L (6-35); Albumin Level 3.4 g/dL (3.5-5.1); Alkaline Phosphatase 74 U/L (38-126); Anion Gap 10 mmol/L (4-12); Aspartate Amino Transferase 50 U/L (14-36); Bilirubin,Total 0.6 mg/dL (0.2-1.3); Blood Urea Nitrogen 13 mg/dL (7-17); Calcium 8.4 mg/dL (8.4-10.2); Carbon Dioxide 22 mmol/L (22-30); Chloride 102 mmol/L (98-107); Estimated CRCL calculation 106 ml/min; Estimated Glomerular Filt Rate > 60; Glucose 80 mg/dL (65-110); Potassium 3.7 mmol/L (3.4-5.0); Sodium 134 mmol/L (137-145); Total Protein 6.5 g/dL (6.3-8.2)
--- NOTE | 2025-04-24 12:55 | PM.CNGS ---
Assessment and Plan Assessment and plan (1) Postoperative ileus: Code(s): K91.89 - Other postprocedural complications and disorders of digestive system; K56.7 - Ileus, unspecified <Topher Danielson, DO - Last Filed: 04/24/25 13:22> Status: Acute <Topher Danielson, DO - Last Filed: 04/24/25 13:22> Assessment and Plan: Patient has long standing hx of constipation and has not been able to have a BM since her recent hip surgery. Abdominal x-ray shows gaseous distention of the colon. Will get CT abd/pelvis to rule out distal obstruction. If no obstruction identified, could try enema and Relistor. This should be managable medically and would only reserve surgery for signs of bowel ischemia or perforation. <En Paulino, DO - Last Filed: 04/26/25 14:13> (2) Constipation: Qualifiers: Constipation type: unspecified constipation type Qualified Code(s): K59.00 - Constipation, unspecified <Topher Carrie Danielson, DO - Last Filed: 04/24/25 13:22> Code(s): K59.00 - Constipation, unspecified <Topher David. Erum, DO - Last Filed: 04/24/25 13:22> Status: Acute <Topher Danielson, DO - Last Filed: 04/24/25 13:22> Assessment and Plan: - KUB reviewed. The patient does appear to have mostly isolated dilated large colon with a likely stool ball within the rectum. She does appear to have a competent ileocecal valve as the small bowel does not appear to be significantly dilated. Her cecum measured approximately 8 cm on the KUB from yesterday. A stat CT abdomen and pelvis was obtained, her stomach and small bowel is largely nondilated, very small amount of air fluid levels. Her cecum remains at approximately a 0.5 cm. There was liquid stool within her right colon and rectum. She does have solid at the anastomosis in her sigmoid colon. This is further than a digital rectal exam would be able to reach. We will attempt treatment with Fleet enemas and Relistor. - no emergent surgical intervention at this time - Continue bowel regimen, will add a Fleet enema and a dose of Relistor - will hold off on NGT at this time as stomach and small bowel does not appear to be significantly dilated - remainder cares per primary team and consultants - surgery will follow A&P discussed with Dr. Paulino <Topher Danielson, DO - Last Filed: 04/24/25 13:22> History of Present Illness Consult details Consult date: 04/24/25 <Topher Danielson, DO - Last Filed: 04/24/25 13:22> 04/24/25 <En Paulino, DO - Last Filed: 04/26/25 14:13> Reason for consult: abdominal pain <En Paulino, DO - Last Filed: 04/26/25 14:13> Requesting physician: Jojo Hawthorne APRN <En Paulino, DO - Last Filed: 04/26/25 14:13> Narrative: patient is a 54-year-old female who underwent a right total hip arthroplasty on 04/21. Since the surgery, she has reported continued and worsening abdominal pain. The patient has a history of severe IBS-C and requires Linzess as well as multiple other medications daily in order to have bowel movements. The patient does report taking some narcotic pain medications since surgery. She reports an abdominal surgical history that includes a hysterectomy and oophorectomy, she does report during that surgery she had a partial colon resection. She is unsure why she had a partial colon resection. She has also had a laparoscopic cholecystectomy. The patient had a KUB that showed dilated colon without significantly dilated small bowel. There does appear to be a haziness within the pelvis that is likely stool in her rectum. The patient does report having a recent colonoscopy. she does not endorse a history of colon polyps or colon cancer. Her abdomen is compressible, distended, diffusely TTP. She had a slight leukocytosis yesterday with a WBC of 10.7, that does appear to have improved over the interval. The remainder of her labs were grossly WNL. Vital signs are stable and she is afebrile. <Topher Danielson DO - Last Filed: 04/24/25 13:22> Review of Systems Review of Systems: 12 point ROS negative except HPI <Topher Danielson, DO - Last Filed: 04/24/25 13:22> All systems reviewed & are unremarkable except as noted in HPI and below <En BárbaraYobani Paulino, DO - Last Filed: 04/26/25 14:13> Eyes: Eyes: Denies change in vision <En GrangerYobani Paulino, DO - Last Filed: 04/26/25 14:13> ENT: Denies hearing loss, Denies neck pain and Denies sore throat <En GrangerYobani Paulino, DO - Last Filed: 04/26/25 14:13> Cardiovascular: Cardiovascular: Denies chest pain and Denies dyspnea <En GrangerYobani Paulino, DO - Last Filed: 04/26/25 14:13> Respiratory: Respiratory: Denies cough, Denies dyspnea and Denies wheezing <En GrangerYobnai Paulino, DO - Last Filed: 04/26/25 14:13> Genitourinary: Genitourinary: Denies hematuria and Denies dysuria <En GrangerYobani Paulino, DO - Last Filed: 04/26/25 14:13> Musculoskeletal: Musculoskeletal: Denies arthralgias, Denies joint swelling and Denies neck pain <En BárbaraYobani Paulino, DO - Last Filed: 04/26/25 14:13> Allergic/Immunologic: Allergic/Immunologic: Denies wheezing <En BárbaraYobani Paulino, DO - Last Filed: 04/26/25 14:13> [facility] Past Medical History Medical History: Medical History Pure hypercholesterolemia Fibromyalgia BPPV (benign paroxysmal positional vertigo) Degenerative joint disease of left hip Skin cancer squamous cell removed from R knee Lumbar spondylosis Lumbar radiculopathy Chronic SI joint pain Lumbar spine pain Degenerative joint disease (DJD) of hip Screening mammogram, encounter for History of sigmoidoscopy (01/04/11) colon ischemia Encounter for IUD removal 04/02/05 Mirena removal Encounter for IUD insertion 12/08/02 Mirena insertion IBS (irritable bowel syndrome) Constipation <Topher Danielson, DO - Last Filed: 04/24/25 13:22> Surgical History Surgical History: Surgical History S/P cholecystectomy History of total abdominal hysterectomy HATTIE--leiomyomata/adenomyosis History of bladder suspension procedure S/P total hip arthroplasty History of endometrial biopsy proliferative endometrium History of left salpingo-oophorectomy (01/04/11) History of exploratory laparotomy (01/04/11) History of laparoscopy 07/14/03 adhesions/adenomyosis 04/17/06 lysis of adhesions 09/08/09 adhesions on both ovaries History of dilation and curettage 01/09/01 suction d&c---missed AB History of ovarian cystectomy (08/08/00) rt ovarian cystectomy--mature teratoma S/P partial colectomy <Topher Danielson DO - Last Filed: 04/24/25 13:22> Family History Family History: Family History Father Hypertension Heart disease Lung cancer Mother Hypertension Malignant tumor of ovary Sibling Breast cancer, Onset Age: 60 sister Other Arthritis Asthma High cholesterol Lung disease Uterine cancer <Topher Danielson DO - Last Filed: 04/24/25 13:22> Social History Social History: Social History Social History: Smoking status: Never smoker Second hand tobacco smoke exposure: Yes Alcohol intake: never Substance use: never Substance use type: does not use Do You Feel Safe in your Home?: Yes Lack of Transportation: No Lack of Food: Never True Current Housing: I Have Housing Concerned About Future Housing: No Difficulty Paying Gas/Electric Bills: No Difficulty Paying for Meds: No Currently Unemployed: No Education: Associate Degree Difficulty w/ Childcare or Family Care: No Living arrangements: with family Additional living arrangements comments: [facility] Occupation/Education: other 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 Gender identity (if verbalized by the patient): Female Sexual Orientation (if Verbalized by the Patient): Straight or Heterosexual Spiritual care concerns: No <Topher Danielson DO - Last Filed: 04/24/25 13:22> Meds Home Medications and Allergies Home medications: Home Medications ?Medication ?Instructions ?Recorded ?Confirmed ?Type pantoprazole 40 mg tablet,delayed 40 mg PO BID 08/25/24 04/21/25 History release (Protonix) atorvastatin 10 mg tablet 10 mg PO DAILY #90 tabs 10/21/24 04/21/25 Rx linaclotide 290 mcg capsule See Rx Instructions .Route 03/15/25 04/21/25 Rx (Linzess) .COMPLEX #90 caps sertraline 50 mg tablet 50 mg PO DAILY #90 tabs 03/15/25 04/21/25 Rx leflunomide 20 mg tablet 20 mg PO DAILY 03/16/25 04/21/25 History cholecalciferol (vitamin D3) 50 2,000 unit PO DAILY 04/07/25 04/21/25 History mcg (2,000 unit) chewable tablet docusate sodium 100 mg capsule 300 mg PO DAILY 04/07/25 04/21/25 History (Colace) hydroxychloroquine 200 mg tablet 200 mg PO DAILY 04/07/25 04/21/25 History multivitamin (Daily Value tablet) 1 tablet PO DAILY 04/07/25 04/21/25 History aspirin 325 mg tablet,delayed 325 mg PO Q12HR 28 days #56 tabs 04/22/25 Rx release oxycodone-acetaminophen 5 mg-325 1 tablet PO Q4H PRN pain #30 tabs 04/22/25 Rx mg tablet <Topher Danielson, DO - Last Filed: 04/24/25 13:22> Allergies/Adverse reactions: Allergies Allergy/AdvReac Type Severity Reaction Status Date / Time cephalexin Allergy Intermediate Rash Verified 04/21/25 12:49 Penicillins Allergy Intermediate Rash Verified 04/21/25 12:49 <Topher Danielson, DO - Last Filed: 04/24/25 13:22> Vital Signs Vital Signs - 24 hr 04/23/25 16:06 04/23/25 20:00 04/23/25 21:32 Temperature 97.4 F L 97.8 F Pulse Rate 93 94 94 Respiratory Rate 18 19 19 Blood Pressure 142/62 H 119/57 L Pulse Oximetry 96 95 95 Oxygen Delivery Room Air 04/24/25 05:29 Temperature 97.3 F L Pulse Rate 85 Respiratory Rate 17 Blood Pressure 131/52 L Pulse Oximetry 96 Oxygen Delivery <Topher Danielson, DO - Last Filed: 04/24/25 13:22> Exam Narrative: General: Awake, alert, no acute distress HEENT: NC/AT, mucous membranes pink and moist Neck: No masses or swelling, JVD Heart: Regular rate, HDS Lungs: Symmetric expansion, no IWOB, on RA Abdomen: soft, compressible, diffusely TTP, distended, non peritoneal Extremities: Moves all, normal inspection Psych: normal affect, normal mood, normal judgment <Topher Danielson DO - Last Filed: 04/24/25 13:22> Const: General: alert; No acute distress <En Paulino DO - Last Filed: 04/26/25 14:13> Orientation/consciousness: patient oriented x3 <En Paulino DO - Last Filed: 04/26/25 14:13> Limitations: no limitations <En Paulino DO - Last Filed: 04/26/25 14:13> HENMT: Head: normocephalic and atraumatic <En Paulino DO - Last Filed: 04/26/25 14:13> Ears: hearing grossly normal bilaterally <En Paulino DO - Last Filed: 04/26/25 14:13> Face/Nose/Sinus: Normal external nose present and Normal nares present <En Paulino DO - Last Filed: 04/26/25 14:13> Mouth: Yes Normal oral and palatal mucosa present and Yes moist mucous membranes <En Paulino DO - Last Filed: 04/26/25 14:13> Eyes: General: appearance normal, both eyes and all related structures <En Paulino DO - Last Filed: 04/26/25 14:13> Conjunctivae: conjunctivae normal <En Paulino DO - Last Filed: 04/26/25 14:13> Sclera: sclerae normal <En Paulino DO - Last Filed: 04/26/25 14:13> Pupils: Equal, round and reactive pupils present <En Paulino DO - Last Filed: 04/26/25 14:13> EOM: EOMs intact bilaterally <En Paulino DO - Last Filed: 04/26/25 14:13> Neck: Neck: normal visual inspection, full ROM, no lymphadenopathy, supple and no JVD <En Paulino DO - Last Filed: 04/26/25 14:13> Lymphatic: no lymphadenopathy noted <En Paulino DO - Last Filed: 04/26/25 14:13> Chest: Chest palpation & inspection: normal inspection of the chest <En Paulino DO - Last Filed: 04/26/25 14:13> Resp: Effort & Inspection: normal respiratory effort and able to speak in complete sentences <En Paulino DO - Last Filed: 04/26/25 14:13> Auscultation: clear to auscultation bilaterally <En Paulino DO - Last Filed: 04/26/25 14:13> Percussion: percussion normal <En Paulino DO - Last Filed: 04/26/25 14:13> Cardio: Jugular venous distension: no JVD <En Paulino DO - Last Filed: 04/26/25 14:13> Rate: regular rate <En Paulino DO - Last Filed: 04/26/25 14:13> Rhythm: regular rhythm <En Paulino DO - Last Filed: 04/26/25 14:13> Heart sounds: S1 normal heart sound present and S2 normal heart sound present <En Paulino DO - Last Filed: 04/26/25 14:13> Peripheral pulses: Peripheral pulses 2+ throughout <En Paulino DO - Last Filed: 04/26/25 14:13> GI: Inspection: distended <En Paulino DO - Last Filed: 04/26/25 14:13> GI Palp: Yes abdominal tenderness, No Guarding due to palpation present (GI) and No Rebound tenderness present <En Paulino DO - Last Filed: 04/26/25 14:13> Auscultation: normal bowel sounds <En Paulino DO - Last Filed: 04/26/25 14:13> : General: Yes no CVA tenderness <En Paulino DO - Last Filed: 04/26/25 14:13> Back/Spine/Pelvis: Back: no CVA tenderness <En Silvarowan DO - Last Filed: 04/26/25 14:13> Skin: General skin exam: normal color and dry skin <En Paulino DO - Last Filed: 04/26/25 14:13> Neuro: General: patient oriented x3, gait normal, moves all extremities, no focal motor deficits and CN's II-XI intact bilaterally <En Paulino DO - Last Filed: 04/26/25 14:13> Cranial nerves: Yes Equal, round and reactive pupils present <En Pabloasadrowan DO - Last Filed: 04/26/25 14:13> Speech: normal speech <En Paulino, DO - Last Filed: 04/26/25 14:13> Extrem: General: normal to inspection and capillary refill normal <En Paulino DO - Last Filed: 04/26/25 14:13> Results Labs Result diagrams: 04/24/25 11:29 04/24/25 11:29 <Topher Danielson, DO - Last Filed: 04/24/25 13:22> Labs: Abnormal lab results 04/24/25 Range/Units 11:29 RBC 3.34 L (4.2-5.4) M/mm3 Hgb 9.4 L (12.0-15.0) g/dL Hct 29.9 L (37.0-47.0) % MCHC 31.4 L (32-36) g/dl MPV 10.6 H (7.4-10.4) fl Neut % (Auto) 78.7 H (45.5-73.1) % Lymph % (Auto) 8.8 L (18.3-44.2) % [place] % (Auto) 9.6 H (2.6-8.5) % Lymph # (Auto) 0.82 L (0.9-3.2) K/mm3 [place] # (Auto) 0.9 H (0.1-0.6) K/mm3 Absolute Neuts (auto) 7.3 H (1.3-6.7) K/mm3 Sodium 134 L (137-145) mmol/L Creatinine 0.52 L (0.7-1.0) mg/dL AST 50 H (14-36) U/L Albumin 3.4 L (3.5-5.1) g/dL Diabetes panel 04/24/25 Range/Units 11:29 Sodium 134 L (137-145) mmol/L Potassium 3.7 (3.4-5.0) mmol/L Chloride 102 (98-107) mmol/L Carbon Dioxide 22 (22-30) mmol/L BUN 13 (7-17) mg/dL Creatinine 0.52 L (0.7-1.0) mg/dL Glucose 80 (65-110) mg/dL Calcium 8.4 (8.4-10.2) mg/dL AST 50 H (14-36) U/L ALT 21 (6-35) U/L Alkaline Phosphatase 74 (38-126) U/L Total Protein 6.5 (6.3-8.2) g/dL Albumin 3.4 L (3.5-5.1) g/dL Calcium panel 04/24/25 Range/Units 11:29 Calcium 8.4 (8.4-10.2) mg/dL Albumin 3.4 L (3.5-5.1) g/dL Pituitary panel 04/24/25 Range/Units 11:29 Sodium 134 L (137-145) mmol/L Potassium 3.7 (3.4-5.0) mmol/L Chloride 102 (98-107) mmol/L Carbon Dioxide 22 (22-30) mmol/L BUN 13 (7-17) mg/dL Creatinine 0.52 L (0.7-1.0) mg/dL Glucose 80 (65-110) mg/dL Calcium 8.4 (8.4-10.2) mg/dL Adrenal panel 04/24/25 Range/Units 11:29 Sodium 134 L (137-145) mmol/L Potassium 3.7 (3.4-5.0) mmol/L Chloride 102 (98-107) mmol/L Carbon Dioxide 22 (22-30) mmol/L BUN 13 (7-17) mg/dL Creatinine 0.52 L (0.7-1.0) mg/dL Glucose 80 (65-110) mg/dL Calcium 8.4 (8.4-10.2) mg/dL Total Bilirubin 0.6 (0.2-1.3) mg/dL AST 50 H (14-36) U/L ALT 21 (6-35) U/L Alkaline Phosphatase 74 (38-126) U/L Total Protein 6.5 (6.3-8.2) g/dL Albumin 3.4 L (3.5-5.1) g/dL All other labs normal. <Topher Danielson, DO - Last Filed: 04/24/25 13:22> Imaging Additional studies: ITS Impressions Hip X-Ray 04/21/25 11:35 IMPRESSION: 1. Recent right total hip arthroplasty. Abdomen X-Ray 04/23/25 14:25 Impression: 1: Moderate dilation of the colon which is gas-filled, likely ileus. No definite obstruction. <En Paulino, DO - Last Filed: 04/26/25 14:13>
--- NOTE | 2025-04-24 13:36 | PCPTNOTE ---
1320, Patient and in room, patient stating the hospital is going to be working on unblocking her colon soon to hopefully take away the pain that is in her abdomen, which patient states is worse than her hip. Patient reports she is doing her exercises, but cannot get out of bed right now secondary to the pain. Physical therapy will attempt to see the patient again tomorrow as time allows and with patient hopefully feeling better.
--- NOTE | 2025-04-24 13:49 | PM.PNORT ---
Subjective Subjective Date/Time Seen: 04/24/25 13:49 Interval history: POD 3. SHE HAS INCREASED ABDOMINAL PAIN. SHE HAS MINIMAL HIP PAIN. SHE HAS NO PASSING GAS OR BOWEL MOVEMENT. SHE HAS ABDOMINAL PAIN. CT SCAN RESULTS PENDING. GEN SURGERY CONSULTING. [facility] [employer] DRESS[employer] DR[employer] [place] INTACT NO PAIN WITH [employer] RIGHT HIP SHE WILL RECEIVE AN ENEMA TODAY. Objective Data Vital Signs Vital Signs: Vital Signs - 24 hr 04/23/25 16:06 04/23/25 20:00 04/23/25 21:32 Temperature 36.3 C L 36.6 C Pulse Rate 93 94 94 Respiratory Rate 18 19 19 Blood Pressure 142/62 H 119/57 L Pulse Oximetry 96 95 95 Oxygen Delivery Room Air 04/24/25 05:29 Temperature 36.3 C L Pulse Rate 85 Respiratory Rate 17 Blood Pressure 131/52 L Pulse Oximetry 96 Oxygen Delivery Intake/Output Intake/Output: Intake & Output 04/21/25 04/22/25 04/23/25 04/24/25 23:59 23:59 23:59 23:59 Intake Total 620 2045 505 6179.7 Balance 620 6327 153 0122.7 Meds/Results Medications: Active Medications Generic Name Dose Route Start Last Admin Trade Name Freq PRN Reason Stop Dose Admin Aspirin 325 mg 04/21/25 12:27 04/24/25 08:03 Aspirin 325 Mg Enteric Tablet PO 325 mg Q12HR WOODY Administration Atorvastatin Calcium 10 mg 04/21/25 21:00 04/23/25 21:11 Atorvastatin 10 Mg Tablet PO 10 mg HS WOODY Administration Diazepam 5 mg 04/21/25 12:27 Diazepam (*Crx) 5 Mg Tablet PO Q6H PRN Anxiety/Muscle Spasm Dicyclomine HCl 20 mg 04/23/25 16:50 Dicyclomine Hcl 10 Mg Capsule PO QID PRN Abdominal Cramping Diphenhydramine HCl 25 mg 04/21/25 12:27 Diphenhydramine Hcl Inj 50 Mg/Ml Vial IV PUSH Q6H PRN Itching Docusate Sodium 300 mg 04/21/25 12:27 04/24/25 08:03 Docusate Sodium 100 Mg Capsule PO 300 mg DAILY WOODY Administration Famotidine 20 mg 04/21/25 12:27 04/24/25 08:03 Famotidine 20 Mg Tablet PO 20 mg Q12HR WOODY Administration Hydromorphone HCl 1 mg 04/21/25 12:27 Hydromorphone Hcl Inj (*Crx) 1 Mg/Ml Syr IV PUSH Q2H PRN Breakthrough Pain Rated 7-10 or NPO Hydromorphone HCl 0.5 mg 04/21/25 12:27 04/22/25 06:19 Hydromorphone Hcl Inj (*Crx) 1 Mg/Ml Syr IV PUSH 0.5 mg Q2H PRN Administration Breakthrough Pain Rated 4-6 or NPO Hydroxychloroquine Sulfate 200 mg 04/21/25 12:27 04/24/25 08:03 Hydroxychloroquine Sulfate 200 Mg Tablet PO 200 mg DAILY WOODY Administration Ibuprofen 800 mg in 200 mls @ 400 mls/hr 04/21/25 12:27 04/21/25 15:04 Caldolor 800 Mg/200 Ml IVPB 400 mls/hr Q6H PRN Administration Breakthrough Pain Rated 1-3 or NPO Lactated Ringer's 1,000 mls @ 100 mls/hr 04/23/25 16:30 04/24/25 13:22 Lr - Lactated Ringers Iv IV CONT 100 mls/hr .Q10H WOODY Administration Leflunomide 20 mg 04/21/25 12:27 04/24/25 08:03 Leflunomide 20 Mg Tablet PO 20 mg DAILY WOODY Administration Linaclotide 290 mcg 04/22/25 06:30 04/24/25 06:35 Linaclotide 145 Mcg Capsule PO 290 mcg DAILY@0630 WOODY Administration Metoclopramide HCl 10 mg 04/23/25 16:50 04/24/25 08:17 Metoclopramide Hcl Inj 10 Mg/2 Ml Vial IV PUSH 10 mg Q6HR PRN Administration Nausea And Vomiting Naloxone HCl 0.1 mg 04/21/25 12:27 Naloxone Hcl 0.4 Mg/Ml Vial IV PUSH Q2M PRN Opiate Reversal Ondansetron HCl 4 mg 04/23/25 09:02 04/24/25 10:35 Ondansetron Inj 4 Mg/2 Ml Vial IV PUSH 4 mg Q4H PRN Administration Nausea And Vomiting Oxycodone/Acetaminophen 1 tablet 04/21/25 12:27 04/24/25 10:34 Oxycodone/Acetaminophen (*Crx) 5-325 Mg Tablet PO 1 tablet Q4H PRN Administration Pain Rated 4-6 Oxycodone/Acetaminophen 1 tab 04/21/25 12:27 04/22/25 08:06 Oxycodone/Acetaminophen (*Crx) 10-325 Mg Tablet PO 1 tab Q6H PRN Administration Pain Rated 7-10 Pantoprazole Sodium 40 mg 04/21/25 12:27 04/24/25 08:01 Pantoprazole 40 Mg Tablet PO 40 mg BID WOODY Administration Polyethylene Glycol 17 gm 04/21/25 12:27 04/24/25 08:01 Polyethylene Glycol 3350 17 Gm Powd.Pack PO 17 gm QAM WOODY Administration Senna/Docusate Sodium 2 tab 04/21/25 12:27 04/24/25 08:02 Senna/Docusate Sodium Tablet PO 2 tab BID WOODY Administration Sertraline HCl 50 mg 04/21/25 12:27 04/24/25 08:03 Sertraline Hcl 50 Mg Tablet PO 50 mg DAILY WOODY Administration Vitamin D 50 mcg 04/22/25 09:00 04/24/25 08:03 Cholecalciferol (Vitamin D3) 25 Mcg (1,000 Units) Tablet PO 50 mcg DAILY WOODY Administration Radiology Results: ITS Impressions Hip X-Ray 04/21/25 11:35 IMPRESSION: 1. Recent right total hip arthroplasty. Abdomen X-Ray 04/23/25 14:25 Impression: 1: Moderate dilation of the colon which is gas-filled, likely ileus. No definite obstruction. Labs Labs: Laboratory Results - last 24 hr 04/24/25 11:29 WBC 9.3 RBC 3.34 L Hgb 9.4 L Hct 29.9 L MCV 89.5 MCH 28.1 MCHC 31.4 L RDW 12.9 Plt Count 192 MPV 10.6 H Immature Gran % (Auto) 0.3 Neut % (Auto) 78.7 H Lymph % (Auto) 8.8 L [place] % (Auto) 9.6 H Eos % (Auto) 2.4 Baso % (Auto) 0.2 Lymph # (Auto) 0.82 L [place] # (Auto) 0.9 H Eos # (Auto) 0.2 Baso # (Auto) 0.0 Abs Immat Gran (auto) 0.03 Absolute Neuts (auto) 7.3 H Absolute Nucleated RBC 0.000 Nucleated RBC % 0.0 Sodium 134 L Potassium 3.7 Chloride 102 Carbon Dioxide 22 Anion Gap 10 BUN 13 Creatinine 0.52 L Estim Creat Clear Calc 106 Estimated GFR > 60 Glucose 80 Calcium 8.4 Total Bilirubin 0.6 AST 50 H ALT 21 Alkaline Phosphatase 74 Total Protein 6.5 Albumin 3.4 L
[2025-04-24] MEDS: METHYLNALTREXONE 12 MG/0.6 ML VIAL SUB-Q (13:52)
[2025-04-24 14:00] VITALS: BP 143/65; PULSE 85; RESP 20; TEMP 36.7; O2SAT 95
[2025-04-24] MEDS: diazePAM (*CRX) 5 MG TABLET PO (16:51)
[2025-04-24] MEDS: ATORVASTATIN 10 MG TABLET PO (20:08)
[2025-04-24 20:46] VITALS: BP 142/61; PULSE 85; RESP 18; TEMP 36.9; O2SAT 95
[2025-04-25 04:31] VITALS: BP 149/65; PULSE 87; RESP 16; TEMP 36.6; O2SAT 95
[2025-04-25] MEDS: DICYCLOMINE HCL 10 MG CAPSULE 20 MG PO (05:22)
[2025-04-25] MEDS: LINACLOTIDE 145 MCG CAPSULE 290 MCG PO (05:22)
[2025-04-25] MEDS: METOCLOPRAMIDE HCL INJ 10 MG/2 ML VIAL IV PUSH ×2 (05:33→17:50)
--- NOTE | 2025-04-25 07:14 | P.PNIM_ITS ---
Progress Note: A&P Assessment and Plan (1) Postoperative ileus: Code(s): K91.89 - Other postprocedural complications and disorders of digestive system; K56.7 - Ileus, unspecified Status: Acute Assessment and Plan: Patient underwent a total right hip arthroplasty on 04/21. Has been experiencing abdominal pain, nausea, vomiting, and abdominal distension since operation. She has a history significant for IBS-C for which she takes docusate capsules x3, Dulcolax suppository, and Linzess daily. Last bowel movement was small and occurred on Saturday, 04/20. Patient is currently unable to tolerate clear liquids - emesis clear to bile like. Abdominal XR was obtained this afternoon (04/23) which showed moderate dilation of the colon which is gas- filled, likely ileus, with no definite obstruction. Given patient's history of IBS-C and previous ileus/obstruction postoperative, will consult General surgery and place patient on clears. May need NG tube as she is not currently tolerating clear liquids. * general surgery consultation pending - appreciate further recommendations * Pain control managed by primary team - IV Dilaudid, Percocet * IV fluids: LR 100 mL/hour * trial Bentyl * patient currently on Zofran for nausea, will place this as second-line and order Reglan as first-line antiemetic to help promote gastric motility * reviewed current bowel regimen: on docusate 300 mg daily, docusate 2 tablets b.i.d., and Linzess daily. Has also received a Dulcolax suppository x1 and MiraLax x1. * Fleet enema, one time dose Relistor * Successful 2 bowel movements last night, + flatus passage (2) Constipation: Qualifiers: Constipation type: unspecified constipation type Qualified Code(s): K59.00 - Constipation, unspecified Code(s): K59.00 - Constipation, unspecified Status: Acute Assessment and Plan: * see above (3) S/P total hip arthroplasty: Qualifiers: Laterality: right Qualified Code(s): Z96.641 - Presence of right artificial hip joint Code(s): Z96.649 - Presence of unspecified artificial hip joint Status: Acute Assessment and Plan: * Post op 04/21/2025 R SHAHRAM * primary management via orthopedic team * analgesics p.r.n. * encourage IS use * continue PT/OT Plan Diet: Clear liquid GI Prophylaxis: Famotidine p.o. DVT Prophylaxis: SCDs IV fluids: LR 100 mL/hr Lines/Tubes: Peripheral IV Code Status: Full code Subjective Date/time seen: 04/25/25 07:14 Interval history: 04/25/2025 POD 4 right total hip arthroplasty. NGT held at this point. Fleet enema added w/ dose of Relistor - successful 2 bowel movements yesterday. Continue bowel regimen. Continue evaluations by PT/OT as well Review of Systems Review of Systems: All systems reviewed & are unremarkable except as noted in HPI and below Exam Narrative: +abdominal distention, mild. Tender in a ll quadrants with only light palpation. Hypoactive BS in all quadrants. Visible discomfort. Const: Other: Patient visibly uncomfortable. , female, nontoxic appearing. HENMT: Face/Nose/Sinus: Normal nares present Mouth: Yes moist mucous membranes Eyes: General: appearance normal, both eyes and all related structures Sclera: sclerae normal Pupils: Equal, round and reactive pupils present EOM: EOMs intact bilaterally Resp: Effort & Inspection: normal respiratory effort Auscultation: clear to auscultation bilaterally Cardio: Rate: tachycardic (Mild) Rhythm: regular rhythm Other: S1-S2 present without murmur, rub, ectopy GI: Other: +abdominal distention, mild. Tender in a ll quadrants with only light palpation. Hypoactive BS in all quadrants. Skin: General skin exam: normal color and no rashes or lesions noted Other: Postoperative incision to right hip. Dressing CDI. Neuro: Cranial nerves: Yes Equal, round and reactive pupils present Speech: normal speech Motor exam (neuro): 5/5 motor strength present throughout Sensory Exam: normal sensation Other: A&O x4 Extrem: General: normal to inspection Psych: Mental Status: mental status grossly normal Affect: normal affect Other: Good insight and judgment, very pleasant Objective Data Vital Signs Vital Signs: Vital Signs - 24 hr 04/24/25 14:00 04/24/25 20:00 04/24/25 20:46 Temperature 98.1 F 98.4 F Pulse Rate 85 85 Respiratory Rate 20 18 Blood Pressure 143/65 H 142/61 H Pulse Oximetry 95 95 Oxygen Delivery Room Air 04/25/25 04:31 Temperature 97.9 F Pulse Rate 87 Respiratory Rate 16 Blood Pressure 149/65 H Pulse Oximetry 95 Oxygen Delivery Intake/Output Intake/Output: Intake & Output 04/22/25 04/23/25 04/24/25 04/25/25 23:59 23:59 23:59 23:59 Intake Total 9240 768 6950.7 750 Balance 2856 379 7784.7 750 Meds/Results Medications: Active Medications Generic Name Dose Route Start Last Admin Trade Name Freq PRN Reason Stop Dose Admin Aspirin 325 mg 04/21/25 12:27 04/24/25 20:08 Aspirin 325 Mg Enteric Tablet PO 325 mg Q12HR WOODY Administration Atorvastatin Calcium 10 mg 04/21/25 21:00 04/24/25 20:08 Atorvastatin 10 Mg Tablet PO 10 mg HS WOODY Administration Diazepam 5 mg 04/21/25 12:27 04/24/25 16:51 Diazepam (*Crx) 5 Mg Tablet PO 5 mg Q6H PRN Administration Anxiety/Muscle Spasm Dicyclomine HCl 20 mg 04/23/25 16:50 04/25/25 05:22 Dicyclomine Hcl 10 Mg Capsule PO 20 mg QID PRN Administration Abdominal Cramping Diphenhydramine HCl 25 mg 04/21/25 12:27 Diphenhydramine Hcl Inj 50 Mg/Ml Vial IV PUSH Q6H PRN Itching Docusate Sodium 300 mg 04/21/25 12:27 04/24/25 08:03 Docusate Sodium 100 Mg Capsule PO 300 mg DAILY WOODY Administration Famotidine 20 mg 04/21/25 12:27 04/24/25 20:08 Famotidine 20 Mg Tablet PO 20 mg Q12HR WOODY Administration Hydromorphone HCl 1 mg 04/21/25 12:27 Hydromorphone Hcl Inj (*Crx) 1 Mg/Ml Syr IV PUSH Q2H PRN Breakthrough Pain Rated 7-10 or NPO Hydromorphone HCl 0.5 mg 04/21/25 12:27 04/22/25 06:19 Hydromorphone Hcl Inj (*Crx) 1 Mg/Ml Syr IV PUSH 0.5 mg Q2H PRN Administration Breakthrough Pain Rated 4-6 or NPO Hydroxychloroquine Sulfate 200 mg 04/21/25 12:27 04/24/25 08:03 Hydroxychloroquine Sulfate 200 Mg Tablet PO 200 mg DAILY WOODY Administration Ibuprofen 800 mg in 200 mls @ 400 mls/hr 04/21/25 12:27 04/21/25 15:04 Caldolor 800 Mg/200 Ml IVPB 400 mls/hr Q6H PRN Administration Breakthrough Pain Rated 1-3 or NPO Lactated Ringer's 1,000 mls @ 100 mls/hr 04/23/25 16:30 04/24/25 23:59 Lr - Lactated Ringers Iv IV CONT 100 mls/hr .Q10H WOODY Administration Leflunomide 20 mg 04/21/25 12:27 04/24/25 08:03 Leflunomide 20 Mg Tablet PO 20 mg DAILY WOODY Administration Linaclotide 290 mcg 04/22/25 06:30 04/25/25 05:22 Linaclotide 145 Mcg Capsule PO 290 mcg DAILY@0630 WOODY Administration Metoclopramide HCl 10 mg 04/23/25 16:50 04/25/25 05:33 Metoclopramide Hcl Inj 10 Mg/2 Ml Vial IV PUSH 10 mg Q6HR PRN Administration Nausea And Vomiting Naloxone HCl 0.1 mg 04/21/25 12:27 Naloxone Hcl 0.4 Mg/Ml Vial IV PUSH Q2M PRN Opiate Reversal Ondansetron HCl 4 mg 04/23/25 09:02 04/24/25 10:35 Ondansetron Inj 4 Mg/2 Ml Vial IV PUSH 4 mg Q4H PRN Administration Nausea And Vomiting Oxycodone/Acetaminophen 1 tablet 04/21/25 12:27 04/24/25 21:50 Oxycodone/Acetaminophen (*Crx) 5-325 Mg Tablet PO 1 tablet Q4H PRN Administration Pain Rated 4-6 Oxycodone/Acetaminophen 1 tab 04/21/25 12:27 04/22/25 08:06 Oxycodone/Acetaminophen (*Crx) 10-325 Mg Tablet PO 1 tab Q6H PRN Administration Pain Rated 7-10 Pantoprazole Sodium 40 mg 04/21/25 12:27 04/24/25 16:44 Pantoprazole 40 Mg Tablet PO 40 mg BID WOODY Administration Polyethylene Glycol 17 gm 04/21/25 12:27 04/24/25 08:01 Polyethylene Glycol 3350 17 Gm Powd.Pack PO 17 gm QAM WOODY Administration Senna/Docusate Sodium 2 tab 04/21/25 12:27 04/24/25 16:44 Senna/Docusate Sodium Tablet PO 2 tab BID WOODY Administration Sertraline HCl 50 mg 04/21/25 12:27 04/24/25 08:03 Sertraline Hcl 50 Mg Tablet PO 50 mg DAILY WOODY Administration Vitamin D 50 mcg 04/22/25 09:00 04/24/25 08:03 Cholecalciferol (Vitamin D3) 25 Mcg (1,000 Units) Tablet PO 50 mcg DAILY WOODY Administration Radiology Results: ITS Impressions Hip X-Ray 04/21/25 11:35 IMPRESSION: 1. Recent right total hip arthroplasty. Abdomen X-Ray 04/23/25 14:25 Impression: 1: Moderate dilation of the colon which is gas-filled, likely ileus. No definite obstruction. Abdomen/Pelvis CT 04/24/25 13:47 IMPRESSION: 1. Enteritis and diarrheal state. Labs Labs: Laboratory Results - last 24 hr 04/24/25 11:29 WBC 9.3 RBC 3.34 L Hgb 9.4 L Hct 29.9 L MCV 89.5 MCH 28.1 MCHC 31.4 L RDW 12.9 Plt Count 192 MPV 10.6 H Immature Gran % (Auto) 0.3 Neut % (Auto) 78.7 H Lymph % (Auto) 8.8 L Wilkinson % (Auto) 9.6 H Eos % (Auto) 2.4 Baso % (Auto) 0.2 Lymph # (Auto) 0.82 L Wilkinson # (Auto) 0.9 H Eos # (Auto) 0.2 Baso # (Auto) 0.0 Abs Immat Gran (auto) 0.03 Absolute Neuts (auto) 7.3 H Absolute Nucleated RBC 0.000 Nucleated RBC % 0.0 Sodium 134 L Potassium 3.7 Chloride 102 Carbon Dioxide 22 Anion Gap 10 BUN 13 Creatinine 0.52 L Estim Creat Clear Calc 106 Estimated GFR > 60 Glucose 80 Calcium 8.4 Total Bilirubin 0.6 AST 50 H ALT 21 Alkaline Phosphatase 74 Total Protein 6.5 Albumin 3.4 L Quality VTE Prophylaxis VTE prophylaxis: mechanical ordered
[2025-04-25] MEDS: CHOLECALCIFEROL (VITAMIN D3) 25 MCG (1,000 UNITS) TABLET 50 MCG PO (08:30)
[2025-04-25] MEDS: SERTRALINE HCL 50 MG TABLET PO (08:30)
[2025-04-25] MEDS: ASPIRIN 325 MG ENTERIC TABLET PO ×2 (08:30→21:28)
[2025-04-25] MEDS: DOCUSATE SODIUM 100 MG CAPSULE 300 MG PO (08:30)
[2025-04-25] MEDS: LEFLUNOMIDE 20 MG TABLET PO (08:30)
[2025-04-25] MEDS: PANTOPRAZOLE 40 MG TABLET PO (08:30)
[2025-04-25] MEDS: SENNA/DOCUSATE SODIUM TABLET 2 TAB PO (08:31)
[2025-04-25] MEDS: HYDROXYCHLOROQUINE SULFATE 200 MG TABLET PO (08:31)
[2025-04-25] MEDS: FAMOTIDINE 20 MG TABLET PO ×2 (08:31→21:26)
[2025-04-25 09:00] VITALS: PULSE 87; RESP 16; O2SAT 95
[2025-04-25] MEDS: LACTATED RINGERS 1,000 ML 100 ML IV CONT ×2 (10:16→17:52)
[2025-04-25 13:25] VITALS: BP 141/78; PULSE 86; RESP 20; TEMP 37.5; O2SAT 97
--- NOTE | 2025-04-25 13:35 | PM.PNGS ---
Progress Note: A&P Assessment and Plan (1) Constipation: Qualifiers: Constipation type: unspecified constipation type Qualified Code(s): K59.00 - Constipation, unspecified Code(s): K59.00 - Constipation, unspecified Status: Acute Assessment and Plan: - A CT abdomen and pelvis was obtained, her stomach and small bowel is largely nondilated, very small amount of air fluid levels. Her cecum remains at approximately a 8.5 cm. There was liquid stool within her right colon and rectum. She did have solid stool at the anastomosis in her sigmoid colon. No evidence of obstruction - Reported improvement in pain after enema yesterday - no acute surgical intervention - Okay for fleet enemas PRN - Patient will benefit from ambulation and treatment of her underlying chronic constipation, although she does appear to have mostly liquid stool - No evidence of obstruction on CT scan - remainder cares per primary team and consultants - surgery will be available for further needs A&P discussed with Dr. Paulino Subjective Subjective Date/Time Seen: 04/25/25 13:35 Interval history: NAEON. Patient had 2 BMs following Relistor and fleet enema yesterday. States she felt better after having a BM, but states her pain has returned. The patient does report having chronic pain secondary to her constipation, but this is exacerbated. Review of Systems Review of Systems: All systems reviewed & are unremarkable except as noted in HPI and below Exam Narrative: General: Awake, alert, no acute distress HEENT: NC/AT, mucous membranes pink and moist Neck: No masses or swelling, JVD Heart: Regular rate, HDS Lungs: Symmetric expansion, no IWOB, on RA Abdomen: soft, compressible, diffusely TTP, improved, distended, non peritoneal Extremities: Moves all, normal inspection Psych: normal affect, normal mood, normal judgment Objective Data Vital Signs Vital Signs: Vital Signs - 24 hr 04/24/25 14:00 04/24/25 20:00 04/24/25 20:46 Temperature 98.1 F 98.4 F Pulse Rate 85 85 Respiratory Rate 20 18 Blood Pressure 143/65 H 142/61 H Pulse Oximetry 95 95 Oxygen Delivery Room Air 04/25/25 04:31 04/25/25 09:00 04/25/25 10:45 Temperature 97.9 F Pulse Rate 87 87 Respiratory Rate 16 16 Blood Pressure 149/65 H Pulse Oximetry 95 95 Oxygen Delivery Room Air Room Air 04/25/25 13:25 Temperature 99.5 F Pulse Rate 86 Respiratory Rate 20 Blood Pressure 141/78 H Pulse Oximetry 97 Oxygen Delivery Intake/Output Intake/Output: Intake & Output 04/22/25 04/23/25 04/24/25 04/25/25 23:59 23:59 23:59 23:59 Intake Total 4324 544 3903.7 1950 Balance 8862 982 3153.7 1950 Meds/Results Medications: Active Medications Generic Name Dose Route Start Last Admin Trade Name Freq PRN Reason Stop Dose Admin Aspirin 325 mg 04/21/25 12:27 04/25/25 08:30 Aspirin 325 Mg Enteric Tablet PO 325 mg Q12HR WOODY Administration Atorvastatin Calcium 10 mg 04/21/25 21:00 04/24/25 20:08 Atorvastatin 10 Mg Tablet PO 10 mg HS WOODY Administration Diazepam 5 mg 04/21/25 12:27 04/24/25 16:51 Diazepam (*Crx) 5 Mg Tablet PO 5 mg Q6H PRN Administration Anxiety/Muscle Spasm Dicyclomine HCl 20 mg 04/23/25 16:50 04/25/25 05:22 Dicyclomine Hcl 10 Mg Capsule PO 20 mg QID PRN Administration Abdominal Cramping Diphenhydramine HCl 25 mg 04/21/25 12:27 Diphenhydramine Hcl Inj 50 Mg/Ml Vial IV PUSH Q6H PRN Itching Docusate Sodium 300 mg 04/21/25 12:27 04/25/25 08:30 Docusate Sodium 100 Mg Capsule PO 300 mg DAILY WOODY Administration Famotidine 20 mg 04/21/25 12:27 04/25/25 08:31 Famotidine 20 Mg Tablet PO 20 mg Q12HR WOODY Administration Hydromorphone HCl 1 mg 04/21/25 12:27 Hydromorphone Hcl Inj (*Crx) 1 Mg/Ml Syr IV PUSH Q2H PRN Breakthrough Pain Rated 7-10 or NPO Hydromorphone HCl 0.5 mg 04/21/25 12:27 04/22/25 06:19 Hydromorphone Hcl Inj (*Crx) 1 Mg/Ml Syr IV PUSH 0.5 mg Q2H PRN Administration Breakthrough Pain Rated 4-6 or NPO Hydroxychloroquine Sulfate 200 mg 04/21/25 12:27 04/25/25 08:31 Hydroxychloroquine Sulfate 200 Mg Tablet PO 200 mg DAILY WOODY Administration Ibuprofen 800 mg in 200 mls @ 400 mls/hr 04/21/25 12:27 04/21/25 15:04 Caldolor 800 Mg/200 Ml IVPB 400 mls/hr Q6H PRN Administration Breakthrough Pain Rated 1-3 or NPO Lactated Ringer's 1,000 mls @ 100 mls/hr 04/23/25 16:30 04/25/25 10:16 Lr - Lactated Ringers Iv IV CONT 100 mls/hr .Q10H WOODY Administration Leflunomide 20 mg 04/21/25 12:27 04/25/25 08:30 Leflunomide 20 Mg Tablet PO 20 mg DAILY WOODY Administration Linaclotide 290 mcg 04/22/25 06:30 04/25/25 05:22 Linaclotide 145 Mcg Capsule PO 290 mcg DAILY@0630 WOODY Administration Metoclopramide HCl 10 mg 04/23/25 16:50 04/25/25 05:33 Metoclopramide Hcl Inj 10 Mg/2 Ml Vial IV PUSH 10 mg Q6HR PRN Administration Nausea And Vomiting Naloxone HCl 0.1 mg 04/21/25 12:27 Naloxone Hcl 0.4 Mg/Ml Vial IV PUSH Q2M PRN Opiate Reversal Ondansetron HCl 4 mg 04/23/25 09:02 04/24/25 10:35 Ondansetron Inj 4 Mg/2 Ml Vial IV PUSH 4 mg Q4H PRN Administration Nausea And Vomiting Oxycodone/Acetaminophen 1 tablet 04/21/25 12:27 04/24/25 21:50 Oxycodone/Acetaminophen (*Crx) 5-325 Mg Tablet PO 1 tablet Q4H PRN Administration Pain Rated 4-6 Oxycodone/Acetaminophen 1 tab 04/21/25 12:27 04/22/25 08:06 Oxycodone/Acetaminophen (*Crx) 10-325 Mg Tablet PO 1 tab Q6H PRN Administration Pain Rated 7-10 Pantoprazole Sodium 40 mg 04/21/25 12:27 04/25/25 08:30 Pantoprazole 40 Mg Tablet PO 40 mg BID WOODY Administration Polyethylene Glycol 17 gm 04/21/25 12:27 04/25/25 08:31 Polyethylene Glycol 3350 17 Gm Powd.Pack PO 17 gm QAM WOODY Administration Senna/Docusate Sodium 2 tab 04/21/25 12:27 04/25/25 08:31 Senna/Docusate Sodium Tablet PO 2 tab BID WOODY Administration Sertraline HCl 50 mg 04/21/25 12:27 04/25/25 08:30 Sertraline Hcl 50 Mg Tablet PO 50 mg DAILY WOODY Administration Vitamin D 50 mcg 04/22/25 09:00 04/25/25 08:30 Cholecalciferol (Vitamin D3) 25 Mcg (1,000 Units) Tablet PO 50 mcg DAILY WOODY Administration Radiology Results: ITS Impressions Hip X-Ray 04/21/25 11:35 IMPRESSION: 1. Recent right total hip arthroplasty. Abdomen X-Ray 04/23/25 14:25 Impression: 1: Moderate dilation of the colon which is gas-filled, likely ileus. No definite obstruction. Abdomen/Pelvis CT 04/24/25 13:47 IMPRESSION: 1. Enteritis and diarrheal state.
[2025-04-25] MEDS: oxyCODONE/ACETAMINOPHEN (*CRX) 5-325 MG TABLET 1 TABLET PO (17:48)
[2025-04-25 21:15] VITALS: BP 136/65; PULSE 83; RESP 20; TEMP 36.9; O2SAT 97
[2025-04-25] MEDS: ATORVASTATIN 10 MG TABLET PO (21:26)
[2025-04-26] MEDS: IBUPROFEN IV 800 MG/200 ML 800 MG/200 ML BAG 400 MG IVPB ×2 (02:00→20:49)
[2025-04-26] MEDS: ONDANSETRON INJ 4 MG/2 ML VIAL IV PUSH (02:04)
[2025-04-26] MEDS: LACTATED RINGERS 1,000 ML 100 ML IV CONT ×2 (03:07→16:12)
[2025-04-26 04:30] VITALS: BP 136/68; PULSE 74; RESP 18; TEMP 36.7; O2SAT 94
[2025-04-26] MEDS: LINACLOTIDE 145 MCG CAPSULE 290 MCG PO (06:10)
--- NOTE | 2025-04-26 07:16 | P.PNIM_ITS ---
Progress Note: A&P Assessment and Plan (1) Postoperative ileus: Code(s): K91.89 - Other postprocedural complications and disorders of digestive system; K56.7 - Ileus, unspecified Status: Acute Assessment and Plan: Patient underwent a total right hip arthroplasty on 04/21. Has been experiencing abdominal pain, nausea, vomiting, and abdominal distension since operation. She has a history significant for IBS-C for which she takes docusate capsules x3, Dulcolax suppository, and Linzess daily. Last bowel movement was small and occurred on Saturday, 04/20. Patient is currently unable to tolerate clear liquids - emesis clear to bile like. Abdominal XR was obtained this afternoon (04/23) which showed moderate dilation of the colon which is gas- filled, likely ileus, with no definite obstruction. Given patient's history of IBS-C and previous ileus/obstruction postoperative, will consult General surgery and place patient on clears. May need NG tube as she is not currently tolerating clear liquids. * general surgery consultation pending - appreciate further recommendations * Pain control managed by primary team - IV Dilaudid, Percocet * IV fluids: LR 100 mL/hour * trial Bentyl * patient currently on Zofran for nausea, will place this as second-line and order Reglan as first-line antiemetic to help promote gastric motility * reviewed current bowel regimen: on docusate 300 mg daily, docusate 2 tablets b.i.d., and Linzess daily. Has also received a Dulcolax suppository x1 and MiraLax x1. * Fleet enema, one time dose Relistor * No BM last night/this AM * Magnesium Citrate 300ml one time dose * May consider GI consult if persists (2) Constipation: Qualifiers: Constipation type: unspecified constipation type Qualified Code(s): K59.00 - Constipation, unspecified Code(s): K59.00 - Constipation, unspecified Status: Acute Assessment and Plan: * see above (3) S/P total hip arthroplasty: Qualifiers: Laterality: right Qualified Code(s): Z96.641 - Presence of right artificial hip joint Code(s): Z96.649 - Presence of unspecified artificial hip joint Status: Acute Assessment and Plan: * Post op 04/21/2025 R SHAHRAM * primary management via orthopedic team * analgesics p.r.n. * encourage IS use * continue PT/OT Plan Diet: Clear liquid GI Prophylaxis: Famotidine p.o. DVT Prophylaxis: SCDs IV fluids: LR 100 mL/hr Lines/Tubes: Peripheral IV Code Status: Full code Subjective Date/time seen: 04/26/25 07:16 Interval history: 04/25/2025 Post op 04/21 of right total hip arthroplasty. Still having trouble with constipation, will add on Mag Citrate along with prn Fleets enema. Gen Surg signed off. Blood work/vitals remain unremarkable. May consider GI consult if continues to endorse constipation Review of Systems Review of Systems: All systems reviewed & are unremarkable except as noted in HPI and below Exam Narrative: +abdominal distention, mild. Tender in a ll quadrants with only light palpation. Hypoactive BS in all quadrants. Visible discomfort. Const: Other: Patient visibly uncomfortable. , female, nontoxic appearing. HENMT: Face/Nose/Sinus: Normal nares present Mouth: Yes moist mucous membranes Eyes: General: appearance normal, both eyes and all related structures Sclera: sclerae normal Pupils: Equal, round and reactive pupils present EOM: EOMs intact bilaterally Resp: Effort & Inspection: normal respiratory effort Auscultation: clear to auscultation bilaterally Cardio: Rate: tachycardic (Mild) Rhythm: regular rhythm Other: S1-S2 present without murmur, rub, ectopy GI: Other: +abdominal distention, mild. Tender in a ll quadrants with only light palpation. Hypoactive BS in all quadrants. Skin: General skin exam: normal color and no rashes or lesions noted Other: Postoperative incision to right hip. Dressing CDI. Neuro: Cranial nerves: Yes Equal, round and reactive pupils present Speech: normal speech Motor exam (neuro): 5/5 motor strength present throughout Sensory Exam: normal sensation Other: A&O x4 Extrem: General: normal to inspection Psych: Mental Status: mental status grossly normal Affect: normal affect Other: Good insight and judgment, very pleasant Objective Data Vital Signs Vital Signs: Vital Signs - 24 hr 04/25/25 09:00 04/25/25 10:45 04/25/25 13:25 Temperature 99.5 F Pulse Rate 87 86 Respiratory Rate 16 20 Blood Pressure 141/78 H Pulse Oximetry 95 97 Oxygen Delivery Room Air Room Air 04/25/25 13:52 04/25/25 20:00 04/25/25 21:15 Temperature 98.5 F Pulse Rate 83 Respiratory Rate 20 Blood Pressure 136/65 Pulse Oximetry 97 Oxygen Delivery Room Air Room Air 04/26/25 04:30 Temperature 98.1 F Pulse Rate 74 Respiratory Rate 18 Blood Pressure 136/68 Pulse Oximetry 94 Oxygen Delivery Intake/Output Intake/Output: Intake & Output 04/23/25 04/24/25 04/25/25 04/26/25 23:59 23:59 23:59 23:59 Intake Total 580 4046.7 2770 1245 Balance 580 4046.7 2770 1245 Meds/Results Medications: Active Medications Generic Name Dose Route Start Last Admin Trade Name Freq PRN Reason Stop Dose Admin Aspirin 325 mg 04/21/25 12:27 04/25/25 21:28 Aspirin 325 Mg Enteric Tablet PO 325 mg Q12HR WOODY Administration Atorvastatin Calcium 10 mg 04/21/25 21:00 04/25/25 21:26 Atorvastatin 10 Mg Tablet PO 10 mg HS WOODY Administration Diazepam 5 mg 04/21/25 12:27 04/24/25 16:51 Diazepam (*Crx) 5 Mg Tablet PO 5 mg Q6H PRN Administration Anxiety/Muscle Spasm Dicyclomine HCl 20 mg 04/23/25 16:50 04/25/25 05:22 Dicyclomine Hcl 10 Mg Capsule PO 20 mg QID PRN Administration Abdominal Cramping Diphenhydramine HCl 25 mg 04/21/25 12:27 Diphenhydramine Hcl Inj 50 Mg/Ml Vial IV PUSH Q6H PRN Itching Docusate Sodium 300 mg 04/21/25 12:27 04/25/25 08:30 Docusate Sodium 100 Mg Capsule PO 300 mg DAILY WOODY Administration Famotidine 20 mg 04/21/25 12:27 04/25/25 21:26 Famotidine 20 Mg Tablet PO 20 mg Q12HR WOODY Administration Hydromorphone HCl 1 mg 04/21/25 12:27 Hydromorphone Hcl Inj (*Crx) 1 Mg/Ml Syr IV PUSH Q2H PRN Breakthrough Pain Rated 7-10 or NPO Hydromorphone HCl 0.5 mg 04/21/25 12:27 04/22/25 06:19 Hydromorphone Hcl Inj (*Crx) 1 Mg/Ml Syr IV PUSH 0.5 mg Q2H PRN Administration Breakthrough Pain Rated 4-6 or NPO Hydroxychloroquine Sulfate 200 mg 04/21/25 12:27 04/25/25 08:31 Hydroxychloroquine Sulfate 200 Mg Tablet PO 200 mg DAILY WOODY Administration Ibuprofen 800 mg in 200 mls @ 400 mls/hr 04/21/25 12:27 04/26/25 02:30 Caldolor 800 Mg/200 Ml IVPB Infused Q6H PRN Infusion Breakthrough Pain Rated 1-3 or NPO Lactated Ringer's 1,000 mls @ 100 mls/hr 04/23/25 16:30 04/26/25 03:07 Lr - Lactated Ringers Iv IV CONT 100 mls/hr .Q10H WOODY Administration Leflunomide 20 mg 04/21/25 12:27 04/25/25 08:30 Leflunomide 20 Mg Tablet PO 20 mg DAILY WOODY Administration Linaclotide 290 mcg 04/22/25 06:30 04/26/25 06:10 Linaclotide 145 Mcg Capsule PO 290 mcg DAILY@0630 WOODY Administration Metoclopramide HCl 10 mg 04/23/25 16:50 04/25/25 17:50 Metoclopramide Hcl Inj 10 Mg/2 Ml Vial IV PUSH 10 mg Q6HR PRN Administration Nausea And Vomiting Naloxone HCl 0.1 mg 04/21/25 12:27 Naloxone Hcl 0.4 Mg/Ml Vial IV PUSH Q2M PRN Opiate Reversal Ondansetron HCl 4 mg 04/23/25 09:02 04/26/25 02:04 Ondansetron Inj 4 Mg/2 Ml Vial IV PUSH 4 mg Q4H PRN Administration Nausea And Vomiting Oxycodone/Acetaminophen 1 tablet 04/21/25 12:27 04/25/25 17:48 Oxycodone/Acetaminophen (*Crx) 5-325 Mg Tablet PO 1 tablet Q4H PRN Administration Pain Rated 4-6 Oxycodone/Acetaminophen 1 tab 04/21/25 12:27 04/22/25 08:06 Oxycodone/Acetaminophen (*Crx) 10-325 Mg Tablet PO 1 tab Q6H PRN Administration Pain Rated 7-10 Pantoprazole Sodium 40 mg 04/21/25 12:27 04/25/25 17:42 Pantoprazole 40 Mg Tablet PO Not Given BID WOODY Polyethylene Glycol 17 gm 04/21/25 12:27 04/25/25 08:31 Polyethylene Glycol 3350 17 Gm Powd.Pack PO 17 gm QAM WOODY Administration Senna/Docusate Sodium 2 tab 04/21/25 12:27 04/25/25 17:42 Senna/Docusate Sodium Tablet PO Not Given BID WOODY Sertraline HCl 50 mg 04/21/25 12:27 04/25/25 08:30 Sertraline Hcl 50 Mg Tablet PO 50 mg DAILY WOODY Administration Vitamin D 50 mcg 04/22/25 09:00 04/25/25 08:30 Cholecalciferol (Vitamin D3) 25 Mcg (1,000 Units) Tablet PO 50 mcg DAILY WOODY Administration Radiology Results: ITS Impressions Hip X-Ray 04/21/25 11:35 IMPRESSION: 1. Recent right total hip arthroplasty. Abdomen X-Ray 04/23/25 14:25 Impression: 1: Moderate dilation of the colon which is gas-filled, likely ileus. No definite obstruction. Abdomen/Pelvis CT 04/24/25 13:47 IMPRESSION: 1. Enteritis and diarrheal state. Quality VTE Prophylaxis VTE prophylaxis: mechanical ordered
[2025-04-26] MEDS: HYDROXYCHLOROQUINE SULFATE 200 MG TABLET PO (09:07)
[2025-04-26] MEDS: SERTRALINE HCL 50 MG TABLET PO (09:07)
[2025-04-26] MEDS: DOCUSATE SODIUM 100 MG CAPSULE 300 MG PO (09:07)
[2025-04-26] MEDS: FAMOTIDINE 20 MG TABLET PO ×2 (09:07→20:49)
[2025-04-26] MEDS: LEFLUNOMIDE 20 MG TABLET PO (09:07)
[2025-04-26] MEDS: CHOLECALCIFEROL (VITAMIN D3) 25 MCG (1,000 UNITS) TABLET 50 MCG PO (09:08)
[2025-04-26] MEDS: ASPIRIN 325 MG ENTERIC TABLET PO ×2 (09:08→20:49)
[2025-04-26] MEDS: PANTOPRAZOLE 40 MG TABLET PO ×2 (09:08→16:17)
--- NOTE | 2025-04-26 12:47 | WPDGICN ---
Assessment and Plan Assessment and plan (1) Postoperative ileus: Code(s): K91.89 - Other postprocedural complications and disorders of digestive system; K56.7 - Ileus, unspecified <Bri D. DevanteCELESTINON - Last Filed: 04/26/25 13:03> Status: Acute <Bri D. Devante, FACULTY I ON CALL MEDICAL ASSISTANT - Last Filed: 04/26/25 13:03> (2) Constipation: Qualifiers: Constipation type: unspecified constipation type Qualified Code(s): K59.00 - Constipation, unspecified <Bri D. Devante, FACULTY I ON CALL MEDICAL ASSISTANT - Last Filed: 04/26/25 13:03> Code(s): K59.00 - Constipation, unspecified <Bri D. Devante, FACULTY I ON CALL MEDICAL ASSISTANT - Last Filed: 04/26/25 13:03> Status: Acute <Bri D. Devante FACULTY I ON CALL MEDICAL ASSISTANT - Last Filed: 04/26/25 13:03> (3) Abdominal distension (gaseous): Code(s): R14.0 - Abdominal distension (gaseous) <Bri D. Devante FACULTY I ON CALL MEDICAL ASSISTANT - Last Filed: 04/26/25 13:03> Status: Acute <Bri D. Devante, FACULTY I ON CALL MEDICAL ASSISTANT - Last Filed: 04/26/25 13:03> (4) Abnormal bowel sounds: Code(s): R19.15 - Other abnormal bowel sounds <Bri D. Teashakira, FACULTY I ON CALL MEDICAL ASSISTANT - Last Filed: 04/26/25 13:03> Status: Acute <Bri D. Tearickeyjacki FACULTY I ON CALL MEDICAL ASSISTANT - Last Filed: 04/26/25 13:03> (5) S/P total hip arthroplasty: Qualifiers: Laterality: right Qualified Code(s): Z96.641 - Presence of right artificial hip joint <Bri D. TeaCELESTINO rosenbergN - Last Filed: 04/26/25 13:03> Code(s): Z96.649 - Presence of unspecified artificial hip joint <Bri D. TeaCELESTINO rosenbergN - Last Filed: 04/26/25 13:03> Status: Acute <Bri D. TeaCELESTINO rosenbergN - Last Filed: 04/26/25 13:03> Assessment and Plan: 1. Postoperative Ileus / Abdominal Distention / Abnormal Bowel Sounds: She is status post op right total hip. She has irritable bowel syndrome constipation at baseline that she treats with Linzess 290 mcg daily and 3 stool softeners daily. Follows with Dr. Baker outpatient. She has post operative ileus with colonic distention with no evidence of mechanical obstruction per surgery and has been already evaluated by surgery and was found to have possible stool ball in the rectum that was relieved with enemas and Relistor. She has a history of sigmoid colectomy due to ischemic colitis and last colonoscopy 05/2023 with normal appearing anastomosis at the sigmoid with no evidence of polyps. Last CT with enteritis and diarrheal state on 04/24-last KUB 04/23 with moderate dilation of colon, likley ileus. On examination, her abdomen is distended in the upper abdomen bilaterally and Auscultation reveals tinkling bowel sounds, concerns for continued ileus or possible obstruction. She has been up and moving with no vomiting and passing yellow stool. - Will obtain an abdominal X-ray to evaluate for obstruction, will need serial imaging. - Pending KUB, may need CT. - Avoid Narcotics, as this could be contributing. - May need NG pending imaging. - Updated labs, CBC, CMP, lactate acid. - She will be NPO till imaging is completed - Further recs following KUB, may need CT and small bowel series. 2. Chronic Constipation: She has a lifelong history of constipation. Her home regimen consists of Linzess and three stool softeners daily. She notes that Miralax and magnesium citrate are not effective for her. She has a GI follow-up scheduled for 05/13/2025. Thank you very much for allowing me to share in the care of this very nice patient. This report may have been done utilizing a voice recognition system. Attempts have been made to correct errors. However, there may be uncorrected grammatical, spelling, and recognition errors present.No <Aleida Livingston APRN - Last Filed: 04/26/25 14:10> GI Consult Note Consult date/time: 04/26/25 12:47 <Bri Low APRN - Last Filed: 04/26/25 13:03> Reason for consult: Constipation <Bri Low APRN - Last Filed: 04/26/25 13:03> HPI: Antonette Childress is a 54 year old female that was admitted 04/21 for a Rt total hip arthroplasty and has a history of IBS C, fibromyalgia, history of colonic ischemia status post partial colectomy, history of postop ileus and cholecystectomy. GI has been consulted for postoperative constipation. Patient is being monitored by surgery who had previously prescribed her Relistor and fleets enemas and patient then had 2 BM's 04/24. Per surgery fleets enemas as needed was recommended. ENDOSCOPY HISTORY: EGD: [ ] Findings: [ ] Bx results: [ ] COLONOSCOPY: [ ] Findings: [ ] Bx results: [ ] LABS AND STOOL STUDIES: Labs 04/24/2025: Sodium 134, potassium 3.7, BUN 13, creatinine 0.52, GFR >60, calcium 8.4 WBC 9, Hgb 9, Hct 30, MCV 90, platelets 192 Total bilirubin 0.6, AST 50, ALT 21, Alkaline Phos 74, albumin 3.4 Labs 04/22/2025: Sodium 136, potassium 3.2, BUN 12, creatinine 0.63, GFR >60, calcium 9.1 IMAGING: CT abd/pelvis w/contrast 04/24/2025: Liver: Steatosis. Mild pneumobilia after cholecystectomy. Gallbladder: Removed. Spleen: Unremarkable. Pancreas: Unremarkable. Adrenal glands: Unremarkable. Distal esophagus/stomach: Unremarkable. Small bowel loops: Normal caliber and wall thickness. Air-fluid levels Colon: Suture line left hemipelvis. Gaseous distention and air-fluid levels. Normal appendix. IMPRESSION: 1. Enteritis and diarrheal state. Abdominal Xray 04/22/2025: Impression: 1: Moderate dilation of the colon which is gas-filled, likely ileus. No definite obstruction. CT abd/pelvis w/contrast 03/10/2025: IMPRESSION: 1. No CT evidence for an acute process in the abdomen or pelvis at this time. 2. Cholecystectomy.Mild central pneumobilia presumably due to a previous cholecystectomy. 3. Partial left colectomy. <Bri D. Eslinger, FACULTY I ON CALL MEDICAL ASSISTANT - Last Filed: 04/26/25 13:03> Antonette Childress is a 54 year old female that was admitted 04/21 for a Rt total hip arthroplasty and has a history of IBS C, fibromyalgia, history of colonic ischemia status post partial colectomy, history of postop ileus and cholecystectomy. GI has been consulted for postoperative constipation. She has a history of chronic constipation for which she takes Linzess 290 mcg and three stool softeners daily, which must be taken at the same time to be effective. She occasionally uses suppositories, enemas, or oral laxatives as needed. She reports that Miralax and magnesium citrate are ineffective and cause increased abdominal pain and loud bowel sounds without producing a bowel movement. She follows with Dr. Baker, GI outpatient. She has an appointment with him on May 13. She was seen by Dr. Paulino with surgery due to ileus and did not find a obstruction, who had previously prescribed her Relistor and fleets enemas and patient then had 2 BM's 04/24. Per surgery fleets enemas as needed was recommended. She received enemas in the hospital which produced some results. She has passed some BM, but mostly yellow with a little brown, and she is passing gas. This occured around 30 minutes ago on 04/26 at 1330. She has been eating since yesterday but just on clear liquid diet. She complains of significant upper abdominal bloating and tightness in her upper abdomen to the point she feels like she appears , which she states is not her baseline. She has upper abdominal pain that is worse when sitting up but is not excruciating. She experiences some nausea but denies any vomiting. ENDOSCOPY HISTORY: EGD: 07/22/[address] Baker for abdominal pain and nausea with a 2 cm hiatal hernia and severe gastritis, no biopsies to review COLONOSCOPY: (Dr. Robbins) no evidence of colon polyps and healthy-appearing mucosa the sigmoid anastomosis and small internal hemorrhoids with recommendations repeat in 10 years rs. Labs 04/24/2025: Sodium 134, potassium 3.7, BUN 13, creatinine 0.52, GFR >60, calcium 8.4 WBC 9, Hgb 9, Hct 30, MCV 90, platelets 192 Total bilirubin 0.6, AST 50, ALT 21, Alkaline Phos 74, albumin 3.4 Labs 04/22/2025: Sodium 136, potassium 3.2, BUN 12, creatinine 0.63, GFR >60, calcium 9.1 IMAGING: CT abd/pelvis w/contrast 04/24/2025: Liver: Steatosis. Mild pneumobilia after cholecystectomy. Gallbladder: Removed. Spleen: Unremarkable. Pancreas: Unremarkable. Adrenal glands: Unremarkable. Distal esophagus/stomach: Unremarkable. Small bowel loops: Normal caliber and wall thickness. Air-fluid levels Colon: Suture line left hemipelvis. Gaseous distention and air-fluid levels. Normal appendix. IMPRESSION: 1. Enteritis and diarrheal state. Abdominal Xray 04/22/2025: Impression: 1: Moderate dilation of the colon which is gas-filled, likely ileus. No definite obstruction. CT abd/pelvis w/contrast 03/10/2025: IMPRESSION: 1. No CT evidence for an acute process in the abdomen or pelvis at this time. 2. Cholecystectomy.Mild central pneumobilia presumably due to a previous cholecystectomy. 3. Partial left colectomy. <Aleida Livingston APRN - Last Filed: 04/26/25 14:10> [facility] Past Medical History Medical History: Medical History Pure hypercholesterolemia Fibromyalgia BPPV (benign paroxysmal positional vertigo) Degenerative joint disease of left hip Skin cancer squamous cell removed from R knee Lumbar spondylosis Lumbar radiculopathy Chronic SI joint pain Lumbar spine pain Degenerative joint disease (DJD) of hip Screening mammogram, encounter for History of sigmoidoscopy (01/04/11) colon ischemia Encounter for IUD removal 04/02/05 Mirena removal Encounter for IUD insertion 12/08/02 Mirena insertion IBS (irritable bowel syndrome) Constipation <Bri Low APRN - Last Filed: 04/26/25 13:03> Surgical History Surgical History: Surgical History S/P cholecystectomy History of total abdominal hysterectomy HATTIE--leiomyomata/adenomyosis History of bladder suspension procedure S/P total hip arthroplasty History of endometrial biopsy proliferative endometrium History of left salpingo-oophorectomy (01/04/11) History of exploratory laparotomy (01/04/11) History of laparoscopy 07/14/03 adhesions/adenomyosis 04/17/06 lysis of adhesions 09/08/09 adhesions on both ovaries History of dilation and curettage 01/09/01 suction d&c---missed AB History of ovarian cystectomy (08/08/00) rt ovarian cystectomy--mature teratoma S/P partial colectomy <Bri Low APRN - Last Filed: 04/26/25 13:03> Family History Family History: Family History Father Hypertension Heart disease Lung cancer Mother Hypertension Malignant tumor of ovary Sibling Breast cancer, Onset Age: 60 sister Other Arthritis Asthma High cholesterol Lung disease Uterine cancer <Bri Low APRN - Last Filed: 04/26/25 13:03> Social History Social History: Social History Social History: Smoking status: Never smoker Second hand tobacco smoke exposure: Yes Alcohol intake: never Substance use: never Substance use type: does not use Do You Feel Safe in your Home?: Yes Lack of Transportation: No Lack of Food: Never True Current Housing: I Have Housing Concerned About Future Housing: No Difficulty Paying Gas/Electric Bills: No Difficulty Paying for Meds: No Currently Unemployed: No Education: Associate Degree Difficulty w/ Childcare or Family Care: No Living arrangements: with family Additional living arrangements comments: [facility] Occupation/Education: other 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 Gender identity (if verbalized by the patient): Female Sexual Orientation (if Verbalized by the Patient): Straight or Heterosexual Spiritual care concerns: No <Bri Low APRN - Last Filed: 04/26/25 13:03> Meds Home Medications and Allergies Home medications: Home Medications ?Medication ?Instructions ?Recorded ?Confirmed ?Type pantoprazole 40 mg tablet,delayed 40 mg PO BID 08/25/24 04/21/25 History release (Protonix) atorvastatin 10 mg tablet 10 mg PO DAILY #90 tabs 10/21/24 04/21/25 Rx linaclotide 290 mcg capsule See Rx Instructions .Route 03/15/25 04/21/25 Rx (Linzess) .COMPLEX #90 caps sertraline 50 mg tablet 50 mg PO DAILY #90 tabs 03/15/25 04/21/25 Rx leflunomide 20 mg tablet 20 mg PO DAILY 03/16/25 04/21/25 History cholecalciferol (vitamin D3) 50 2,000 unit PO DAILY 04/07/25 04/21/25 History mcg (2,000 unit) chewable tablet docusate sodium 100 mg capsule 300 mg PO DAILY 04/07/25 04/21/25 History (Colace) hydroxychloroquine 200 mg tablet 200 mg PO DAILY 04/07/25 04/21/25 History multivitamin (Daily Value tablet) 1 tablet PO DAILY 04/07/25 04/21/25 History aspirin 325 mg tablet,delayed 325 mg PO Q12HR 28 days #56 tabs 04/22/25 Rx release oxycodone-acetaminophen 5 mg-325 1 tablet PO Q4H PRN pain #30 tabs 04/22/25 Rx mg tablet <Bri Low APRN - Last Filed: 04/26/25 13:03> Allergies/Adverse reactions: Allergies Allergy/AdvReac Type Severity Reaction Status Date / Time cephalexin Allergy Intermediate Rash Verified 04/21/25 12:49 Penicillins Allergy Intermediate Rash Verified 04/21/25 12:49 <Bri Low APRN - Last Filed: 04/26/25 13:03> Vital Signs Vital Signs - 24 hr 04/25/25 13:25 04/25/25 13:52 04/25/25 20:00 Temperature 99.5 F Pulse Rate 86 Respiratory Rate 20 Blood Pressure 141/78 H Pulse Oximetry 97 Oxygen Delivery Room Air Room Air 04/25/25 21:15 04/26/25 04:30 04/26/25 09:21 Temperature 98.5 F 98.1 F Pulse Rate 83 74 Respiratory Rate 20 18 Blood Pressure 136/65 136/68 Pulse Oximetry 97 94 Oxygen Delivery Room Air <Bri Low FACULTY I ON CALL MEDICAL ASSISTANT - Last Filed: 04/26/25 13:03> Exam Const: General: uncomfortable <Aleida Livingston FACULTY I ON CALL MEDICAL ASSISTANT - Last Filed: 04/26/25 14:10> Resp: Effort & Inspection: normal respiratory effort <Aleida Livingston APRN - Last Filed: 04/26/25 14:10> GI: Inspection: distended <Aleida Livingston APRN - Last Filed: 04/26/25 14:10> GI Palp: Yes Firmness to palpation present (GI) and Yes Tenderness to palpation present (GI) <Aleida Livingston FACULTY I ON CALL MEDICAL ASSISTANT - Last Filed: 04/26/25 14:10> Auscultation: abnormal bowel sounds (high pitched tinkling bowel sounds) <Aleida Livingston APRN - Last Filed: 04/26/25 14:10> Other: Upper abdomen is distended and tympanic with high pitched tinkling bowel sounds in upper abdomen, suspicious for obstruction. She has bilateral tenderness in upper abdomen, non acute abdomen. <Aleida Livingston FACULTY I ON CALL MEDICAL ASSISTANT - Last Filed: 04/26/25 14:10> Skin: General skin exam: normal color <Aleida Livingston APRN - Last Filed: 04/26/25 14:10> Neuro: Speech: normal speech <Aleida Livingston APRN - Last Filed: 04/26/25 14:10> Extrem: General: normal to inspection <Aleida Livingston APRN - Last Filed: 04/26/25 14:10> Psych: Mental Status: mental status grossly normal <Aleida Livingston APRN - Last Filed: 04/26/25 14:10> Affect: normal affect <Aleida Livingston APRN - Last Filed: 04/26/25 14:10> Results Labs CBC & Chem 7: 04/24/25 11:29 04/24/25 11:29 <Bri Low, FACULTY I ON CALL MEDICAL ASSISTANT - Last Filed: 04/26/25 13:03>
[2025-04-26 13:43] VITALS: BP 136/82; PULSE 103; RESP 22; TEMP 36.4; O2SAT 95
[2025-04-26 15:36] LABS: Hematocrit 30.4 % (37.0-47.0); Hemoglobin 9.7 g/dL (12.0-15.0); Mean Corpuscular HGB Conc 31.9 g/dl (32-36); Mean Corpuscular Hemoglobin 27.6 pg (26-34); Mean Corpuscular Volume 86.6 fl (80-100); Platelet Count Result 317 k/mm3 (150-375); Red Blood Count 3.51 M/mm3 (4.2-5.4); White Blood Count 7.4 K/mm3 (4.5-10.0)
[2025-04-26 15:51] LABS: Alanine Aminotransferase 23 U/L (6-35); Albumin Level 3.4 g/dL (3.5-5.1); Alkaline Phosphatase 116 U/L (38-126); Anion Gap 6 mmol/L (4-12); Aspartate Amino Transferase 39 U/L (14-36); Bilirubin,Total 0.5 mg/dL (0.2-1.3); Blood Urea Nitrogen 8 mg/dL (7-17); Calcium 8.5 mg/dL (8.4-10.2); Carbon Dioxide 31 mmol/L (22-30); Chloride 98 mmol/L (98-107); Estimated CRCL calculation 104 ml/min; Estimated Glomerular Filt Rate > 60; Glucose 100 mg/dL (65-110); Potassium 2.4 mmol/L (3.4-5.0); Sodium 135 mmol/L (137-145); Total Protein 6.5 g/dL (6.3-8.2)
[2025-04-26] MEDS: POTASSIUM CHLORIDE 20 MEQ PACKET (FOR LIQUID) 40 MEQ PO (16:11)
[2025-04-26] MEDS: SENNA/DOCUSATE SODIUM TABLET 2 TAB PO (16:16)
[2025-04-26] MEDS: POTASSIUM CHLORIDE INJ 40 MEQ in SODIUM CHLORIDE 0.9% IV 500 ML 130 MEQ IVPB ×2 (16:58→23:02)
[2025-04-26] MEDS: METOCLOPRAMIDE HCL INJ 10 MG/2 ML VIAL IV PUSH (16:58)
[2025-04-26] MEDS: METHYLNALTREXONE 12 MG/0.6 ML VIAL SUB-Q (18:25)
[2025-04-26 20:00] VITALS: PULSE 84
[2025-04-26 20:29] VITALS: BP 134/57; PULSE 84; RESP 17; TEMP 36.3; O2SAT 94
[2025-04-26] MEDS: ATORVASTATIN 10 MG TABLET PO (20:49)
[2025-04-26 22:14] LABS: Potassium 2.8 mmol/L (3.4-5.0)
[2025-04-26] MEDS: oxyCODONE/ACETAMINOPHEN (*CRX) 5-325 MG TABLET 1 TABLET PO (23:03)
[2025-04-26] MEDS: POTASSIUM CHLORIDE 20 MEQ ER TABLET 40 MEQ PO (23:03)
[2025-04-27] VITALS (9 sets, daily range): BP systolic 134–138; BP diastolic 59–82; PULSE 70–112; RESP 17–18; TEMP 36.3–37; O2SAT 94–95
[2025-04-27 05:44] LABS: Hematocrit 26.2 % (37.0-47.0); Hemoglobin 8.4 g/dL (12.0-15.0); Immature Granulocyte Percent A 1.0 % (0-0.5); Lymphocytes Absolute Auto 1.28 K/mm3 (0.9-3.2); Mean Corpuscular HGB Conc 32.1 g/dl (32-36); Mean Corpuscular Hemoglobin 28.1 pg (26-34); Mean Corpuscular Volume 87.6 fl (80-100); Nucleated Red Blood Cells Absolute Auto 0.000 K/mm3 (0.0-0.012); Nucleated Red Blood Cells Perc 0.0 % (0.0-0.2); Platelet Count Result 278 k/mm3 (150-375); Red Blood Count 2.99 M/mm3 (4.2-5.4); White Blood Count 6.1 K/mm3 (4.5-10.0)
[2025-04-27 06:08] LABS: Alanine Aminotransferase 19 U/L (6-35); Albumin Level 2.8 g/dL (3.5-5.1); Alkaline Phosphatase 98 U/L (38-126); Anion Gap 3 mmol/L (4-12); Aspartate Amino Transferase 34 U/L (14-36); Bilirubin,Total 0.4 mg/dL (0.2-1.3); Blood Urea Nitrogen 7 mg/dL (7-17); Calcium 8.1 mg/dL (8.4-10.2); Carbon Dioxide 28 mmol/L (22-30); Chloride 105 mmol/L (98-107); Estimated CRCL calculation 111 ml/min; Estimated Glomerular Filt Rate > 60; Glucose 89 mg/dL (65-110); Magnesium 1.8 mg/dL (1.6-2.3); Potassium 3.0 mmol/L (3.4-5.0); Sodium 136 mmol/L (137-145); Total Protein 5.5 g/dL (6.3-8.2)
[2025-04-27] MEDS: IBUPROFEN IV 800 MG/200 ML 800 MG/200 ML BAG 400 MG IVPB (06:11)
[2025-04-27] MEDS: LINACLOTIDE 145 MCG CAPSULE 290 MCG PO (06:13)
--- NOTE | 2025-04-27 08:04 | P.PNIM_ITS ---
Progress Note: A&P Assessment and Plan (1) Postoperative ileus: Code(s): K91.89 - Other postprocedural complications and disorders of digestive system; K56.7 - Ileus, unspecified Status: Acute Assessment and Plan: Patient underwent a total right hip arthroplasty on 04/21. Has been experiencing abdominal pain, nausea, vomiting, and abdominal distension since operation. She has a history significant for IBS-C for which she takes docusate capsules x3, Dulcolax suppository, and Linzess daily. Last bowel movement was small and occurred on Saturday, 04/20. Patient is currently unable to tolerate clear liquids - emesis clear to bile like. Abdominal XR was obtained this afternoon (04/23) which showed moderate dilation of the colon which is gas- filled, likely ileus, with no definite obstruction. Given patient's history of IBS-C and previous ileus/obstruction postoperative, will consult General surgery and place patient on clears. May need NG tube as she is not currently tolerating clear liquids. * general surgery consultation pending - appreciate further recommendations * Pain control managed by primary team - IV Dilaudid, Percocet * IV fluids: LR 100 mL/hour * trial Bentyl * patient currently on Zofran for nausea, will place this as second-line and order Reglan as first-line antiemetic to help promote gastric motility * reviewed current bowel regimen: on docusate 300 mg daily, docusate 2 tablets b.i.d., and Linzess daily. Has also received a Dulcolax suppository x1 and MiraLax x1. * Fleet enema, one time dose Relistor * No BM last night/this AM * Magnesium Citrate 300ml one time dose * GI consulted * One time dose Relistor * Place rectal tube * Repeat KUB on 04/26: Persistent diffuse mild gaseous distention of the colon consistent with persistent postoperative ileus. * 04/27: Symptoms greatly improving since placement rectal to * Continue to work with GI regarding postop constipation (2) Constipation: Qualifiers: Constipation type: unspecified constipation type Qualified Code(s): K59.00 - Constipation, unspecified Code(s): K59.00 - Constipation, unspecified Status: Acute Assessment and Plan: * see above (3) S/P total hip arthroplasty: Qualifiers: Laterality: right Qualified Code(s): Z96.641 - Presence of right artificial hip joint Code(s): Z96.649 - Presence of unspecified artificial hip joint Status: Acute Assessment and Plan: * Post op 04/21/2025 R SHAHRAM * primary management via orthopedic team * analgesics p.r.n. * encourage IS use * continue PT/OT (4) Hypokalemia: Code(s): E87.6 - Hypokalemia Status: Acute Assessment and Plan: * Normal upon admission, however on 04/26: K 2.4 * Given 40 mEq IV and 40 mEq p.o * Likely secondary to acute GI losses * 04/27: K 3.0 * Given additional 40 mEq IV, repeat potassium level after infusion * Supplement as needed Plan Diet: Clear liquid GI Prophylaxis: Famotidine p.o. DVT Prophylaxis: SCDs IV fluids: LR 100 mL/hr Lines/Tubes: Peripheral IV Code Status: Full code Subjective Date/time seen: 04/27/25 08:05 Interval history: 04/27/2025 Post op 04/21 of right total hip arthroplasty. GI was consulted yesterday regarding continued constipation postop. Recommended 1 time dose to over list or and placement of rectal tube. Patient examined in the a.m. of 04/19 a and endorses improvement of symptoms, including decreased abdominal tenderness /nausea. Potassium was 2.410/27, immediately supplemented with 40 mEq IV and p.o.. Potassium 3.0 today, continue to supplement as needed. Overall symptoms are improving. Review of Systems Review of Systems: All systems reviewed & are unremarkable except as noted in HPI and below Exam Narrative: +abdominal distention, mild. Tender in a ll quadrants with only light palpation. Hypoactive BS in all quadrants. Visible discomfort. Const: Other: Patient visibly uncomfortable. , female, nontoxic appearing. HENMT: Face/Nose/Sinus: Normal nares present Mouth: Yes moist mucous membranes Eyes: General: appearance normal, both eyes and all related structures Sclera: sclerae normal Pupils: Equal, round and reactive pupils present EOM: EOMs intact bilaterally Resp: Effort & Inspection: normal respiratory effort Auscultation: clear to auscultation bilaterally Cardio: Rate: tachycardic (Mild) Rhythm: regular rhythm Other: S1-S2 present without murmur, rub, ectopy GI: Other: +abdominal distention, mild. Tender in a ll quadrants with only light palpation. Hypoactive BS in all quadrants. Skin: General skin exam: normal color and no rashes or lesions noted Other: Postoperative incision to right hip. Dressing CDI. Neuro: Cranial nerves: Yes Equal, round and reactive pupils present Speech: normal speech Motor exam (neuro): 5/5 motor strength present throughout Sensory Exam: normal sensation Other: A&O x4 Extrem: General: normal to inspection Psych: Mental Status: mental status grossly normal Affect: normal affect Other: Good insight and judgment, very pleasant Objective Data Vital Signs Vital Signs: Vital Signs - 24 hr 04/26/25 09:21 04/26/25 13:43 04/26/25 20:00 Temperature 97.5 F L Pulse Rate 103 H Respiratory Rate 22 H Blood Pressure 136/82 Pulse Oximetry 95 Oxygen Delivery Room Air Room Air 04/26/25 20:00 04/26/25 20:29 04/27/25 00:00 Temperature 97.4 F L Pulse Rate 84 84 88 Respiratory Rate 17 Blood Pressure 134/57 L Pulse Oximetry 94 Oxygen Delivery 04/27/25 04:00 04/27/25 04:21 Temperature 97.3 F L Pulse Rate 112 H 77 Respiratory Rate 17 Blood Pressure 138/63 Pulse Oximetry 95 Oxygen Delivery Intake/Output Intake/Output: Intake & Output 04/24/25 04/25/25 04/26/25 04/27/25 23:59 23:59 23:59 23:59 Intake Total 4046.7 2770 3165 420 Output Total 225 Balance 4046.7 2770 3165 195 Meds/Results Medications: Active Medications Generic Name Dose Route Start Last Admin Trade Name Freq PRN Reason Stop Dose Admin Aspirin 325 mg 04/21/25 12:27 04/26/25 20:49 Aspirin 325 Mg Enteric Tablet PO 325 mg Q12HR WOODY Administration Atorvastatin Calcium 10 mg 04/21/25 21:00 04/26/25 20:49 Atorvastatin 10 Mg Tablet PO 10 mg HS WOODY Administration Diazepam 5 mg 04/21/25 12:27 04/24/25 16:51 Diazepam (*Crx) 5 Mg Tablet PO 5 mg Q6H PRN Administration Anxiety/Muscle Spasm Dicyclomine HCl 20 mg 04/23/25 16:50 04/25/25 05:22 Dicyclomine Hcl 10 Mg Capsule PO 20 mg QID PRN Administration Abdominal Cramping Diphenhydramine HCl 25 mg 04/21/25 12:27 04/26/25 20:53 Diphenhydramine Hcl Inj 50 Mg/Ml Vial IV PUSH 25 mg Q6H PRN Administration Itching Docusate Sodium 300 mg 04/21/25 12:27 04/26/25 09:07 Docusate Sodium 100 Mg Capsule PO 300 mg DAILY WOODY Administration Famotidine 20 mg 04/21/25 12:27 04/26/25 20:49 Famotidine 20 Mg Tablet PO 20 mg Q12HR WOODY Administration Hydromorphone HCl 1 mg 04/21/25 12:27 Hydromorphone Hcl Inj (*Crx) 1 Mg/Ml Syr IV PUSH Q2H PRN Breakthrough Pain Rated 7-10 or NPO Hydromorphone HCl 0.5 mg 04/21/25 12:27 04/22/25 06:19 Hydromorphone Hcl Inj (*Crx) 1 Mg/Ml Syr IV PUSH 0.5 mg Q2H PRN Administration Breakthrough Pain Rated 4-6 or NPO Hydroxychloroquine Sulfate 200 mg 04/21/25 12:27 04/26/25 09:07 Hydroxychloroquine Sulfate 200 Mg Tablet PO 200 mg DAILY WOODY Administration Ibuprofen 800 mg in 200 mls @ 400 mls/hr 04/21/25 12:27 04/27/25 06:41 Caldolor 800 Mg/200 Ml IVPB Infused Q6H PRN Infusion Breakthrough Pain Rated 1-3 or NPO Lactated Ringer's 1,000 mls @ 100 mls/hr 04/23/25 16:30 04/26/25 16:12 Lr - Lactated Ringers Iv IV CONT 100 mls/hr .Q10H WOODY Administration Leflunomide 20 mg 04/21/25 12:27 04/26/25 09:07 Leflunomide 20 Mg Tablet PO 20 mg DAILY WOODY Administration Linaclotide 290 mcg 04/22/25 06:30 04/27/25 06:13 Linaclotide 145 Mcg Capsule PO 290 mcg DAILY@0630 WOODY Administration Metoclopramide HCl 10 mg 04/23/25 16:50 04/26/25 16:58 Metoclopramide Hcl Inj 10 Mg/2 Ml Vial IV PUSH 10 mg Q6HR PRN Administration Nausea And Vomiting Naloxone HCl 0.1 mg 04/21/25 12:27 Naloxone Hcl 0.4 Mg/Ml Vial IV PUSH Q2M PRN Opiate Reversal Ondansetron HCl 4 mg 04/23/25 09:02 04/26/25 02:04 Ondansetron Inj 4 Mg/2 Ml Vial IV PUSH 4 mg Q4H PRN Administration Nausea And Vomiting Oxycodone/Acetaminophen 1 tablet 04/21/25 12:27 04/26/25 23:03 Oxycodone/Acetaminophen (*Crx) 5-325 Mg Tablet PO 1 tablet Q4H PRN Administration Pain Rated 4-6 Oxycodone/Acetaminophen 1 tab 04/21/25 12:27 04/22/25 08:06 Oxycodone/Acetaminophen (*Crx) 10-325 Mg Tablet PO 1 tab Q6H PRN Administration Pain Rated 7-10 Pantoprazole Sodium 40 mg 04/21/25 12:27 04/26/25 16:17 Pantoprazole 40 Mg Tablet PO 40 mg BID WOODY Administration Polyethylene Glycol 17 gm 04/21/25 12:27 04/26/25 09:13 Polyethylene Glycol 3350 17 Gm Powd.Pack PO Not Given QAM WOODY Senna/Docusate Sodium 2 tab 04/21/25 12:27 04/26/25 16:16 Senna/Docusate Sodium Tablet PO 2 tab BID WOODY Administration Sertraline HCl 50 mg 04/21/25 12:27 04/26/25 09:07 Sertraline Hcl 50 Mg Tablet PO 50 mg DAILY WOODY Administration Vitamin D 50 mcg 04/22/25 09:00 04/26/25 09:08 Cholecalciferol (Vitamin D3) 25 Mcg (1,000 Units) Tablet PO 50 mcg DAILY WOODY Administration Radiology Results: ITS Impressions Hip X-Ray 04/21/25 11:35 IMPRESSION: 1. Recent right total hip arthroplasty. Abdomen/Pelvis CT 04/24/25 13:47 IMPRESSION: 1. Enteritis and diarrheal state. Abdomen X-Ray 04/26/25 14:36 IMPRESSION: 1. Persistent diffuse mild gaseous distention of the colon consistent with persistent postoperative ileus. Labs Labs: Laboratory Results - last 24 hr 04/26/25 04/26/25 04/27/25 15:30 22:01 05:22 WBC 7.4 6.1 RBC 3.51 L 2.99 L Hgb 9.7 L 8.4 L Hct 30.4 L 26.2 L MCV 86.6 87.6 MCH 27.6 28.1 MCHC 31.9 L 32.1 RDW 12.7 12.8 Plt Count 317 D 278 MPV 9.6 9.7 Immature Gran % (Auto) 1.0 H Neut % (Auto) 56.7 Lymph % (Auto) 21.1 [place] % (Auto) 12.5 H Eos % (Auto) 8.4 H Baso % (Auto) 0.3 Lymph # (Auto) 1.28 [place] # (Auto) 0.8 H Eos # (Auto) 0.5 H Baso # (Auto) 0.0 Abs Immat Gran (auto) 0.06 H Absolute Neuts (auto) 3.4 Absolute Nucleated RBC 0.000 Nucleated RBC % 0.0 Sodium 135 L 136 L Potassium 2.4 L* 2.8 L* 3.0 L Chloride 98 105 Carbon Dioxide 31 H 28 Anion Gap 6 3 L BUN 8 D 7 Creatinine 0.53 L 0.49 L Estim Creat Clear Calc 104 111 Estimated GFR > 60 > 60 Glucose 100 89 Calcium 8.5 8.1 L Magnesium 1.8 Total Bilirubin 0.5 0.4 AST 39 H 34 ALT 23 19 Alkaline Phosphatase 116 98 Lactate Dehydrogenase 217 Total Protein 6.5 5.5 L Albumin 3.4 L 2.8 L Quality VTE Prophylaxis VTE prophylaxis: mechanical ordered
--- NOTE | 2025-04-27 08:39 | P.PNOP_ITS ---
Progress Note: A&P Assessment and Plan (1) Postoperative ileus: Code(s): K91.89 - Other postprocedural complications and disorders of digestive system; K56.7 - Ileus, unspecified Status: Acute Assessment and Plan: General surgery consultation reviewed. No surgical recommendations. GI consultation reivewed. One time dose Relistor and rectal tube placed on 04/26. Repeat KUB revealed persistent diffuse mild gaseous distention of the colon consistent with persistent postoperative ileus. Possible CT scan per GI. NPO. Appreciate recommendations. (2) Abnormal bowel sounds: Code(s): R19.15 - Other abnormal bowel sounds Status: Acute (3) Abdominal distension (gaseous): Code(s): R14.0 - Abdominal distension (gaseous) Status: Acute (4) Hypokalemia: Code(s): E87.6 - Hypokalemia Status: Acute Assessment and Plan: Recurrent hypokalemia post operatively. K+ 3.0 today. Hospitalist following. (5) S/P total hip arthroplasty: Qualifiers: Laterality: right Qualified Code(s): Z96.641 - Presence of right artificial hip joint Code(s): Z96.649 - Presence of unspecified artificial hip joint Status: Acute Assessment and Plan: POD #6 : Right SHAHRAM Continue PT/OT. WBAT. Walker. HIGH FALL RISK. Limit narcotics given bowel issues. Ice Hip. Protect skin. DVT prophylaxis with Aspirin. SCDs. Incentive Spirometry Use reviewed. Monitor Dressing. Change prior to discharge. Bowel Regimen. Dispo: Home with Home Health pending progress with PT/OT and medical stability. Plan Reviewed history, exam, radiographs and current labs with attending MD and covering surgeon, Dr. Escalante, who agrees with current plan as indicated above. No further recommendations from Dr. Escalante at this time. Subjective Subjective Date/Time Seen: 04/27/25 08:39 Post Op day: 6 Interval history: POD #6: Right SHAHRAM Patient reports pain in the right hip is minimal. Avoiding narcotic use given current bowel issues. Reports improvement in abdominal pain s/p initiation of rectal tube. Review of Systems Review of Systems: All systems reviewed & are unremarkable except as noted in HPI and below Exam Const: General: comfortable and no acute distress Resp: Effort & Inspection: normal respiratory effort Cardio: Rate: regular rate Rhythm: regular rhythm GI: GI Palp: Yes Firmness to palpation present (GI) and Yes Tenderness to palpation present (GI) Skin: General skin exam: normal color Other: Incision right hip c/d/i. Surrounding tissue without redness/warmth. Mild swelling consistent with recent surgery. No drainage. Neuro: Cognition (Neuro): normal cognition Speech: normal speech Extrem: Right lower extremity: normal to inspection, normal capillary refill, hip/thigh Details: tenderness Location: of the hip (Thigh soft ) Location: laterally and anteriorly, swelling Location: at the hip, abnormal ROM (limited consistent with recent surgery ) Details: pain with active ROM during and pain with passive ROM during and other (Incision c/d/i. ); no deformity and no unusual warmth, knee Details: normal to inspection; no tenderness and no swelling, lower leg (Negative Colleen's Sign ) Details: normal to inspection and no edema; no tenderness, ankle (+ankle dorsiflexion/plantarflexion) Details: normal to inspection and no edema; no tenderness, no swelling and no ecchymosis and foot Details: normal capillary refill, toes with normal ROM, vascular exam Details: dorsalis pedis pulse present and motor-sensory exam Details: light- touch normal; no tenderness Objective Data Vital Signs Vital Signs: Vital Signs - 24 hr 04/26/25 09:21 04/26/25 13:43 04/26/25 20:00 Temperature 36.4 C L Pulse Rate 103 H Respiratory Rate 22 H Blood Pressure 136/82 Pulse Oximetry 95 Oxygen Delivery Room Air Room Air 04/26/25 20:00 04/26/25 20:29 04/27/25 00:00 Temperature 36.3 C L Pulse Rate 84 84 88 Respiratory Rate 17 Blood Pressure 134/57 L Pulse Oximetry 94 Oxygen Delivery 04/27/25 04:00 04/27/25 04:21 Temperature 36.3 C L Pulse Rate 112 H 77 Respiratory Rate 17 Blood Pressure 138/63 Pulse Oximetry 95 Oxygen Delivery Intake/Output Intake/Output: Intake & Output 04/24/25 04/25/25 04/26/25 04/27/25 23:59 23:59 23:59 23:59 Intake Total 4046.7 2770 3165 420 Output Total 225 Balance 4046.7 2770 3165 195 Meds/Results Medications: Active Medications Generic Name Dose Route Start Last Admin Trade Name Freq PRN Reason Stop Dose Admin Aspirin 325 mg 04/21/25 12:27 04/26/25 20:49 Aspirin 325 Mg Enteric Tablet PO 325 mg Q12HR WOODY Administration Atorvastatin Calcium 10 mg 04/21/25 21:00 04/26/25 20:49 Atorvastatin 10 Mg Tablet PO 10 mg HS WOODY Administration Diazepam 5 mg 04/21/25 12:27 04/24/25 16:51 Diazepam (*Crx) 5 Mg Tablet PO 5 mg Q6H PRN Administration Anxiety/Muscle Spasm Dicyclomine HCl 20 mg 04/23/25 16:50 04/25/25 05:22 Dicyclomine Hcl 10 Mg Capsule PO 20 mg QID PRN Administration Abdominal Cramping Diphenhydramine HCl 25 mg 04/21/25 12:27 04/26/25 20:53 Diphenhydramine Hcl Inj 50 Mg/Ml Vial IV PUSH 25 mg Q6H PRN Administration Itching Docusate Sodium 300 mg 04/21/25 12:27 04/26/25 09:07 Docusate Sodium 100 Mg Capsule PO 300 mg DAILY WOODY Administration Famotidine 20 mg 04/21/25 12:27 04/26/25 20:49 Famotidine 20 Mg Tablet PO 20 mg Q12HR WOODY Administration Hydromorphone HCl 1 mg 04/21/25 12:27 Hydromorphone Hcl Inj (*Crx) 1 Mg/Ml Syr IV PUSH Q2H PRN Breakthrough Pain Rated 7-10 or NPO Hydromorphone HCl 0.5 mg 04/21/25 12:27 04/22/25 06:19 Hydromorphone Hcl Inj (*Crx) 1 Mg/Ml Syr IV PUSH 0.5 mg Q2H PRN Administration Breakthrough Pain Rated 4-6 or NPO Hydroxychloroquine Sulfate 200 mg 04/21/25 12:27 04/26/25 09:07 Hydroxychloroquine Sulfate 200 Mg Tablet PO 200 mg DAILY WOODY Administration Ibuprofen 800 mg in 200 mls @ 400 mls/hr 04/21/25 12:27 04/27/25 06:41 Caldolor 800 Mg/200 Ml IVPB Infused Q6H PRN Infusion Breakthrough Pain Rated 1-3 or NPO Lactated Ringer's 1,000 mls @ 100 mls/hr 04/23/25 16:30 04/26/25 16:12 Lr - Lactated Ringers Iv IV CONT 100 mls/hr .Q10H WOODY Administration Leflunomide 20 mg 04/21/25 12:27 04/26/25 09:07 Leflunomide 20 Mg Tablet PO 20 mg DAILY WOODY Administration Linaclotide 290 mcg 04/22/25 06:30 04/27/25 06:13 Linaclotide 145 Mcg Capsule PO 290 mcg DAILY@0630 WOODY Administration Metoclopramide HCl 10 mg 04/23/25 16:50 04/26/25 16:58 Metoclopramide Hcl Inj 10 Mg/2 Ml Vial IV PUSH 10 mg Q6HR PRN Administration Nausea And Vomiting Naloxone HCl 0.1 mg 04/21/25 12:27 Naloxone Hcl 0.4 Mg/Ml Vial IV PUSH Q2M PRN Opiate Reversal Ondansetron HCl 4 mg 04/23/25 09:02 04/26/25 02:04 Ondansetron Inj 4 Mg/2 Ml Vial IV PUSH 4 mg Q4H PRN Administration Nausea And Vomiting Oxycodone/Acetaminophen 1 tablet 04/21/25 12:27 04/26/25 23:03 Oxycodone/Acetaminophen (*Crx) 5-325 Mg Tablet PO 1 tablet Q4H PRN Administration Pain Rated 4-6 Oxycodone/Acetaminophen 1 tab 04/21/25 12:27 04/22/25 08:06 Oxycodone/Acetaminophen (*Crx) 10-325 Mg Tablet PO 1 tab Q6H PRN Administration Pain Rated 7-10 Pantoprazole Sodium 40 mg 04/21/25 12:27 04/26/25 16:17 Pantoprazole 40 Mg Tablet PO 40 mg BID WOODY Administration Polyethylene Glycol 17 gm 04/21/25 12:27 04/26/25 09:13 Polyethylene Glycol 3350 17 Gm Powd.Pack PO Not Given QAM WOODY Senna/Docusate Sodium 2 tab 04/21/25 12:27 04/26/25 16:16 Senna/Docusate Sodium Tablet PO 2 tab BID WOODY Administration Sertraline HCl 50 mg 04/21/25 12:27 04/26/25 09:07 Sertraline Hcl 50 Mg Tablet PO 50 mg DAILY WOODY Administration Vitamin D 50 mcg 04/22/25 09:00 04/26/25 09:08 Cholecalciferol (Vitamin D3) 25 Mcg (1,000 Units) Tablet PO 50 mcg DAILY WOODY Administration Radiology Results: ITS Impressions Hip X-Ray 04/21/25 11:35 IMPRESSION: 1. Recent right total hip arthroplasty. Abdomen/Pelvis CT 04/24/25 13:47 IMPRESSION: 1. Enteritis and diarrheal state. Abdomen X-Ray 04/26/25 14:36 IMPRESSION: 1. Persistent diffuse mild gaseous distention of the colon consistent with persistent postoperative ileus. Labs Labs: Laboratory Results - last 24 hr 04/26/25 04/26/25 04/27/25 15:30 22:01 05:22 WBC 7.4 6.1 RBC 3.51 L 2.99 L Hgb 9.7 L 8.4 L Hct 30.4 L 26.2 L MCV 86.6 87.6 MCH 27.6 28.1 MCHC 31.9 L 32.1 RDW 12.7 12.8 Plt Count 317 D 278 MPV 9.6 9.7 Immature Gran % (Auto) 1.0 H Neut % (Auto) 56.7 Lymph % (Auto) 21.1 [place] % (Auto) 12.5 H Eos % (Auto) 8.4 H Baso % (Auto) 0.3 Lymph # (Auto) 1.28 [place] # (Auto) 0.8 H Eos # (Auto) 0.5 H Baso # (Auto) 0.0 Abs Immat Gran (auto) 0.06 H Absolute Neuts (auto) 3.4 Absolute Nucleated RBC 0.000 Nucleated RBC % 0.0 Sodium 135 L 136 L Potassium 2.4 L* 2.8 L* 3.0 L Chloride 98 105 Carbon Dioxide 31 H 28 Anion Gap 6 3 L BUN 8 D 7 Creatinine 0.53 L 0.49 L Estim Creat Clear Calc 104 111 Estimated GFR > 60 > 60 Glucose 100 89 Calcium 8.5 8.1 L Magnesium 1.8 Total Bilirubin 0.5 0.4 AST 39 H 34 ALT 23 19 Alkaline Phosphatase 116 98 Lactate Dehydrogenase 217 Total Protein 6.5 5.5 L Albumin 3.4 L 2.8 L
[2025-04-27] MEDS: CHOLECALCIFEROL (VITAMIN D3) 25 MCG (1,000 UNITS) TABLET 50 MCG PO (09:21)
[2025-04-27] MEDS: SENNA/DOCUSATE SODIUM TABLET 2 TAB PO ×2 (09:21→17:37)
[2025-04-27] MEDS: HYDROXYCHLOROQUINE SULFATE 200 MG TABLET PO (09:21)
[2025-04-27] MEDS: ASPIRIN 325 MG ENTERIC TABLET PO ×2 (09:21→20:44)
[2025-04-27] MEDS: POTASSIUM CHLORIDE INJ 40 MEQ in SODIUM CHLORIDE 0.9% IV 500 ML 130 MEQ IVPB ×2 (09:21→20:30)
[2025-04-27] MEDS: PANTOPRAZOLE 40 MG TABLET PO ×2 (09:22→17:37)
[2025-04-27] MEDS: FAMOTIDINE 20 MG TABLET PO ×2 (09:22→20:32)
[2025-04-27] MEDS: DOCUSATE SODIUM 100 MG CAPSULE 300 MG PO (09:22)
[2025-04-27] MEDS: SERTRALINE HCL 50 MG TABLET PO (09:22)
[2025-04-27] MEDS: LEFLUNOMIDE 20 MG TABLET PO (09:22)
--- NOTE | 2025-04-27 16:24 | WPDGIPROGNO ---
Progress Note: A&P Assessment and Plan (1) Postoperative ileus: Code(s): K91.89 - Other postprocedural complications and disorders of digestive system; K56.7 - Ileus, unspecified Status: Acute Assessment and Plan: clinically much better after medical treatment will advance diet repleting K (2) Abdominal distension (gaseous): Code(s): R14.0 - Abdominal distension (gaseous) Status: Acute Assessment and Plan: resolved and almost back to normal (3) Constipation: Qualifiers: Constipation type: unspecified constipation type Qualified Code(s): K59.00 - Constipation, unspecified Code(s): K59.00 - Constipation, unspecified Status: Acute (4) Hypokalemia: Code(s): E87.6 - Hypokalemia Status: Acute (5) S/P total hip arthroplasty: Qualifiers: Laterality: right Qualified Code(s): Z96.641 - Presence of right artificial hip joint Code(s): Z96.649 - Presence of unspecified artificial hip joint Status: Acute Subjective Date/time seen: 04/27/25 16:24 Interval history: she is feeling much better after she had rectal tube, K was replaced and received relistor tolerated liquid diet abdomen is almost back to normal size Review of Systems Review of Systems: All systems reviewed & are unremarkable except as noted in HPI and below Exam Const: General: comfortable and no acute distress HENMT: Face/Nose/Sinus: Normal nares present Eyes: General: appearance normal, both eyes and all related structures Neck: Neck: no JVD Resp: Auscultation: clear to auscultation bilaterally Cardio: Rate: regular rate Rhythm: regular rhythm GI: Inspection: non-distended GI Palp: Yes Soft to palpation and No Tenderness to palpation present (GI) Auscultation: normal bowel sounds Skin: General skin exam: normal color Neuro: Speech: normal speech Extrem: General: normal to inspection Psych: Mental Status: mental status grossly normal Objective Data Vital Signs Vital Signs: Vital Signs - 24 hr 04/26/25 20:00 04/26/25 20:00 04/26/25 20:29 Temperature 97.4 F L Pulse Rate 84 84 Respiratory Rate 17 Blood Pressure 134/57 L Pulse Oximetry 94 Oxygen Delivery Room Air 04/27/25 00:00 04/27/25 04:00 04/27/25 04:21 Temperature 97.3 F L Pulse Rate 88 112 H 77 Respiratory Rate 17 Blood Pressure 138/63 Pulse Oximetry 95 Oxygen Delivery 04/27/25 09:21 04/27/25 14:00 Temperature 98.6 F Pulse Rate 84 Respiratory Rate 18 Blood Pressure 138/82 Pulse Oximetry 94 Oxygen Delivery Room Air Intake/Output Intake/Output: Intake & Output 04/24/25 04/25/25 04/26/25 04/27/25 23:59 23:59 23:59 23:59 Intake Total 4046.7 2770 3165 420 Output Total 225 Balance 4046.7 2770 3165 195 Meds/Results Medications: Active Medications Generic Name Dose Route Start Last Admin Trade Name Freq PRN Reason Stop Dose Admin Aspirin 325 mg 04/21/25 12:27 04/27/25 09:21 Aspirin 325 Mg Enteric Tablet PO 325 mg Q12HR WOODY Administration Atorvastatin Calcium 10 mg 04/21/25 21:00 04/26/25 20:49 Atorvastatin 10 Mg Tablet PO 10 mg HS WOODY Administration Diazepam 5 mg 04/21/25 12:27 04/24/25 16:51 Diazepam (*Crx) 5 Mg Tablet PO 5 mg Q6H PRN Administration Anxiety/Muscle Spasm Dicyclomine HCl 20 mg 04/23/25 16:50 04/25/25 05:22 Dicyclomine Hcl 10 Mg Capsule PO 20 mg QID PRN Administration Abdominal Cramping Diphenhydramine HCl 25 mg 04/21/25 12:27 04/26/25 20:53 Diphenhydramine Hcl Inj 50 Mg/Ml Vial IV PUSH 25 mg Q6H PRN Administration Itching Docusate Sodium 300 mg 04/21/25 12:27 04/27/25 09:22 Docusate Sodium 100 Mg Capsule PO 300 mg DAILY WOODY Administration Famotidine 20 mg 04/21/25 12:27 04/27/25 09:22 Famotidine 20 Mg Tablet PO 20 mg Q12HR WOODY Administration Hydromorphone HCl 1 mg 04/21/25 12:27 Hydromorphone Hcl Inj (*Crx) 1 Mg/Ml Syr IV PUSH Q2H PRN Breakthrough Pain Rated 7-10 or NPO Hydromorphone HCl 0.5 mg 04/21/25 12:27 04/22/25 06:19 Hydromorphone Hcl Inj (*Crx) 1 Mg/Ml Syr IV PUSH 0.5 mg Q2H PRN Administration Breakthrough Pain Rated 4-6 or NPO Hydroxychloroquine Sulfate 200 mg 04/21/25 12:27 04/27/25 09:21 Hydroxychloroquine Sulfate 200 Mg Tablet PO 200 mg DAILY WOODY Administration Ibuprofen 800 mg in 200 mls @ 400 mls/hr 04/21/25 12:27 04/27/25 06:41 Caldolor 800 Mg/200 Ml IVPB Infused Q6H PRN Infusion Breakthrough Pain Rated 1-3 or NPO Lactated Ringer's 1,000 mls @ 100 mls/hr 04/23/25 16:30 04/27/25 09:20 Lr - Lactated Ringers Iv IV CONT Not Given .Q10H WOODY Leflunomide 20 mg 04/21/25 12:27 04/27/25 09:22 Leflunomide 20 Mg Tablet PO 20 mg DAILY WOODY Administration Linaclotide 290 mcg 04/22/25 06:30 04/27/25 06:13 Linaclotide 145 Mcg Capsule PO 290 mcg DAILY@0630 WOODY Administration Metoclopramide HCl 10 mg 04/23/25 16:50 04/26/25 16:58 Metoclopramide Hcl Inj 10 Mg/2 Ml Vial IV PUSH 10 mg Q6HR PRN Administration Nausea And Vomiting Naloxone HCl 0.1 mg 04/21/25 12:27 Naloxone Hcl 0.4 Mg/Ml Vial IV PUSH Q2M PRN Opiate Reversal Ondansetron HCl 4 mg 04/23/25 09:02 04/26/25 02:04 Ondansetron Inj 4 Mg/2 Ml Vial IV PUSH 4 mg Q4H PRN Administration Nausea And Vomiting Oxycodone/Acetaminophen 1 tablet 04/21/25 12:27 04/26/25 23:03 Oxycodone/Acetaminophen (*Crx) 5-325 Mg Tablet PO 1 tablet Q4H PRN Administration Pain Rated 4-6 Oxycodone/Acetaminophen 1 tab 04/21/25 12:27 04/22/25 08:06 Oxycodone/Acetaminophen (*Crx) 10-325 Mg Tablet PO 1 tab Q6H PRN Administration Pain Rated 7-10 Pantoprazole Sodium 40 mg 04/21/25 12:27 04/27/25 09:22 Pantoprazole 40 Mg Tablet PO 40 mg BID WOODY Administration Polyethylene Glycol 17 gm 04/21/25 12:27 04/27/25 09:30 Polyethylene Glycol 3350 17 Gm Powd.Pack PO Not Given QAM WOODY Senna/Docusate Sodium 2 tab 04/21/25 12:27 04/27/25 09:21 Senna/Docusate Sodium Tablet PO 2 tab BID WOODY Administration Sertraline HCl 50 mg 04/21/25 12:27 04/27/25 09:22 Sertraline Hcl 50 Mg Tablet PO 50 mg DAILY WOODY Administration Vitamin D 50 mcg 04/22/25 09:00 04/27/25 09:21 Cholecalciferol (Vitamin D3) 25 Mcg (1,000 Units) Tablet PO 50 mcg DAILY WOODY Administration Radiology Results: ITS Impressions Hip X-Ray 04/21/25 11:35 IMPRESSION: 1. Recent right total hip arthroplasty. Abdomen/Pelvis CT 04/24/25 13:47 IMPRESSION: 1. Enteritis and diarrheal state. Abdomen X-Ray 04/26/25 14:36 IMPRESSION: 1. Persistent diffuse mild gaseous distention of the colon consistent with persistent postoperative ileus. Labs Labs: Laboratory Results - last 24 hr 04/26/25 04/27/25 22:01 05:22 WBC 6.1 RBC 2.99 L Hgb 8.4 L Hct 26.2 L MCV 87.6 MCH 28.1 MCHC 32.1 RDW 12.8 Plt Count 278 MPV 9.7 Immature Gran % (Auto) 1.0 H Neut % (Auto) 56.7 Lymph % (Auto) 21.1 [place] % (Auto) 12.5 H Eos % (Auto) 8.4 H Baso % (Auto) 0.3 Lymph # (Auto) 1.28 [place] # (Auto) 0.8 H Eos # (Auto) 0.5 H Baso # (Auto) 0.0 Abs Immat Gran (auto) 0.06 H Absolute Neuts (auto) 3.4 Absolute Nucleated RBC 0.000 Nucleated RBC % 0.0 Sodium 136 L Potassium 2.8 L* 3.0 L Chloride 105 Carbon Dioxide 28 Anion Gap 3 L BUN 7 Creatinine 0.49 L Estim Creat Clear Calc 111 Estimated GFR > 60 Glucose 89 Calcium 8.1 L Magnesium 1.8 Total Bilirubin 0.4 AST 34 ALT 19 Alkaline Phosphatase 98 Total Protein 5.5 L Albumin 2.8 L
[2025-04-27] MEDS: LACTATED RINGERS 1,000 ML 100 ML IV CONT (17:36)
[2025-04-27 18:39] LABS: Potassium 2.6 mmol/L (3.4-5.0)
[2025-04-27] MEDS: POTASSIUM CHLORIDE 20 MEQ PACKET (FOR LIQUID) 40 MEQ PO (18:58)
[2025-04-27] MEDS: MAGNESIUM SULF 1 GM/D5W 100 ML 1 GM/100 ML BAG IVPB (20:30)
[2025-04-27] MEDS: ATORVASTATIN 10 MG TABLET PO (20:32)
[2025-04-28] VITALS (8 sets, daily range): BP systolic 135–145; BP diastolic 61–74; PULSE 74–82; RESP 16–20; TEMP 36.3–36.9; O2SAT 96–97
[2025-04-28] MEDS: LACTATED RINGERS 1,000 ML 100 ML IV CONT (04:19)
[2025-04-28 06:01] LABS: Hematocrit 26.2 % (37.0-47.0); Hemoglobin 8.3 g/dL (12.0-15.0); Mean Corpuscular HGB Conc 31.7 g/dl (32-36); Mean Corpuscular Hemoglobin 27.7 pg (26-34); Mean Corpuscular Volume 87.3 fl (80-100); Platelet Count Result 337 k/mm3 (150-375); Red Blood Count 3.00 M/mm3 (4.2-5.4); White Blood Count 7.2 K/mm3 (4.5-10.0)
[2025-04-28 06:27] LABS: Anion Gap 4 mmol/L (4-12); Blood Urea Nitrogen 3 mg/dL (7-17); Calcium 7.8 mg/dL (8.4-10.2); Carbon Dioxide 28 mmol/L (22-30); Chloride 105 mmol/L (98-107); Estimated CRCL calculation 114 ml/min; Estimated Glomerular Filt Rate > 60; Glucose 99 mg/dL (65-110); Magnesium 1.9 mg/dL (1.6-2.3); Potassium 2.7 mmol/L (3.4-5.0); Sodium 137 mmol/L (137-145)
[2025-04-28] MEDS: LINACLOTIDE 145 MCG CAPSULE 290 MCG PO (06:54)
[2025-04-28] MEDS: MAGNESIUM SULF 2 GM/WATER 50ML 2 GM/50 ML BAG IVPB (07:14)
[2025-04-28] MEDS: POTASSIUM CHLORIDE 20 MEQ ER TABLET 40 MEQ PO (07:15)
[2025-04-28] MEDS: LEFLUNOMIDE 20 MG TABLET PO (08:41)
[2025-04-28] MEDS: ASPIRIN 325 MG ENTERIC TABLET PO ×2 (08:41→20:59)
[2025-04-28] MEDS: POTASSIUM CHLORIDE 20 MEQ PACKET (FOR LIQUID) 40 MEQ PO ×2 (08:41→17:18)
[2025-04-28] MEDS: FAMOTIDINE 20 MG TABLET PO ×2 (08:42→20:59)
[2025-04-28] MEDS: HYDROXYCHLOROQUINE SULFATE 200 MG TABLET PO (08:42)
[2025-04-28] MEDS: CHOLECALCIFEROL (VITAMIN D3) 25 MCG (1,000 UNITS) TABLET 50 MCG PO (08:42)
[2025-04-28] MEDS: PANTOPRAZOLE 40 MG TABLET PO ×2 (08:42→17:18)
[2025-04-28] MEDS: SERTRALINE HCL 50 MG TABLET PO (08:42)
[2025-04-28] MEDS: DOCUSATE SODIUM 100 MG CAPSULE 300 MG PO (08:43)
--- NOTE | 2025-04-28 08:51 | P.PNIM_ITS ---
Progress Note: A&P Assessment and Plan (1) Postoperative ileus: Code(s): K91.89 - Other postprocedural complications and disorders of digestive system; K56.7 - Ileus, unspecified Status: Acute Assessment and Plan: Patient underwent a total right hip arthroplasty on 04/21. Post-op patient began experiencing abdominal pain, nausea, vomiting, and abdominal distension. She has a history significant for IBS-C for which she takes docusate capsules x3, Dulcolax suppository, and Linzess daily. Abdominal XR obtained 04/23 which showed moderate dilation of the colon which is gas-filled, likely ileus, with no definite obstruction. Given patient's history of IBS-C and previous ileus/obstruction postoperative, will consult General surgery and place patient on clears. May need NG tube as she is not currently tolerating clear liquids. - s/p IV fluids. Tolerating regular diet. -Pain control managed by primary team - continue Percocet. - continue PRN Reglan -reviewed current bowel regimen: on docusate 300 mg daily, docusate 2 tablets b.i.d., and Linzess daily. Has also received a Dulcolax suppository x1 and MiraLax x1. - received Fleet enema, one time dose Relistor and mag citrate -Repeat KUB on 04/26: Persistent diffuse mild gaseous distention of the colon consistent with persistent postoperative ileus. - general surgery consulted - recommended no acute surgical intervention, Fleet enemas PRN - GI consulted - s/p rectal tube with improvement in symptoms although patient is having some distention today. Did have loose bowel movement this morning. (2) Constipation: Qualifiers: Constipation type: unspecified constipation type Qualified Code(s): K59.00 - Constipation, unspecified Code(s): K59.00 - Constipation, unspecified Status: Acute Assessment and Plan: -see above (3) S/P total hip arthroplasty: Qualifiers: Laterality: right Qualified Code(s): Z96.641 - Presence of right artificial hip joint Code(s): Z96.649 - Presence of unspecified artificial hip joint Status: Acute Assessment and Plan: -Post op 04/21/2025 R SHAHRAM -primary management via orthopedic team -analgesics p.r.n. -encourage IS use -continue PT/OT (4) Hypokalemia: Code(s): E87.6 - Hypokalemia Status: Acute Assessment and Plan: - K+ 2.7 - received IV and PO replacement this AM. Continue BID replacement. Plan Diet: regular diet DVT Prophylaxis: SCDs, ASA Code Status: Full code Subjective Date/time seen: 04/28/25 08:51 Interval history: Patient seen and examined at bedside. Having abdominal distention with mild discomfort. Had loose BM this AM. Reports decreased appetite. Denied nausea/vomiting. Overall does feel improved. Review of Systems Review of Systems: All systems reviewed & are unremarkable except as noted in HPI and below Exam Narrative: General: NAD Eyes: EOMI ENT: neck supple Cardiovascular: Regular rate and rhythm Respiratory: Clear to auscultation, respirations even and unlabored on RA Gastrointestinal: mild distention, mild diffuse tenderness. Bowel sounds active. Genitourinary: no suprapubic tenderness Musculoskeletal: No edema Skin: warm, dry Neuro: Alert. Psych: Mood appropriate Objective Data Vital Signs Vital Signs: Vital Signs - 24 hr 04/27/25 09:21 04/27/25 12:00 04/27/25 14:00 Temperature 98.6 F Pulse Rate 90 84 Respiratory Rate 18 Blood Pressure 138/82 Pulse Oximetry 94 Oxygen Delivery Room Air 04/27/25 16:00 04/27/25 20:00 04/27/25 20:00 Temperature Pulse Rate 76 86 Respiratory Rate Blood Pressure Pulse Oximetry Oxygen Delivery Room Air 04/27/25 21:53 04/28/25 04:00 04/28/25 04:20 Temperature 98.1 F 98.4 F Pulse Rate 83 80 82 Respiratory Rate 18 20 Blood Pressure 134/59 L 145/71 H Pulse Oximetry 95 96 Oxygen Delivery Intake/Output Intake/Output: Intake & Output 04/25/25 04/26/25 04/27/25 04/28/25 23:59 23:59 23:59 23:59 Intake Total 2770 3165 1420 1480 Output Total 225 Balance 2770 3165 1195 1480 Meds/Results Medications: Active Medications Generic Name Dose Route Start Last Admin Trade Name Freq PRN Reason Stop Dose Admin Aspirin 325 mg 04/21/25 12:27 04/28/25 08:41 Aspirin 325 Mg Enteric Tablet PO 325 mg Q12HR WOODY Administration Atorvastatin Calcium 10 mg 04/21/25 21:00 04/27/25 20:32 Atorvastatin 10 Mg Tablet PO 10 mg HS WOODY Administration Diazepam 5 mg 04/21/25 12:27 04/24/25 16:51 Diazepam (*Crx) 5 Mg Tablet PO 5 mg Q6H PRN Administration Anxiety/Muscle Spasm Dicyclomine HCl 20 mg 04/23/25 16:50 04/25/25 05:22 Dicyclomine Hcl 10 Mg Capsule PO 20 mg QID PRN Administration Abdominal Cramping Diphenhydramine HCl 25 mg 04/21/25 12:27 04/26/25 20:53 Diphenhydramine Hcl Inj 50 Mg/Ml Vial IV PUSH 25 mg Q6H PRN Administration Itching Docusate Sodium 300 mg 04/21/25 12:27 04/28/25 08:43 Docusate Sodium 100 Mg Capsule PO 300 mg DAILY WOODY Administration Famotidine 20 mg 04/21/25 12:27 04/28/25 08:42 Famotidine 20 Mg Tablet PO 20 mg Q12HR WOODY Administration Hydromorphone HCl 1 mg 04/21/25 12:27 Hydromorphone Hcl Inj (*Crx) 1 Mg/Ml Syr IV PUSH Q2H PRN Breakthrough Pain Rated 7-10 or NPO Hydromorphone HCl 0.5 mg 04/21/25 12:27 04/22/25 06:19 Hydromorphone Hcl Inj (*Crx) 1 Mg/Ml Syr IV PUSH 0.5 mg Q2H PRN Administration Breakthrough Pain Rated 4-6 or NPO Hydroxychloroquine Sulfate 200 mg 04/21/25 12:27 04/28/25 08:42 Hydroxychloroquine Sulfate 200 Mg Tablet PO 200 mg DAILY WOODY Administration Ibuprofen 800 mg in 200 mls @ 400 mls/hr 04/21/25 12:27 04/27/25 06:41 Caldolor 800 Mg/200 Ml IVPB Infused Q6H PRN Infusion Breakthrough Pain Rated 1-3 or NPO Lactated Ringer's 1,000 mls @ 100 mls/hr 04/23/25 16:30 04/28/25 04:19 Lr - Lactated Ringers Iv IV CONT 100 mls/hr .Q10H WOODY Administration Potassium Chloride 40 meq/ 520 mls @ 130 mls/hr 04/28/25 07:00 Sodium Chloride IVPB 04/28/25 10:59 ONCE ONE Leflunomide 20 mg 04/21/25 12:27 04/28/25 08:41 Leflunomide 20 Mg Tablet PO 20 mg DAILY WOODY Administration Linaclotide 290 mcg 04/22/25 06:30 04/28/25 06:54 Linaclotide 145 Mcg Capsule PO 290 mcg DAILY@0630 WOODY Administration Metoclopramide HCl 10 mg 04/23/25 16:50 04/26/25 16:58 Metoclopramide Hcl Inj 10 Mg/2 Ml Vial IV PUSH 10 mg Q6HR PRN Administration Nausea And Vomiting Naloxone HCl 0.1 mg 04/21/25 12:27 Naloxone Hcl 0.4 Mg/Ml Vial IV PUSH Q2M PRN Opiate Reversal Ondansetron HCl 4 mg 04/23/25 09:02 04/26/25 02:04 Ondansetron Inj 4 Mg/2 Ml Vial IV PUSH 4 mg Q4H PRN Administration Nausea And Vomiting Oxycodone/Acetaminophen 1 tablet 04/21/25 12:27 04/26/25 23:03 Oxycodone/Acetaminophen (*Crx) 5-325 Mg Tablet PO 1 tablet Q4H PRN Administration Pain Rated 4-6 Oxycodone/Acetaminophen 1 tab 04/21/25 12:27 04/22/25 08:06 Oxycodone/Acetaminophen (*Crx) 10-325 Mg Tablet PO 1 tab Q6H PRN Administration Pain Rated 7-10 Pantoprazole Sodium 40 mg 04/21/25 12:27 04/28/25 08:42 Pantoprazole 40 Mg Tablet PO 40 mg BID WOODY Administration Polyethylene Glycol 17 gm 04/21/25 12:27 04/28/25 08:43 Polyethylene Glycol 3350 17 Gm Powd.Pack PO Not Given QAM WOODY Potassium Chloride 40 meq 04/27/25 18:50 04/28/25 08:41 Potassium Chloride 20 Meq Packet (For Liquid) PO 40 meq BID WOODY Administration Senna/Docusate Sodium 2 tab 04/21/25 12:27 04/28/25 08:43 Senna/Docusate Sodium Tablet PO Not Given BID WOODY Sertraline HCl 50 mg 04/21/25 12:27 04/28/25 08:42 Sertraline Hcl 50 Mg Tablet PO 50 mg DAILY WOODY Administration Vitamin D 50 mcg 04/22/25 09:00 04/28/25 08:42 Cholecalciferol (Vitamin D3) 25 Mcg (1,000 Units) Tablet PO 50 mcg DAILY WOODY Administration Radiology Results: ITS Impressions Hip X-Ray 04/21/25 11:35 IMPRESSION: 1. Recent right total hip arthroplasty. Abdomen/Pelvis CT 04/24/25 13:47 IMPRESSION: 1. Enteritis and diarrheal state. Abdomen X-Ray 04/26/25 14:36 IMPRESSION: 1. Persistent diffuse mild gaseous distention of the colon consistent with persistent postoperative ileus. Labs Labs: Laboratory Results - last 24 hr 04/27/25 04/28/25 18:17 05:38 WBC 7.2 RBC 3.00 L Hgb 8.3 L Hct 26.2 L MCV 87.3 MCH 27.7 MCHC 31.7 L RDW 13.0 Plt Count 337 MPV 9.6 Sodium 137 Potassium 2.6 L* 2.7 L* Chloride 105 Carbon Dioxide 28 Anion Gap 4 BUN 3 L Creatinine 0.48 L Estim Creat Clear Calc 114 Estimated GFR > 60 Glucose 99 Calcium 7.8 L Phosphorus 2.8 Magnesium 1.9 Quality VTE Prophylaxis VTE prophylaxis: mechanical ordered and pharmacologic ordered
[2025-04-28] MEDS: POTASSIUM CHLORIDE INJ 40 MEQ in SODIUM CHLORIDE 0.9% IV 500 ML 130 MEQ IVPB (09:16)
[2025-04-28 14:59] LABS: Alanine Aminotransferase 22 U/L (6-35); Albumin Level 3.1 g/dL (3.5-5.1); Alkaline Phosphatase 114 U/L (38-126); Anion Gap 5 mmol/L (4-12); Aspartate Amino Transferase 42 U/L (14-36); Bilirubin,Total 0.4 mg/dL (0.2-1.3); Blood Urea Nitrogen 4 mg/dL (7-17); Calcium 8.2 mg/dL (8.4-10.2); Carbon Dioxide 26 mmol/L (22-30); Chloride 106 mmol/L (98-107); Estimated CRCL calculation 108 ml/min; Estimated Glomerular Filt Rate > 60; Glucose 106 mg/dL (65-110); Magnesium 2.4 mg/dL (1.6-2.3); Potassium 3.0 mmol/L (3.4-5.0); Sodium 137 mmol/L (137-145); Total Protein 5.9 g/dL (6.3-8.2)
--- NOTE | 2025-04-28 16:41 | WPDGIPROGNO ---
Progress Note: A&P Assessment and Plan (1) Postoperative ileus: Code(s): K91.89 - Other postprocedural complications and disorders of digestive system; K56.7 - Ileus, unspecified Status: Acute Assessment and Plan: clinically much better after medical treatment tolerating diet, continue with daily linzess she has appointment with her regular GI doctor soon hopefully home tomorrow (2) Abdominal distension (gaseous): Code(s): R14.0 - Abdominal distension (gaseous) Status: Acute Assessment and Plan: kub with gas and constipation continue medical treatment (3) Constipation: Qualifiers: Constipation type: unspecified constipation type Qualified Code(s): K59.00 - Constipation, unspecified Code(s): K59.00 - Constipation, unspecified Status: Acute (4) Hypokalemia: Code(s): E87.6 - Hypokalemia Status: Acute (5) S/P total hip arthroplasty: Qualifiers: Laterality: right Qualified Code(s): Z96.641 - Presence of right artificial hip joint Code(s): Z96.649 - Presence of unspecified artificial hip joint Status: Acute Subjective Date/time seen: 04/28/25 16:41 Interval history: she is eating had liquid BM, abdomen more distended that yesterday Review of Systems Review of Systems: All systems reviewed & are unremarkable except as noted in HPI and below Exam Const: General: comfortable and no acute distress HENMT: Face/Nose/Sinus: Normal nares present Eyes: General: appearance normal, both eyes and all related structures Neck: Neck: no JVD Resp: Auscultation: clear to auscultation bilaterally Cardio: Rate: regular rate Rhythm: regular rhythm GI: GI Palp: Yes Soft to palpation and No Tenderness to palpation present (GI) Auscultation: normal bowel sounds Other: slightly distended, no rebound Skin: General skin exam: normal color Neuro: Speech: normal speech Extrem: General: normal to inspection Psych: Mental Status: mental status grossly normal Objective Data Vital Signs Vital Signs: Vital Signs - 24 hr 04/27/25 20:00 04/27/25 20:00 04/27/25 21:53 Temperature 98.1 F Pulse Rate 86 83 Respiratory Rate 18 Blood Pressure 134/59 L Pulse Oximetry 95 Oxygen Delivery Room Air 04/28/25 04:00 04/28/25 04:20 04/28/25 08:00 Temperature 98.4 F Pulse Rate 80 82 77 Respiratory Rate 20 20 Blood Pressure 145/71 H Pulse Oximetry 96 96 Oxygen Delivery Room Air 04/28/25 08:00 04/28/25 12:05 04/28/25 14:00 Temperature 97.8 F Pulse Rate 77 74 79 Respiratory Rate 16 Blood Pressure 136/74 Pulse Oximetry 97 Oxygen Delivery Intake/Output Intake/Output: Intake & Output 04/25/25 04/26/25 04/27/25 04/28/25 23:59 23:59 23:59 23:59 Intake Total 2770 3165 1420 2050 Output Total 225 Balance 2770 3165 1195 0 Meds/Results Medications: Active Medications Generic Name Dose Route Start Last Admin Trade Name Freq PRN Reason Stop Dose Admin Aspirin 325 mg 04/21/25 12:27 04/28/25 08:41 Aspirin 325 Mg Enteric Tablet PO 325 mg Q12HR WOODY Administration Atorvastatin Calcium 10 mg 04/21/25 21:00 04/27/25 20:32 Atorvastatin 10 Mg Tablet PO 10 mg HS WOODY Administration Diazepam 5 mg 04/21/25 12:27 04/24/25 16:51 Diazepam (*Crx) 5 Mg Tablet PO 5 mg Q6H PRN Administration Anxiety/Muscle Spasm Dicyclomine HCl 20 mg 04/23/25 16:50 04/25/25 05:22 Dicyclomine Hcl 10 Mg Capsule PO 20 mg QID PRN Administration Abdominal Cramping Diphenhydramine HCl 25 mg 04/21/25 12:27 04/26/25 20:53 Diphenhydramine Hcl Inj 50 Mg/Ml Vial IV PUSH 25 mg Q6H PRN Administration Itching Docusate Sodium 300 mg 04/21/25 12:27 04/28/25 08:43 Docusate Sodium 100 Mg Capsule PO 300 mg DAILY WOODY Administration Famotidine 20 mg 04/21/25 12:27 04/28/25 08:42 Famotidine 20 Mg Tablet PO 20 mg Q12HR WOODY Administration Hydroxychloroquine Sulfate 200 mg 04/21/25 12:27 04/28/25 08:42 Hydroxychloroquine Sulfate 200 Mg Tablet PO 200 mg DAILY WOODY Administration Ibuprofen 800 mg in 200 mls @ 400 mls/hr 04/21/25 12:27 04/27/25 06:41 Caldolor 800 Mg/200 Ml IVPB Infused Q6H PRN Infusion Breakthrough Pain Rated 1-3 or NPO Leflunomide 20 mg 04/21/25 12:27 04/28/25 08:41 Leflunomide 20 Mg Tablet PO 20 mg DAILY WOODY Administration Linaclotide 290 mcg 04/22/25 06:30 04/28/25 06:54 Linaclotide 145 Mcg Capsule PO 290 mcg DAILY@0630 WOODY Administration Metoclopramide HCl 10 mg 04/23/25 16:50 04/26/25 16:58 Metoclopramide Hcl Inj 10 Mg/2 Ml Vial IV PUSH 10 mg Q6HR PRN Administration Nausea And Vomiting Naloxone HCl 0.1 mg 04/21/25 12:27 Naloxone Hcl 0.4 Mg/Ml Vial IV PUSH Q2M PRN Opiate Reversal Ondansetron HCl 4 mg 04/23/25 09:02 04/26/25 02:04 Ondansetron Inj 4 Mg/2 Ml Vial IV PUSH 4 mg Q4H PRN Administration Nausea And Vomiting Oxycodone/Acetaminophen 1 tablet 04/21/25 12:27 04/26/25 23:03 Oxycodone/Acetaminophen (*Crx) 5-325 Mg Tablet PO 1 tablet Q4H PRN Administration Pain Rated 4-6 Oxycodone/Acetaminophen 1 tab 04/21/25 12:27 04/22/25 08:06 Oxycodone/Acetaminophen (*Crx) 10-325 Mg Tablet PO 1 tab Q6H PRN Administration Pain Rated 7-10 Pantoprazole Sodium 40 mg 04/21/25 12:27 04/28/25 08:42 Pantoprazole 40 Mg Tablet PO 40 mg BID WOODY Administration Polyethylene Glycol 17 gm 04/21/25 12:27 04/28/25 08:43 Polyethylene Glycol 3350 17 Gm Powd.Pack PO Not Given QAM WOODY Potassium Chloride 40 meq 04/27/25 18:50 04/28/25 08:41 Potassium Chloride 20 Meq Packet (For Liquid) PO 40 meq BID WOODY Administration Senna/Docusate Sodium 2 tab 04/21/25 12:27 04/28/25 08:43 Senna/Docusate Sodium Tablet PO Not Given BID WOODY Sertraline HCl 50 mg 04/21/25 12:27 04/28/25 08:42 Sertraline Hcl 50 Mg Tablet PO 50 mg DAILY WOODY Administration Vitamin D 50 mcg 04/22/25 09:00 04/28/25 08:42 Cholecalciferol (Vitamin D3) 25 Mcg (1,000 Units) Tablet PO 50 mcg DAILY WOODY Administration Radiology Results: ITS Impressions Hip X-Ray 04/21/25 11:35 IMPRESSION: 1. Recent right total hip arthroplasty. Abdomen/Pelvis CT 04/24/25 13:47 IMPRESSION: 1. Enteritis and diarrheal state. Abdomen X-Ray 04/28/25 14:07 IMPRESSION: 1. Persistent diffuse mild gaseous distention of the colon consistent with ileus without appreciable stool to suggest constipation. Labs Labs: Laboratory Results - last 24 hr 04/27/25 04/28/25 04/28/25 18:17 05:38 14:14 WBC 7.2 RBC 3.00 L Hgb 8.3 L Hct 26.2 L MCV 87.3 MCH 27.7 MCHC 31.7 L RDW 13.0 Plt Count 337 MPV 9.6 Sodium 137 137 Potassium 2.6 L* 2.7 L* 3.0 L Chloride 105 106 Carbon Dioxide 28 26 Anion Gap 4 5 BUN 3 L 4 L Creatinine 0.48 L 0.51 L Estim Creat Clear Calc 114 108 Estimated GFR > 60 > 60 Glucose 99 106 Calcium 7.8 L 8.2 L Phosphorus 2.8 2.2 L Magnesium 1.9 2.4 H Total Bilirubin 0.4 AST 42 H ALT 22 Alkaline Phosphatase 114 Total Protein 5.9 L Albumin 3.1 L
[2025-04-28] MEDS: SENNA/DOCUSATE SODIUM TABLET 2 TAB PO (17:18)
[2025-04-28] MEDS: ATORVASTATIN 10 MG TABLET PO (20:59)
[2025-04-28] MEDS: POTASSIUM PHOS,M-BASIC-D-BASIC 40 MMOL in SODIUM CHLORIDE 0.9% IV 250 ML 43.89 MMOL IVPB (22:36)
[2025-04-28] MEDS: TRIAMCINOLONE ACET 0.1% CREAM 15 GM TUBE 1 APPLIC TOPICAL (23:02)
[2025-04-29] VITALS: PULSE 73
[2025-04-29 04:00] VITALS: PULSE 73
[2025-04-29 04:06] VITALS: BP 131/70; PULSE 72; RESP 16; TEMP 36.5; O2SAT 98
[2025-04-29 04:08] VITALS: BP 131/70; RESP 16; TEMP 36.5; O2SAT 98
[2025-04-29] MEDS: LINACLOTIDE 145 MCG CAPSULE 290 MCG PO (05:33)
[2025-04-29 07:21] LABS: Hematocrit 28.8 % (37.0-47.0); Hemoglobin 9.2 g/dL (12.0-15.0); Immature Granulocyte Percent A 2.1 % (0-0.5); Lymphocytes Absolute Auto 1.90 K/mm3 (0.9-3.2); Mean Corpuscular HGB Conc 31.9 g/dl (32-36); Mean Corpuscular Hemoglobin 27.5 pg (26-34); Mean Corpuscular Volume 86.2 fl (80-100); Nucleated Red Blood Cells Absolute Auto 0.000 K/mm3 (0.0-0.012); Nucleated Red Blood Cells Perc 0.0 % (0.0-0.2); Platelet Count Result 384 k/mm3 (150-375); Red Blood Count 3.34 M/mm3 (4.2-5.4); White Blood Count 7.7 K/mm3 (4.5-10.0)
[2025-04-29 07:40] LABS: Alanine Aminotransferase 25 U/L (6-35); Albumin Level 3.3 g/dL (3.5-5.1); Alkaline Phosphatase 109 U/L (38-126); Anion Gap 7 mmol/L (4-12); Aspartate Amino Transferase 55 U/L (14-36); Bilirubin,Total 0.3 mg/dL (0.2-1.3); Blood Urea Nitrogen 4 mg/dL (7-17); Calcium 8.6 mg/dL (8.4-10.2); Carbon Dioxide 26 mmol/L (22-30); Chloride 105 mmol/L (98-107); Estimated CRCL calculation 111 ml/min; Estimated Glomerular Filt Rate > 60; Glucose 97 mg/dL (65-110); Magnesium 2.1 mg/dL (1.6-2.3); Potassium 3.4 mmol/L (3.4-5.0); Sodium 138 mmol/L (137-145); Total Protein 6.3 g/dL (6.3-8.2)
[2025-04-29 08:00] VITALS: PULSE 104
[2025-04-29] MEDS: LEFLUNOMIDE 20 MG TABLET PO (09:06)
[2025-04-29] MEDS: SERTRALINE HCL 50 MG TABLET PO (09:06)
[2025-04-29] MEDS: CHOLECALCIFEROL (VITAMIN D3) 25 MCG (1,000 UNITS) TABLET 50 MCG PO (09:07)
[2025-04-29] MEDS: HYDROXYCHLOROQUINE SULFATE 200 MG TABLET PO (09:07)
[2025-04-29] MEDS: POTASSIUM CHLORIDE 20 MEQ PACKET (FOR LIQUID) 40 MEQ PO (09:07)
[2025-04-29] MEDS: ASPIRIN 325 MG ENTERIC TABLET PO (09:07)
[2025-04-29] MEDS: PANTOPRAZOLE 40 MG TABLET PO (09:07)
[2025-04-29] MEDS: FAMOTIDINE 20 MG TABLET PO (09:08)
[2025-04-29] MEDS: DOCUSATE SODIUM 100 MG CAPSULE 300 MG PO (09:10)
--- NOTE | 2025-04-29 09:24 | P.PNOP_ITS ---
Progress Note: A&P Assessment and Plan (1) Postoperative ileus: Code(s): K91.89 - Other postprocedural complications and disorders of digestive system; K56.7 - Ileus, unspecified Status: Acute Assessment and Plan: General surgery consultation reviewed. No surgical recommendations. GI consultation appreciated. One time dose Relistor and rectal tube placed on 04/26. Abdominal XR on 04/28 reveals persistent diffuse mild gaseous distention of the colon consistent with ileus without appreciable stool to suggest constipation. Significant improvement in abdominal pain/distension today. She is able to sit on the side of the bed without pain. She has been cleared by GI for discharge. She will need to follow up with her GI at discharge. (2) Abnormal bowel sounds: Code(s): R19.15 - Other abnormal bowel sounds Status: Acute (3) Abdominal distension (gaseous): Code(s): R14.0 - Abdominal distension (gaseous) Status: Acute Assessment and Plan: Improvement. (4) Hypokalemia: Code(s): E87.6 - Hypokalemia Status: Acute Assessment and Plan: Potassium 3.4 today. Will have repeat labs as outpatient and patient is being d/c'd with potassium per medicine team. (5) S/P total hip arthroplasty: Qualifiers: Laterality: right Qualified Code(s): Z96.641 - Presence of right artificial hip joint Code(s): Z96.649 - Presence of unspecified artificial hip joint Status: Acute Assessment and Plan: POD #8: Right SHAHRAM Continue PT/OT. WBAT. Walker. HIGH FALL RISK. Limit narcotics given bowel issues. Ice Hip. Protect skin. DVT prophylaxis with Aspirin. SCDs. Incentive Spirometry Use reviewed. Monitor Dressing. Change prior to discharge. Bowel Regimen. Dispo: Home with Home Health F/U with GI. Plan Reviewed history, exam, radiographs and current labs with attending MD and covering surgeon, Dr. Escalante, who agrees with current plan as indicated above. No further recommendations from Dr. Escalante at this time. Subjective Subjective Date/Time Seen: 04/29/25 09:24 Post Op day: 8 Interval history: POD #8: Right SHAHRAM Patient reports pain in the right hip is minimal. Avoiding narcotic use given current bowel issues. Reports improvement in abdominal pain/distention today. Hopeful for d/c home. Review of Systems Review of Systems: All systems reviewed & are unremarkable except as noted in HPI and below Exam Const: General: comfortable and no acute distress Resp: Effort & Inspection: normal respiratory effort Cardio: Rate: regular rate Rhythm: regular rhythm GI: GI Palp: Yes Soft to palpation, No Tenderness to palpation present (GI) and No Guarding due to palpation present (GI) Skin: General skin exam: normal color Other: Incision right hip c/d/i. Surrounding tissue without redness/warmth. Mild swelling consistent with recent surgery. No drainage. Neuro: Cognition (Neuro): normal cognition Speech: normal speech Extrem: Right lower extremity: normal to inspection, normal capillary refill, hip/thigh Details: tenderness Location: of the hip (Thigh soft ) Location: laterally and anteriorly, swelling Location: at the hip, abnormal ROM (limited consistent with recent surgery ) Details: pain with active ROM during and pain with passive ROM during and other (Incision c/d/i. ); no deformity and no unusual warmth, knee Details: normal to inspection; no tenderness and no swelling, lower leg (Negative Colleen's Sign ) Details: normal to inspection and no edema; no tenderness, ankle (+ankle dorsiflexion/plantarflexion) Details: normal to inspection and no edema; no tenderness, no swelling and no ecchymosis and foot Details: normal capillary refill, toes with normal ROM, vascular exam Details: dorsalis pedis pulse present and motor-sensory exam Details: light- touch normal; no tenderness Objective Data Vital Signs Vital Signs: Vital Signs - 24 hr 04/28/25 12:05 04/28/25 14:00 04/28/25 16:01 Temperature 36.6 C Pulse Rate 74 79 82 Respiratory Rate 16 Blood Pressure 136/74 Pulse Oximetry 97 Oxygen Delivery 04/28/25 20:00 04/28/25 20:00 04/28/25 20:33 Temperature 36.3 C L Pulse Rate 77 78 77 Respiratory Rate 16 16 Blood Pressure 135/61 Pulse Oximetry 97 97 Oxygen Delivery Room Air 04/29/25 00:00 04/29/25 04:00 04/29/25 04:06 Temperature 36.5 C Pulse Rate 73 73 72 Respiratory Rate 16 Blood Pressure 131/70 Pulse Oximetry 98 Oxygen Delivery 04/29/25 04:08 Temperature 36.5 C Pulse Rate Respiratory Rate 16 Blood Pressure 131/70 Pulse Oximetry 98 Oxygen Delivery Intake/Output Intake/Output: Intake & Output 04/26/25 04/27/25 04/28/25 04/29/25 23:59 23:59 23:59 23:59 Intake Total 3165 1420 2290 400 Output Total 225 Balance 3165 1195 2290 400 Meds/Results Medications: Active Medications Generic Name Dose Route Start Last Admin Trade Name Freq PRN Reason Stop Dose Admin Aspirin 325 mg 04/21/25 12:27 04/29/25 09:07 Aspirin 325 Mg Enteric Tablet PO 325 mg Q12HR WOODY Administration Atorvastatin Calcium 10 mg 04/21/25 21:00 04/28/25 20:59 Atorvastatin 10 Mg Tablet PO 10 mg HS WOODY Administration Diazepam 5 mg 04/21/25 12:27 04/24/25 16:51 Diazepam (*Crx) 5 Mg Tablet PO 5 mg Q6H PRN Administration Anxiety/Muscle Spasm Dicyclomine HCl 20 mg 04/23/25 16:50 04/25/25 05:22 Dicyclomine Hcl 10 Mg Capsule PO 20 mg QID PRN Administration Abdominal Cramping Diphenhydramine HCl 25 mg 04/21/25 12:27 04/26/25 20:53 Diphenhydramine Hcl Inj 50 Mg/Ml Vial IV PUSH 25 mg Q6H PRN Administration Itching Docusate Sodium 300 mg 04/21/25 12:27 04/29/25 09:10 Docusate Sodium 100 Mg Capsule PO 300 mg DAILY WOODY Administration Famotidine 20 mg 04/21/25 12:27 04/29/25 09:08 Famotidine 20 Mg Tablet PO 20 mg Q12HR WOODY Administration Hydroxychloroquine Sulfate 200 mg 04/21/25 12:27 04/29/25 09:07 Hydroxychloroquine Sulfate 200 Mg Tablet PO 200 mg DAILY WOODY Administration Ibuprofen 800 mg in 200 mls @ 400 mls/hr 04/21/25 12:27 04/27/25 06:41 Caldolor 800 Mg/200 Ml IVPB Infused Q6H PRN Infusion Breakthrough Pain Rated 1-3 or NPO Leflunomide 20 mg 04/21/25 12:27 04/29/25 09:06 Leflunomide 20 Mg Tablet PO 20 mg DAILY WOODY Administration Linaclotide 290 mcg 04/22/25 06:30 04/29/25 05:33 Linaclotide 145 Mcg Capsule PO 290 mcg DAILY@0630 WOODY Administration Metoclopramide HCl 10 mg 04/23/25 16:50 04/26/25 16:58 Metoclopramide Hcl Inj 10 Mg/2 Ml Vial IV PUSH 10 mg Q6HR PRN Administration Nausea And Vomiting Naloxone HCl 0.1 mg 04/21/25 12:27 Naloxone Hcl 0.4 Mg/Ml Vial IV PUSH Q2M PRN Opiate Reversal Ondansetron HCl 4 mg 04/23/25 09:02 04/26/25 02:04 Ondansetron Inj 4 Mg/2 Ml Vial IV PUSH 4 mg Q4H PRN Administration Nausea And Vomiting Oxycodone/Acetaminophen 1 tablet 04/21/25 12:27 04/26/25 23:03 Oxycodone/Acetaminophen (*Crx) 5-325 Mg Tablet PO 1 tablet Q4H PRN Administration Pain Rated 4-6 Oxycodone/Acetaminophen 1 tab 04/21/25 12:27 04/22/25 08:06 Oxycodone/Acetaminophen (*Crx) 10-325 Mg Tablet PO 1 tab Q6H PRN Administration Pain Rated 7-10 Pantoprazole Sodium 40 mg 04/21/25 12:27 04/29/25 09:07 Pantoprazole 40 Mg Tablet PO 40 mg BID WOODY Administration Polyethylene Glycol 17 gm 04/21/25 12:27 04/29/25 09:15 Polyethylene Glycol 3350 17 Gm Powd.Pack PO Not Given QAM WOODY Potassium Chloride 40 meq 04/27/25 18:50 04/29/25 09:07 Potassium Chloride 20 Meq Packet (For Liquid) PO 40 meq BID WOODY Administration Senna/Docusate Sodium 2 tab 04/21/25 12:27 04/29/25 09:15 Senna/Docusate Sodium Tablet PO Not Given BID WOODY Sertraline HCl 50 mg 04/21/25 12:27 04/29/25 09:06 Sertraline Hcl 50 Mg Tablet PO 50 mg DAILY WOODY Administration Triamcinolone Acetonide 1 applic 04/28/25 22:42 04/28/25 23:02 Triamcinolone Acet 0.1% Cream 15 Gm Tube TOPICAL 1 applic BID PRN Administration Rash Vitamin D 50 mcg 04/22/25 09:00 04/29/25 09:07 Cholecalciferol (Vitamin D3) 25 Mcg (1,000 Units) Tablet PO 50 mcg DAILY WOODY Administration Radiology Results: ITS Impressions Hip X-Ray 04/21/25 11:35 IMPRESSION: 1. Recent right total hip arthroplasty. Abdomen/Pelvis CT 04/24/25 13:47 IMPRESSION: 1. Enteritis and diarrheal state. Abdomen X-Ray 04/28/25 14:07 IMPRESSION: 1. Persistent diffuse mild gaseous distention of the colon consistent with ileus without appreciable stool to suggest constipation. Labs Labs: Laboratory Results - last 24 hr 04/28/25 04/29/25 14:14 07:12 WBC 7.7 RBC 3.34 L Hgb 9.2 L Hct 28.8 L MCV 86.2 MCH 27.5 MCHC 31.9 L RDW 13.2 Plt Count 384 H MPV 9.3 Immature Gran % (Auto) 2.1 H Neut % (Auto) 51.7 Lymph % (Auto) 24.7 [place] % (Auto) 10.8 H Eos % (Auto) 9.9 H Baso % (Auto) 0.8 Lymph # (Auto) 1.90 [place] # (Auto) 0.8 H Eos # (Auto) 0.8 H Baso # (Auto) 0.1 Abs Immat Gran (auto) 0.16 H Absolute Neuts (auto) 4.0 Absolute Nucleated RBC 0.000 Nucleated RBC % 0.0 Sodium 137 138 Potassium 3.0 L 3.4 Chloride 106 105 Carbon Dioxide 26 26 Anion Gap 5 7 BUN 4 L 4 L Creatinine 0.51 L 0.49 L Estim Creat Clear Calc 108 111 Estimated GFR > 60 > 60 Glucose 106 97 Calcium 8.2 L 8.6 Phosphorus 2.2 L 4.8 H Magnesium 2.4 H 2.1 Total Bilirubin 0.4 0.3 AST 42 H 55 H ALT 22 25 Alkaline Phosphatase 114 109 Total Protein 5.9 L 6.3 Albumin 3.1 L 3.3 L
--- NOTE | 2025-04-29 10:23 | P.PNIM_ITS ---
Progress Note: A&P Assessment and Plan (1) Postoperative ileus: Code(s): K91.89 - Other postprocedural complications and disorders of digestive system; K56.7 - Ileus, unspecified Status: Acute Assessment and Plan: Patient underwent a total right hip arthroplasty on 04/21. Post-op patient began experiencing abdominal pain, nausea, vomiting, and abdominal distension. She has a history significant for IBS-C for which she takes docusate capsules x3, Dulcolax suppository, and Linzess daily. Abdominal XR obtained 04/23 which showed moderate dilation of the colon which is gas-filled, likely ileus, with no definite obstruction. Given patient's history of IBS-C and previous ileus/obstruction postoperative, will consult General surgery and place patient on clears. May need NG tube as she is not currently tolerating clear liquids. - s/p IV fluids. Tolerating regular diet. -Pain control managed by primary team - continue Percocet. - continue PRN Reglan -reviewed current bowel regimen: on docusate 300 mg daily, docusate 2 tablets b.i.d., and Linzess daily. Has also received a Dulcolax suppository x1 and MiraLax x1. - received Fleet enema, one time dose Relistor and mag citrate -Repeat KUB on 04/26: Persistent diffuse mild gaseous distention of the colon consistent with persistent postoperative ileus. - general surgery consulted - recommended no acute surgical intervention, Fleet enemas PRN - GI consulted - s/p rectal tube with improvement in symptoms. - much improved today, tolerating regular diet. Cleared for discharge from GI and perspective. (2) Constipation: Qualifiers: Constipation type: unspecified constipation type Qualified Code(s): K59.00 - Constipation, unspecified Code(s): K59.00 - Constipation, unspecified Status: Acute Assessment and Plan: -see above (3) S/P total hip arthroplasty: Qualifiers: Laterality: right Qualified Code(s): Z96.641 - Presence of right artificial hip joint Code(s): Z96.649 - Presence of unspecified artificial hip joint Status: Acute Assessment and Plan: -Post op 04/21/2025 R SHAHRAM -primary management via orthopedic team -analgesics p.r.n. -encourage IS use -continue PT/OT (4) Hypokalemia: Code(s): E87.6 - Hypokalemia Status: Acute Assessment and Plan: - K+ 3.4 today - continue K+ 20 meq daily. Repeat BMP in 5-7 days. Plan Diet: regular diet DVT Prophylaxis: SCDs, ASA Code Status: Full code Subjective Date/time seen: 04/29/25 10:23 Interval history: Patient seen examined at bedside. Doing much better this morning. Has had multiple bowel movements and abdomen is much softer without pain. No nausea or vomiting. Does still have some loss of appetite, but overall no nausea or vomiting. Review of Systems Review of Systems: All systems reviewed & are unremarkable except as noted in HPI and below Exam Narrative: General: NAD Eyes: EOMI ENT: neck supple Cardiovascular: Regular rate and rhythm Respiratory: Clear to auscultation, respirations even and unlabored on RA Gastrointestinal: nondistended, nontender, bowel sounds active Genitourinary: no suprapubic tenderness Musculoskeletal: No edema Skin: warm, dry Neuro: Alert. Psych: Mood appropriate Objective Data Vital Signs Vital Signs: Vital Signs - 24 hr 04/28/25 12:05 04/28/25 14:00 04/28/25 16:01 Temperature 97.8 F Pulse Rate 74 79 82 Respiratory Rate 16 Blood Pressure 136/74 Pulse Oximetry 97 Oxygen Delivery 04/28/25 20:00 04/28/25 20:00 04/28/25 20:33 Temperature 97.3 F L Pulse Rate 77 78 77 Respiratory Rate 16 16 Blood Pressure 135/61 Pulse Oximetry 97 97 Oxygen Delivery Room Air 04/29/25 00:00 04/29/25 04:00 04/29/25 04:06 Temperature 97.7 F Pulse Rate 73 73 72 Respiratory Rate 16 Blood Pressure 131/70 Pulse Oximetry 98 Oxygen Delivery 04/29/25 04:08 04/29/25 08:00 Temperature 97.7 F Pulse Rate Respiratory Rate 16 Blood Pressure 131/70 Pulse Oximetry 98 Oxygen Delivery Room Air Intake/Output Intake/Output: Intake & Output 04/26/25 04/27/25 04/28/25 04/29/25 23:59 23:59 23:59 23:59 Intake Total 3165 1420 2290 640 Output Total 225 Balance 3165 1195 2290 640 Meds/Results Medications: Active Medications Generic Name Dose Route Start Last Admin Trade Name Freq PRN Reason Stop Dose Admin Aspirin 325 mg 04/21/25 12:27 04/29/25 09:07 Aspirin 325 Mg Enteric Tablet PO 325 mg Q12HR WOODY Administration Atorvastatin Calcium 10 mg 04/21/25 21:00 04/28/25 20:59 Atorvastatin 10 Mg Tablet PO 10 mg HS WOODY Administration Diazepam 5 mg 04/21/25 12:27 04/24/25 16:51 Diazepam (*Crx) 5 Mg Tablet PO 5 mg Q6H PRN Administration Anxiety/Muscle Spasm Dicyclomine HCl 20 mg 04/23/25 16:50 04/25/25 05:22 Dicyclomine Hcl 10 Mg Capsule PO 20 mg QID PRN Administration Abdominal Cramping Diphenhydramine HCl 25 mg 04/21/25 12:27 04/26/25 20:53 Diphenhydramine Hcl Inj 50 Mg/Ml Vial IV PUSH 25 mg Q6H PRN Administration Itching Docusate Sodium 300 mg 04/21/25 12:27 04/29/25 09:10 Docusate Sodium 100 Mg Capsule PO 300 mg DAILY WOODY Administration Famotidine 20 mg 04/21/25 12:27 04/29/25 09:08 Famotidine 20 Mg Tablet PO 20 mg Q12HR WOODY Administration Hydroxychloroquine Sulfate 200 mg 04/21/25 12:27 04/29/25 09:07 Hydroxychloroquine Sulfate 200 Mg Tablet PO 200 mg DAILY WOODY Administration Ibuprofen 800 mg in 200 mls @ 400 mls/hr 04/21/25 12:27 04/27/25 06:41 Caldolor 800 Mg/200 Ml IVPB Infused Q6H PRN Infusion Breakthrough Pain Rated 1-3 or NPO Leflunomide 20 mg 04/21/25 12:27 04/29/25 09:06 Leflunomide 20 Mg Tablet PO 20 mg DAILY WOODY Administration Linaclotide 290 mcg 04/22/25 06:30 04/29/25 05:33 Linaclotide 145 Mcg Capsule PO 290 mcg DAILY@0630 [facility] Administration Metoclopramide HCl 10 mg 04/23/25 16:50 04/26/25 16:58 Metoclopramide Hcl Inj 10 Mg/2 Ml Vial IV PUSH 10 mg Q6HR PRN Administration Nausea And Vomiting Naloxone HCl 0.1 mg 04/21/25 12:27 Naloxone Hcl 0.4 Mg/Ml Vial IV PUSH Q2M PRN Opiate Reversal Ondansetron HCl 4 mg 04/23/25 09:02 04/26/25 02:04 Ondansetron Inj 4 Mg/2 Ml Vial IV PUSH 4 mg Q4H PRN Administration Nausea And Vomiting Oxycodone/Acetaminophen 1 tablet 04/21/25 12:27 04/26/25 23:03 Oxycodone/Acetaminophen (*Crx) 5-325 Mg Tablet PO 1 tablet Q4H PRN Administration Pain Rated 4-6 Oxycodone/Acetaminophen 1 tab 04/21/25 12:27 04/22/25 08:06 Oxycodone/Acetaminophen (*Crx) 10-325 Mg Tablet PO 1 tab Q6H PRN Administration Pain Rated 7-10 Pantoprazole Sodium 40 mg 04/21/25 12:27 04/29/25 09:07 Pantoprazole 40 Mg Tablet PO 40 mg BID WOODY Administration Polyethylene Glycol 17 gm 04/21/25 12:27 04/29/25 09:15 Polyethylene Glycol 3350 17 Gm Powd.Pack PO Not Given QAM WOODY Potassium Chloride 40 meq 04/27/25 18:50 04/29/25 09:07 Potassium Chloride 20 Meq Packet (For Liquid) PO 40 meq BID WOODY Administration Senna/Docusate Sodium 2 tab 04/21/25 12:27 04/29/25 09:15 Senna/Docusate Sodium Tablet PO Not Given BID WOODY Sertraline HCl 50 mg 04/21/25 12:27 04/29/25 09:06 Sertraline Hcl 50 Mg Tablet PO 50 mg DAILY WOODY Administration Triamcinolone Acetonide 1 applic 04/28/25 22:42 04/28/25 23:02 Triamcinolone Acet 0.1% Cream 15 Gm Tube TOPICAL 1 applic BID PRN Administration Rash Vitamin D 50 mcg 04/22/25 09:00 04/29/25 09:07 Cholecalciferol (Vitamin D3) 25 Mcg (1,000 Units) Tablet PO 50 mcg DAILY WOODY Administration Radiology Results: ITS Impressions Hip X-Ray 04/21/25 11:35 IMPRESSION: 1. Recent right total hip arthroplasty. Abdomen/Pelvis CT 04/24/25 13:47 IMPRESSION: 1. Enteritis and diarrheal state. Abdomen X-Ray 04/28/25 14:07 IMPRESSION: 1. Persistent diffuse mild gaseous distention of the colon consistent with ileus without appreciable stool to suggest constipation. Labs Labs: Laboratory Results - last 24 hr 04/28/25 04/29/25 14:14 07:12 WBC 7.7 RBC 3.34 L Hgb 9.2 L Hct 28.8 L MCV 86.2 MCH 27.5 MCHC 31.9 L RDW 13.2 Plt Count 384 H MPV 9.3 Immature Gran % (Auto) 2.1 H Neut % (Auto) 51.7 Lymph % (Auto) 24.7 [place] % (Auto) 10.8 H Eos % (Auto) 9.9 H Baso % (Auto) 0.8 Lymph # (Auto) 1.90 [place] # (Auto) 0.8 H Eos # (Auto) 0.8 H Baso # (Auto) 0.1 Abs Immat Gran (auto) 0.16 H Absolute Neuts (auto) 4.0 Absolute Nucleated RBC 0.000 Nucleated RBC % 0.0 Sodium 137 138 Potassium 3.0 L 3.4 Chloride 106 105 Carbon Dioxide 26 26 Anion Gap 5 7 BUN 4 L 4 L Creatinine 0.51 L 0.49 L Estim Creat Clear Calc 108 111 Estimated GFR > 60 > 60 Glucose 106 97 Calcium 8.2 L 8.6 Phosphorus 2.2 L 4.8 H Magnesium 2.4 H 2.1 Total Bilirubin 0.4 0.3 AST 42 H 55 H ALT 22 25 Alkaline Phosphatase 114 109 Total Protein 5.9 L 6.3 Albumin 3.1 L 3.3 L Quality VTE Prophylaxis VTE prophylaxis: mechanical ordered and pharmacologic ordered
--- NOTE | 2025-04-30 13:02 | PM.DS ---
DS: Admitting Diagnosis Discharge Date 04/29/25 Admitting Diagnosis Right Hip DJD DS: Discharge Diagnosis Discharge Diagnosis (1) Postoperative ileus: Code(s): K91.89 - Other postprocedural complications and disorders of digestive system; K56.7 - Ileus, unspecified Status: Acute Assessment and Plan: General surgery consultation reviewed. No surgical recommendations. GI consultation appreciated. One time dose Relistor and rectal tube placed on 04/26. Abdominal XR on 04/28 reveals persistent diffuse mild gaseous distention of the colon consistent with ileus without appreciable stool to suggest constipation. Significant improvement in abdominal pain/distension today. She is able to sit on the side of the bed without pain. She has been cleared by GI for discharge. She will need to follow up with her GI at discharge. (2) Abnormal bowel sounds: Code(s): R19.15 - Other abnormal bowel sounds Status: Acute (3) Abdominal distension (gaseous): Code(s): R14.0 - Abdominal distension (gaseous) Status: Acute Assessment and Plan: Improvement. (4) Hypokalemia: Code(s): E87.6 - Hypokalemia Status: Acute Assessment and Plan: Potassium 3.4 today. Will have repeat labs as outpatient and patient is being d/c'd with potassium per medicine team. (5) S/P total hip arthroplasty: Qualifiers: Laterality: right Qualified Code(s): Z96.641 - Presence of right artificial hip joint Code(s): Z96.649 - Presence of unspecified artificial hip joint Status: Acute Assessment and Plan: POD #8: Right SHAHRAM Continue PT/OT. WBAT. Walker. HIGH FALL RISK. Limit narcotics given bowel issues. Ice Hip. Protect skin. DVT prophylaxis with Aspirin. SCDs. Incentive Spirometry Use reviewed. Monitor Dressing. Change prior to discharge. Bowel Regimen. Dispo: Home with Home Health F/U with GI. Plan Reviewed history, exam, radiographs and current labs with attending MD and covering surgeon, Dr. Escalante, who agrees with current plan as indicated above. No further recommendations from Dr. Escalante at this time. DS: Summary Hospital Course Reason for hospitalization: Right SHAHRAM Hospital Course: 54 year old female admitted s/p Right SHAHRAM for postoperative medical management, pain control and mobilization with PT/OT. Patient had a complicated postoperative course due to her long standing history of constipation. She developed a postoperative illeus requiring serial imaging, GI consultation and General Surgery Consultation. The hospitalist service was also consulted to help manage the ileus as well as recurrent hypokalemia. The patient has been cleared to be discharged home with home health at this time by all consulting entities. All discharge care instructions reviewed at depth. New medications reviewed. Follow up planned for 3 weeks in the outpatient orthopedic clinic with Dr. Escalante. Patient is also to follow up with her PCP and GI specialist at discharge. Dr. Escalante in agreement with safe discharge at this time. Status at Discharge Functional status at discharge: uses cane/walker Overall status at discharge: patient is progressing back to baseline Time Spent with Patient Time attestation: Total time spent providing and/or coordinating discharge services: Exam Const: General: comfortable and no acute distress Resp: Effort & Inspection: normal respiratory effort Cardio: Rate: regular rate Rhythm: regular rhythm GI: Inspection: non-distended Skin: General skin exam: normal color Other: Incision right hip c/d/i. Surrounding tissue without redness/warmth. Mild swelling consistent with recent surgery. No drainage. Neuro: Cognition (Neuro): normal cognition Speech: normal speech Extrem: Right lower extremity: normal to inspection, normal capillary refill, hip/thigh Details: tenderness Location: of the hip (Thigh soft ) Location: laterally and anteriorly, swelling Location: at the hip, abnormal ROM (limited consistent with recent surgery ) Details: pain with active ROM during and pain with passive ROM during and other (Incision c/d/i. ); no deformity and no unusual warmth, knee Details: normal to inspection; no tenderness and no swelling, lower leg (Negative Colleen's Sign ) Details: normal to inspection and no edema; no tenderness, ankle (+ankle dorsiflexion/plantarflexion) Details: normal to inspection and no edema; no tenderness, no swelling and no ecchymosis and foot Details: normal capillary refill, toes with normal ROM, vascular exam Details: dorsalis pedis pulse present and motor-sensory exam Details: light-touch normal; no tenderness Discharge Plan Discharge Attending physician on discharge: Nathan Escalante Consulting providers: Blaine Carrasco; Jojo Hawthorne; Peterson Hernandez; Latasha Acevedo; En Paulino; Aleida Livingston; Ryan Gan; Paty Gaxiola; Christofer Pastor; Magdy Camp; Moise Donnelly Discharging Clinician: Renee Saul Patient Disposition: Home with Home Health Service Activity: may shower, no driving and follow weight bearing status Diet: as tolerated Wound Care Instructions: follow printed instructions Discharge Instructions: Post Op Total Hip Replacement Instructions Dr. Nathan Escalante [phone] Your dressing will be changed prior to your discharge. You will be sent home with one additional dressing to be changed on post op day 7 by the home health RN. You may remove the dressing on post op day 14. Your incision was closed with dermabond, allow the dermabond to fall off naturally once your dressing is removed. Do not pull at the dermabond or disrupt incision healing. You may shower with your dressing but do not submerge in a bath tub. Do not drive or operate machinery until you are released by Dr. Escalante. Do not walk without a walker for any reason until you are released by Dr. Escalante. Continue to apply ice to the hip intermittently for additional pain relief. Protect your skin with a towel or pillow case. Continue to follow strict total hip replacement precautions. Your first post op appointment was sent to you via mail preoperatively. If you have any questions or are unable to make your appointment, please contact our office for scheduling questions. Your medications have been sent to your pharmacy. You have been sent home with pain medication. Please sampler pickup an over the counter stool softener to prevent constipation due to narcotic use. Please keep this in mind during your postoperative recovery. If you are not experiencing regular bowel movements, please contact our office for further instructions. Please contact our office with any questions/concerns regarding your hip at [phone]. Call your GI specialist for a follow up appt at discharge. Please have your lab work repeated in 2 weeks including a BMP and CBC in 5 days. These results should be sent to your primary care provider. Care Coordination: Patient to have [facility] for PT/OT eval and treat, and nursing home. Their phone number is [phone], if you have any questions. They will contact you to schedule their visits. Patient Instructions: Antibiotic Form, Pain Management (GEN) Patient Language: Albanian Stand Alone Forms: General Discharge Information Follow-up/Referrals: Nathan Escalante MD [Physician, Orthopedics] - Keep Reg. Scheduled Appt. Discharge Medications: New aspirin 325 mg Tablet,Delayed Release (Dr/Ec) 325 mg PO Q12HR 28 Days Qty: 56 0RF oxycodone-acetaminophen 5-325 mg Tablet 1 tablet PO Q4H PRN (Reason: pain) Qty: 30 0RF potassium chloride [K-Tab] 20 mEq tablet extended release 20 meq PO DAILY Qty: 7 0RF Continued pantoprazole [Protonix] 40 mg tablet,delayed release (DR/EC) 40 mg PO BID docusate sodium [Colace] 100 mg capsule 300 mg PO DAILY multivitamin [Daily Value] Tablet 1 tablet PO DAILY cholecalciferol (vitamin D3) 50 mcg (2,000 unit) tablet,chewable 2,000 unit PO DAILY Patient Comments: WITH K2 hydroxychloroquine 200 mg tablet 200 mg PO DAILY atorvastatin 10 mg tablet 10 mg PO DAILY Qty: 90 1RF Patient Comments: HS Linzess 290 mcg capsule See Rx Instructions .ROUTE .COMPLEX Qty: 90 3RF Dose Instruction: TAKE 1 CAPSULE BY MOUTH ONCE DAILY DIRECTED Rx Instructions: TAKE 1 CAPSULE BY MOUTH ONCE DAILY DIRECTED sertraline 50 mg tablet 50 mg PO DAILY Qty: 90 1RF Patient Comments: QAM leflunomide 20 mg tablet 20 mg PO DAILY Patient Comments: Per rheum QAM Discontinued chlorhexidine gluconate [Hibiclens] 4 % liquid 1 applic topical ONCE Qty: 237 0RF Rx Instructions: Cleanse operative extremity, in shower, every day for 1 week prior to surgical procedure. Other Ambulatory Orders: Basic Metabolic Panel (Routine) Timeframe: 5 Days Location: Determined by Patient Ordered By: Latasha Acevedo Complete Blood Count with Diff (Routine) Timeframe: 5 Days Location: Determined by Patient Ordered By: Latasha Acevedo Date of admission: 04/23/25 14:33 Primary Care Provider: Wero Welch Admitting Provider: Nathan Escalante Attending physician on admission: Renee Saul Condition: Stable Quality VTE Prophylaxis VTE prophylaxis: mechanical ordered and pharmacologic ordered
== END 2025-04-29 11:50 | disposition home health service (06) | DRG 982 ==
LOC: ANHSURGERY 18:51 → ANH3MEDSUR 18:51
PROVIDERS: Internal Medicine; Nurse Practitioner; Nurse Practitioner Adult Health; Physician Assistant; Admitting Provider Orthopaedic Surgery; PCP Family Medicine; Visit Provider Nurse Practitioner Family
PROC: 0SRR03Z Replacement of Right Hip Joint, Femoral Surface with Ceramic Synthetic Substitute, Open Approach (ICD-10-PCS; CPT 27130; principal; 2025-04-21 07:30)
DX: K91.89 Other postprocedural complications and disorders of digestive system (principal); K56.7 Ileus, unspecified; K58.1 Irritable bowel syndrome with constipation; M16.0 Bilateral primary osteoarthritis of hip; I95.81 Postprocedural hypotension; E87.6 Hypokalemia; E86.0 Dehydration; E78.00 Pure hypercholesterolemia, unspecified; M79.7 Fibromyalgia; M47.26 Other spondylosis with radiculopathy, lumbar region; G89.29 Other chronic pain; Z77.22 Contact with and (suspected) exposure to environmental tobacco smoke (acute) (chronic); Z79.82 Long term (current) use of aspirin; Z79.891 Long term (current) use of opiate analgesic; Z90.710 Acquired absence of both cervix and uterus; Z90.79 Acquired absence of other genital organ(s); Z90.722 Acquired absence of ovaries, bilateral; Z87.19 Personal history of other diseases of the digestive system; Z90.49 Acquired absence of other specified parts of digestive tract; Z85.828 Personal history of other malignant neoplasm of skin
CPT/HCPCS: 36415; 73501; 74018; 74177; 80048; 80053; 83615; 83735; 84100; 84132; 85025; 85027; 86850; 86900; 86901; 97110; 97116; 97161; 97165; 97530; 97535; J0690; A9270; G0378; J0166; J1100; J1171; J1200; J1741; J1885; J2003; J2212; J2250; J2270; J2405; J2704; J2765; J2795; J3010; J3290; J3475; J3480; J7030; J7040; J7050; J7120; Q9967

== ENCOUNTER 2025-05-04 13:46 | Outpatient (NON) | payer BC, SELFPAY ==
--- OUTSIDE RECORDS SUMMARY | 2024-05-07 11:30 | XMS_ITS ---
Author Organization [facility] [place] ([address]) Address [address] [place] [address] Care Team Providers Care Hire Car Driver Name Role Phone Wero Welch MD Primary Care Provider Unavaila Greta Melara Unavailable [phone] REASON FOR VISIT Consult Headache Social History Sex Assigned At : Social History Observation Description Sex Assigned At Female Problems Problem Type SNOMED Code ICD Code Onset Dates Problem Status W/U Status Risk Notes Problem Chronic migraine without aura, non-intractab le (164748547070 100) Chronic migraine without aura, not intractable, without status migrainosus (G43.709) Active confirmed Problem Migraine with aura (6385923) Migraine with aura, not intractable, without status migrainosus (G43.109) Active confirmed Problem Chronic migraine without aura, non-refractor y (disorder) (143804211989 100) Migraine without aura, not intractable, without status migrainosus (G43.009) Active confirmed Encounters Encounter Location Date Provider Diagnosis [facility] [address] [place] [address] 05/07/2024 Greta Castrejon Chronic migraine without aura, not intractable, without status migrainosus G43.709 ; Migraine with aura, not intractable, without status migrainosus G43.109 ; Migraine without aura, not intractable, without status migrainosus G43.009 ; Drug-induced headache, not elsewhere classified, not intractable G44.40 and Myalgia, unspecified site M79.10 Assessments Encounter Date Diagnosis (ICD Code) Assessment Notes Treatment Notes Treatment Clinical Notes Section Notes 05/07/2024 Chronic migraine without aura, not intractable, without status migrainosus (ICD-10 - G43.709) 05/07/2024 Migraine with aura, not intractable, without status migrainosus (ICD-10 - G43.109) 05/07/2024 Migraine without aura, not intractable, without status migrainosus (ICD-10 - G43.009) 05/07/2024 Drug-induced headache, not elsewhere classified, not intractable (ICD-10 - G44.40) 05/07/2024 Myalgia, unspecified site (ICD-10 - M79.10) Plan Of Treatment Next Appt Details Follow Up: 4 Weeks, Reason: Evaluation and Management Progress Notes * Antonette CHILDRESS LDOB:1970 (54 yo F)Acc No.[id number]:05/07/2024 Progress Notes Patient: Antonette BANERJEE Provider: Andria Castrejon APRN :1970 A ge:53 Y S ex:Female Date:05/07/2024 Address:[facility] [address], [facility] Pcp:Wero Welch MD Subjective: * Chief Complaints: * 1 . Consult Headache. * HPI: * Introduction: HPI: Andria Childress, who presented for evaluation of headaches. H eadache History: - Headache Onset:-Headache Description: Prodrome: . Aura: . H eadache phase: . Postdrome: . - Headache Triggers: - Headache Frequency: The patient is currently experiencing Headache days/month and Migraine days/month. A ssociated Factors:-Stress/Mood: Patient denies high levels of stress, anxiety or depression symptoms-Sleep:? Patient denies sleep difficulty, snoring, or restless leg symptoms-Sinus/Allergy: Patient denies allergies or sinus pain-Cervical spine: Patient denies neck pain or myofascial pain - TMJ pain or jaw clenching: Patient denies TMJ pain or bruxism. - Hormones: - Medication Overuse: Present/Not present - Caffeine Overuse: Present/Not present - Fluid intake: C urrent/Prior Migraine Treatment:-Current abortive therapy:-Previous failed abortive therapy:-Current preventive therapy:-Previous failed preventive therapy: - Other modalities: Chiropractic, Physical Therapy, Acupuncture, Biofeedback, Migraine devices P revious Imaging: H eadache Scales:MIDAS score: HIT-6 score: . * Mental Health: Depression Screening Scale P HQ-9 score: M ore than 5 minutes in spent in discussion regarding depression screening. Anxiety Screening Scale G AD-7 score:. * ROS: C ONSTITUTIONAL: Positive for P atient denies fevers, chills, sweats, unintended weight loss, loss of appetite, or chronic fatigue. E NT: Positive P atient denies ear fullness or pain or sinus pain. R ESPIRATORY: Positive for P atient denies shortness of breath or wheezing. O PHTHALMOLOGY: Positive for R eviewed and except as mentioned above in the HPI is negative. E NDOCRINOLOGY: Positive for P atient denies heat intolerance, cold intolerance, polyuria, elevated blood sugar, chronic fatigue. C ARDIOLOGY: Positive for P atient denies dizziness, palpitations, or chest pain. G ASTROENTEROLOGY: Positive for P atient denies diarrhea, melena, bloody stools, or abdominal pain. U ROLOGY: Positive for P atient denies urinary incontinence or urinary dysfunction. D ERMATOLOGY: Positive for P atient denies rash or hives. ? N EUROLOGY: Positive for R eviewed and except as mentioned above in the HPI is negative. H EMATOLOGY/LYMPH: Positive for P atient denies history of excessive bruising or bleeding diasthesis. M USCULOSKELETAL: Positive for P atient denies extremity joint pain or swelling. P SYCHOLOGY: Positive for R eviewed and except as discussed above in the HPI is otherwise negative. * Medical History: Objective: * Vitals: * Examination: G eneral examination: General appearance: P leasant, well-developed, no distress.? HEENT: N o papilledema. No tenderness to palpation over bilateral greater occipital or supraorbital nerves. Neck, thyroid : S upple. Heart: R RR, S1-S2, no murmurs, no rubs, no gallops. Lungs: C lear to auscultation and percussion in all lung cadena. Neurologic exam: A lert and oriented x 4. Fluent speech. Intact recall, fund of knowledge. Appropriate affect. PERRL. EOMI without nystagmus. No visual field cut. Facial sensation intact to light touch and pinprick in bilateral V1/V2/V3. Facial movements normal and symmetric. Hearing intact to finger rub bilaterally. Palate symmetrically upgoing. Tongue midline. Motor 5/5 strength in all extremities. Reflexes 2+/2 and symmetric in all extremities. Bilateral flexor plantar responses. Sensory exam intact to light touch, pinprick, vibration, and proprioception in all extremities. Cerebellar testing no ataxia or dysmetria. Gait normal, negative Romberg, intact tandem. Skin: N ormal, no rash, urticaria, angioedema. Back: N o cervical or periscapular trigger points. Normal cervical ROM. Extremities: N o peripheral e bridget. ? Assessment: * Assessment: 1. C hronic migraine without aura, not intractable, without status migrainosus - G43.709 (Primary) 2 . M igraine with aura, not intractable, without status migrainosus - G43.109 3 . M igraine without aura, not intractable, without status migrainosus - G43.009 4 . D rug-induced headache, not elsewhere classified, not intractable - G44.40 5 . M yalgia, unspecified site - M79.10 Plan: * Treatment: * Procedure Codes: G 0444 ANNUAL DEPRESSION SCREENING 5-15 MIN, G8427 DOC MEDS VERIFIED W/[place], [address] PT-FOCUSED HLTH RISK ASSMT * Preventive Medicine: T his was a 60 minute visit with time spent in reviewing prior records/notes, evaluation and management, counseling, and documentation. * Follow Up: 4 Weeks (Reason: Evaluation and Management) * Billing Information: * Visit Code: 34361 Office Visit, New Pt., Level 4. Modifiers: 25 81165 Office Visit, New Pt., Level 5. Modifiers: 25 * Procedure Codes: G0444 ANNUAL DEPRESSION SCREENING 5-15 MIN. G8427 DOC MEDS VERIFIED W/[place]. [address] PT-FOCUSED HLTH RISK ASSMT. * Electronic signature of Sandy echeverriabryce Castrejon , RAW SCALES OPERATOR-C on 05/04/2025 at 03:15 PM RECREATION ASSISTANT Sign off status: Pending * Provider: Andria Castrejon APRN Date: 07/07/2023 Generated for Federico fields/Brenda/Tanner on: 07/04/2024 03:15 PM RECREATION ASSISTANT History and Physical Notes * HPI (History of Present Illness) Category Sub-Category Detail Notes Category Not es *Introduction HPI: Antonette Childress, who presented for evaluation of headaches.Headache History: -Headache Onset:-Headache Description: Prodrome: . Aura: . Headache phase: . Postdrome: .-Headache Triggers:-Headache Frequency: The patient is currently experiencing Headache days/month and Migraine days/month.Associated Factors:-Stress/Mood: Patient denies high levels of stress, anxiety or depression symptoms-Sleep: Patient denies sleep difficulty, snoring, or restless leg symptoms-Sinus/Allergy: Patient denies allergies or sinus pain-Cervical spine: Patient denies neck pain or myofascial pain-TMJ pain or jaw clenching: Patient denies TMJ pain or bruxism.-Hormones: -Medication Overuse: Present/Not present-Caffeine Overuse: Present/Not present-Fluid intake:Current/Prior Migraine Treatment:-Current abortive therapy:-Previous failed abortive therapy:-Current preventive therapy:-Previous failed preventive therapy:-Other modalities: Chiropractic, Physical Therapy, Acupuncture, Biofeedback, Migraine devicesPrevious Imaging:Headache Scales:MIDAS score: HIT-6 score: *Mental Health Depression Screening Scale PHQ-9 score: More than 5 minutes in spent in discussion regarding depression screening Anxiety Screening Scale JASON-7 score: Examination Category Sub-Category Detail Notes Category Not es General examination HEENT: No papillede ma. No tenderness to palpation over bilateral greater occipital or supraorbital nerves Neck, thyroid : Supple Heart: RRR, S1-S2, no murmu rs, no rubs, no gallops Lungs: Clear to auscultatio n and percussion in all lung cadena Extremities: No peripheral edema General appearance: Pleasant, well-devel oped, no distress Skin: Normal, no rash, urt icaria, angioedema Neurologic exam: Alert and oriented x 4. Fluent speech. Intact recall, fund of knowledge. Appropriate affect. PERRL. EOMI without nystagmus. No visual field cut. Facial sensation intact to light touch and pinprick in bilateral V1/V2/V3. Facial movements normal and symmetric. Hearing intact to finger rub bilaterally. Palate symmetrically upgoing. Tongue midline. Motor 5/5 strength in all extremities. Reflexes 2+/2 and symmetric in all extremities. Bilateral flexor plantar responses. Sensory exam intact to light touch, pinprick, vibration, and proprioception in all extremities. Cerebellar testing no ataxia or dysmetria. Gait normal, negative Romberg, intact tandem Back: No cervical or peris capular trigger points. Normal cervical ROM
--- OUTSIDE RECORDS SUMMARY | 2025-01-21 11:30 | XMS_ITS ---
Author Organization [facility] [employer] [place] ([address]) Address [address] [place] [address] Care Team Providers Care Drink Waiter Name Role Phone Wero Welch MD Primary Care Provider UnavailGreta Vasquez Unavailable [phone] Allergies Allergen (clinical drug ingredient) Drug/Non Drug Allergy documented on EMR Reaction Allergy Type Onset Date Status Penicillin rash Drug Allergy Active REASON FOR VISIT Headache follow-up Medications Medication SIG (Take, Route, Frequency, Duration) Notes Start Date End Date Status Topiramate 25 MG 1 tablet at bedtime x7 days, then increase to 2 tablets at bedtime thereafter Orally as directed; Duration: 30 days 12/24/2024 Active Linzess 290 MCG 1 capsule at least 3 0 minutes before the first meal of the day on an empty stomach Orally Once a day Active Rizatriptan Benzoate 10 MG 1 tablet Orally once, may repeat x1 after 2-4 hours; Duration: 30 days As needed for migraine 12/24/2024 Active Protonix 40 MG 1 tablet 1/2 to 1 ho ur before morning meal Orally Once a day Active Plaquenil 200 MG as directed Orally Active Atorvastatin Calcium 10 MG 1 tablet Oral ly Once a day Active Sertraline HCl 50 MG 1 tablet Orally Onc e a day Active Social History Tobacco Use: Social History Observation Description Date Details (start date - stop date) Never Smoker NA - NA Sex Assigned At : Social History Observation Description Sex Assigned At Female Smoking Smart Form: Question Answer Notes Are you a: never smoker Tobacco Control (Standard) Question Answer Notes Tobacco use: Nonsmoker Encounters Encounter Location Date Provider Diagnosis [facility] [address] [facility] [address] [place] [address] 01/21/2025 Greta Cash Migraine without aur a, not intractable, without status migrainosus G43.009 ; Drug-induced headache, not elsewhere classified, not intractable G44.40 ; Myalgia, unspecified site M79.10 and Unspecified menopausal and perimenopausal disorder N95.9 Assessments Encounter Date Diagnosis (ICD Code) Assessment Notes Treatment Notes Treatment Clinical Notes Section Notes 01/21/2025 Migraine without aura, not intractable, without status migrainosus (ICD-10 - G43.009) 01/21/2025 Drug-induced headache, not elsewhere classified, not intractable (ICD-10 - G44.40) 01/21/2025 Myalgia, unspecified site (ICD-10 - M79.10) 01/21/2025 Unspecified menopausal and perimenopausal disorder (ICD-10 - N95.9) Plan Of Treatment Next Appt Details Follow Up: , Reason: Evaluat ion and Management Progress Notes * Antonette CHILDRESS LDOB:1970 (54 yo F)Acc No.[id number]:01/21/2025 Progress Notes Patient: Antonette BANERJEE Provider: Andria Castrejon APRN :1970 A ge:54 Y S ex:Female Date:01/21/2025 Address:[facility] [address] [facility] Pcp:Wero Welch MD Subjective: * Chief Complaints: * 1 . Headache follow-up. * HPI: * Introduction: HPI: I had the pleasure of seeing Antonette Chilrdess, who presented for follow-up for migraine, MOH, myalgia, unspecified menopausal and perimenopausal disorder. * Initial History: INITIAL VISIT HISTORY: Antonette Childress, with a history of vertigo, presented for evaluation of headaches. She endorses a history of headaches that started at age 48. The headaches were manageable with OTC medications until last year when the intensity escalated. She has had a variable response to OTC acetaminophen and excedrin. She endorses two types of headaches. Migrainous headaches consist of unilateral pain (mostly right sided) behind the eye and in the temporal area that moves ipsilaterally to the occipital and posterior neck area. She has accompanying symptoms of nausea without or without emesis and vertigo. The headaches last a minimum of 24 hours and up to 7 days. Her other headache type is described as episodes of intense piercing pain behind her eye followed by an shock like sensation across her forehead. The episodes last 20-40 seconds. There is no photophobia, nausea or phonophobia with these episodes. She denies any weakness or thunderclap featuers. The headaches can occur at any time of the day and sometimes wake her from her sleep. She has a history of vertigo and has attended several month long sessions of PT. She was not diagnosed with vestibular migraine in the past. She denies any family history of migraine. She has not tried antimigraine medications. Headache History: -Headache Onset: Age 48-Headache Description: Aura: Denies Headache phase: Starts with sharp shooting pain behind the right eye and in the temporal area .Pain moves ipsilaterally to the occipital and posterior neck. Associated symptoms of nausea without emesis. Denies photophobia and phonophobia. Can last 1-7 days. Postdrome: extreme fatigue the following day -Headache Triggers: Stress, hormone changes (e.g. menstrual cycle), under sleeping -Headache Frequency: The patient is currently experiencing 25-30 Headache days/month and 9-12 Migraine days/month. * Previous Impression & Plan: Notes P revious Diagnoses: 1 . Migraine without aura, not intractable, without status migrainosus - G43.009 2 . Drug-induced headache, not elsewhere classified, not intractable - G44.40 3 . Myalgia, unspecified site - M79.10 4 . Unspecified menopausal and perimenopausal disorder - N95.9 P revious Recommendations: 1 . Abortive: Start rizatriptan 10 mg. Gave samples of Nurtec. Preventive: S tart Topamax 25 mg qhs x 7 days, then increase to 50 mg qhs. 2 . Limit use of OTC analgesics to 2 days per week or less. Educated patient regarding medication overuse headaches. Advised to avoid taking NSAIDs or acetaminophen > 15 days/month, triptans or DHE > 10 days/month, butalbital > 10 days/month to avoid rebound headaches. 3 . Continue dry needling with pain management. Discussed returning to clinic for ONB. * Interval History: Notes P harmacologic Treatment: C urrent abortive treatment: Acetaminophen, Excedrin (take the edge off) P revious abortive treatment: C urrent preventive treatment: P revious preventive treatment: M edication overuse: Not present O ther modalities: Physical Therapy (for vertigo-no impact on headaches), Dry needling (short term relief) H eadache Frequency: I nitial/baseline headache/migraine days/month: L ast visit headache/migraine days/month: C urrent headache/migraine days/month: / I nterval History: L ast visit was on 0 12/24/2024.. * ROS: C ONSTITUTIONAL: Positive for P [...] dizziness, palpitations, or chest pain. G ASTROENTEROLOGY: abdominal pain Y es. c onstipation Y es. P ositive for P atient denies diarrhea, melena, bloody [...] excessive bruising or bleeding diasthesis. M USCULOSKELETAL: joint pain Y es. c arpal tunnel Y es. P ositive for P atient denies extremity joint pain or swelling. P SYCHOLOGY: anxiety Y es. P ositive for R neliawed and except as discussed above in the HPI is otherwise negative. * Medical History: H ypercholestrolemia. * Family History: F ather: No. M aternal Grand Father: No. M aternal aunt: No. S iblings: Yes. C hildren: Yes. * Social History: M arital Status What is your marital status? m arried A lcohol Screening Do you ever drink alcoholic beverages? N o C affeine: Yes. S moking Are you a : n ever smoker S moking Smart Form Are you a: n ever smoker R ecreational drug use Have you ever used recreational drugs? N o E xercise What kind(s) of exercise do you perform regularly? w alking How often do you perform this exercise? w eekly O ccupation Are you currenly employed? N o Have you had any job with high exposure to fumes, chemicals, dust or other noxious substances? N o Are you currently a student? N o T obacco Control (Standard) Tobacco use: N onsmoker * Medications: T aking Protonix 40 MG Tablet Delayed Release 1 tablet 1/2 to 1 hour before morning meal Orally Once a day , Taking Plaquenil 200 MG Tablet as directed Orally , Taking Sertraline HCl 50 MG Tablet 1 tablet Orally Once a day , Taking Atorvastatin Calcium 10 MG Tablet 1 tablet Orally Once a day , Taking Linzess 290 MCG Capsule 1 capsule at least 30 minutes before the first meal of the day on an empty stomach Orally Once a day , Taking Rizatriptan Benzoate 10 MG Tablet 1 tablet Orally once, may repeat x1 after 2-4 hours As needed for migraine, Taking Topiramate 25 MG Tablet 1 tablet at bedtime x7 days, then increase to 2 tablets at bedtime thereafter Orally as directed * Allergies: P enicillin: rash. Objective: * Vitals: * Examination: G eneral [...] e bridget. ? Assessment: * Assessment: 1. M igraine without aura, not intractable, without status migrainosus - G43.009 ?2. D rug-induced headache, not elsewhere classified, not intractable - G44.40 ?3. M yalgia, unspecified site - M79.10 4 . U nspecified menopausal and perimenopausal disorder - N95.9 Plan: * Treatment: * Procedure Codes: 9 6160 PT-FOCUSED HLTH RISK ASSMT, G8427 DOC MEDS VERIFIED W/PT OR RE, G2211 Complex e/m visit add on * Follow Up: Kiran bajwa: Evaluation and Management * Billing Information: * Visit Code: 85726 Office Visit, Est Pt., Level 4. Modifiers: 55753 Office Visit, Est Pt., Level 3. Modifiers: 23390 Office Visit, Est Pt., Level 5. Modifiers: 25 * Procedure Codes: 48306 PT-FOCUSED HLTH RISK ASSMT. G8427 DOC MEDS VERIFIED W/PT OR RE. G2211 Complex e/m visit add on. * Electronic signature of KRISTA Avilez on 05/04/2025 at 03:15 PM DIRECTOR OF CASEWORK DEPARTMENT Sign off status: Pending * Provider: Andria Castrejon APRN Date: 0 01/21/2025 Generated for Federico fields/Brenda/Tanner on: 1 07/04/2024 03:15 PM DIRECTOR OF CASEWORK DEPARTMENT History and Physical Notes * HPI (History of Present Illness) Category Sub-Category Detail Notes Category Not es *Introduction HPI: I had the pleasu re of seeing Antonette Childress, who presented for follow-up for migraine, MOH, myalgia, unspecified menopausal and perimenopausal disorder *Initial History INITIAL VISIT HISTORY: Antonette Childress, with a history of vertigo, presented for evaluation of headaches. She endorses a history of headaches that started at age 48. The headaches were manageable with OTC medications until last year when the intensity escalated. She has had a variable response to OTC acetaminophen and excedrin. She endorses two types of headaches. Migrainous headaches consist of unilateral pain (mostly right sided) behind the eye and in the temporal area that moves ipsilaterally to the occipital and posterior neck area. She has accompanying symptoms of nausea without or without emesis and vertigo. The headaches last a minimum of 24 hours and up to 7 days. Her other headache type is described as episodes of intense piercing pain behind her eye followed by an shock like sensation across her forehead. The episodes last 20-40 seconds. There is no photophobia, nausea or phonophobia with these episodes. She denies any weakness or thunderclap featuers. The headaches can occur at any time of the day and sometimes wake her from her sleep. She has a history of vertigo and has attended several month long sessions of PT. She was not diagnosed with vestibular migraine in the past. She denies any family history of migraine. She has not tried antimigraine medications. Headache History: -Headache Onset: Age 48-Headache Description: Aura: Denies Headache phase: Starts with sharp shooting pain behind the right eye and in the temporal area .Pain moves ipsilaterally to the occipital and posterior neck. Associated symptoms of nausea without emesis. Denies photophobia and phonophobia. Can last 1-7 days. Postdrome: extreme fatigue the following day -Headache Triggers: Stress, hormone changes (e.g. menstrual cycle), under sleeping -Headache Frequency: The patient is currently experiencing 25-30 Headache days/month and 9-12 Migraine days/month *Previous Impression & Plan Notes Previous Diagnoses:1. Migrai ne without aura, not intractable, without status migrainosus - G43.0092. Drug-induced headache, not elsewhere classified, not intractable - G44.403. Myalgia, unspecified site - M79.104. Unspecified menopausal and perimenopausal disorder - N95.9Previous Recommendations:1. Abortive: Start rizatriptan 10 mg. Gave samples of Nurtec. Preventive: Start Topamax 25 mg qhs x 7 days, then increase to 50 mg qhs.2. Limit use of OTC analgesics to 2 days per week or less. Educated patient regarding medication overuse headaches. Advised to avoid taking NSAIDs or acetaminophen > 15 days/month, triptans or DHE > 10 days/month, butalbital > 10 days/month to avoid rebound headaches. 3. Continue dry needling with pain management. Discussed returning to clinic for ONB *Interval History Notes Pharmacologic Treatment:Current abortive treatment: Acetaminophen, Excedrin (take the edge off)Previous abortive treatment:Current preventive treatment:Previous preventive treatment:Medication overuse: Not presentOther modalities: Physical Therapy (for vertigo-no impact on headaches), Dry needling (short term relief)Headache Frequency:Initial/baseline headache/migraine days/month: Last visit headache/migraine days/month: Current headache/migraine days/month: /Interval History:Last visit was on 12/24/2024. Examination Category Sub-Category Detail Notes Category Not [...]
[2025-05-04 14:21] LABS: Hematocrit 36.1 % (37.0-47.0); Hemoglobin 11.1 g/dL (12.0-15.0); Immature Granulocyte Percent A 1.7 % (0-0.5); Lymphocytes Absolute Auto 2.06 K/mm3 (0.9-3.2); Mean Corpuscular HGB Conc 30.7 g/dl (32-36); Mean Corpuscular Hemoglobin 27.4 pg (26-34); Mean Corpuscular Volume 89.1 fl (80-100); Nucleated Red Blood Cells Absolute Auto 0.000 K/mm3 (0.0-0.012); Nucleated Red Blood Cells Perc 0.0 % (0.0-0.2); Platelet Count Result 591 k/mm3 (150-375); Red Blood Count 4.05 M/mm3 (4.2-5.4); White Blood Count 9.0 K/mm3 (4.5-10.0)
[2025-05-04 14:50] LABS: Anion Gap 10 mmol/L (4-12); Blood Urea Nitrogen 20 mg/dL (7-17); Calcium 9.4 mg/dL (8.4-10.2); Carbon Dioxide 22 mmol/L (22-30); Chloride 108 mmol/L (98-107); Estimated Glomerular Filt Rate > 60; Glucose 78 mg/dL (65-110); Potassium 3.3 mmol/L (3.4-5.0); Sodium 140 mmol/L (137-145)
--- OUTSIDE RECORDS SUMMARY | 2025-05-04 15:15 | XMS_ITS | Encounter Summary ---
Author Organization [facility] Address [address] [place] [address] Care Team Providers Care Business Sales Consultant Name Role Phone Wero Welch MD Primary Care Provider [phone] Encounter Details Date Type Department Care Team (Late st Contact Info) Description 04/13/2024 Lab Requisition [facility] - DermPath Lab [address] [place] [id number] Madhu Farley MD [address] [place] [address] Social History Tobacco Use Types Packs/Day Years Used Date Smoking Tobacco: Never Assessed Comments Unknown Sex and Gender Information Value Date Recorded Sex Assigned at Not on file 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 Gender Identity Not on file Sexual Orientation Not on file documented as of this encounter Plan of Treatment Not on file documented as of this encounter Procedures Procedure Name Priority Date/Time Associated Diagnosis Comments DERMATOPATHOLOGY Routine 04/10/2024 3:33 AM CDT documented in this encounter Results * DERMATOPATHOLOGY (04/10/2024 3:33 AM CDT) Case Report Dermatopathology Report Case: [id number] Authorizing Provider: Madhu Farley MD Collected: 04/10/2024 03:33 AM Ordering Location: [facility] Physician [facility] - Received: 04/13/2024 11:45 AM DermPath [...] characteristic determined by the Dermatopathology Laboratory at [facility], directed by Dr. Adelia Trevizo. These tests need not be, and therefore are not, approved by the [place] Food and Drug Administration. The tests are used for clinical purposes. Billing Codes Specimen Charges Stain Charges 20092 92667 96280 77371 1 1 1 1 4 2:03 PM [...] PATHOLOGY/CYTOLOGY ORD ERABLES Final Result DERMATOPATHOLOGY LABORATORY [facility] - Department of Dermatology [facility] Specialized Medicine [facility], 3rd Floor [address] [phone] documented in this encounter Visit Diagnoses Not on filedocumented in this encounter Care Teams Business Sales Consultant Relationship Specialty Start Date End Date Wero Welch MD [address] [place] [address] PCP - General Family Medicine 08/23/15 documented as of this encounter
--- OUTSIDE RECORDS SUMMARY | 2025-05-04 15:15 | XMS_ITS | Patient Health Record ---
Author Organization [facility] ([address]) Address [address] [place] [address] Care Team Providers Care Cold Type Composing Machine Operator Name Role Phone Wero Welch MD Primary Care Provider UnavailGreta Vasquez Unavailable [phone] Allergies Allergen (clinical drug ingredient) Drug/Non Drug Allergy documented on EMR Reaction Allergy Type Onset Date Status Penicillin rash Drug Allergy Active Results Component Value Reference Range Notes ESTRADIOL Reviewed date:02/09/2025 04:01:09 PM Interpretation: Performing Lab:[facility], [address] [place], [address] Coty Garland MD Notes/Report: NON-FASTING; NON-FASTING; NON-FASTING ESTRADIOL 18 Reference Range Follicular Phase: 19-144 Mid-Cycle: 64-357 Luteal Phase: 56-214 Postmenopausal: < or = 31 Reference range established on post-pubertal patient population. No pre-pubertal reference range established using this assay. For any patients for whom low Estradiol levels are anticipated (e.g. males, pre-pubertal children and hypogonadal/post-menopausal females), the [facility] Estradiol, Ultrasensitive, LCMSMS assay is recommended (order code 67545). Please note: patients being treated with the drug fulvestrant (Faslodex(R)) have demonstrated significant interference in immunoassay methods for estradiol measurement. The cross reactivity could lead to falsely elevated estradiol test results leading to an inappropriate clinical assessment of estrogen status. [facility] order code 48724-[id number], Ultrasensitive LC/MS/MS demonstrates negligible cross reactivity with fulvestrant. FSH Reviewed date:02/09/2025 04:01:09 PM Interpretation: Performing Lab:[place], [facility], [address] [place], [address] Coty Garland MD Notes/Report: NON-FASTING; NON-FASTING; NON-FASTING FSH 107.7 Reference Range Follicular Phase 2.5-10.2 Mid-cycle Peak 3.1-17.7 Luteal Phase 1.5- 9.1 Postmenopausal 23.0-116.3 TESTOSTERONE, FREE (DIALYSIS ) AND TOTAL,MS Reviewed date:02/09/2025 04:01:09 PM Interpretation: Performing Lab:[facility], [address] [address], [address], [place], [address] Tobi Martino MD,PhD Notes/Report: NON-FASTING; NON-FASTING; NON-FASTING TESTOSTERONE, TOTAL, MS 11 2-45 ng/dL For additional information, please refer to https://education.SET/faq/ZBZ640 (This link is being provided for informational/educational purposes only.) (Note) This test was developed and its analytical performance characteristics have been determined by [facility] It has not been cleared or approved by the FDA. This assay has been validated pursuant to the CLIA regulations and is used for clinical purposes. TESTOSTERONE, FREE 1.1 0.1-6.4 pg/mL (Note) This test was developed and its analytical performance characteristics have been determined by [employer] It has not been cleared or approved by the FDA. This assay has been validated pursuant to the CLIA regulations and is used for clinical purposes. [facility] [address] [facility] [address] [facility] [address] Tobi Martino MD, PhD Reason For Referral No Information Medications Medication [...] Chronic migraine without aura, non-refractor y (disorder) (956112935243 100) Migraine without aura, not intractable, without status migrainosus (G43.009) Active confirmed Problem Migraine with aura (7798081) Migraine with aura, not intractable, without status migrainosus (G43.109) Active confirmed Problem Chronic migraine without aura, non-intractab le (259503845187 100) Chronic migraine without aura, not intractable, without status migrainosus (G43.709) Active confirmed Problem Unspecified menopausal and perimenopausal disorder (N95.9) Active confirmed Vital Signs Blood pressure diastolic 72 mm Hg 12/24/2024 Oximetry 97 % 12/24/2024 Height 69 in 12/24/2024 Blood pressure systolic 121 mm Hg 12/24/2024 Weight 188.2 lbs 12/24/2024 BMI 27.79 kg/m2 12/24/2024 Encounters Encounter Location Date Provider Diagnosis [facility] [address] [facility] [address] [place] [phone] 12/24/2024 Greta Castrejon Migraine without aur a, [...] Insured Coverage Start Date Coverage End Date [facility] [address] [place] [address] [phone] [id number] Tony Childress Spouse - patient is the spouse of the insured 4 Medical (General) History Medical History History ICD Code Hypercholestrolemia
--- OUTSIDE RECORDS SUMMARY | 2025-05-04 15:15 | XMS_ITS | Encounter Summary ---
Author Organization [facility] Address [address] [place] [address] Phone Care Team Providers Care Ice Rink Attendant Name Role Phone Wero Welch MD Primary Care Provider Magdy Gillis MD Unavailable [phone] Encounter Details Date Type Department Care Team (Latest Contact Info) Description 03/16/2025 Results Follow-Up [facility] [address] [place] [address] Luther Reyes MD [address] [place] [address] Erythrocyte sedimentation rate, CBC with [...] on file Legal Sex Female 7:08 AM FILLER MIXER Gender Identity Not on file Sexual Orientation Not on file documented as of this encounter Plan of Treatment Not on file documented as of this encounter Visit Diagnoses Not on filedocumented in this encounter Care Teams Ice Rink Attendant Relationship Specialty Start Date End Date Wero Welch MD [address] [place] [address] PCP - General 10/07/06 Magdy Gillis MD [address] [place] [address] Consulting Physician Rheumatology 10/12/21 documented as of this encounter
--- OUTSIDE RECORDS SUMMARY | 2025-05-04 15:15 | XMS_ITS | Encounter Summary ---
Author Organization [facility] Address [address] [facility] [place] [address] Care Team Providers Care Halal Meat Packer Name Role Phone Wero Welch MD Primary Care Provider [phone] Encounter Details Date Type Department Care Team (Late st Contact Info) Description 03/29/2022 Lab Requisition [facility] DermPath Lab [address] [facility] [place] [phone] Madhu Farley MD [address] [place] [address] Social History Tobacco Use Types Packs/Day Years Used Date Smoking Tobacco: Never Assessed Comments Unknown Sex and Gender Information Value Date Recorded Sex Assigned at Not on file 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 [employer] Gender Identity Not on file Sexual Orientation Not on file documented as of this encounter Plan of Treatment Not on file documented as of this encounter Procedures Procedure Name Priority Date/Time Associated Diagnosis Comments DERMATOPATHOLOGY Routine 03/28/2022 12:0 0 AM CDT documented in this encounter Results * DERMATOPATHOLOGY (03/28/2022 12:00 AM CDT) Case Report Dermatopathology Report Case: [id number] Authorizing Provider: Madhu Farley MD Collected: 03/28/2022 12:00 AM Ordering Location: [facility] DermPath Lab Received: [...] specimen consists of a shave biopsy measuring 55y43s8 mm. Jar 0. 2 3:57 PM CDT [...] determined by the Dermatopathology Laboratory at [facility], directed by Dr. Adelia Trevizo. These tests need not be, and therefore are not, approved by the [place] Food and Drug Administration. The tests are used for clinical purposes. Billing Codes Specimen Charges Stain Charges 25414 1 2 3:57 PM CDT DERMATOPATHOLOGY LABORATORY Embedded Images 2 3:57 PM CDT DERMATOPATHOLOGY LABORATORY Pathology/Cytolog y TISSUE SPECIMEN FROM SKIN / Unknown 03/28/2022 03/29/2022 12:19 PM CDT us Madhu Farley MD LAB - PATHOLOGY/CYTOLOGY ORD ERABLES Final Result DERMATOPATHOLOGY LABORATORY [facility] - Department of Dermatology [facility] Medicine [address] [place] [address], [address] [place] [address], [facility] [phone] documented in this encounter Visit Diagnoses Not on filedocumented in this encounter Care Teams Halal Meat Packer Relationship Specialty Start Date End Date Wero Welch MD [address] [place] [address] PCP - General Family Medicine 08/23/15 documented as of this encounter
--- OUTSIDE RECORDS SUMMARY | 2025-05-04 15:15 | XMS_ITS | Encounter Summary ---
Author Organization [facility] Address [address] [place] [address] Care Team Providers Care Box Truck Owner Operator Name Role Phone Wero Welch MD Primary Care Provider [phone] Encounter Details Date Type Department Care Team (Late st Contact Info) Description 05/29/2023 Lab Requisition [facility] - DermPath Lab [address] [facility] [place] [phone] Madhu Farley MD [address] [place] [address] Social History Tobacco Use Types Packs/Day Years Used Date Smoking Tobacco: Never Assessed Comments Unknown Sex and Gender Information Value Date Recorded Sex Assigned at Not on file Legal Sex Female 11:14 AM KILNMAN Gender Identity Not on file Sexual Orientation Not on file documented as of this encounter Plan of Treatment Not on file documented as of this encounter Procedures Procedure Name Priority Date/Time Associated Diagnosis Comments DERMATOPATHOLOGY Routine 05/28/2023 3:33 AM KILNMAN documented in this encounter Results * DERMATOPATHOLOGY (05/28/2023 3:33 AM KILNMAN) Case Report Dermatopathology Report Case: [id number] Authorizing Provider: Madhu Farley MD Collected: 05/28/2023 03:33 AM Ordering Location: [facility] DermPath Lab Received: 05/30/2023 07:31 AM Pathologist: Brittnee Contreras MD Specimen: Skin, left medial breast 9:28 AM [facility] DERMATOPATHOLOGY LABORATORY Final Diagnosis Specimen A. SKIN, left medial breast: LICHEN PLANUS-LIKE KERATOSIS (BENIGN LICHENOID KERATOSIS) (L82.1) (see microscopic description) 3 9:28 AM [facility] DERMATOPATHOLOGY LABORATORY at [address] [facility] Clinical History R/O SCC 3 9:28 AM [facility] DERMATOPATHOLOGY LABORATORY Gross Description Specimen A: Received is one formalin filled container labeled with the patient's name and designated left medial breast. The specimen consists of a shave biopsy measuring 7x6x1 mm. Jar 0. 3 9:28 AM [facility] DERMATOPATHOLOGY LABORATORY Microscopic Description Specimen A. SKIN, left medial breast: The epidermis is mildly acanthotic. There is a lichenoid infiltrate with vacuolar changes of basilar keratinocytes and scattered necrotic keratinocytes. MelanA and HMB45 do not highlight an underlying atypical melanocytic proliferation. Additional deeper sections were obtained and reviewed. 3 9:28 AM [facility] DERMATOPATHOLOGY LABORATORY Disclaimer An external [...] purposes. Billing Codes Specimen Charges Stain Charges 72606 1 93977 65436 1 1 3 9:28 AM [facility] DERMATOPATHOLOGY LABORATORY Embedded Images 3 9:28 AM [facility] DERMATOPATHOLOGY LABORATORY Pathology/Cytolo gy TISSUE SPECIMEN FROM SKIN / Unknown 05/28/2023 3:33 AM KILNMAN 05/30/2023 7:31 AM [facility] Madhu Farley MD LAB - PATHOLOGY/CYTOLOGY ORD ERABLES Final Result DERMATOPATHOLOGY LABORATORY [facility] - Department of Dermatology [address], [address] [phone] documented in this encounter Visit Diagnoses Not on filedocumented in this encounter Care Teams Box Truck Owner Operator Relationship Specialty Start Date End Date Wero Welch MD [address] [place] [address] PCP - General Family Medicine 08/23/15 documented as of this encounter
--- OUTSIDE RECORDS SUMMARY | 2025-05-04 15:15 | XMS_ITS | Clinical Summary ---
Author Organization [facility] [address] [facility] [address] Address [address] [facility] [address] [place] [address] Care Team Providers Care Bricklayer Sewer Name Role Phone Wero Welch MD Primary Care Provider Magdy Tellez MD Unavailable [phone] Allergies Active Allergy Reactions Criticality Noted [...] eval. Assessment & Plan (08/10/2024 5:36 PM TETRYL SCREEN OPERATOR): Her mother has psoriasis. Rt elbow [...] psoriasis. Assessment & Plan (08/10/2024 1:57 PM TETRYL SCREEN OPERATOR): Avise 05/2024---+FABI 38/1:80\ Mother had psoriasis. Assessment & Plan (06/18/2024 8:19 AM TETRYL SCREEN OPERATOR): Avise 05/2024---+FABI 38/1:80 Neck pain 06/18/2024 [...] chronic, cervical spine Neck pain Performing Department: [facility] ([facility]) [address] [place] [address] Accession Number: [id number] PCP: Wero Welch EXAMINATION: Magnetic resonance imaging [...] C5-C6. Assessment & Plan (08/10/2024 1:49 PM TETRYL SCREEN OPERATOR): Previous CT showed C spine stenosis [...] [place]. Assessment & Plan (06/18/2024 2:57 PM TETRYL SCREEN OPERATOR): Previous CT showed C spine stenosis and pt continues to have a lot of radicular neck pain that interferes with her every day life and her sleep. Will start PT, order c spine MRI and refer her to Dr. Collin Tafoya for opinion. She will also continue with her pain mgmt in [place]. Dry skin 06/04/2024 Assessment & Plan (06/04/2024 1:54 PM TETRYL SCREEN OPERATOR): Check tsh. Chronic pain of both knees 06/04/2024 Assessment & Plan (06/04/2024 1:54 PM TETRYL SCREEN OPERATOR): Mostly rt knee pain and occ swelling,check rt knee xray. Myalgia 06/04/2024 Assessment & Plan (06/04/2024 1:55 PM TETRYL SCREEN OPERATOR): No muscle weakness on exam. Check cpk. Pain in both feet 06/04/2024 Assessment & Plan (06/04/2024 2:07 PM TETRYL SCREEN OPERATOR): Check bilat foot xrays. Positive FABI [...] effusion Assessment & Plan (06/04/2024 8:43 AM TETRYL SCREEN OPERATOR): Last seen 10/2021 (see previous notes [...] if she flares on her trip to [place] in March. Seen with Dr Tellez today. [...] OA Assessment & Plan (08/10/2024 5:37 PM TETRYL SCREEN OPERATOR): Images from the original note were [...] OA Assessment & Plan (06/18/2024 2:57 PM TETRYL SCREEN OPERATOR): Images from the original note were [...] OA Assessment & Plan (06/04/2024 1:56 PM TETRYL SCREEN OPERATOR): Last seen 10/2021. Long hx of [...] (02/03/2019): Added automatically from request for surgery [id number] Resolved Problems Problem Noted Date Diagnosed Date Resolved Date Myopathy 11/14/2013 06/04/2024 Overview (10/05/2016): MYALGIA AND MYOSITIS NOS Encounters Date Type Department Care Team Description 03/16/2025 Results Follow-Up [facility] [address] [place] [phone] Luther Reyes MD Erythrocyte sedimentation rate, CBC with auto differential, CRP (acute phase), Additional followed-up results: 3 03/15/2025 1:45 PM CDT Office Visit [address] [address] Nimisha Sanchez PA Seronegative rheumatoid arthritis (HCC) (Primary Dx); Encounter for long-term (current) use of medications; Other fatigue; Snoring; Vitamin D deficiency 02/16/2025 Results Follow-Up [address] [address] Luther Reyes MD Urinalysis reflex to microscopic, Erythrocyte sedimentation rate, CBC with auto differential, Additional followed-up results: 10 02/11/2025 1:30 PM CDT Office Visit [address] [address] Nimisha Sanchez PA Polyarthralgia (Primary Dx); Encounter [...] on file Legal Sex Female 7:08 AM TETRYL SCREEN OPERATOR Gender Identity Not on file Sexual Orientation Not on file Last Filed Vital Signs Vital Sign Reading Time Taken Comments Blood Pressure 128/74 03/15/2025 1:13 PM CDT Pulse 69 03/15/2025 1:13 PM CDT Temperature 36.3 C (97.4 F) 07/22/2024 8:03 AM TETRYL SCREEN OPERATOR Respiratory Rate 15 07/22/2024 8:15 AM TETRYL SCREEN OPERATOR Oxygen Saturation 97% 03/15/2025 1:13 PM CDT [...] Tdap) 07/17/2028 Medical Devices Explanted Type Area Opener Device Identifier Shelf Expiration Date Model / Serial / Lot [id number] Rosado Flexi-Stent 7fr 3cm Small Pigtail Flexible .035in Stent - [id number] Implanted:Qty: 1 on 02/02/2019 by Neville Robbins MD at [facility] Explanted:Qty: 1 on 02/04/2019 by Neville Robbins MD Stent N/A: Pancreas NERI 07/31/2023 [id number] / / [id number] Conmed Rudy [id number] Viabil 8mm 8.5fr 60mm 200cm Expandable Pull Line Without Holes - [id number] - [id number] Implanted:Qty: 1 on 02/02/2019 by Neville Robbins MD at [facility] Explanted:Qty: 1 on 02/04/2019 by Neville Robbins MD Stent N/A: Bile Duct Conmed Rudy 05/11/2021 [id number] / [id number] / Procedures Procedure Name Priority Date/Time Associated [...] with auto differential (03/15/2025 2:39 PM CDT) Pathologist [facility] WBC 7.6 3.8 - 10.8 Thousand/u L [...] ORDERAB LES Final Result Performing Organization Address City/[facility]/ZIP Co de Phone Number [facility] [address] [place] [address] * Vitamin D 25 hydroxy (03/15/2025 2:39 [...] D, (D2,D3), LC/MS/MS is recommended: order code 44155 (patients >2yrs). See Note 1 Note 1 For additional information, please refer to http://education.GroupMe.zhouwu/faq/FLA642 (This link is being provided for informational/ educational purposes only.) 03/15/2025 2:39 PM CDT 03/15/2025 2:40 PM CDT Nimisha MARC LAB BLOOD ORDERAB LES Final Result [facility] [address] [place] [address] * Erythrocyte sedimentation rate (03/15/2025 2:39 PM CDT) [facility] Erythrocyte sedimentation rate 14 < OR = 30 mm/h [facility] Blood 03/15/2025 2:39 PM CDT 03/15/2025 2:40 PM CDT Nimisha MARC LAB BLOOD ORDERAB LES Final Result Performing Organization Address [facility] Co de Phone Number [facility] [address] [place] [address] * CRP (acute phase) (03/15/2025 2:39 PM CDT) [facility] C-RP <3.0 <8.0 mg/L [facility] Blood 03/15/2025 2:39 PM CDT 03/15/2025 2:40 PM CDT Nimisha MARC LAB BLOOD ORDERAB LES Final Result Performing Organization Address [facility] de Phone Number [facility] [address] [place] [address] * TSH (03/15/2025 2:39 PM CDT) [facility] TSH 1.32 0.40 - 4.50 mIU/L [facility] 03/15/2025 2:39 PM CDT 03/15/2025 2:40 PM CDT Nimisha MARC LAB BLOOD ORDERAB LES Final Result Performing Organization Address [facility] Co de Phone Number [facility] [address] [place] [address] * Comprehensive metabolic panel (03/15/2025 2:39 PM CDT) Glucose 88 65 - 99 mg/dL [facility] [...] LAB BLOOD ORDERAB LES Final Result [facility] [address] [place] [address] * Myositis Specific 11 Ab Panel (02/11/2025 2:38 PM CDT) KIMBERLEE-1 AB <11 <11 SI [facility], PL-7 AB <11 <11 SI [facility]/N [facility], PL-12 AB <11 <11 SI [facility]/N [facility], EJ AB <11 <11 SI [facility]/N [facility], OJ AB <11 <11 SI [facility]N [facility], SRP AB <11 <11 SI [facility]/N [facility], CO-2 Alpha AB <11 <11 SI [facility]/N [facility], CO-2 Beta AB <11 <11 SI [facility]/N [facility], MDA-5 AB <11 <11 SI [facility]/N [facility], TIF-1y AB <11 <11 SI [facility]/N [facility], NXP-2 AB <11 <11 SI [facility], Comment: Myositis-specific autoantibodies (MSAs) are highly selective, [...] with a rash. Additionally, MSAs to MDA5 ([id number]) have been identified in patients with clinically [...] analytical performance characteristics have been determined by [address]. It has not been cleared or approved by the FDA. This assay has been validated pursuant to the CLIA regulations and is used for clinical purposes. 02/11/2025 2:38 PM CDT 02/11/2025 2:40 PM CDT Nimisha MARC LAB BLOOD ORDERAB LES Final Result Performing Organization Address City/[facility]/ZIP Co de Phone Number [facility] [address]/[facility], [address] [place] [address] * Anti-double stranded DNA abs (02/11/2025 2:38 PM CDT) DNA (DS) ab <1 IU/mL [facility] Comment: IU/mL Interpretation < or = 4 Negative 5-9 Indeterminate > or = 10 Positive Blood 02/11/2025 2:38 PM CDT 02/11/2025 2:40 PM CDT Nimisha MARC LAB BLOOD ORDERAB LES Final Result Performing Organization Address City/[facility]/ZIP Co de Phone Number [facility] [address] [place] [address] * NOTE (02/11/2025 2:38 PM CDT) Note [facility] Comment: This urine was analyzed for the presence of WBC, RBC, bacteria, casts, and other formed elements. Only those elements seen were reported. 02/11/2025 2:38 PM CDT 02/11/2025 2:40 PM CDT Nimisha MARC LAB BLOOD ORDERAB LES Final Result [facility] [address] [place] [address] * C4 complement (02/11/2025 2:38 PM CDT) Complement component C4C 20 15 - 57 mg/dL [facility] Blood 02/11/2025 2:38 PM CDT 02/11/2025 2:40 PM CDT us Nimisha MARC LAB BLOOD ORDERAB LES Final Result Performing Organization Address [facility] Co de Phone Number [facility] [address] [place] [address] * (ABNORMAL) Urinalysis reflex to microscopic (02/11/2025 2:38 PM CDT) Color, ur YELLOW YELLOW [facility] Appearance, ur CLEAR CLEAR [facility] Specific gravity 1.021 1.001 - 1.035 [facility] pH, ur < OR = 5.0(A) 5.0 - 8.0 [facility] Glucose, ur NEGATIVE NEGATIVE [facility] Bilirubin, ur NEGATIVE NEGATIVE [facility] Ketones, ur NEGATIVE NEGATIVE [facility] Blood, ur TRACE(A) NEGATIVE [facility] Protein, ur, quant NEGATIVE NEGATIVE [facility] Nitrites, ur NEGATIVE NEGATIVE [facility] Leukocyte esterase, ur NEGATIVE NEGATIVE [facility] WBC, ur 0-5 < OR = 5 /HPF [facility] RBC, ur 0-2 < OR = 2 /HPF [facility] Epithelial cells, squamous, ur 0-5 < OR = 5 /HPF [facility] Bacteria, ur, quant NONE SEEN NONE SEEN /HPF [facility] Calcium oxalate crystals, ur MODERATE(A) NONE OR FEW /HPF [facility] Hyaline cast NONE SEEN NONE SEEN /LPF [facility] Urine 02/11/2025 2:38 PM CDT 02/11/2025 2:40 PM CDT us Nimisha MARC LAB URINE ORDERAB LES Final Result [facility] [address] [place] [address] * CBC with auto differential (02/11/2025 2:38 PM CDT) Pathologist [facility] WBC 9.6 3.8 - 10.8 Thousand/u L [...] ORDERAB LES Final Result Performing Organization Address [facility] Co de Phone Number [facility] [address] [place] [address] * Protein / creatinine ratio, urine, random [...] ORDERAB LES Final Result Performing Organization Address [facility] de Phone Number [facility] [address] [place] [address] * Aldolase (02/11/2025 2:38 PM CDT) Pathologist [facility] ALDOLASE 4.6 < OR = 8.1 U/L [facility] 02/11/2025 2:38 PM CDT 02/11/2025 2:40 PM CDT Nimisha MARC LAB BLOOD ORDERAB LES Final Result Performing Organization Address [facility] Co de Phone Number [facility] [address] [place] [address] * Erythrocyte sedimentation rate (02/11/2025 2:38 PM CDT) Erythrocyte sedimentation rate 14 < OR = 30 mm/h [facility] Blood 02/11/2025 2:38 PM CDT 02/11/2025 2:40 PM CDT Nimisha MARC LAB BLOOD ORDERAB LES Final Result Performing Organization Address City/[facility]/ZIP Co de Phone Number [facility] [address] [place] [address] * C3 complement (02/11/2025 2:38 PM CDT) Pathologist [facility] Complement component C3C 154 83 - 193 mg/dL [facility] Blood 02/11/2025 2:38 PM CDT 02/11/2025 2:40 PM CDT Nimisha MARC LAB BLOOD ORDERAB LES Final Result Performing Organization Address [facility] Co de Phone Number [facility] [address] [place] [address] * CRP (acute phase) (02/11/2025 2:38 PM CDT) C-RP <3.0 <8.0 mg/L [facility] Blood 02/11/2025 2:38 PM CDT 02/11/2025 2:40 PM CDT Nimisha Catalina MARC LAB BLOOD ORDERAB LES Final Result Performing Organization Address [facility] Co de Phone Number [facility] [address] [place] [address] * Creatine kinase (CK), total (02/11/2025 2:38 PM CDT) CK 115 21 - 240 U/L [facility] 02/11/2025 2:38 PM CDT 02/11/2025 2:40 PM CDT us Nimisha MARC LAB BLOOD ORDERAB LES Final Result [facility] [address] [place] [address] * Comprehensive metabolic panel (02/11/2025 2:38 PM [...] LAB BLOOD ORDERAB LES Final Result [facility] [address] [place] [address] from Last 3 Months Insurance [facility] OTHER Address[phone] [place] [phone] [employer] [facility] OTHER Address: [phone] [place] [address] [employer] CHOICE [employer] ACCESS CHOICE [place] [employer] ACCESS CHOICE [place] Advance Directives For more information, please contact: [phone] * Full Code (Latest Code Status on File) Date Activated Date Inactivated Comments 02/03/2019 12:36 PM 02/04/2019 6:25 PM Care Teams Bricklayer Sewer Relationship Specialty Start Date End Date Wero Welch MD [address] [facility] [address] [place] [address] PCP - General 10/07/06 Magdy Tellez MD [address] [place] [address] Consulting Physician Rheumatology 10/12/21
--- OUTSIDE RECORDS SUMMARY | 2025-05-04 15:15 | XMS_ITS | Encounter Summary ---
Author Organization [facility] Address [address] [place] [address] Care Team Providers Care Curtain Mender Name Role Phone Wero Welch MD Primary Care Provider [phone] Encounter Details Date Type Department Care Team (Late st Contact Info) Description 04/20/2024 Lab Requisition [facility] - DermPath Lab [address] [place] [id number] Madhu Farley MD [address] [place] [address] Social History Tobacco Use Types Packs/Day Years Used Date Smoking Tobacco: Never Assessed Comments Unknown Sex and Gender Information Value Date Recorded Sex Assigned at Not on file 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 Gender Identity Not on file Sexual Orientation Not on file documented as of this encounter Plan of Treatment Not on file documented as of this encounter Procedures Procedure Name Priority Date/Time Associated Diagnosis Comments DERMATOPATHOLOGY Routine 04/17/2024 12:0 0 AM CDT documented in this encounter Results * DERMATOPATHOLOGY (04/17/2024 12:00 AM CDT) Case Report Dermatopathology Report Case: [id number] Authorizing Provider: Madhu Farley MD Collected: 04/17/2024 12:00 AM Ordering Location: [facility] - Received: 04/20/2024 01:51 [...] specimen consists of a shave biopsy measuring 77o87h6 mm. Jar 0. Specimen B: Received is [...] characteristic determined by the Dermatopathology Laboratory at [facility], directed by Dr. Adelia Trevizo. These tests need not be, and therefore are not, approved by the [place] Food and Drug Administration. The tests are used for clinical purposes. Billing Codes Specimen Charges Stain Charges 69653 61895 [id number] 1 1 1 1 12:55 PM CDT [...] PATHOLOGY/CYTOLOGY ORD ERABLES Final Result DERMATOPATHOLOGY LABORATORY [facility] - Department of Dermatology [address] [phone] documented in this encounter Visit Diagnoses Not on filedocumented in this encounter Care Teams Curtain Mender Relationship Specialty Start Date End Date Wero Welch MD [address] [place] [address] PCP - General Family Medicine 08/23/15 documented as of this encounter
--- OUTSIDE RECORDS SUMMARY | 2025-05-04 15:15 | XMS_ITS | Clinical Summary ---
Author Organization [facility] Address [address] [place] [address] Care Team Providers Care Medical Practice Administrator Name Role Phone Wero Welch MD Primary Care Provider Source Comments [facility],non-owned Affiliates and Associated Physician Practices is amultiple site organization consisting of ambulatory clinics and hospital sitesin [place], [place]. This disclosure is being madepursuant to the Care Everywhere program and may not contain all information available regarding this patient. 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
--- OUTSIDE RECORDS SUMMARY | 2025-05-04 15:16 | XMS_ITS | Patient Health Record ---
Author Organization [facility] Address [address] [place] [address] Care Team Providers Care Food Services Manager Name Role Phone Wero Welch MD Primary Care Provider Emilie RIOS COLLECT ON DELIVERY CLERK, JOSEPH Unavailable Allergies Allergen (clinical drug ingredient) Drug/Non Drug Allergy documented on EMR Reaction Allergy Type Onset Date Status Keflex rash Drug Allergy Active Reason For Referral No Information Medications Medication SIG (Take, Route, Frequency, Duration) Notes Start Date End Date Status Atorvastatin Calcium 10 MG 1 tablet Orally Once a day Active Vitamin A & D [address] UNIT as directed Orally Active Vitamin K [...] W/U Status Risk Notes Problem 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 Short term stenting. Colonoscopy 2004 no reports EGD [facility] 08/2009 Normal Duodenal bx neg ERCP 02/02/19 Aliperti recur rent papillary stenosis s/p biliary and pancreatic sphinterotomies. Short term dual duct stents placed and removed 02/04/19.
== END 2025-05-04 13:47 | disposition home or self-care (01) ==
LOC: HOME HLTH 13:47
PROVIDERS: PCP Family Medicine; Visit Provider Physician Assistant
DX: Z47.1 Aftercare following joint replacement surgery (principal); Z96.641 Presence of right artificial hip joint; E87.6 Hypokalemia; D64.9 Anemia, unspecified
CPT/HCPCS: 80048; 85025

== ENCOUNTER 2025-06-11 09:44 | Outpatient (CLI) | payer BC, SELFPAY ==
--- NOTE | 2025-04-29 13:53 | WPDGIPROGNO ---
Progress Note: A&P Assessment and Plan (1) Postoperative ileus: Code(s): K91.89 - Other postprocedural complications and disorders of digestive system; K56.7 - Ileus, unspecified Status: Acute Assessment and Plan: bowel function has improved after medical treatment tolerating diet, continue with daily linzess she is going home today and already set up office visit to see her regular GI doctor (2) Abdominal distension (gaseous): Code(s): R14.0 - Abdominal distension (gaseous) Status: Acute Assessment and Plan: this has improved (3) Constipation: Qualifiers: Constipation type: unspecified constipation type Qualified Code(s): K59.00 - Constipation, unspecified Code(s): K59.00 - Constipation, unspecified Status: Acute (4) Hypokalemia: Code(s): E87.6 - Hypokalemia Status: Acute Assessment and Plan: treated (5) S/P total hip arthroplasty: Qualifiers: Laterality: right Qualified Code(s): Z96.641 - Presence of right artificial hip joint Code(s): Z96.649 - Presence of unspecified artificial hip joint Status: Acute Subjective Date/time seen: 04/29/25 11:13 Interval history: feeling better and ready to go home Review of Systems Review of Systems: All systems reviewed & are unremarkable except as noted in HPI and below Exam Const: General: comfortable and no acute distress HENMT: Face/Nose/Sinus: Normal nares present Eyes: General: appearance normal, both eyes and all related structures Neck: Neck: no JVD Resp: Auscultation: clear to auscultation bilaterally Cardio: Rate: regular rate Rhythm: regular rhythm GI: GI Palp: Yes Soft to palpation and No Tenderness to palpation present (GI) Auscultation: normal bowel sounds Skin: General skin exam: normal color Neuro: Speech: normal speech Extrem: General: normal to inspection Psych: Mental Status: mental status grossly normal
== END 2025-06-11 09:45 | disposition home or self-care (01) ==
LOC: ANHAUDIO 09:44
PROVIDERS: PCP Family Medicine; Visit Provider Otolaryngology
DX: H93.13 Tinnitus, bilateral (principal); K91.89 Other postprocedural complications and disorders of digestive system; R14.0 Abdominal distension (gaseous); K59.00 Constipation, unspecified; E87.6 Hypokalemia; Z96.641 Presence of right artificial hip joint
CPT/HCPCS: 92557; 92567